=== PATIENT | female | born 1945 | race Caucasian/White ===

== ENCOUNTER → 2017-04-28 | Outpatient (CLI) | payer MEDICARE ==
[2017-04-28 11:54] LABS: Basophils % (A) 1 %; CH 28.1; CHCM 33.5; Eosinophils # (A) 0.3 k/uL (0-0.7); Eosinophils % (A) 4 %; HCT 37.7 % (34.0-46.0); HDW 3.57; HGB 12.7 gm/dL (11.4-16.0); Luc # (Auto) 0.14; Luc % (Auto) 2; Lymphocytes # (A) 2.3 k/uL (1.0-4.8); Lymphocytes % (A) 34 %; MCH 28.5 pg (25.0-35.0); MCHC 33.7 g/dL (31.0-37.0); MCV 84.5 fL (80.0-100.0); Mean Platelet Volume 7.5; Monocytes # (A) 0.4 k/uL (0-1.0); Monocytes % (A) 6 %; Neutrophils # (A) 3.6 k/uL (1.3-7.7); Neutrophils % (A) 54 %; Poikilocytosis Slight; RBC 4.46 m/uL (3.80-5.40); RDW 14.9 % (11.5-15.5); WBC 6.7 k/uL (3.8-10.6); WBC (Perox) 6.98
== END | disposition home or self-care (01) ==
LOC: LABPAT 11:21
PROVIDERS: ATTEND Obstetrics & Gynecology
DX: Z01.810 Encounter for preprocedural cardiovascular examination (principal); Z01.818 Encounter for other preprocedural examination; I10 Essential (primary) hypertension
CPT/HCPCS: 36415; 85025; 93005

== ENCOUNTER → 2017-05-05 | Day surgery (SDC) | payer MEDICARE ==
[2017-04-27 15:37] VITALS: BMI 44.2
[~2017-05-05] MED LIST: ACETAMINOPHEN IV (For NPO) 1,000 MG in EMPTY BAG 1 BAG IVPB ONE; ACETAMINOPHEN IV (For NPO) 1,000 MG/100 ML VIAL IVPB ONE; ALBUTEROL INHALER 60 PUFF/8 GM INHALER INHALATION ONE; HYDROmorphone 1 MG/ML 1 ML SYRINGE IVP PRN; LACTATED RINGERS 1,000 ML IV SCH; LIDOCAINE 1% 20 ML VIAL (10MG/ML) FOR IV START INTRADERMA ONE; METOCLOPRAMIDE 5 MG/ML 2 ML VIAL IVP PRN; MIDAZOLAM 2 MG/2 ML VIAL IV PRN; MIDAZOLAM 2 MG/2 ML VIAL ONE; ONDANSETRON 4 MG/2 ML VIAL IVP ONE; ONDANSETRON 4 MG/2 ML VIAL IVP PRN; PROPOFOL 10 MG/ML 20 ML VIAL IV ONE; Pre Op ABX Message 1 EACH MISC MISCELLANE ONE; ROCURONIUM BROMIDE 10 MG/ML 10 ML VIAL IV ONE; SIMETHICONE 80 MG CHEWABLE PO PRN; SUCCINYLCHOLINE CHLORIDE 100 MG/5 ML SYR IV ONE; diphenhydrAMINE 50 MG/ML 1 ML VIAL IVP PRN; fentaNYL (PF) 50 MCG/ML 2 ML AMP ONE
[2017-05-05 10:15] VITALS: RESP 16
[2017-05-05 10:38] LABS: Glucose,Whole Blood 128 mg/dL (75-99)
--- NOTE | 2017-05-05 11:23 | P.OP ---
Date of Procedure: 05/05/17 Preoperative Diagnosis: #1. Postmenopausal bleeding #2. Cervical stenosis Postoperative Diagnosis: Same plus #3. Probable endometrial polyp Procedure(s) Performed: #1. Diagnostic hysteroscopy #2. Dilation and curettage #3. Endometrial polypectomy Implants: Anesthesia: GETA Surgeon: Michael Calero Estimated Blood Loss (ml): 5 IV fluids (ml): 500 Urine output (ml): 30 Pathology: other (Endometrial contents/curettings) Condition: stable Disposition: PACU Indications for Procedure: Operative Findings: Preoperatively, the patient was noted on transvaginal pelvic ultrasound to have a significantly thickened endometrial stripe as well as what appeared to be an endometrial polyp present within the cavity. Under anesthesia, uterus was felt to be 4 weeks in size, midplane, mobile the, normal in shape. The adnexa were not appreciated bilaterally. The uterus sounded to 8 cm in size. Using the hysteroscope, the right tubal ostia was seen and the right portion of the endometrial cavity appeared to be atrophic in nature while the left portion of the endometrial cavity appeared to be occupied nearly entirely by what was thought to be a polypoid structure. The left tubal ostia was never seen. With curettage, there was a moderate amount of polypoid tissue removed from the left aspect of the uterus mostly along the anterior wall. Otherwise, the typical gritty uterine texture was encountered throughout. A polyp forceps delivered further polypoid appearing tissue. Overall, a moderate to significant amount of tissue was removed in the setting of a postmenopausal patient. Description of Procedure: The patient was prepped and draped in usual fashion after general endotracheal anesthesia was administered by the anesthesiologist. There was some difficulty in intubation as the patient has difficult anatomy. Once anesthesia was established, a weighted speculum was placed and the bladder drained of approximately 30 mL of clear nba urine. The anterior lip of the cervix was grasped with a single-tooth tenaculum and uterus sounded 8 cm as noted above. Serial dilation was carried out to admit the diagnostic hysteroscope. The uterus was distended using sorbitol with the findings as noted above. 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 Once hysteroscopy had been carried out and adequate, the scope was set aside and further dilation carried out to admit a medium sharp curette. Sharp curettage was carried out circumferentially and thoroughly from the fundus to the cervix onto a Telfa placed in the vagina. Once several passes of been made with the sharp curet, the curet was set aside and replaced with a polyp forceps. The polyp forceps continued to yield small to moderate amount of fluffy polypoid soft tissue which was placed with remainder of the specimen and sent for pathological diagnoses. Again, the typical gritty texture was felt throughout. There was minimal ongoing bleeding from the cervix. The tenaculum was released with no further ongoing bleeding. All instrumentation was then removed. Estimated blood loss for the case was 5 mL or less. There are no complications. All sponge, instrument, and needle counts were correct. The patient tolerated the procedure well and proceeded to the recovery room in stable condition.
[2017-05-05 11:38] VITALS: TEMP 97.4
[2017-05-05 13:00] VITALS: BP 134/62; PULSE 57
== END | disposition home or self-care (01) ==
LOC: OR 09:47
PROVIDERS: ATTEND Obstetrics & Gynecology
DX: C54.1 Malignant neoplasm of endometrium (principal); N85.01 Benign endometrial hyperplasia; N95.0 Postmenopausal bleeding; N88.2 Stricture and stenosis of cervix uteri; D64.9 Anemia, unspecified; J45.909 Unspecified asthma, uncomplicated; E11.9 Type 2 diabetes mellitus without complications; I10 Essential (primary) hypertension; E07.9 Disorder of thyroid, unspecified; I48.91 Unspecified atrial fibrillation; Z79.01 Long term (current) use of anticoagulants; Z79.1 Long term (current) use of non-steroidal anti-inflammatories (NSAID); Z79.82 Long term (current) use of aspirin; Z79.899 Other long term (current) drug therapy; Z88.6 Allergy status to analgesic agent; Z88.1 Allergy status to other antibiotic agents; Z88.0 Allergy status to penicillin; Z88.2 Allergy status to sulfonamides; Z88.8 Allergy status to other drugs, medicaments and biological substances; Z72.0 Tobacco use
CPT/HCPCS: 58558; 88305; 88342; 88341; J2250; J2405; J3010; J0131; J0330; J2704

== ENCOUNTER 2017-06-04 20:21 | Emergency (ER) | payer MEDICARE ==
[2017-06-04 20:54] LABS: Basophils % (A) 0 %; CH 28.4; CHCM 33.6; Eosinophils % (A) 0 %; HCT 22.1 % (34.0-46.0); Luc % (Auto) 1; Lymphocytes # (A) 1.3 k/uL (1.0-4.8); Lymphocytes % (A) 9 %; MCH 28.7 pg (25.0-35.0); MCHC 33.8 g/dL (31.0-37.0); MCV 85.1 fL (80.0-100.0); Mean Platelet Volume 7.5; Monocytes # (A) 0.8 k/uL (0-1.0); Monocytes % (A) 5 %; Neutrophils # (A) 13.3 k/uL (1.3-7.7); Neutrophils % (A) 86 %; Poikilocytosis Slight; RDW 15.8 % (11.5-15.5); WBC 15.6 k/uL (3.8-10.6); WBC (Perox) 15.92
[2017-06-04 20:59] LABS: HGB 7.5 gm/dL (11.4-16.0)
[2017-06-04 21:00] VITALS: RESP 18
[2017-06-04 21:05] LABS: ALT 38 U/L (9-52); AST 18 U/L (14-36); Alkaline Phosphatase 45 U/L (38-126); Amylase <30 U/L (30-110); Anion Gap 10 mmol/L; Blood Urea Nitrogen 16 mg/dL (7-17); Carbon Dioxide 20 mmol/L (22-30); Chloride 106 mmol/L (98-107); Glucose 237 mg/dL (74-99); Non-African American GFR(MDRD) 34 (>60 ml/min/1.73 sqM); Sodium 136 mmol/L (137-145); Total Bilirubin 0.2 mg/dL (0.2-1.3); Total Protein 4.7 g/dL (6.3-8.2)
[2017-06-04 21:19] LABS: INR 1.3 (<1.2); Prothrombin Time 13.1 sec (9.0-12.0)
--- NOTE | 2017-06-04 21:19 | XR ---
EXAMINATION TYPE: XR KUB DATE OF EXAM: 06/04/2017 COMPARISON: NONE HISTORY: Abdominal pain TECHNIQUE: 3 views FINDINGS: I see no sign of intestinal obstruction or pneumoperitoneum. Fecal pattern is normal. There are spondylotic changes in the lumbar spine. There are no pathologic calcifications over the kidneys . There is extensive abnormal mixed density in the subcutaneous region around the right and left abdome n extending to the pelvis consistent with extensive subcutaneous emphysema. IMPRESSION: Extensive subcutaneous emphysema that should be correlated with physical exam. No sign of pneumoperitoneum.
[2017-06-04] MEDS ORDERED: IOHEXOL 350 MG/ML 25 ML BOTTLE (ORAL USE) PO PRN (21:21)
[2017-06-04] MEDS ORDERED: RX INFO: IV CONTRAST WAS GIVEN 1 EACH MISC MISCELLANE PRN (21:21)
[2017-06-04] MEDS ORDERED: CEFEPIME 2 GM in SODIUM CHLORIDE 0.9% 50 ML IVPB STA (21:24)
[2017-06-04] MEDS ORDERED: SODIUM CHLORIDE 0.9% 1,000 ML IV ONE ×2 (21:25→21:57)
--- NOTE | 2017-06-04 21:33 | ED ---
Abdominal Pain HPI - General Chief Complaint: Abdominal Pain Stated Complaint: abd pain Time Seen by Provider: 06/04/17 20:40 Source: EMS Mode of arrival: EMS Limitations: no limitations - History of Present Illness Initial Comments: This patient is a 72-year-old woman who presents today because she is not feeling well. The patient relates that on Thursday she had a laparoscopic hysterectomy due to having uterine cancer. This was performed at [facility] and she was discharged yesterday. She states that since going home she has began developing abdominal pain. She states that initially it was across the lower abdomen mainly when she would get up to use the bathroom. She states that over the course of today she has been mainly having pain in the right upper quadrant area. She is not able to characterize it well stating that mainly is sharp. The pain is worse with movement slightly better lying still. She states that she did have a bowel movement earlier today but she has not had any urination today. She also is feeling extremely weak and she states was no longer able to get up to use the bathroom at home. Patient has also been feeling hot and cold though has not documented a fever. She did have an episode of vomiting. MD Complaint: abdominal pain Onset/Timin -: days(s) Location: RUQ Radiation: none Migration to: no migration Severity: moderate Quality: aching Consistency: constant Improves With: nothing Worsens With: nothing Associated Symptoms: nausea, vomiting - Related Data Home Medications Medication Instructions Recorded Confirmed ALPRAZolam [Xanax] 0.25 mg PO HS PRN 06/19/15 06/04/17 Loratadine [Claritin] 10 mg PO DAILY 06/19/15 06/04/17 Losartan [Cozaar] 50 mg PO DAILY 06/19/15 06/04/17 Montelukast [Singulair] 10 mg PO HS 06/19/15 06/04/17 Oxybutynin Chloride [Ditropan] 2.5 mg PO BID 06/19/15 06/04/17 Pravastatin Sodium [Pravachol] 40 mg PO PC-SUPPER 06/19/15 06/04/17 metroNIDAZOLE 1% GEL [Metrogel 1%] 1 applic TOPICAL QAM 06/19/15 06/04/17 Warfarin [Coumadin] 5 mg PO DAILY 04/29/16 06/04/17 Fluticasone Propionate [Flovent 1 puff INHALATION RT-BID PRN 04/27/17 06/04/17 Hfa 110mcg] Albuterol Inhaler [Ventolin Hfa 1 - 2 puff INHALATION RT-QID PRN 06/04/17 Inhaler] Atenolol [Tenormin] 25 mg PO HS 06/04/17 06/04/17 Enoxaparin [Lovenox] 100 mg SQ Q12H 06/04/17 06/04/17 Levothyroxine Sodium [Synthroid] 100 mcg PO DAILY 06/04/17 06/04/17 [place]-3 Fatty Acids/Fish Oil [Fish 1 cap PO DAILY 06/04/17 06/04/17 Oil 1,000 mg Softgel] Psyllium Husk 100% [Metamucil 6 gm PO DAILY 06/04/17 06/04/17 Packet] Previous Rx's Medication Instructions Recorded Aspirin 81 mg PO DAILY chew 06/20/15 Allergies Allergy/AdvReac Type Severity Reaction Status Date / Time adhesive Allergy Rash/Hives Verified 06/04/17 20:48 budesonide [From Symbicort] Allergy Rash/Hives Verified 06/04/17 20:48 formoterol fumarate Allergy Rash/Hives Verified 06/04/17 20:48 [From Symbicort] naproxen sodium [From Aleve] Allergy Rash/Hives Verified 06/04/17 20:48 niacin Allergy Rash/Hives Verified 06/04/17 20:48 Penicillins Allergy Rash/Hives Verified 06/04/17 20:48 prednisone Allergy Rash/Hives Verified 06/04/17 20:48 Sulfa (Sulfonamide Allergy Rash/Hives Verified 06/04/17 20:48 Antibiotics) codeine AdvReac Abdominal Verified 06/04/17 20:48 Pain levofloxacin [From Levaquin] AdvReac Chest Pain Verified 06/04/17 20:48 moxifloxacin HCl AdvReac Rapid Verified 06/04/17 20:48 [From Avelox] Heart Rate NEOCIN AdvReac Rapid Uncoded 06/04/17 20:48 Heart Rate Review of Systems ROS Statement: Those systems with pertinent positive or pertinent negative responses have been documented in the HPI. ROS Other: All systems not noted in ROS Statement are negative. Constitutional: Reports: chills Respiratory: Denies: cough, dyspnea Cardiovascular: Denies: chest pain, edema, syncope Gastrointestinal: Reports: abdominal pain, vomiting. Denies: diarrhea, constipation, melena, hematochezia Genitourinary: Reports: discharge (She did have some bloody vaginal discharge earlier), other (Decreased urination). Denies: dysuria, frequency Musculoskeletal: Denies: back pain Skin: Denies: rash Neurological: Reports: weakness (Generalized). Denies: headache, numbness, paresthesias Hematological/Lymphatic: Denies: easy bleeding Past Medical History Past Medical History: Asthma, Diabetes Mellitus, Hypertension Additional Past Medical History / Comment(s): diet controlled diabetic, hypothyroidism, arthiritis/bursitis L shoulder, arthititis in back, L knee torn meniscus, hx kidney stone, rosacea, vaginal spotting History of Any Multi-Drug Resistant Organisms: None Reported Past Surgical History: Cholecystectomy, Heart Catheterization, Hysterectomy, Tonsillectomy Additional Past Surgical History / Comment(s): R sided kidney stone surgery, cervical surgery-cone, back pain procedure Past Anesthesia/Blood Transfusion Reactions: No Reported Reaction Additional Past Anesthesia/Blood Transfusion Reaction / Comment(s): Pt has never recieved blood. Past Psychological History: Anxiety Smoking Status: Never smoker Past Alcohol Use History: None Reported Past Drug Use History: None Reported - Past Family History Father Family Medical History: Coronary Artery Disease (CAD), CVA/TIA, Hypertension Additional Family Medical History / Comment(s): Father had CABG. He at age 86yrs Mother Family Medical History: Coronary Artery Disease (CAD), Diabetes Mellitus, Hypertension Additional Family Medical History / Comment(s): Mother at age 69yrs. General Exam Limitations: no limitations General appearance: alert, in distress, obese Head exam: Present: atraumatic, normocephalic Eye exam: Present: normal appearance, other. Absent: scleral icterus, conjunctival injection ENT exam: Present: mucous membranes dry, other Neck exam: Present: normal inspection, full ROM (Pallor) Respiratory exam: Present: normal lung sounds bilaterally. Absent: respiratory distress, wheezes, rales, rhonchi, stridor Cardiovascular Exam: Present: regular rate, normal rhythm, normal heart sounds. Absent: systolic murmur, diastolic murmur, rubs, gallop GI/Abdominal exam: Present: soft, distended, tenderness (There is mild diffuse tenderness without rebound or guarding), other (Patient's laparoscopy incisions are all intact. They are closed with skin adhesive. There is no abnormal erythema or discharge.). Absent: guarding, rebound, rigid, mass, pulsatile mass , hernia Extremities exam: Present: normal inspection, normal capillary refill. Absent: pedal edema, calf tenderness Skin exam: Present: warm, dry, intact, pallor. Absent: rash, cyanosis, diaphoretic, erythema, petechiae Course Vital Signs 06/04/17 06/04/17 06/04/17 20:26 20:59 22:25 Temperature 97.8 F 98.5 F Pulse Rate 84 76 84 Respiratory 20 18 18 Rate Blood Pressure 109/67 104/53 99/41 O2 Sat by Pulse 98 97 97 Oximetry Medical Decision Making - Medical Decision Making Patient is a 72-year-old woman who is now secondary postoperative following laparoscopic hysterectomy for uterine cancer. The patient presents with abdominal pain and appears to be septic. Computed tomography scan shows small amount of fluid in the pelvis possibly hematoma versus seroma. There is also moderate amount of subcutaneous emphysema. Fluid resuscitation started and patient started on IV antibiotics. Discussed disposition with the patient and she agrees with having transfer back to [facility] where she had her surgical procedure, should any complication arise. Case discussed with Dr. Forbes at [facility] who will accept the patient for transfer. - Lab Data Result diagrams: 06/04/17 20:26 06/04/17 20:26 Lab Results 06/04/17 06/04/17 06/04/17 Range/Units 20:26 20:26 20:26 WBC 15.6 H (3.8-10.6) k/uL RBC 2.60 L (3.80-5.40) m/uL Hgb 7.5 L D (11.4-16.0) gm/dL Hct 22.1 L (34.0-46.0) % MCV 85.1 (80.0-100.0) fL MCH 28.7 (25.0-35.0) pg MCHC 33.8 (31.0-37.0) g/dL RDW 15.8 H (11.5-15.5) % Plt Count 287 (150-450) k/uL Neutrophils % 86 % Lymphocytes % 9 % Monocytes % 5 % Eosinophils % 0 % Basophils % 0 % Neutrophils # 13.3 H (1.3-7.7) k/uL Lymphocytes # 1.3 (1.0-4.8) k/uL Monocytes # 0.8 (0-1.0) k/uL Eosinophils # 0.0 (0-0.7) k/uL Basophils # 0.0 (0-0.2) k/uL Poikilocytosis Slight PT (9.0-12.0) sec INR (<1.2) APTT (22.0-30.0) sec Sodium 136 L (137-145) mmol/L Potassium 4.0 (3.5-5.1) mmol/L Chloride 106 (98-107) mmol/L Carbon Dioxide 20 L (22-30) mmol/L Anion Gap 10 mmol/L BUN 16 (7-17) mg/dL Creatinine 1.50 H (0.52-1.04) mg/dL Est GFR (MDRD) Af Amer 41 (>60 ml/min/1.73 sqM) Est GFR (MDRD) Non-Af 34 (>60 ml/min/1.73 sqM) Glucose 237 H (74-99) mg/dL Plasma Lactic Acid Breezy 4.4 H* (0.7-2.0) mmol/L Calcium 8.0 L (8.4-10.2) mg/dL Total Bilirubin 0.2 (0.2-1.3) mg/dL AST 18 (14-36) U/L ALT 38 (9-52) U/L Alkaline Phosphatase 45 (38-126) U/L Total Protein 4.7 L (6.3-8.2) g/dL Albumin 2.5 L (3.5-5.0) g/dL Amylase <30 L (30-110) U/L Lipase 15 L (23-300) U/L Urine Color Urine Appearance (Clear) Urine pH (5.0-8.0) Ur Specific Garvin (1.001-1.035) Urine Protein (Negative) Urine Glucose (UA) (Negative) Urine Ketones (Negative) Urine Blood (Negative) Urine Nitrite (Negative) Urine Bilirubin (Negative) Urine Urobilinogen (<2.0) mg/dL Ur Leukocyte Esterase (Negative) Urine RBC (0-5) /hpf Urine WBC (0-5) /hpf Ur Squamous Epith Cells (0-4) /hpf Hyaline Casts (0-2) /lpf Urine Mucus (None) /hpf Blood Type Blood Type Recheck Antibody Screen Spec Expiration Date 06/04/17 06/04/17 06/04/17 Range/Units 20:26 20:26 22:24 WBC (3.8-10.6) k/uL RBC (3.80-5.40) m/uL Hgb (11.4-16.0) gm/dL Hct (34.0-46.0) % MCV (80.0-100.0) fL MCH (25.0-35.0) pg MCHC (31.0-37.0) g/dL RDW (11.5-15.5) % Plt Count (150-450) k/uL Neutrophils % % Lymphocytes % % Monocytes % % Eosinophils % % Basophils % % Neutrophils # (1.3-7.7) k/uL Lymphocytes # (1.0-4.8) k/uL Monocytes # (0-1.0) k/uL Eosinophils # (0-0.7) k/uL Basophils # (0-0.2) k/uL Poikilocytosis PT 13.1 H (9.0-12.0) sec INR 1.3 H (<1.2) APTT 27.0 (22.0-30.0) sec Sodium (137-145) mmol/L Potassium (3.5-5.1) mmol/L Chloride (98-107) mmol/L Carbon Dioxide (22-30) mmol/L Anion Gap mmol/L BUN (7-17) mg/dL Creatinine (0.52-1.04) mg/dL Est GFR (MDRD) Af Amer (>60 ml/min/1.73 sqM) Est GFR (MDRD) Non-Af (>60 ml/min/1.73 sqM) Glucose (74-99) mg/dL Plasma Lactic Acid Breezy (0.7-2.0) mmol/L Calcium (8.4-10.2) mg/dL Total Bilirubin (0.2-1.3) mg/dL AST (14-36) U/L ALT (9-52) U/L Alkaline Phosphatase (38-126) U/L Total Protein (6.3-8.2) g/dL Albumin (3.5-5.0) g/dL Amylase (30-110) U/L Lipase (23-300) U/L Urine Color Dark Brown Urine Appearance Turbid H (Clear) Urine pH 5.0 (5.0-8.0) Ur Specific Garvin 1.019 (1.001-1.035) Urine Protein 1+ H (Negative) Urine Glucose (UA) Trace H (Negative) Urine Ketones Trace H (Negative) Urine Blood Large H (Negative) Urine Nitrite Negative (Negative) Urine Bilirubin Negative (Negative) Urine Urobilinogen <2.0 (<2.0) mg/dL Ur Leukocyte Esterase Small H (Negative) Urine RBC >182 H (0-5) /hpf Urine WBC 30 H (0-5) /hpf Ur Squamous Epith Cells 5 H (0-4) /hpf Hyaline Casts 64 H (0-2) /lpf Urine Mucus Few H (None) /hpf Blood Type A Positive Blood Type Recheck A Pos Antibody Screen NEGATIVE Spec Expiration Date 06/07/2017 - 3520 Critical Care Time Critical Care Time: Yes (35 minutes) Disposition Clinical Impression: Abdominal pain, Sepsis, Subcutaneous emphysema, Acute renal failure, Hypotension, Leukocytosis Disposition: OTHER INSTITUTION NOT DEFINED Condition: Critical Referrals: David Larios MD [Primary Care Provider] - 1-2 days - Out of Hospital Transfer - Req. Specs Out of Hospital Transfer - Requested Specifics: Other Emergency Center
--- NOTE | 2017-06-04 22:41 | CT ---
EXAM: CT Abdomen and Pelvis Without Intravenous Contrast CLINICAL HISTORY: Reason: Abdominal pain. Hx of hysterectomy x2 days ago. TECHNIQUE: Axial computed tomography images of the abdomen and pelvis without intravenous contrast. CTDI is 39.30 mGy and DLP is 2338.30 mGy-cm. This CT exam was performed using one or more of the following dose reduction techniques: automated exposure control, adjustment of the mA and/or kV according to patient size, and/or use of iterative reconstruction technique. COMPARISON: None FINDINGS: Evaluation of solid organs somewhat limited without IV contrast. Liver: Punctate calcification in the liver may represent old granulomatous disease. Spleen: Punctate calcifications in the spleen may represent old granulomatous disease. Gallbladder: No stones or biliary dilatation. Pancreas: Fatty atrophy of the pancreas. No inflammation. No mass. Adrenal glands: No mass. Kidneys: Mild atrophy of the kidneys. No hydronephrosis or stone. Nonspecific mild bilateral perinephric stranding. Bowel: Normal appendix. Mild diverticulosis without evidence of diverticulitis. No bowel obstruction or inflammation. Urinary bladder: Prominence of the bladder wall. Small amount of gas within the bladder. Reproductive organs: Please see below. Status post hysterectomy. Muscles: No mass. Subcutaneous tissues: Large amount of extensive subcutaneous emphysema throughout the anterior and lateral abdominal wall as well as in the anterior and medial proximal thighs bilaterally. Small nodular densities in the subcutaneous fat of the anterior upper abdominal wall are nonspecific but may represent lymph nodes versus related to injections. Peritoneal space: Small amount of perihepatic and clif-splenic free fluid. Fluid also noted along the left paracolic gutter and in the lower abdomen and pelvis. Some of the fluid in the lower abdomen is hyperdense, suggestive of blood products. No intraperitoneal free air. Heterogeneous structure containing soft tissue density and fluid density in the region of the left adnexa measuring approximately 7.1 x 7.8 x 5.4 cm appears to be contiguous with a heterogeneous soft tissue and fluid density just superior to the bladder in the midline/left para midline pelvis which measures approximately 6.2 x 5.0 x 5.4 cm. These structures are nonspecific. Differential diagnosis includes complex ovarian lesions versus structures related to recent surgery such as hematoma/seroma. Superimposed infection cannot be excluded. Lymph nodes: No lymphadenopathy. Vessels: Mild atherosclerotic changes. No aneurysm. Bones: Degenerative changes of the spine. Diffuse idiopathic skeletal hyperostosis. No acute fracture or bony lesion. Lung bases: Trace right pleural effusion. Dependent and bibasilar atelectasis. IMPRESSION: 1. Small amount of perihepatic and clif-splenic free fluid. Fluid also noted along the left paracolic gutter and in the lower abdomen and pelvis. Some of the fluid in the lower abdomen is hyperdense, suggestive of blood products which likely related to recent surgery. No intraperitoneal free air. 2. Heterogeneous structure containing soft tissue density and fluid density in the region of the left adnexa measuring approximately 7.1 x 7. 8 x 5.4 cm appears to be contiguous with a heterogeneous soft tissue and fluid density just superior to the bladder in the midline/left para midline pelvis which measures approximately 6.2 x 5.0 x 5.4 cm. These structures are nonspecific. Differential diagnosis includes complex ovarian lesions versus structures related to recent surgery such as hematoma/seroma. Superimposed infection cannot be excluded. Further evaluation could be performed ultrasound or MRI if clinically indicated. Please correlate with surgical findings. 3. Large amount of extensive subcutaneous emphysema throughout the anterior and lateral abdominal wall as well as in the anterior and medial proximal thighs bilaterally. Small nodular densities in the subcutaneous fat of the anterior upper abdominal wall are nonspecific but may represent lymph nodes versus related to injections.
[2017-06-04 22:45] LABS: Appearance,Urine Turbid (Clear); Bilirubin,Urine Negative (Negative); Glucose,Urine (UA) Trace (Negative); Ketones,Urine Trace (Negative); Leukocyte Esterase,Urine Small (Negative); Mucus,Urine Few /hpf; Nitrite,Urine Negative (Negative); Particle Count 35968; Protein,Urine 1+ (Negative); RBC,Urine >182 /hpf (0-5); Specific Gravity,Urine 1.019 (1.001-1.035); Squamous Epithelial Cell,Urine 5 /hpf (0-4); UA Billing (MACRO vs. MICRO) MICRO; Urobilinogen,Urine <2.0 mg/dL (<2.0); WBC,Urine 30 /hpf (0-5)
[2017-06-04] MEDS ORDERED: SODIUM CHLORIDE 0.9% 2,000 ML IV STA (22:48)
[2017-06-04] MEDS ORDERED: HYDROmorphone 1 MG/ML 1 ML SYRINGE IVP STA (23:15)
[2017-06-04 23:17] VITALS: BP 103/49; PULSE 100; TEMP 98.2
== END 2017-06-04 23:40 | disposition other institution (70) ==
LOC: EC 20:21
DX: A41.9 Sepsis, unspecified organism (principal); T81.82XA Emphysema (subcutaneous) resulting from a procedure, initial encounter; N17.9 Acute kidney failure, unspecified; I95.9 Hypotension, unspecified; D72.829 Elevated white blood cell count, unspecified; I10 Essential (primary) hypertension; E03.9 Hypothyroidism, unspecified; F41.9 Anxiety disorder, unspecified; Z90.710 Acquired absence of both cervix and uterus; Z79.01 Long term (current) use of anticoagulants; Z79.899 Other long term (current) drug therapy; Z88.0 Allergy status to penicillin; Z88.1 Allergy status to other antibiotic agents; Z88.2 Allergy status to sulfonamides; Z88.5 Allergy status to narcotic agent; Z88.6 Allergy status to analgesic agent; Z88.8 Allergy status to other drugs, medicaments and biological substances; Z91.048 Other nonmedicinal substance allergy status
CPT/HCPCS: 36415; 86900; 86901; 80053; 82150; 83605; 83690; 85025; 85610; 85730; 86850; 81001; 87040; 74000; 74176; 99291; 96365; 96375; J0692; J1170

== ENCOUNTER 2017-10-09 06:57 | Day surgery (SDC) | payer MEDICARE, OTHER ==
[2017-10-07 09:59] VITALS: BMI 44.6
[~2017-10-09 06:57] MED LIST changes: -ACETAMINOPHEN IV (For NPO) 1,000 MG in EMPTY BAG 1 BAG IVPB ONE; -ACETAMINOPHEN IV (For NPO) 1,000 MG/100 ML VIAL IVPB ONE; -ALBUTEROL INHALER 60 PUFF/8 GM INHALER INHALATION ONE; -HYDROmorphone 1 MG/ML 1 ML SYRINGE IVP PRN; -LIDOCAINE 1% 20 ML VIAL (10MG/ML) FOR IV START INTRADERMA ONE; -METOCLOPRAMIDE 5 MG/ML 2 ML VIAL IVP PRN; -MIDAZOLAM 2 MG/2 ML VIAL IV PRN; -MIDAZOLAM 2 MG/2 ML VIAL ONE; -ONDANSETRON 4 MG/2 ML VIAL IVP ONE; -ONDANSETRON 4 MG/2 ML VIAL IVP PRN; -PROPOFOL 10 MG/ML 20 ML VIAL IV ONE; -Pre Op ABX Message 1 EACH MISC MISCELLANE ONE; -ROCURONIUM BROMIDE 10 MG/ML 10 ML VIAL IV ONE; -SIMETHICONE 80 MG CHEWABLE PO PRN; -SUCCINYLCHOLINE CHLORIDE 100 MG/5 ML SYR IV ONE; -diphenhydrAMINE 50 MG/ML 1 ML VIAL IVP PRN; -fentaNYL (PF) 50 MCG/ML 2 ML AMP ONE
[2017-10-09 07:21] VITALS: RESP 18; TEMP 97.8
[2017-10-09 07:24] LABS: Glucose,Whole Blood 135 mg/dL (75-99)
[2017-10-09] MEDS ORDERED: PROPOFOL 10 MG/ML 20 ML VIAL IV ONE (07:32)
--- NOTE | 2017-10-09 08:15 | P.PCN ---
Date of Procedure: 10/09/17 Procedure(s) Performed: BRIEF HISTORY: Patient is a 72-year-old pleasant white female, scheduled for an elective colonoscopy as a part of evaluation of prior history of colon polyps. Her last colonoscopy was 7 years ago. PROCEDURE PERFORMED: Colonoscopy with snare polypectomy. PREOPERATIVE DIAGNOSIS: history of colon polyps. IV sedation per Anesthesia. PROCEDURE: After informed consent was obtained, the patient, was brought into the endoscopy unit. IV sedation was administered by Anesthesia under continuous monitoring. Digital rectal examination was normal. Initially the Olympus CF- 160 flexible video colonoscope was then inserted in the rectum, gradually advanced into the cecum without any difficulty. Careful examination was performed as the scope was gradually being withdrawn. Ileocecal valve and the appendiceal orifice were visualized and appeared normal. Prep was excellent.THERE WAS A 1.5 CM POLYP IN THE PROXIMAL CECUM THAT WAS REMOVED BY SNARE POLYPECTOMY. There was a 5 mm polyp in ascending colon that was also removed by snare polypectomy. The rest of the mucosa of the cecum, ascending colon, transverse colon, appeared normal. In the descending colon there was a 5 diminutive polyp removed by snare polypectomy. There are scattered sigmoidal diverticulosis seen. Rest of the descending colon, sigmoid colon, and rectum appeared normal. Retroflexion was performed in the rectum and no lesions were seen. The patient tolerated the procedure well. IMPRESSION: 1.5 cm broad-based cecal polyp status post polypectomy 5 mm ascending colon polyp status post polypectomy 5 mm descending colon polyp status post polypectomy Scattered sigmoid diverticulosis RECOMMENDATIONS: Findings of this examination were discussed with the patient as well as a family. She was advised to follow with the biopsy results. If the biopsy shows a tubular adenoma she can have a repeat colonoscopy in 3 years..
[2017-10-09 08:26] VITALS: BP 122/62; PULSE 53
== END 2017-10-09 09:04 | disposition home or self-care (01) ==
LOC: ORWHC2ENDO 06:57
PROVIDERS: ATTEND Internal Medicine Gastroenterology
DX: Z12.11 Encounter for screening for malignant neoplasm of colon (principal); D12.0 Benign neoplasm of cecum; D12.4 Benign neoplasm of descending colon; K63.5 Polyp of colon; K57.30 Diverticulosis of large intestine without perforation or abscess without bleeding; Z86.010 Personal history of colon polyps; I10 Essential (primary) hypertension; I48.91 Unspecified atrial fibrillation; Z79.01 Long term (current) use of anticoagulants; E11.9 Type 2 diabetes mellitus without complications; E07.9 Disorder of thyroid, unspecified; Z87.442 Personal history of urinary calculi; M19.90 Unspecified osteoarthritis, unspecified site; Z85.42 Personal history of malignant neoplasm of other parts of uterus; Z79.02 Long term (current) use of antithrombotics/antiplatelets; Z79.51 Long term (current) use of inhaled steroids; Z79.899 Other long term (current) drug therapy; Z88.6 Allergy status to analgesic agent; Z88.1 Allergy status to other antibiotic agents; Z88.5 Allergy status to narcotic agent; Z88.0 Allergy status to penicillin; Z88.2 Allergy status to sulfonamides; Z88.8 Allergy status to other drugs, medicaments and biological substances; Z91.09 Other allergy status, other than to drugs and biological substances
CPT/HCPCS: 88305; 45385; J2704

== ENCOUNTER 2017-12-14 23:23 | Emergency (ER) | payer MEDICARE ==
[2017-12-14 23:30] VITALS: RESP 16; TEMP 97.9
--- NOTE | 2017-12-15 00:10 | ED ---
Overdose HPI - General Chief Complaint: Overdose Stated Complaint: Accidental Overdose Time Seen by Provider: 12/14/17 23:37 Source: patient, EMS Mode of arrival: EMS Limitations: no limitations - History of Present Illness Initial Comments: This patient is 72-year-old woman who presents with concern that she took extra dose of sotalol. The patient states that she had taken her sotalol 80 mg at about 9 PM as she usually does. She states that she then took the dose that was for tomorrow and her pillbox out and accidentally had taken this with some of the other medicines she takes at night. She was concerned that this overdose might be dangerous and presents here to be evaluated. The patient is denying symptoms. She is not having palpitations, lightheadedness, chest pain, dyspnea, diaphoresis. MD Complaint: accidental overdose -: hour(s) - Related Data Home Medications Medication Instructions Recorded Confirmed ALPRAZolam [Xanax] 0.25 mg PO DAILY PRN 06/19/15 12/14/17 Loratadine [Claritin] 10 mg PO DAILY 06/19/15 12/14/17 Losartan [Cozaar] 50 mg PO DAILY 06/19/15 12/14/17 Montelukast [Singulair] 10 mg PO HS 06/19/15 12/14/17 Oxybutynin Chloride [Ditropan] 2.5 mg PO BID 06/19/15 12/14/17 Pravastatin Sodium [Pravachol] 40 mg PO PC-SUPPER 06/19/15 12/14/17 Warfarin [Coumadin] 5 mg PO MOWEFR 04/29/16 12/14/17 Levothyroxine Sodium [Synthroid] 100 mcg PO DAILY 06/04/17 12/14/17 Index-3 Fatty Acids/Fish Oil [Fish 2 cap PO DAILY 06/04/17 12/14/17 Oil 1,000 mg Softgel] Acetaminophen [Tylenol] 500 mg PO Q4-6H PRN 10/07/17 12/14/17 Fluticasone Nasal [place] [Flonase 2 spr EA NOSTRIL BID 10/07/17 12/14/17 Nasal [place]] Iron 45 Mg 1 tab PO DAILY 10/07/17 12/14/17 Sotalol [Betapace] 80 mg PO BID 10/07/17 12/14/17 Triamterene-Hctz 37.5-25Mg 1 cap PO DAILY 10/07/17 12/14/17 [Dyazide 37.5-25 Capsule] Albuterol Sulfate [Proventil Hfa] 2 puff INHALATION RT-BID PRN 12/14/17 12/14/17 Calcium Carb/Magnesium Hydrox 2 tab PO DAILY 12/14/17 12/14/17 [Rolaids Chewable Tablet] Fluticasone Nasal [place] [Flonase 2 spr EA NOSTRIL HS 12/14/17 12/14/17 Nasal [place]] Warfarin [Coumadin] 2.5 mg PO SUTUTHSA 12/14/17 12/14/17 Allergies Allergy/AdvReac Type Severity Reaction Status Date / Time adhesive Allergy Rash/Hives Verified 12/14/17 23:43 budesonide [From Symbicort] Allergy Rash/Hives Verified 12/14/17 23:43 formoterol fumarate Allergy Rash/Hives Verified 12/14/17 23:43 [From Symbicort] naproxen sodium [From Aleve] Allergy Rash/Hives Verified 12/14/17 23:43 niacin Allergy Rapid Verified 12/14/17 23:43 Heart Rate Penicillins Allergy Rash/Hives Verified 12/14/17 23:43 prednisone Allergy Rash/Hives Verified 12/14/17 23:43 Sulfa (Sulfonamide Allergy Rash/Hives Verified 12/14/17 23:43 Antibiotics) codeine AdvReac Abdominal Verified 12/14/17 23:43 Pain levofloxacin [From Levaquin] AdvReac Chest Pain Verified 12/14/17 23:43 moxifloxacin HCl AdvReac Rapid Verified 12/14/17 23:43 [From Avelox] Heart Rate Review of Systems ROS Statement: Those systems with pertinent positive or pertinent negative responses have been documented in the HPI. ROS Other: All systems not noted in ROS Statement are negative. Constitutional: Denies: fever, chills, weakness Eyes: Denies: vision change Respiratory: Denies: cough, dyspnea Cardiovascular: Denies: chest pain, palpitations Gastrointestinal: Denies: abdominal pain, vomiting, constipation Genitourinary: Denies: dysuria Skin: Denies: rash Neurological: Denies: headache, weakness, numbness Past Medical History Past Medical History: Atrial Fibrillation, Asthma, Cancer, Diabetes Mellitus, Hypertension, Osteoarthritis (OA), Thyroid Disorder Additional Past Medical History / Comment(s): states [id number] controlled, hypothyroidism, arthritis/bursitis L shoulder, arthititis in back & hips, L knee torn meniscus, hx kidney stone, rosacea., chronic sinusitis., uterine cancer with radiation tx (may 2017). History of Any Multi-Drug Resistant Organisms: None Reported Past Surgical History: Cholecystectomy, Heart Catheterization, Hysterectomy, Tonsillectomy Additional Past Surgical History / Comment(s): R sided kidney stone surgery, cervical surgery-cone, back pain procedure Past Anesthesia/Blood Transfusion Reactions: Previous Problems w/ Anesthesia Additional Past Anesthesia/Blood Transfusion Reaction / Comment(s): - DIFFICULT INTUBATION- STATES SHE WAS TOLD SHE NEEDS A GLIDESCOPE. RECEIVED 4 UNITS BLOOD AFTER HYSTERECTOMY . Past Psychological History: Anxiety Smoking Status: Never smoker Past Alcohol Use History: None Reported Past Drug Use History: None Reported - Past Family History Sister(s) Family Medical History: Cancer Additional Family Medical History / Comment(s): pancreatic cancer Brother(s) Family Medical History: Cancer Additional Family Medical History / Comment(s): brain cancer Father Family Medical History: Coronary Artery Disease (CAD), CVA/TIA, Hypertension Additional Family Medical History / Comment(s): Father had CABG. He at age 86yrs Mother Family Medical History: Coronary Artery Disease (CAD), Diabetes Mellitus, Hypertension Additional Family Medical History / Comment(s): Mother at age 69yrs. General Exam Limitations: no limitations General appearance: alert, in no apparent distress Head exam: Present: atraumatic, normocephalic Eye exam: Present: normal appearance. Absent: scleral icterus, conjunctival injection ENT exam: Present: mucous membranes dry Neck exam: Present: normal inspection Respiratory exam: Present: normal lung sounds bilaterally. Absent: respiratory distress, wheezes, rales, rhonchi, stridor, chest wall tenderness, accessory muscle use Cardiovascular Exam: Present: regular rate, normal rhythm, normal heart sounds. Absent: systolic murmur, diastolic murmur, rubs, gallop GI/Abdominal exam: Present: soft. Absent: distended, tenderness, guarding, rebound, mass Extremities exam: Present: normal inspection, normal capillary refill Back exam: Absent: CVA tenderness (R), CVA tenderness (L) Neurological exam: Present: alert Skin exam: Present: warm, dry, intact, normal color. Absent: rash Course Vital Signs 12/14/17 12/15/17 12/15/17 23:24 00:31 01:24 Temperature 97.9 F Pulse Rate 58 L 55 L Respiratory 16 16 Rate Blood Pressure 153/68 131/54 Blood Pressure 143/57 [Sitting] Blood Pressure 126/60 [Standing] Blood Pressure 169/63 [Supine] O2 Sat by Pulse 97 96 Oximetry Medical Decision Making - EKG Data -: EKG Interpreted by [facility] EKG shows normal: sinus rhythm, axis, intervals (NormalNormal), QRS complexes ( Normal), ST-T waves (Normal) Rate: bradycardia (Rate approximate 46 bpm) Disposition Clinical Impression: Accidental drug ingestion Disposition: HOME SELF-CARE Condition: Good Instructions: Adult Overdose (ED) Referrals: David Larios MD [Primary Care Provider] - 1-2 days
[2017-12-15 00:32] VITALS: PULSE 55
[2017-12-15 01:25] VITALS: BP 169/63
== END 2017-12-15 01:29 | disposition home or self-care (01) ==
LOC: EC 23:23
DX: T44.7X1A Poisoning by beta-adrenoreceptor antagonists, accidental (unintentional), initial encounter (principal); I48.91 Unspecified atrial fibrillation; J45.909 Unspecified asthma, uncomplicated; I10 Essential (primary) hypertension; E03.9 Hypothyroidism, unspecified; Z85.42 Personal history of malignant neoplasm of other parts of uterus; Z95.5 Presence of coronary angioplasty implant and graft; Z79.01 Long term (current) use of anticoagulants; Z79.51 Long term (current) use of inhaled steroids; Z79.899 Other long term (current) drug therapy; Z91.048 Other nonmedicinal substance allergy status; Z88.8 Allergy status to other drugs, medicaments and biological substances; Z88.6 Allergy status to analgesic agent; Z88.0 Allergy status to penicillin; Z88.2 Allergy status to sulfonamides; Z88.5 Allergy status to narcotic agent; Z88.1 Allergy status to other antibiotic agents
CPT/HCPCS: 93005; 99284

== ENCOUNTER 2021-04-19 06:09 | Day surgery (SDC) | payer MEDICARE ==
[2021-04-16 15:24] VITALS: BMI 42.7
[~2021-04-19 06:09] MED LIST changes: +LIDOCAINE 1% (10MG/ML) FOR IV START INTRADERMA PRN
[2021-04-19] MEDS ORDERED: LIDOCAINE 1% (10MG/ML) FOR IV START INTRADERMA ONE (07:00)
[2021-04-19 07:04] LABS: Glucose,Whole Blood 167 mg/dL (75-99)
[2021-04-19] MEDS ORDERED: LIDOCAINE 1% INJ 10MG/ML (20 ML MDV) ONE (07:05)
[2021-04-19] MEDS ORDERED: PROPOFOL 10 MG/ML 20 ML VIAL IV ONE (07:05)
[2021-04-19 07:06] VITALS: TEMP 97.3
--- NOTE | 2021-04-19 07:26 | P.PCN ---
Date of Procedure: 04/19/21 Procedure(s) Performed: Brief history: Patient is a pleasant 76-year-old white female scheduled for an elective upper endoscopy as well as colonoscopy as a part of evaluation of dysphagia and history of colon polyps Procedure performed: Esophagogastroduodenoscopy with biopsy Colonoscopy and biopsy Preoperative diagnosis: Anesthesia: MAC Procedure: After informed consent was obtained from the patient was brought into the endoscopy unit and IV sedation was administered by anesthesia under continuous monitoring. Initially upper endoscopy was done. The Olympus GF 160 video endoscope was inserted inserted into the mouth and esophagus intubated without any difficulty and was gradually advanced into the stomach and duodenum and carefully examined. The bulb and second part of the duodenum appeared normal. The scope was then withdrawn into the stomach adequately insufflated with air and upon careful examination the antrum had mild gastritis and biopsies were done from this area. Thed body, cardia and fundus appeared normal. The scope was then withdrawn into the esophagus. The GE junction was located at 40 cm to the incisors. It appeared regular with no erythema erosions or ulcerations. Rest of the esophagus appeared normal. Patient tolerated the procedure well. At this time the patient continued to remain sedation. Initial digital rectal examination was normal. Olympus CF 160 video colonoscope was then inserted into the rectum and gradually advanced to the cecum without any difficulty. Careful examination was performed as the scope was gradually being withdrawn. The prep was excellent. The cecum, appeared normal. In the ascending colon there was a 2 mm polyp that was removed by cold biopsy. Rest of the ascending colon, transverse colon, descending colon, sigmoid colon and rectum appeared normal. Retroflexion was performed in the rectum and no lesions were noted. Patient tolerated the procedure well. Impression: 1. Upper endoscopy revealed mild gastritis but no evidence of esophagitis or esophageal stricture 2. Cplnoscopy revealed 2 mm ascending colon polyp status post cold biopsy Recommendations: Findings of this examination were discussed with the patient as well as her family. She was advised to follow with the biopsy results. She will continue with her medications.
[2021-04-19 07:30] VITALS: RESP 16
[2021-04-19 07:45] VITALS: BP 113/72; PULSE 60
== END 2021-04-19 08:26 | disposition home or self-care (01) ==
LOC: ORWHC2ENDO 06:09
PROVIDERS: ATTEND Internal Medicine Gastroenterology
DX: Z12.11 Encounter for screening for malignant neoplasm of colon (principal); K63.5 Polyp of colon; K29.50 Unspecified chronic gastritis without bleeding; Z79.890 Hormone replacement therapy; Z79.899 Other long term (current) drug therapy; I48.91 Unspecified atrial fibrillation; I10 Essential (primary) hypertension; J45.909 Unspecified asthma, uncomplicated; E11.9 Type 2 diabetes mellitus without complications; E07.9 Disorder of thyroid, unspecified; Z87.442 Personal history of urinary calculi; F41.9 Anxiety disorder, unspecified; K21.9 Gastro-esophageal reflux disease without esophagitis; Z79.01 Long term (current) use of anticoagulants; Z79.1 Long term (current) use of non-steroidal anti-inflammatories (NSAID); Z88.5 Allergy status to narcotic agent; Z88.0 Allergy status to penicillin; Z88.2 Allergy status to sulfonamides; Z88.8 Allergy status to other drugs, medicaments and biological substances; Z91.09 Other allergy status, other than to drugs and biological substances
CPT/HCPCS: 88305; 88342; 45380; 43239; J2001; J2704

== ENCOUNTER 2021-04-19 10:30 | Inpatient (IN) | payer MEDICARE ==
--- NOTE | 2021-04-19 10:47 | ED ---
GI Bleed HPI - General Chief complaint: GI Bleed Stated complaint: GI bleed Source: EMS Mode of arrival: EMS Limitations: no limitations - History of Present Illness Initial comments: Patient is a 76-year-old female past medical history of A. fib, diabetes who presents emergency department for GI bleeding. Patient had an elective colonoscopy and EGD this morning with Dr. Campos at 7 AM. She was discharged home from the hospital and states that on the way home she began having a sensation that she was passing gas. She got home and when she went into the bathroom she had saturated the pad that she was wearing. There is a significant amount of clotted bright red blood. Patient did have a 2 mm polyp that was removed. She is normally on Coumadin for her A. fib. She was taken off of that one week ago and transitioned to Lovenox. States her last dose of Lovenox was Thursday at 7 PM. She denies any chest pain or shortness of breath. No abdominal pain. EMS was called to the scene with this, she had reported low blood pressure. She was given fluid with improvement in her pressures. Patient denies nausea, vomiting or hematemesis. No fevers or chills. No other alleviating, precipitating or modifying factors - Related Data Home Medications Medication Instructions Recorded Confirmed ALPRAZolam [Xanax] 0.25 mg PO BID PRN 06/19/15 04/19/21 Loratadine [Claritin] 10 mg PO DAILY 06/19/15 04/19/21 Losartan [Cozaar] 50 mg PO DAILY 06/19/15 04/19/21 Montelukast [Singulair] 10 mg PO HS 06/19/15 04/19/21 Oxybutynin Chloride [Ditropan] 2.5 mg PO HS 06/19/15 04/19/21 Pravastatin Sodium [Pravachol] 40 mg PO PC-SUPPER 06/19/15 04/19/21 Warfarin [Coumadin] 5 mg PO SUTUTHSA@1800 04/29/16 04/19/21 Levothyroxine Sodium [Synthroid] 100 mcg PO DAILY 06/04/17 04/19/21 [place]-3 Fatty Acids/Fish Oil [Fish 2 cap PO DAILY 06/04/17 04/19/21 Oil 1,000 mg Softgel] Acetaminophen [Tylenol] 1,000 mg PO Q6H PRN 10/07/17 04/19/21 Sotalol [Betapace] 80 mg PO BID 10/07/17 04/19/21 Triamterene-Hctz 37.5-25Mg 1 cap PO DAILY 10/07/17 04/19/21 [Dyazide 37.5-25 Capsule] Albuterol Sulfate [Proventil Hfa] 2 puff INHALATION RT-BID PRN 12/14/17 04/19/21 Fluticasone Nasal [place] [Flonase 1 - 2 spr EA NOSTRIL HS PRN 12/14/17 04/19/21 Nasal [place]] Warfarin [Coumadin] 2.5 mg PO MOWEFR@1800 12/14/17 04/19/21 Albuterol Nebulized [Ventolin 2.5 mg INHALATION RT-BID PRN 04/19/21 04/19/21 Nebulized] Calcium/Magnesium/Zinc 3 tab PO DAILY 04/19/21 04/19/21 [Puqpxns-Llamrdhim-Dibs Tablet] Fluticasone Propionate [Flovent 2 puff INHALATION RT-BID 04/19/21 04/19/21 Hfa 220 mcg] Oxybutynin Chloride [Ditropan] 5 mg PO DAILY 04/19/21 04/19/21 Slow Fe 45mg 1 tab PO DAILY 04/19/21 04/19/21 metroNIDAZOLE 1% GEL [Metrogel 1%] 1 applic TOPICAL DAILY 04/19/21 04/19/21 Allergies Allergy/AdvReac Type Severity Reaction Status Date / Time adhesive Allergy Rash/Hives Verified 04/19/21 12:17 budesonide [From Symbicort] Allergy Rash/Hives Verified 04/19/21 12:17 formoterol fumarate Allergy Rash/Hives Verified 04/19/21 12:17 [From Symbicort] naproxen sodium [From Aleve] Allergy Rash/Hives Verified 04/19/21 12:17 niacin Allergy Rapid Verified 04/19/21 12:17 Heart Rate Penicillins Allergy Rash/Hives Verified 04/19/21 12:17 prednisone Allergy Rash/Hives/Shortness Verified 04/19/21 12:17 of Breath Sulfa (Sulfonamide Allergy Rash/Hives Verified 04/19/21 12:17 Antibiotics) aspirin AdvReac Unknown Verified 04/19/21 12:17 codeine AdvReac Abdominal Verified 04/19/21 12:17 Pain levofloxacin [From Levaquin] AdvReac Chest Pain Verified 04/19/21 12:17 moxifloxacin HCl AdvReac Rapid Verified 04/19/21 12:17 [From Avelox] Heart Rate maxzide(takes Dyazide) AdvReac See Uncoded 04/19/21 12:17 Comments Review of Systems ROS Statement: Those systems with pertinent positive or pertinent negative responses have been documented in the HPI. ROS Other: All systems not noted in ROS Statement are negative. Past Medical History Past Medical History: Atrial Fibrillation, Asthma, Cancer, Diabetes Mellitus, Hypertension, Osteoarthritis (OA), Thyroid Disorder Additional Past Medical History / Comment(s): freq diarrhea,states [id number] controlled, hypothyroidism,rt knee pain, hx kidney stone, rosacea., chronic sinusitis., uterine cancer with radiation tx (may 2017). History of Any Multi-Drug Resistant Organisms: None Reported Past Surgical History: Cholecystectomy, Heart Catheterization, Hysterectomy, Tonsillectomy Additional Past Surgical History / Comment(s): R sided kidney stone surgery, cervical surgery-cone, back pain procedure Past Anesthesia/Blood Transfusion Reactions: Previous Problems w/ Anesthesia Additional Past Anesthesia/Blood Transfusion Reaction / Comment(s): - DIFFICULT INTUBATION- STATES SHE WAS TOLD SHE NEEDS A GLIDESCOPE.,no problems with prior blood transfusions in 2017 Past Psychological History: Anxiety Smoking Status: Never smoker Past Alcohol Use History: None Reported Past Drug Use History: None Reported - Past Family History Sister(s) Family Medical History: Cancer Additional Family Medical History / Comment(s): pancreatic cancer Brother(s) Family Medical History: Cancer Additional Family Medical History / Comment(s): brain cancer Father Family Medical History: Coronary Artery Disease (CAD), CVA/TIA, Hypertension Additional Family Medical History / Comment(s): Father had CABG. He at age 86yrs Mother Family Medical History: Coronary Artery Disease (CAD), Diabetes Mellitus, Hypertension Additional Family Medical History / Comment(s): Mother at age 69yrs. General Exam Limitations: no limitations General appearance: alert, in no apparent distress Head exam: Present: atraumatic, normocephalic, normal inspection Eye exam: Present: normal appearance, PERRL, EOMI. Absent: scleral icterus, conjunctival injection, periorbital swelling ENT exam: Present: normal exam, mucous membranes moist Neck exam: Present: normal inspection. Absent: tenderness, meningismus, lymphadenopathy Respiratory exam: Present: normal lung sounds bilaterally. Absent: respiratory distress, wheezes, rales, rhonchi, stridor Cardiovascular Exam: Present: regular rate, normal rhythm, normal heart sounds. Absent: systolic murmur, diastolic murmur, rubs, gallop, clicks GI/Abdominal exam: Present: soft, normal bowel sounds. Absent: distended, tenderness, guarding, rebound, rigid Rectal exam: Present: bloody stool (copious with significant clots) Extremities exam: Present: normal inspection, full ROM, normal capillary refill. Absent: tenderness, pedal edema, joint swelling, calf tenderness Back exam: Present: normal inspection Neurological exam: Present: alert, oriented X3, CN II-XII intact Psychiatric exam: Present: normal affect, normal mood Skin exam: Present: warm, dry, intact, normal color. Absent: rash Course Vital Signs 04/19/21 04/19/21 04/19/21 10:31 10:55 11:30 Temperature 97.4 F L Pulse Rate 52 L 51 L 54 L Pulse Rate [ Pulse Oximetery ] Respiratory 18 18 18 Rate Blood Pressure 141/70 118/65 79/51 Blood Pressure [Right Arm] O2 Sat by Pulse 98 98 100 Oximetry 04/19/21 04/19/21 04/19/21 11:48 11:51 11:59 Temperature 96.8 F L Pulse Rate 48 L 50 L 52 L Pulse Rate [ Pulse Oximetery ] Respiratory 18 18 18 Rate Blood Pressure 96/46 101/52 117/54 Blood Pressure [Right Arm] O2 Sat by Pulse 100 100 100 Oximetry 04/19/21 04/19/21 04/19/21 12:09 12:39 13:09 Temperature 97.6 F 97.6 F Pulse Rate 52 L 57 L 56 L Pulse Rate [ Pulse Oximetery ] Respiratory 18 18 18 Rate Blood Pressure 109/50 100/43 121/52 Blood Pressure [Right Arm] O2 Sat by Pulse 100 97 97 Oximetry 04/19/21 04/19/21 04/19/21 14:00 14:19 14:30 Temperature 98.4 F 98.2 F Pulse Rate 55 L 57 L 60 Pulse Rate [ Pulse Oximetery ] Respiratory 18 18 18 Rate Blood Pressure 126/52 118/52 118/52 Blood Pressure [Right Arm] O2 Sat by Pulse 97 96 Oximetry 04/19/21 04/19/21 04/19/21 14:40 15:00 15:06 Temperature 98.3 F 97.6 F Pulse Rate 60 60 60 Pulse Rate [ Pulse Oximetery ] Respiratory 18 18 18 Rate Blood Pressure 117/63 120/53 127/61 Blood Pressure [Right Arm] O2 Sat by Pulse 98 97 96 Oximetry 04/19/21 04/19/21 04/19/21 15:15 15:35 15:57 Temperature 97.8 F 98.0 F 97.8 F Pulse Rate 58 L 68 56 L Pulse Rate [ Pulse Oximetery ] Respiratory 18 18 18 Rate Blood Pressure 122/60 140/60 132/57 Blood Pressure [Right Arm] O2 Sat by Pulse 95 96 96 Oximetry 04/19/21 04/19/21 04/19/21 16:00 17:00 17:39 Temperature 98.1 F Pulse Rate 58 L 57 L 53 L Pulse Rate [ Pulse Oximetery ] Respiratory 18 18 18 Rate Blood Pressure 127/49 126/52 128/54 Blood Pressure [Right Arm] O2 Sat by Pulse 98 98 99 Oximetry 04/19/21 04/19/21 04/19/21 17:59 18:09 18:36 Temperature 98.0 F 97.8 F 98.0 F Pulse Rate 59 L 64 62 Pulse Rate [ Pulse Oximetery ] Respiratory 18 18 18 Rate Blood Pressure 131/57 131/57 130/58 Blood Pressure [Right Arm] O2 Sat by Pulse 99 96 Oximetry 04/19/21 04/19/21 04/19/21 19:48 21:05 22:26 Temperature Pulse Rate 85 66 67 Pulse Rate [ Pulse Oximetery ] Respiratory 18 18 18 Rate Blood Pressure 130/64 124/80 125/57 Blood Pressure [Right Arm] O2 Sat by Pulse 96 97 97 Oximetry 04/19/21 04/20/21 04/20/21 23:40 00:00 02:04 Temperature 97.6 F Pulse Rate 70 72 Pulse Rate [ 58 L Pulse Oximetery ] Respiratory 18 20 18 Rate Blood Pressure 125/57 130/62 Blood Pressure 124/70 [Right Arm] O2 Sat by Pulse 96 95 97 Oximetry 04/20/21 04/20/21 04/20/21 03:05 04:00 05:00 Temperature Pulse Rate 72 66 63 Pulse Rate [ Pulse Oximetery ] Respiratory 18 18 18 Rate Blood Pressure 132/58 121/59 120/56 Blood Pressure [Right Arm] O2 Sat by Pulse 96 97 96 Oximetry 04/20/21 04/20/21 04/20/21 06:00 06:45 08:00 Temperature 98 F Pulse Rate 64 65 66 Pulse Rate [ Pulse Oximetery ] Respiratory 18 18 18 Rate Blood Pressure 128/60 139/65 128/55 Blood Pressure [Right Arm] O2 Sat by Pulse 97 95 97 Oximetry 04/20/21 04/20/21 04/20/21 09:00 10:00 10:25 Temperature 98 F 98 F 98 F Pulse Rate 66 66 66 Pulse Rate [ Pulse Oximetery ] Respiratory 18 18 18 Rate Blood Pressure 130/61 130/61 Blood Pressure [Right Arm] O2 Sat by Pulse 96 96 96 Oximetry - Reevaluation(s) Reevaluation #1: Spoke with Dr. Campos - will come to see patient. Recommending IV fluids, PRBC, ICU admit 04/19/21 11:31 Reevaluation #2: 04/19/21 11:56 Dr. Campos in ED with patient Reevaluation #3: 04/19/21 12:[address] Reynaga who agreed to admit patient to ICU Medical Decision Making - Medical Decision Making Upon arrival patient is placed into room 4. A thorough history and physical exam was performed. Patient originally presents with a blood pressure of 141/70 . Heart rate is 52. Laboratory studies are conducted. Rectal exam is performed as patient does have copious amount of clotted blood as well as bright red blood per rectum. Estimation of approximately 500 mL. Repetitive blood pressures after one hour fall to a low of 79/51. Because this 2 units of packed red blood cells is ordered. Laboratory studies returned hemoglobin is 11.1. Nothing old to compare to. INR 1.2. PTT of 22. Dr. Simons was made aware of the patient's presence in the emergency department and does present to evaluate her. States that she would like her to have 2 units of FFP, 2 mg of IV vitamin K and the 2 units of blood previously ordered. She will watch the patient correctly 2 hours the patient has no improvement she will take her to endoscopy. I spoke with Dr. Aguayo who agreed to admission. I also spoke with Dr. Isbell who presents to the ED to evaluate the patient. Patient does have 2 peripheral 18- gauge IVs. Blood pressures do begin to trend up after 1 L of normal saline. Patient does start her infusion of packed red blood cells. She remains in [facility] at stable condition awaiting a bed in the ICU - Lab Data Result diagrams: 04/21/21 08:12 04/21/21 08:18 Lab Results 04/19/21 04/19/21 04/19/21 Range/Units 10:43 10:43 10:43 WBC (3.8-10.6) k/uL RBC (3.80-5.40) m/uL Hgb (11.4-16.0) gm/dL Hct (34.0-46.0) % MCV (80.0-100.0) fL MCH (25.0-35.0) pg MCHC (31.0-37.0) g/dL RDW (11.5-15.5) % Plt Count (150-450) k/uL MPV Neutrophils % % Lymphocytes % % Monocytes % % Eosinophils % % Basophils % % Neutrophils # (1.3-7.7) k/uL Lymphocytes # (1.0-4.8) k/uL Monocytes # (0-1.0) k/uL Eosinophils # (0-0.7) k/uL Basophils # (0-0.2) k/uL Poikilocytosis PT 12.2 H (9.0-12.0) sec INR 1.2 H (<1.2) APTT 22.0 (22.0-30.0) sec Sodium 136 L (137-145) mmol/L Potassium 3.4 L (3.5-5.1) mmol/L Chloride 102 (98-107) mmol/L Carbon Dioxide 25 (22-30) mmol/L Anion Gap 9 mmol/L BUN 10 (7-17) mg/dL Creatinine 0.62 (0.52-1.04) mg/dL Est GFR (CKD-EPI)AfAm >90 (>60 ml/min/1.73 sqM) Est GFR (CKD-EPI)NonAf 87 (>60 ml/min/1.73 sqM) Glucose 165 H (74-99) mg/dL Plasma Lactic Acid Breezy 1.6 (0.7-2.0) mmol/L Calcium 9.0 (8.4-10.2) mg/dL Total Bilirubin 0.6 (0.2-1.3) mg/dL AST 35 (14-36) U/L ALT 29 (4-34) U/L Alkaline Phosphatase 66 (38-126) U/L Total Protein 5.6 L (6.3-8.2) g/dL Albumin 3.3 L (3.5-5.0) g/dL Blood Type Blood Type Recheck Bld Type Recheck Status Antibody Screen Crossmatch Spec Expiration Date 04/19/21 04/19/21 Range/Units 10:43 10:46 WBC 7.7 (3.8-10.6) k/uL RBC 3.87 (3.80-5.40) m/uL Hgb 11.1 L (11.4-16.0) gm/dL Hct 32.1 L (34.0-46.0) % MCV 83.0 (80.0-100.0) fL MCH 28.7 (25.0-35.0) pg MCHC 34.6 (31.0-37.0) g/dL RDW 15.0 (11.5-15.5) % Plt Count 241 (150-450) k/uL MPV 8.2 Neutrophils % 59 % Lymphocytes % 30 % Monocytes % 5 % Eosinophils % 3 % Basophils % 0 % Neutrophils # 4.5 (1.3-7.7) k/uL Lymphocytes # 2.3 (1.0-4.8) k/uL Monocytes # 0.4 (0-1.0) k/uL Eosinophils # 0.3 (0-0.7) k/uL Basophils # 0.0 (0-0.2) k/uL Poikilocytosis Slight PT (9.0-12.0) sec INR (<1.2) APTT (22.0-30.0) sec Sodium (137-145) mmol/L Potassium (3.5-5.1) mmol/L Chloride (98-107) mmol/L Carbon Dioxide (22-30) mmol/L Anion Gap mmol/L BUN (7-17) mg/dL Creatinine (0.52-1.04) mg/dL Est GFR (CKD-EPI)AfAm (>60 ml/min/1.73 sqM) Est GFR (CKD-EPI)NonAf (>60 ml/min/1.73 sqM) Glucose (74-99) mg/dL Plasma Lactic Acid Breezy (0.7-2.0) mmol/L Calcium (8.4-10.2) mg/dL Total Bilirubin (0.2-1.3) mg/dL AST (14-36) U/L ALT (4-34) U/L Alkaline Phosphatase (38-126) U/L Total Protein (6.3-8.2) g/dL Albumin (3.5-5.0) g/dL Blood Type A Positive Blood Type Recheck A Pos Bld Type Recheck Status No Antibody Screen NEGATIVE Crossmatch See Detail Spec Expiration Date 04/22/2021 - 2342 - EKG Data EKG Comments: EKG demonstrates a sinus bradycardia with a rate of 53. FL interval 204. QRS 94. QTC of 474. There is some ST depression in V3 through V6 as well as 1 and aVL Repeat EKG at 1304 demonstrates sinus tachycardia with a first-degree block. Rate of 54. FL interval 212. QRS 92. QTC of 462. Continues to have some ST depression in 1, 2, aVL, V3 through V6 Critical Care Time Critical Care Time: Yes Critical Care Time: 35 minutes for transfusion of blood products, prompt consultation with GI, consultation for ICU admission Disposition Clinical Impression: Hematochezia, S/P colonoscopic polypectomy, Hypotension Disposition: ADMITTED IP TO THIS HOSP Condition: Serious Is patient prescribed a controlled substance at d/c from ED?: No Decision to Admit Reason: Admit from EC Decision Date: 04/19/21 Decision Time: 12:05
[2021-04-19 11:10] LABS: ALT 29 U/L (4-34); AST 35 U/L (14-36); African American GFR (CKD) >90 (>60 ml/min/1.73 sqM); Albumin 3.3 g/dL (3.5-5.0); Alkaline Phosphatase 66 U/L (38-126); Anion Gap 9 mmol/L; Blood Urea Nitrogen 10 mg/dL (7-17); Carbon Dioxide 25 mmol/L (22-30); Chloride 102 mmol/L (98-107); Glucose 165 mg/dL (74-99); Non-African American GFR(CKD) 87 (>60 ml/min/1.73 sqM); Potassium 3.4 mmol/L (3.5-5.1); Sodium 136 mmol/L (137-145); Total Bilirubin 0.6 mg/dL (0.2-1.3); Total Protein 5.6 g/dL (6.3-8.2)
[2021-04-19 11:20] LABS: Basophils % (A) 0 %; Eosinophils # (A) 0.3 k/uL (0-0.7); Eosinophils % (A) 3 %; HCT 32.1 % (34.0-46.0); HGB 11.1 gm/dL (11.4-16.0); Lymphocytes # (A) 2.3 k/uL (1.0-4.8); Lymphocytes % (A) 30 %; MCH 28.7 pg (25.0-35.0); MCHC 34.6 g/dL (31.0-37.0); Mean Platelet Volume 8.2; Monocytes # (A) 0.4 k/uL (0-1.0); Monocytes % (A) 5 %; Neutrophils # (A) 4.5 k/uL (1.3-7.7); Neutrophils % (A) 59 %; Platelet Count 241 k/uL (150-450); Poikilocytosis Slight; RBC 3.87 m/uL (3.80-5.40); WBC 7.7 k/uL (3.8-10.6)
[2021-04-19 11:31] LABS: INR 1.2 (<1.2); Prothrombin Time 12.2 sec (9.0-12.0)
[2021-04-19] MEDS ORDERED: SODIUM CHLORIDE 0.9% 1,000 ML IV ONE (11:31)
[2021-04-19] MEDS ORDERED: PHYTONADIONE 2 MG in SODIUM CHLORIDE 0.9% 50 ML IVPB STA (11:53)
[2021-04-19] MEDS ORDERED: NALOXONE 0.4 MG/ML 1 ML VIAL IV PRN (12:21)
--- NOTE | 2021-04-19 12:22 | P.CONS ---
History of Present Illness - Reason for Consult Consult date: 04/19/21 lower GI bleed - Chief Complaint rectal bleeding status post colonoscopy with polpectomy - History of Present Illness This a pleasant 76-year-old white female who presented to the emergency departm ent after calling EMS from her home. She underwent an elective EGD and colonoscopy early this morning. EGD showed mild gastritis but no evidence of esophagitis or esophageal stricture. Colonoscopy revealed a 2 mm ascending colon polyp status post cold biopsy. The patient states on her way home she felt like she was passing gas but when she got home noticed that she had bright red blood in her underwear. She continued to have bleeding and passing clots so she called EMS. She was hypotensive in route. She is getting hydrated with IV fluids. Admitting labs WBC 7, hemoglobin 11, hematocrit 32, platelet count 241, INR 1.2, total bilirubin 0.6, alkaline phosphatase 66, AST 35, ALT 29. Patient has a past medical history of atrial fibrillation who normally takes Coumadin, asthma, diabetes mellitus, hypertension, hypothyroidism, and uterine cancer status post radiation treatment. The patient had stopped her Coumadin approximately one week ago and was on Lovenox. She states her last dose of Lovenox was Thursday evening. Upon evaluation in the emergency department she had bright red blood on the bed with large clots, this is passing through her underwear and pad. She states she did have some abdominal cramping, denies any current abdominal cramping pain, nausea, or vomiting. Review of Systems REVIEW OF SYSTEMS: CARDIOPULMONARY: No chest pain or shortness of breath. Gastrointestinal: Mild abdominal cramping.. No nausea or vomiting. No hematemesis, coffee-ground emesis. Bright red blood per rectum and large clots. GENITOURINARY: No dysuria or hematuria. MUSCULOSKELETAL: Reports normal range of motion., Joint pain. SKIN: No rashes. No jaundice. ENDOCRINE: No chills, fevers. No excessive weight gain or loss. No polydipsia or polyuria. PSYCHIATRIC: Unremarkable. NEUROLOGY: No change in mental status. Denies dizziness, headache. ENT: Vision unremarkable. CONSTITUTIONAL: No recent weight loss. No fever, chills, night sweats. Past Medical History Past Medical History: Atrial Fibrillation, Asthma, Cancer, Diabetes Mellitus, Hypertension, Osteoarthritis (OA), Thyroid Disorder Additional Past Medical History / Comment(s): ese diarrhea,states [id number] controlled, hypothyroidism,rt knee pain, hx kidney stone, rosacea., chronic sinusitis., uterine cancer with radiation tx (may 2017). History of Any Multi-Drug Resistant Organisms: None Reported Past Surgical History: Cholecystectomy, Heart Catheterization, Hysterectomy, Tonsillectomy Additional Past Surgical History / Comment(s): R sided kidney stone surgery, cervical surgery-cone, back pain procedure Past Anesthesia/Blood Transfusion Reactions: Previous Problems w/ Anesthesia Additional Past Anesthesia/Blood Transfusion Reaction / Comm: - DIFFICULT INTUBATION- STATES SHE WAS TOLD SHE NEEDS A GLIDESCOPE.,no problems with prior blood transfusions in 2017 Past Psychological History: Anxiety Smoking Status: Never smoker Past Alcohol Use History: None Reported Past Drug Use History: None Reported - Past Family History Sister(s) Family Medical History: Cancer Additional Family Medical History / Comment(s): pancreatic cancer Brother(s) Family Medical History: Cancer Additional Family Medical History / Comment(s): brain cancer Father Family Medical History: Coronary Artery Disease (CAD), CVA/TIA, Hypertension Additional Family Medical History / Comment(s): Father had CABG. He at age 86yrs Mother Family Medical History: Coronary Artery Disease (CAD), Diabetes Mellitus, Hypertension Additional Family Medical History / Comment(s): Mother at age 69yrs. Medications and Allergies Home Medications Medication Instructions Recorded Confirmed Type ALPRAZolam [Xanax] 0.25 mg PO DAILY PRN 06/19/15 04/19/21 History Loratadine [Claritin] 10 mg PO DAILY 06/19/15 04/19/21 History Losartan [Cozaar] 50 mg PO QAM 06/19/15 04/19/21 History Montelukast [Singulair] 10 mg PO HS 06/19/15 04/19/21 History Oxybutynin Chloride [Ditropan] 2.5 mg PO BID 06/19/15 04/19/21 History Pravastatin Sodium [Pravachol] 40 mg PO PC-SUPPER 06/19/15 04/19/21 History Warfarin [Coumadin] 5 mg PO MOWEFR 04/29/16 04/19/21 History Levothyroxine Sodium [Synthroid] 100 mcg PO QAM 06/04/17 04/19/21 History [place]-3 Fatty Acids/Fish Oil [Fish 2 cap PO DAILY 06/04/17 04/19/21 History Oil 1,000 mg Softgel] Acetaminophen [Tylenol] 500 mg PO Q4-6H PRN 10/07/17 04/19/21 History Sotalol [Betapace] 80 mg PO BID 10/07/17 04/19/21 History Triamterene-Hctz 37.5-25Mg 1 cap PO DAILY 10/07/17 04/19/21 History [Dyazide 37.5-25 Capsule] Albuterol Sulfate [Proventil Hfa] 2 puff INHALATION RT-BID PRN 12/14/17 04/19/21 History Fluticasone Nasal [place] [Flonase 2 spr EA NOSTRIL HS PRN 12/14/17 04/19/21 History Nasal [place]] Warfarin [Coumadin] 2.5 mg PO SUTUTHSA 12/14/17 04/19/21 History Ibuprofen 800 mg PO Q8H PRN 04/16/21 04/19/21 History Albuterol Nebulized [Ventolin 2.5 mg INHALATION RT-BID PRN 04/19/21 04/19/21 History Nebulized] Calcium/Magnesium/Zinc 3 tab PO DAILY 04/19/21 04/19/21 History [Tvpubmf-Wyjblpnzg-Thxl Tablet] Fluticasone Propionate [Flovent 2 puff INHALATION RT-BID 04/19/21 04/19/21 History Hfa 220 mcg] Oxybutynin Chloride [Ditropan] 5 mg PO DAILY 04/19/21 04/19/21 History Slow Fe 45mg 1 tab PO DAILY 04/19/21 04/19/21 History metroNIDAZOLE 1% GEL [Metrogel 1%] 1 applic TOPICAL DAILY 04/19/21 04/19/21 History Allergies Allergy/AdvReac Type Severity Reaction Status Date / Time adhesive Allergy Rash/Hives Verified 04/19/21 10:38 budesonide [From Symbicort] Allergy Rash/Hives Verified 04/19/21 10:38 formoterol fumarate Allergy Rash/Hives Verified 04/19/21 10:38 [From Symbicort] naproxen sodium [From Aleve] Allergy Rash/Hives Verified 04/19/21 10:38 niacin Allergy Rapid Verified 04/19/21 10:38 Heart Rate Penicillins Allergy Rash/Hives Verified 04/19/21 10:38 prednisone Allergy Rash/Hives Verified 04/19/21 10:38 Sulfa (Sulfonamide Allergy Rash/Hives Verified 04/19/21 10:38 Antibiotics) codeine AdvReac Abdominal Verified 04/19/21 10:38 Pain levofloxacin [From Levaquin] AdvReac Chest Pain Verified 04/19/21 10:38 moxifloxacin HCl AdvReac Rapid Verified 04/19/21 10:38 [From Avelox] Heart Rate Physical Exam Vitals: Vital Signs Temp Pulse Resp BP Pulse Ox 04/19/21 11:51 50 L 18 101/52 100 04/19/21 11:48 48 L 18 96/46 100 04/19/21 11:30 54 L 18 79/51 100 04/19/21 10:55 51 L 18 118/65 98 04/19/21 10:31 97.4 F L 52 L 18 141/70 98 Intake and Output 04/18/21 04/19/21 04/19/21 22:59 06:59 14:59 Intake Total 0 Balance 0 Intake: Blood Product 0 Rc As-1 Unit 0 [id number] Other: Weight 110.223 kg General appearance: The patient is alert, oriented, appears in no acute di stress. HET: Head is normocephalic and atraumatic. Conjunctiva pink. Sclera anicteric. Neck: Supple without lymphadenopathy. Trachea midline. Heart: S1 S2. Regular rate and rhythm. Lungs: Clear to auscultation. Abdomen: Soft, mild lower abdominal tenderness, nondistended with bowel sounds. No guarding or rigidity. Sandeep red bleeding and a large dark clots noted on patient's bed and underwear. Skin: No rashes. No jaundice. Extremities: Normal skin color and turgor. No pedal edema. Neurological: No focal deficits. Alert and oriented 3.. Results CBC & Chem 7: 04/19/21 10:46 04/19/21 10:43 Labs: Abnormal Lab Results - Last 24 Hours (Table) 04/19/21 04/19/21 04/19/21 Range/Units 10:43 10:43 10:43 Hgb (11.4-16.0) gm/dL Hct (34.0-46.0) % PT 12.2 H (9.0-12.0) sec INR 1.2 H (<1.2) Sodium 136 L (137-145) mmol/L Potassium 3.4 L (3.5-5.1) mmol/L Glucose 165 H (74-99) mg/dL Total Protein 5.6 L (6.3-8.2) g/dL Albumin 3.3 L (3.5-5.0) g/dL Crossmatch See Detail 04/19/21 Range/Units 10:46 Hgb 11.1 L (11.4-16.0) gm/dL Hct 32.1 L (34.0-46.0) % PT (9.0-12.0) sec INR (<1.2) Sodium (137-145) mmol/L Potassium (3.5-5.1) mmol/L Glucose (74-99) mg/dL Total Protein (6.3-8.2) g/dL Albumin (3.5-5.0) g/dL Crossmatch Assessment and Plan (1) Lower GI bleed Narrative/Plan: 76-year-old female who presented to the emergency department with complaints of rectal bleeding and passing clots. She has a past medical history of atrial fibrillation on Coumadin, has not taken Coumadin in one week and was using Lovenox. Last dose of Lovenox was Thursday evening. The patient came in for an elective EGD and colonoscopy this morning. She was stable after procedure with no bleeding. Her EGD showed mild gastritis, and colonoscopy was significant for a 2 mm ascending colon polyp status post cold biopsy. The patient states when she was driving home she felt like she was passing gas one she got home she started passing bright red blood and large clots from her rectum. She called EMS, she was noted to be hypotensive in route. She is stating she had some mild cramping, no further abdominal pain now, no nausea, no vomiting. On admission she was noted to have a hemoglobin of 11, INR was 1.2. 2 units of PRBC have been ordered. She is getting IV hydration. Current Visit: Yes Status: Acute Code(s): K92.2 - GASTROINTESTINAL HEMORRHAGE, UNSPECIFIED SNOMED Code(s): 63339415 Plan: 1. Nothing by mouth 2. CBC every 6 hours 3 3. Agree with 2 units of PRBC transfusion 4. Will order 2 units of FFP 5. Vitamin K 2 mg IVPB 6. Agree with admission to ICU, will continue to monitor 7. If patient continues to bleed we will consider repeat colonoscopy. Thank you for this consultation, we will continue to follow Dr. Everett Campos I agree with the dictator's note, documented as a scribe by Julia Markham.
--- NOTE | 2021-04-19 13:00 | P.CNPUL ---
History of Present Illness Consult date: 04/19/21 Chief complaint: GIB History of present illness: 76-year-old female patient presented to the emergency department after having a colonoscopy with polypectomy today. This was an elective colonoscopy. The patient was taken long-term anticoagulation with warfarin was discontinued prior to the procedure the patient was bridged with Lovenox. Lovenox was discontinued on 04/17/2021. Post colonoscopy and polypectomy, the patient was discharged h ome. She started having GI bleed and she was passing gas and bright red blood in her underwear. She became hypotensive and she was found to be hypotensive by EMS. Her SBP was 70 She was given IV fluids. Blood pressure improved and she was brought into the emergency department. She did experience some abdominal cramping. No nausea. No vomiting. No emesis. She was found to have a 2 mm ascending colon polyp that was biopsied by the laborer pipeline. The patient also had a hemoglobin of 11 with a hematocrit of 32 and a platelet count of 241. Her INR was at 1.2 at time of admission. Bilirubin wasn't 0.6. LFTs were essentially within normal limits. She is known to have chronic atrial fibrillation for that reason she was on anticoagulants. Her now, she is non- tachycardic. She is afebrile. She was given vitamin K and fresh frozen plasma was also ordered by gastroenterology. She was also given packed RBC a total of 2 units. She had some further bleeding episodes. Emergency department. As such, she is getting packed RBC transfusion for now. The plan is to move this patient to the intensive care unit. She is awake and alert. She is quite comfortable. She has negative Review of Systems Constitutional: Reports as per HPI Eyes: denies as per HPI, denies blurred vision, denies bulging eye, denies decre ased vision, denies diplopia, denies discharge, denies dry eye, denies irritation, denies itching, denies pain, denies photophobia, denies loss of peripheral vision, denies loss of vision, denies tunnel vision/blind spots Ears, nose, mouth and throat: Reports as per HPI Breasts: absent: as per HPI, change in shape, gynecomastia, masses, nipple disc harge, pain, skin changes, swelling Cardiovascular: Reports as per HPI Respiratory: Reports as per HPI Gastrointestinal: Reports BRBPR Genitourinary: Reports as per HPI Menstruation: Reports as per HPI Musculoskeletal: Reports as per HPI Musculoskeletal: absent: ankle pain, ankle stiffness, ankle swelling, as per HPI, elbow pain, elbow stiffness, elbow swelling, foot pain, foot stiffness, foot swelling, hand pain, hand stiffness, hand swelling, hip pain, hip stiffness, hip swelling, knee pain, knee stiffness, knee swelling, shoulder pain, shoulder stiffness, shoulder swelling, wrist pain, wrist stiffness, wrist swelling Integumentary: Reports as per HPI Neurological: Reports as per HPI Psychiatric: Reports as per HPI Endocrine: Reports as per HPI Hematologic/Lymphatic: Reports as per HPI Allergic/Immunologic: Reports as per HPI Past Medical History Past Medical History: Atrial Fibrillation, Asthma, Cancer (uterine cancer ), Diabetes Mellitus, Hypertension, Osteoarthritis (OA), Thyroid Disorder Additional Past Medical History / Comment(s): freq diarrhea,states [id number] controlled, hypothyroidism,rt knee pain, hx kidney stone, rosacea., chronic sinusitis., uterine cancer with radiation tx (may 2017). History of Any Multi-Drug Resistant Organisms: None Reported Past Surgical History: Cholecystectomy, Heart Catheterization, Hysterectomy, Tonsillectomy Additional Past Surgical History / Comment(s): R sided kidney stone surgery, cervical surgery-cone, back pain procedure Past Anesthesia/Blood Transfusion Reactions: Previous Problems w/ Anesthesia Additional Past Anesthesia/Blood Transfusion Reaction / Comment(s): - DIFFICULT INTUBATION- STATES SHE WAS TOLD SHE NEEDS A GLIDESCOPE.,no problems with prior blood transfusions in 2017 Past Psychological History: Anxiety Smoking Status: Never smoker Past Alcohol Use History: None Reported Past Drug Use History: None Reported - Past Family History Sister(s) Family Medical History: Cancer Additional Family Medical History / Comment(s): pancreatic cancer Brother(s) Family Medical History: Cancer Additional Family Medical History / Comment(s): brain cancer Father Family Medical History: Coronary Artery Disease (CAD), CVA/TIA, Hypertension Additional Family Medical History / Comment(s): Father had CABG. He at age 86yrs Mother Family Medical History: Coronary Artery Disease (CAD), Diabetes Mellitus, Hypertension Additional Family Medical History / Comment(s): Mother at age 69yrs. Medications and Allergies Home Medications Medication Instructions Recorded Confirmed Type ALPRAZolam [Xanax] 0.25 mg PO BID PRN 06/19/15 04/19/21 History Loratadine [Claritin] 10 mg PO DAILY 06/19/15 04/19/21 History Losartan [Cozaar] 50 mg PO DAILY 06/19/15 04/19/21 History Montelukast [Singulair] 10 mg PO HS 06/19/15 04/19/21 History Oxybutynin Chloride [Ditropan] 2.5 mg PO HS 06/19/15 04/19/21 History Pravastatin Sodium [Pravachol] 40 mg PO PC-SUPPER 06/19/15 04/19/21 History Warfarin [Coumadin] 5 mg PO SUTUTHSA@1800 04/29/16 04/19/21 History Levothyroxine Sodium [Synthroid] 100 mcg PO DAILY 06/04/17 04/19/21 History [place]-3 Fatty Acids/Fish Oil [Fish 2 cap PO DAILY 06/04/17 04/19/21 History Oil 1,000 mg Softgel] Acetaminophen [Tylenol] 1,000 mg PO Q6H PRN 10/07/17 04/19/21 History Sotalol [Betapace] 80 mg PO BID 10/07/17 04/19/21 History Triamterene-Hctz 37.5-25Mg 1 cap PO DAILY 10/07/17 04/19/21 History [Dyazide 37.5-25 Capsule] Albuterol Sulfate [Proventil Hfa] 2 puff INHALATION RT-BID PRN 12/14/17 04/19/21 History Fluticasone Nasal [place] [Flonase 1 - 2 spr EA NOSTRIL HS PRN 12/14/17 04/19/21 History Nasal [place]] Warfarin [Coumadin] 2.5 mg PO MOWEFR@1800 12/14/17 04/19/21 History Ibuprofen 800 mg PO DAILY PRN 04/16/21 04/19/21 History Albuterol Nebulized [Ventolin 2.5 mg INHALATION RT-BID PRN 04/19/21 04/19/21 History Nebulized] Calcium/Magnesium/Zinc 3 tab PO DAILY 04/19/21 04/19/21 History [Bfokemt-[place]-Dtfd Tablet] Fluticasone Propionate [Flovent 2 puff INHALATION RT-BID 04/19/21 04/19/21 History Hfa 220 mcg] Oxybutynin Chloride [Ditropan] 5 mg PO DAILY 04/19/21 04/19/21 History Slow Fe 45mg 1 tab PO DAILY 04/19/21 04/19/21 History metroNIDAZOLE 1% GEL [Metrogel 1%] 1 applic TOPICAL DAILY 04/19/21 04/19/21 History Allergies Allergy/AdvReac Type Severity Reaction Status Date / Time adhesive Allergy Rash/Hives Verified 04/19/21 12:17 budesonide [From Symbicort] Allergy Rash/Hives Verified 04/19/21 12:17 formoterol fumarate Allergy Rash/Hives Verified 04/19/21 12:17 [From Symbicort] naproxen sodium [From Aleve] Allergy Rash/Hives Verified 04/19/21 12:17 niacin Allergy Rapid Verified 04/19/21 12:17 Heart Rate Penicillins Allergy Rash/Hives Verified 04/19/21 12:17 prednisone Allergy Rash/Hives/Shortness Verified 04/19/21 12:17 of Breath Sulfa (Sulfonamide Allergy Rash/Hives Verified 04/19/21 12:17 Antibiotics) aspirin AdvReac Unknown Verified 04/19/21 12:17 codeine AdvReac Abdominal Verified 04/19/21 12:17 Pain levofloxacin [From Levaquin] AdvReac Chest Pain Verified 04/19/21 12:17 moxifloxacin HCl AdvReac Rapid Verified 04/19/21 12:17 [From Avelox] Heart Rate maxzide(takes Dyazide) AdvReac See Uncoded 04/19/21 12:17 Comments Physical Exam Vitals: Vital Signs Temp Pulse Resp BP Pulse Ox 04/19/21 12:39 97.6 F 57 L 18 100/43 97 04/19/21 12:09 97.6 F 52 L 18 109/50 100 04/19/21 11:59 96.8 F L 52 L 18 117/54 100 04/19/21 11:51 50 L 18 101/52 100 04/19/21 11:48 48 L 18 96/46 100 04/19/21 11:30 54 L 18 79/51 100 04/19/21 10:55 51 L 18 118/65 98 04/19/21 10:31 97.4 F L 52 L 18 141/70 98 Intake and Output 04/18/21 04/19/21 04/19/21 22:59 06:59 14:59 Intake Total 0 Balance 0 Intake: Blood Product 0 Rc As-1 Unit 0 [id number] Other: Weight 110.223 kg The patient appeared well nourished and normally developed. Vital signs as documented. Head exam is unremarkable. No scleral icterus or corneal arcus noted. Neck is without jugular venous distension, thyromegaly, or carotid bruits. Carotid upstrokes are brisk bilaterally. Lungs are clear to auscultation and percussion. Cardiac exam reveals the PMI to be normally sized and situated. Rhythm is irregular. First and second heart sounds normal. No murmurs, rubs or gallops. Abdominal exam reveals normal bowel sounds, no masses, no organomegaly and no aortic enlargement. Patient is also noted to have a large scar in the anterior abdominal wall related to a previous cholecystectomy. Extremities are nonedematous and both femoral and pedal pulses are normal.Examination of the skin revealed no evidence of significant rashes, suspicious appearing nevi or other concerning lesions.Neurologically, the patient is awake and alert and the patient does not have any focal neurological deficit. Cranial nerves are ess entially intact. Results - Laboratory Findings CBC and BMP: 04/19/21 10:46 04/19/21 10:43 PT/INR, D-dimer PT 12.2 sec (9.0-12.0) H 04/19/21 10:43 INR 1.2 (<1.2) H 04/19/21 10:43 Abnormal lab findings: Abnormal Labs 04/19/21 04/19/21 04/19/21 10:43 10:43 10:43 Hgb Hct PT 12.2 H INR 1.2 H Sodium 136 L Potassium 3.4 L Glucose 165 H Total Protein 5.6 L Albumin 3.3 L Crossmatch See Detail 04/19/21 10:46 Hgb 11.1 L Hct 32.1 L PT INR Sodium Potassium Glucose Total Protein Albumin Crossmatch
[2021-04-19 17:39] LABS: HCT 31.4 % (34.0-46.0); HGB 11.2 gm/dL (11.4-16.0); MCH 29.7 pg (25.0-35.0); MCHC 35.6 g/dL (31.0-37.0); MCV 83.5 fL (80.0-100.0); Mean Platelet Volume 7.9; Platelet Count 189 k/uL (150-450); Poikilocytosis Slight; RBC 3.76 m/uL (3.80-5.40); RDW 15.2 % (11.5-15.5); WBC 7.4 k/uL (3.8-10.6)
[2021-04-19] MEDS ORDERED: diphenhydrAMINE 50 MG/ML 1 ML VIAL IVP STA (19:12)
[2021-04-19] MEDS ORDERED: diphenhydrAMINE 50 MG/ML 1 ML VIAL IVP PRN (19:16)
[2021-04-19] MEDS ORDERED: FUROSEMIDE 10 MG/ML 2 ML VIAL IV ONE (19:17)
[2021-04-19] MEDS ORDERED: ACETAMINOPHEN TAB 325 MG TAB PO PRN (19:17)
[2021-04-19] MEDS: SODIUM CHLORIDE 0.9% 1,000 ML IV SCH (19:36)
[2021-04-20] MEDS ORDERED: ALBUTEROL NEBULIZED 2.5 MG/3 ML INHALATION PRN (00:06)
[2021-04-20] MEDS ORDERED: ALPRAZolam 0.25 MG TAB PO PRN (00:06)
[2021-04-20] MEDS ORDERED: FLUTICASONE 50MCG/SPRAY NASAL 16GM EA NOSTRIL PRN (00:06)
--- NOTE | 2021-04-20 00:15 | P.HPIM ---
History of Present Illness H&P Date: 04/19/21 Chief Complaint: GI bleed Patient is a 76-year-old female with a known history of atrial fibrillation on anticoagulation with Coumadin, hypertension, diabetes type 2 non-insulin- dependent, hypothyroidism and uterine cancer with radiation treatment in 2017, anxiety and prior history of cardiac catheterization and renal stones presents to ER due to complaints of GI bleeding. Patient had elective colonoscopy and EGD this morning around 7 AM. Patient had 2 mm polyp removed and cauterized. She was discharged from the hospital and on the way home she began started having sensation of passing gas. When she went to the bathroom and checked that she saturated the pad she was wearing. There was significant amount of blood bright red and clots. Patient came to ER for evaluation. Patient is Coumadin due to atrial fibrillation. Coumadin was stopped 1 week ago and was started on Lovenox due to elective procedure. Patient did take her last Lovenox dose day before yesterday at 7 PM., That was about 36 hours ago. Patient otherwise denied any complaints of abdominal pain. Patient felt dizzy and lightheaded. Blood pressure was low as per EMS. Patient was started on IV hydration and was brought to the hospital. Denied any complaints of fever or chills. No chest pain. EKG showed sinus bradycardia Laboratory data showed WBC 7.7 hemoglobin 11.1 and platelets 241 INR 1.2 Sodium 136 potassium 3.4 chloride 102 BUN 10 and creatinine 0.62 Patient was given 1 unit of fresh frozen plasma, PRBC and 2 mg vitamin K IV x1. Review of Systems Constitutional: Patient denies any fever or chills . No generalized weakness or weight loss. Abdomen: Patient denied nausea vomiting and diarrhea and abdominal pain. blood per rectum Cardiovascular: Patient denies any chest pain or short of breath no palpitations. Respiratory: patient denied any cough or sputum production. No shortness of breath Neurologic: Patient denied any numbness or tingling headache. Musculoskeletal: Patient denies any complaints of joint swelling or deformity. Skin: Negative Psychiatric: Negative Endocrine: No heat or cold intolerance. No recent weight gain. Genitourinary: No dysuria or hematuria. All other 14 point ROS negative except the above Past Medical History Past Medical History: Atrial Fibrillation, Asthma, Cancer, Diabetes Mellitus, Hypertension, Osteoarthritis (OA), Thyroid Disorder Additional Past Medical History / Comment(s): freq diarrhea,states pul-lrkytura-elcp controlled, hypothyroidism,rt knee pain, hx kidney stone, rosacea., chronic sinusitis., uterine cancer with radiation tx (may 2017). History of Any Multi-Drug Resistant Organisms: None Reported Past Surgical History: Cholecystectomy, Heart Catheterization, Hysterectomy, Tonsillectomy Additional Past Surgical History / Comment(s): R sided kidney stone surgery, cervical surgery-cone, back pain procedure Past Anesthesia/Blood Transfusion Reactions: Previous Problems w/ Anesthesia Additional Past Anesthesia/Blood Transfusion Reaction / Comment(s): - DIFFICULT INTUBATION- STATES SHE WAS TOLD SHE NEEDS A GLIDESCOPE.,no problems with prior blood transfusions in 2017 Past Psychological History: Anxiety Smoking Status: Never smoker Past Alcohol Use History: None Reported Past Drug Use History: None Reported - Past Family History Sister(s) Family Medical History: Cancer Additional Family Medical History / Comment(s): pancreatic cancer Brother(s) Family Medical History: Cancer Additional Family Medical History / Comment(s): brain cancer Father Family Medical History: Coronary Artery Disease (CAD), CVA/TIA, Hypertension Additional Family Medical History / Comment(s): Father had CABG. He at age 86yrs Mother Family Medical History: Coronary Artery Disease (CAD), Diabetes Mellitus, Hypertension Additional Family Medical History / Comment(s): Mother at age 69yrs. Medications and Allergies Home Medications Medication Instructions Recorded Confirmed Type ALPRAZolam [Xanax] 0.25 mg PO BID PRN 06/19/15 04/19/21 History Loratadine [Claritin] 10 mg PO DAILY 06/19/15 04/19/21 History Losartan [Cozaar] 50 mg PO DAILY 06/19/15 04/19/21 History Montelukast [Singulair] 10 mg PO HS 06/19/15 04/19/21 History Oxybutynin Chloride [Ditropan] 2.5 mg PO HS 06/19/15 04/19/21 History Pravastatin Sodium [Pravachol] 40 mg PO PC-SUPPER 06/19/15 04/19/21 History Warfarin [Coumadin] 5 mg PO SUTUTHSA@1800 04/29/16 04/19/21 History Levothyroxine Sodium [Synthroid] 100 mcg PO DAILY 06/04/17 04/19/21 History [place]-3 Fatty Acids/Fish Oil [Fish 2 cap PO DAILY 06/04/17 04/19/21 History Oil 1,000 mg Softgel] Acetaminophen [Tylenol] 1,000 mg PO Q6H PRN 10/07/17 04/19/21 History Sotalol [Betapace] 80 mg PO BID 10/07/17 04/19/21 History Triamterene-Hctz 37.5-25Mg 1 cap PO DAILY 10/07/17 04/19/21 History [Dyazide 37.5-25 Capsule] Albuterol Sulfate [Proventil Hfa] 2 puff INHALATION RT-BID PRN 12/14/17 04/19/21 History Fluticasone Nasal [place] [Flonase 1 - 2 spr EA NOSTRIL HS PRN 12/14/17 04/19/21 History Nasal [place]] Warfarin [Coumadin] 2.5 mg PO MOWEFR@1800 12/14/17 04/19/21 History Ibuprofen 800 mg PO DAILY PRN 04/16/21 04/19/21 History Albuterol Nebulized [Ventolin 2.5 mg INHALATION RT-BID PRN 04/19/21 04/19/21 History Nebulized] Calcium/Magnesium/Zinc 3 tab PO DAILY 04/19/21 04/19/21 History [Zfxbaor-Hcfmehzyk-Zbwh Tablet] Fluticasone Propionate [Flovent 2 puff INHALATION RT-BID 04/19/21 04/19/21 History Hfa 220 mcg] Oxybutynin Chloride [Ditropan] 5 mg PO DAILY 04/19/21 04/19/21 History Slow Fe 45mg 1 tab PO DAILY 04/19/21 04/19/21 History metroNIDAZOLE 1% GEL [Metrogel 1%] 1 applic TOPICAL DAILY 04/19/21 04/19/21 History Allergies Allergy/AdvReac Type Severity Reaction Status Date / Time adhesive Allergy Rash/Hives Verified 04/19/21 12:17 budesonide [From Symbicort] Allergy Rash/Hives Verified 04/19/21 12:17 formoterol fumarate Allergy Rash/Hives Verified 04/19/21 12:17 [From Symbicort] naproxen sodium [From Aleve] Allergy Rash/Hives Verified 04/19/21 12:17 niacin Allergy Rapid Verified 04/19/21 12:17 Heart Rate Penicillins Allergy Rash/Hives Verified 04/19/21 12:17 prednisone Allergy Rash/Hives/Shortness Verified 04/19/21 12:17 of Breath Sulfa (Sulfonamide Allergy Rash/Hives Verified 04/19/21 12:17 Antibiotics) aspirin AdvReac Unknown Verified 04/19/21 12:17 codeine AdvReac Abdominal Verified 04/19/21 12:17 Pain levofloxacin [From Levaquin] AdvReac Chest Pain Verified 04/19/21 12:17 moxifloxacin HCl AdvReac Rapid Verified 04/19/21 12:17 [From Avelox] Heart Rate maxzide(takes Dyazide) AdvReac See Uncoded 04/19/21 12:17 Comments Physical Exam Vitals: Vital Signs Temp Pulse Resp BP Pulse Ox 04/19/21 22:26 67 18 125/57 97 04/19/21 21:05 66 18 124/80 97 04/19/21 19:48 85 18 130/64 96 04/19/21 18:36 98.0 F 62 18 130/58 04/19/21 18:09 97.8 F 64 18 131/57 96 04/19/21 17:59 98.0 F 59 L 18 131/57 99 04/19/21 17:39 98.1 F 53 L 18 128/54 99 04/19/21 17:00 57 L 18 126/52 98 04/19/21 16:00 58 L 18 127/49 98 04/19/21 15:57 97.8 F 56 L 18 132/57 96 04/19/21 15:35 98.0 F 68 18 140/60 96 04/19/21 15:15 97.8 F 58 L 18 122/60 95 04/19/21 15:06 97.6 F 60 18 127/61 96 04/19/21 15:00 60 18 120/53 97 04/19/21 14:40 98.3 F 60 18 117/63 98 04/19/21 14:30 98.2 F 60 18 118/52 96 04/19/21 14:19 98.4 F 57 L 18 118/52 04/19/21 14:00 55 L 18 126/52 97 04/19/21 13:09 56 L 18 121/52 97 04/19/21 12:39 97.6 F 57 L 18 100/43 97 04/19/21 12:09 97.6 F 52 L 18 109/50 100 04/19/21 11:59 96.8 F L 52 L 18 117/54 100 04/19/21 11:51 50 L 18 101/52 100 04/19/21 11:48 48 L 18 96/46 100 04/19/21 11:30 54 L 18 79/51 100 04/19/21 10:55 51 L 18 118/65 98 04/19/21 10:31 97.4 F L 52 L 18 141/70 98 Intake and Output 04/19/21 04/19/21 04/20/21 14:59 22:59 06:59 Intake Total 310 947 Balance 310 947 Intake: Blood Product 310 947 Ffp 24 Cpd Unit 321 [id number] Ffp 24 Cpd Unit 0 316 [id number] Rc As-1 Unit 310 [id number] Rc As-1 Unit 310 [id number] Other: Weight 110.223 kg PHYSICAL EXAMINATION: Patient is lying in the bed comfortably, no acute distress, awake alert and oriented.. HEENT: Normocephalic. Neck is supple. Pupils reactive. Nostrils clear. Oral cavity is moist. Neck reveals no JVD, carotid bruits, or thyromegaly. CHEST EXAMINATION: Trachea is central. Symmetrical expansion. Lung sherwood clear to auscultation and percussion. CARDIAC: Normal S1, S2 with no gallops. No murmurs ABDOMEN: Soft. Bowel sounds normal. No organomegaly. No abdominal bruits. Extremities: reveal no edema. No clubbing or cyanosis Neurologically awake, alert, oriented x3 with well-coordinated movements. No focal deficits noted Skin: No rash or skin lesions. Psychiatric: Coperative. Nonsuicidal Musculoskeletal: No joint swelling or deformity. Normal range of motion. Results CBC & Chem 7: 04/19/21 17:08 04/19/21 10:43 Labs: Abnormal Lab Results - Last 24 Hours (Table) 04/19/21 04/19/21 04/19/21 Range/Units 10:43 10:43 10:43 RBC (3.80-5.40) m/uL Hgb (11.4-16.0) gm/dL Hct (34.0-46.0) % PT 12.2 H (9.0-12.0) sec INR 1.2 H (<1.2) Sodium 136 L (137-145) mmol/L Potassium 3.4 L (3.5-5.1) mmol/L Glucose 165 H (74-99) mg/dL Total Protein 5.6 L (6.3-8.2) g/dL Albumin 3.3 L (3.5-5.0) g/dL Crossmatch See Detail 04/19/21 04/19/21 Range/Units 10:46 17:08 RBC 3.76 L (3.80-5.40) m/uL Hgb 11.1 L 11.2 L (11.4-16.0) gm/dL Hct 32.1 L 31.4 L (34.0-46.0) % PT (9.0-12.0) sec INR (<1.2) Sodium (137-145) mmol/L Potassium (3.5-5.1) mmol/L Glucose (74-99) mg/dL Total Protein (6.3-8.2) g/dL Albumin (3.5-5.0) g/dL Crossmatch Thrombosis Risk Factor Assmnt - DVT/VTE Prophylaxis DVT/VTE Prophylaxis: Mechanical Prophylaxis ordered Assessment and Plan Assessment: Acute lower GI bleed status post colonoscopy today. Mild acute blood loss anemia Paroxysmal atrial fibrillation on anticoagulation with Coumadin. Hypertension Diabetes type 2 Hypothyroidism History of renal stones Anxiety DVT prophylaxis SCDs. Coumadin is on hold. Plan: Patient will be continued on gentle IV hydration and monitor H&H closely. Patient was given fresh frozen plasma and vitamin K. Continue to follow closely. Blood pressure medications on hold. Patient is being transferred to MICU for close monitoring. GI is on board. Time with Patient: Greater than 30
[2021-04-20 01:10] LABS: HCT 29.4 % (34.0-46.0); HGB 10.7 gm/dL (11.4-16.0); MCH 30.6 pg (25.0-35.0); MCHC 36.4 g/dL (31.0-37.0); MCV 84.1 fL (80.0-100.0); Mean Platelet Volume 8.4; Platelet Count 180 k/uL (150-450); Poikilocytosis Slight; RDW 15.5 % (11.5-15.5); WBC 5.6 k/uL (3.8-10.6)
[2021-04-20] MEDS: LEVOTHYROXINE 100 MCG TAB PO SCH (06:17)
[2021-04-20 06:36] LABS: African American GFR (CKD) >90 (>60 ml/min/1.73 sqM); Anion Gap 9 mmol/L; Blood Urea Nitrogen 10 mg/dL (7-17); Calcium 8.5 mg/dL (8.4-10.2); Carbon Dioxide 24 mmol/L (22-30); Chloride 106 mmol/L (98-107); Glucose 131 mg/dL (74-99); Non-African American GFR(CKD) 88 (>60 ml/min/1.73 sqM); Potassium 2.9 mmol/L (3.5-5.1); Sodium 139 mmol/L (137-145)
--- NOTE | 2021-04-20 07:17 | XR ---
EXAMINATION TYPE: XR chest 1V DATE OF EXAM: 04/20/2021 COMPARISON: 04/29/2016 HISTORY: Shortness of breath TECHNIQUE: Single frontal view of the chest is obtained. FINDINGS: There is no focal air space opacity, pleural effusion, or pneumothorax seen. The cardiac silhouette size is within normal limits. The osseous structures are intact. IMPRESSION: No acute process. No interval change.
--- NOTE | 2021-04-20 09:21 | PN ---
PROGRESS NOTE DATE OF DICTATION: April 20, 2021 Patient is a 76-year-old pleasant white female admitted to the hospital yesterday following a significant lower GI bleed after a colonoscopy that was done yesterday morning. She was noted to have a 2 mm polyp in the ascending colon that was removed by cold biopsy. Following the procedure, she went home and she started having multiple episodes of bright red blood per rectum. She came to the emergency room in a couple of hours following discharge from the hospital and was noted to be hypertensive, requiring 2 units of PRBC transfusion. She was given 2 units of FFP and some vitamin K for which she had a reaction and hence was stopped. Since yesterday afternoon, she had no further episodes of bleeding. She remains hemodynamically stable. Her last hemoglobin was 10.7 g/dL. She reports no abdominal pain. No nausea, no vomiting. She remains n.p.o. PHYSICAL EXAMINATION: She appears comfortable. No apparent distress. VITAL SIGNS: Stable. Blood pressure is 139/65, pulse is 65, temperature 98. HEENT examination unremarkable. Conjunctivae pink. Sclerae anicteric. Oral cavity no lesions. Neck no JVD or lymph node enlargement. Chest was clear to auscultation. Heart: Regular rate and rhythm. Abdomen: Soft. Bowel sounds are positive. There was very minimal tenderness in the right lower quadrant area. Rest of the abdomen was benign. Extremities: No pedal edema. Skin: No rashes. Neurologic: Alert and oriented x3. No focal deficits. LABS: From today WBC is 5.6, hemoglobin is 10.7, and platelets are 180,000. Potassium is 2.9. Rest of the labs are within normal limits. IMPRESSION: 1. Acute lower gastrointestinal bleed following a colonoscopy done yesterday morning which revealed a 2 mm ascending colon polyp that was removed by cold biopsies. Most likely dealing with post polypectomy lower gastrointestinal bleed. The patient received 2 units of PRBC transfusion, 2 units of FFP and vitamin and clinically she is doing better. She had no further bleeding in the last 16 hours. Hemodynamically stable. Last hemoglobin 10.7 g/dL. 2. History of atrial fibrillation on Coumadin currently on hold. 3. Mild hypokalemia. RECOMMENDATIONS: 1. We will start her on a clear liquid diet. 2. Monitor CBC every 6 hours and transfuse as needed. 3. No plans on any endoscopy intervention at the present time since it appears the bleeding has subsided. 4. We will follow with you closely. Thank you for this consultation. MMODL / IJN: [id number] /
[2021-04-20] MEDS: SOTALOL 80 MG TAB PO SCH (09:29)
[2021-04-20] MEDS: OXYBUTYNIN CHLORIDE 5 MG TAB PO SCH ×2 (09:29→20:14)
[2021-04-20] MEDS ORDERED: Magnesium Replacement Protocol 1 EACH MISC MISCELLANE PRN (09:48)
[2021-04-20] MEDS ORDERED: Potassium Replacement Protocol 1 EACH MISC MISCELLANE PRN ×2 (09:48→09:52)
[2021-04-20] MEDS: POTASSIUM CHLORIDE ER 20 MEQ TAB.ER PO SCH ×3 (10:18→13:37)
--- NOTE | 2021-04-20 11:57 | P.PN ---
Subjective Progress Note Date: 04/20/21 04/20/2021, the patient is doing well. She is on clear liquid diet. She had a bowel movement that was brownish and somewhat dietary. Otherwise, no other complaints. Hemoglobin stable at 10.7. Note that the patient received a total of 2 units of packed RBC and 2 units of fresh frozen plasma. Hemodynamically stable for now. No other complaints. Cardiac rhythm remains atrial fibrillation. No chest pain. No syncope. No dizziness. Objective - Vital Signs Vital signs: Vital Signs Temp 98 F 04/20/21 10:25 Pulse 66 04/20/21 10:25 Resp 18 04/20/21 10:25 BP 130/61 04/20/21 10:25 Pulse Ox 96 04/20/21 10:25 Intake & Output 04/19/21 04/20/21 04/20/21 18:59 06:59 18:59 Intake Total 1257 Balance 1257 Weight 110.223 kg Intake: Blood Product 1257 Ffp 24 Cpd Unit 321 [id number] Ffp 24 Cpd Unit 316 [id number] As-1 Unit 310 [id number] As-1 Unit 310 [id number] - Exam The patient appeared well nourished and normally developed. Vital signs as documented. Head exam is unremarkable. No scleral icterus or corneal arcus noted. Neck is without jugular venous distension, thyromegaly, or carotid bruits. Carotid upstrokes are brisk bilaterally. Lungs are clear to auscultation and percussion. Cardiac exam reveals the PMI to be normally sized and situated. Rhythm is irregular. First and second heart sounds normal. No murmurs, rubs or gallops. Abdominal exam reveals normal bowel sounds, no masses, no organomegaly and no aortic enlargement. Patient is also noted to have a large scar in the anterior abdominal wall related to a previous cholecystectomy. Extremities are nonedematous and both femoral and pedal pulses are normal.Examination of the skin revealed no evidence of significant rashes, suspicious appearing nevi or other concerning lesions.Neurologically, the patient is awake and alert and the patient does not have any focal neurological deficit. Cranial nerves are essentially intact. - Labs CBC & Chem 7: 04/20/21 01:01 04/20/21 05:19 Labs: Abnormal Lab Results - Last 24 Hours (Table) 04/19/21 04/19/21 04/20/21 Range/Units 10:43 17:08 01:01 RBC 3.76 L 3.50 L (3.80-5.40) m/uL Hgb 11.2 L 10.7 L (11.4-16.0) gm/dL Hct 31.4 L 29.4 L (34.0-46.0) % Potassium (3.5-5.1) mmol/L Glucose (74-99) mg/dL Magnesium (1.6-2.3) mg/dL Crossmatch See Detail 04/20/21 04/20/21 Range/Units 05:19 05:19 RBC (3.80-5.40) m/uL Hgb (11.4-16.0) gm/dL Hct (34.0-46.0) % Potassium 2.9 L (3.5-5.1) mmol/L Glucose 131 H (74-99) mg/dL Magnesium 1.4 L (1.6-2.3) mg/dL Crossmatch Assessment and Plan Plan: 1 acute massive lower GI bleed, post colonoscopy and polypectomy. Has stopped. The patient received a total of 2 units of packed RBC and 2 units of fresh frozen plasma. Hemoglobin stable at 10.7. Currently on no anticoagulants. 2 chronic atrial fibrillation 3 history of long-term anticoagulant use with warfarin. 4 history of uterine cancer 5 history of bronchial asthma 6 diabetes mellitus 7 hypertension 8 hypothyroidism 9 degenerative arthritis 10 history of kidney stones Plan Continue clear liquid diet and advanced gradually from gastroenterology No anticoagulation Monitor hemoglobin was 40 further signs of GI bleed No need for any ICU transfers at this point in time the patient can be managed to the medical floor. Pulmonary critical care services we'll sign off.
[2021-04-20] MEDS: MAGNESIUM SULFATE-D5W PMX 1 GM in DEXTROSE/WATER 1 100ML.BAG IVPB SCH ×3 (11:59→16:11)
[2021-04-20] MEDS ORDERED: POTASSIUM CHLORIDE 20 MEQ in WATER FOR INJECTION 1 100ML.BAG IVPB ONE (12:00)
[2021-04-20] MEDS: SODIUM CHLORIDE 0.9% 1,000 ML IV SCH (17:49)
[2021-04-20] MEDS: PRAVASTATIN SODIUM 40 MG TAB PO SCH (17:51)
[2021-04-20] MEDS: MONTELUKAST 10 MG TAB PO SCH (20:14)
[2021-04-21] MEDS: SOTALOL 80 MG TAB PO SCH ×3 (00:40→21:01)
[2021-04-21] MEDS: LEVOTHYROXINE 100 MCG TAB PO SCH (06:50)
[2021-04-21 08:41] LABS: Basophils % (A) 1 %; Eosinophils # (A) 0.3 k/uL (0-0.7); Eosinophils % (A) 5 %; HCT 33.2 % (34.0-46.0); HGB 11.5 gm/dL (11.4-16.0); Lymphocytes # (A) 1.5 k/uL (1.0-4.8); Lymphocytes % (A) 27 %; MCHC 34.6 g/dL (31.0-37.0); MCV 86.6 fL (80.0-100.0); Mean Platelet Volume 8.8; Monocytes # (A) 0.3 k/uL (0-1.0); Monocytes % (A) 5 %; Neutrophils # (A) 3.5 k/uL (1.3-7.7); Neutrophils % (A) 62 %; Platelet Count 193 k/uL (150-450); Poikilocytosis Slight; RBC 3.84 m/uL (3.80-5.40); RDW 15.3 % (11.5-15.5); WBC 5.7 k/uL (3.8-10.6)
[2021-04-21 08:55] LABS: African American GFR (CKD) >90 (>60 ml/min/1.73 sqM); Anion Gap 8 mmol/L; Blood Urea Nitrogen 5 mg/dL (7-17); Carbon Dioxide 25 mmol/L (22-30); Chloride 106 mmol/L (98-107); Glucose 218 mg/dL (74-99); Magnesium 1.9 mg/dL (1.6-2.3); Non-African American GFR(CKD) 89 (>60 ml/min/1.73 sqM); Potassium 3.8 mmol/L (3.5-5.1); Sodium 139 mmol/L (137-145)
[2021-04-21] MEDS: OXYBUTYNIN CHLORIDE 5 MG TAB PO SCH ×2 (09:49→21:01)
[2021-04-21] MEDS: SODIUM CHLORIDE 0.9% 1,000 ML IV SCH (12:39)
--- NOTE | 2021-04-21 12:48 | PN ---
PROGRESS NOTE DATE OF SERVICE: 04/21/2021. HISTORY: The patient is a 76-year-old pleasant white female admitted to hospital post polypectomy lower GI bleed. She underwent an EGD colonoscopy on Thursday and a 2 mm ascending colon polyp was removed following which she had significant bleeding and came back to the emergency room and admitted to the hospital. She dropped hemoglobin to 11.1, needing 2 units of PRBC transfusion. Currently, she is stable at 11.5 g/dL. She denies any further bleeding. She had a bowel movement last night, which was brown in color. No abdominal pain. No nausea or vomiting. PHYSICAL EXAMINATION: GENERAL: Appears comfortable. VITAL SIGNS: Stable. Blood pressure 120/70, pulse rate 54, temperature 97.8. HEENT: Examination unremarkable. Conjunctivae pink. Sclerae anicteric. Oral cavity no lesions. NECK: No JVD or lymph node enlargement. CHEST: Clear to auscultation. HEART: Regular rate and rhythm. ABDOMEN: Soft. Bowel sounds are positive. No organomegaly. EXTREMITIES: No pedal edema. NEURO: She is alert and oriented x3. No focal deficits. LABS: WBC 5.7, hemoglobin 11.5, platelets normal. IMPRESSION: 1. Acute post polypectomy lower GI bleed. The patient is clinically stable. No further bleeding. Hemoglobin stable at 11.5 g/dL. 2. History of atrial fibrillation on Coumadin currently on hold. 3. History of hypertension and hyperlipidemia. RECOMMENDATIONS: 1. Advance to regular diet. 2. Since she is stable, she can be discharged home today. 3. Advised to hold Coumadin for one week. Thank you for this consultation. MMODL / IJN: [id number] /
[2021-04-21] MEDS: PRAVASTATIN SODIUM 40 MG TAB PO SCH (17:48)
[2021-04-21] MEDS: MONTELUKAST 10 MG TAB PO SCH (21:01)
--- NOTE | 2021-04-21 23:22 | P.PN ---
Subjective Progress Note Date: 04/20/21 Principal diagnosis: Acute lower GI bleed status post colonoscopy and polypectomy. Patient is a 76-year-old female with a known history of atrial fibrillation on anticoagulation with Coumadin, hypertension, diabetes type 2 gau-lxmyjvd-sdsiworqk, hypothyroidism and uterine cancer with radiation treatment in 2017, anxiety and prior history of cardiac catheterization and renal stones presents to ER due to complaints of GI bleeding. Patient had elective colonoscopy and EGD this morning around 7 AM. Patient had 2 mm polyp removed and cauterized. She was discharged from the hospital and on the way home she began started having sensation of passing gas. When she went to the bathroom and checked that she saturated the pad she was wearing. There was significant amount of blood bright red and clots. Patient came to ER for evaluation. Patient is Coumadin due to atrial fibrillation. Coumadin was stopped 1 week ago and was started on Lovenox due to elective procedure. Patient did take her last Lovenox dose day before yesterday at 7 PM., That was about 36 hours ago. Patient otherwise denied any complaints of abdominal pain. Patient felt dizzy and lightheaded. Blood pressure was low as per EMS. Patient was started on IV hydration and was brought to the hospital. Denied any complaints of fever or chills. No chest pain. EKG showed sinus bradycardia Laboratory data showed WBC 7.7 hemoglobin 11.1 and platelets 241 INR 1.2 Sodium 136 potassium 3.4 chloride 102 BUN 10 and creatinine 0.62 Patient was given 1 unit of fresh frozen plasma, PRBC and 2 mg vitamin K IV x1. 04/20/2021 Patient is currently awake alert 1x3. Tolerating clear liquid diet. Denied any bright red blood per rectum. Still having brownish stool. Patient received total of 2 units of PRBC and 2 units of fresh frozen plasma. No complaints of abdominal pain. No nausea or vomiting. Anticoagulation is on hold due to GI bleed. Patient remains on atrial fibrillation. Pulmonary and GI is following. Hemoglobin 10.7 today. Current medications reviewed Objective - Vital Signs Vital signs: Vital Signs Temp 98 F 04/20/21 10:25 Pulse 66 04/20/21 10:25 Resp 18 04/20/21 10:25 BP 130/61 04/20/21 10:25 Pulse Ox 96 04/20/21 10:25 Intake & Output 04/19/21 04/20/21 04/20/21 18:59 06:59 18:59 Intake Total 1257 Balance 1257 Weight 110.223 kg Intake: Blood Product 1257 Ffp 24 Cpd Unit 321 [id number] Ffp 24 Cpd Unit 316 [id number] As-1 Unit 310 [id number] As-1 Unit 310 [id number] - Exam PHYSICAL EXAMINATION: Patient is lying in the bed comfortably, no acute distress, awake alert and oriented.. HEENT: Normocephalic. Neck is supple. Pupils reactive. Nostrils clear. Oral cavity is moist. Neck reveals no JVD, carotid bruits, or thyromegaly. CHEST EXAMINATION: Trachea is central. Symmetrical expansion. Lung [place] clear to auscultation and percussion. CARDIAC: Normal S1, S2 with no gallops. No murmurs ABDOMEN: Soft. Bowel sounds normal. No organomegaly. No abdominal bruits. Extremities: reveal no edema. No clubbing or cyanosis Neurologically awake, alert, oriented x3 with well-coordinated movements. No focal deficits noted Skin: No rash or skin lesions. Psychiatric: Coperative. Nonsuicidal Musculoskeletal: No joint swelling or deformity. Normal range of motion. - Labs CBC & Chem 7: 04/21/21 08:12 04/21/21 08:18 Labs: Abnormal Lab Results - Last 24 Hours (Table) 04/19/21 04/19/21 04/19/21 Range/Units 10:43 10:43 10:43 RBC (3.80-5.40) m/uL Hgb (11.4-16.0) gm/dL Hct (34.0-46.0) % PT 12.2 H (9.0-12.0) sec INR 1.2 H (<1.2) Sodium 136 L (137-145) mmol/L Potassium 3.4 L (3.5-5.1) mmol/L Glucose 165 H (74-99) mg/dL Magnesium (1.6-2.3) mg/dL Total Protein 5.6 L (6.3-8.2) g/dL Albumin 3.3 L (3.5-5.0) g/dL Crossmatch See Detail 04/19/21 04/19/21 04/20/21 Range/Units 10:46 17:08 01:01 RBC 3.76 L 3.50 L (3.80-5.40) m/uL Hgb 11.1 L 11.2 L 10.7 L (11.4-16.0) gm/dL Hct 32.1 L 31.4 L 29.4 L (34.0-46.0) % PT (9.0-12.0) sec INR (<1.2) Sodium (137-145) mmol/L Potassium (3.5-5.1) mmol/L Glucose (74-99) mg/dL Magnesium (1.6-2.3) mg/dL Total Protein (6.3-8.2) g/dL Albumin (3.5-5.0) g/dL Crossmatch 04/20/21 04/20/21 Range/Units 05:19 05:19 RBC (3.80-5.40) m/uL Hgb (11.4-16.0) gm/dL Hct (34.0-46.0) % PT (9.0-12.0) sec INR (<1.2) Sodium (137-145) mmol/L Potassium 2.9 L (3.5-5.1) mmol/L Glucose 131 H (74-99) mg/dL Magnesium 1.4 L (1.6-2.3) mg/dL Total Protein (6.3-8.2) g/dL Albumin (3.5-5.0) g/dL Crossmatch Assessment and Plan Assessment: Acute lower GI bleed status post colonoscopy and polypectomy. Mild acute blood loss anemia Paroxysmal atrial fibrillation on anticoagulation with Coumadin. Hypertension Diabetes type 2 Hypothyroidism History of renal stones Anxiety DVT prophylaxis SCDs. Coumadin is on hold. Plan: Patient will be continued on gentle IV hydration and monitor H&H closely. Patient was given , pRBC. fresh frozen plasma and vitamin K. Continue to follow closely. Blood pressure medications on hold. Patient was started on clear liquid diet. Anticoagulation is on hold. .
--- NOTE | 2021-04-21 23:30 | P.PN ---
Subjective Progress Note Date: 04/21/21 Principal diagnosis: Acute lower GI bleed status post colonoscopy and polypectomy. Patient is a 76-year-old female with a known history of atrial fibrillation on anticoagulation with Coumadin, hypertension, diabetes type 2 [id number]-mkwgvdxdv, hypothyroidism and uterine cancer with radiation treatment in 2017, anxiety and prior history of cardiac catheterization and renal stones presents to ER due to complaints of GI bleeding. Patient had elective colonoscopy and EGD this morning around 7 AM. Patient had 2 mm polyp removed and cauterized. She was discharged from the hospital and on the way home she began started having sensation of passing gas. When she went to the bathroom and checked that she saturated the pad she was wearing. There was significant amount of blood bright red and clots. Patient came to ER for evaluation. Patient is Coumadin due to atrial fibrillation. Coumadin was stopped 1 week ago and was started on Lovenox due to elective procedure. Patient did take her last Lovenox dose day before yesterday at 7 PM., That was about 36 hours ago. Patient otherwise denied any complaints of abdominal pain. Patient felt dizzy and lightheaded. Blood pressure was low as per EMS. Patient was started on IV hydration and was brought to the hospital. Denied any complaints of fever or chills. No chest pain. EKG showed sinus bradycardia Laboratory data showed WBC 7.7 hemoglobin 11.1 and platelets 241 INR 1.2 Sodium 136 potassium 3.4 chloride 102 BUN 10 and creatinine 0.62 Patient was given 1 unit of fresh frozen plasma, PRBC and 2 mg vitamin K IV x1. 04/20/2021 Patient is currently awake alert 1x3. Tolerating clear liquid diet. Denied any bright red blood per rectum. Still having brownish stool. Patient received total of 2 units of PRBC and 2 units of fresh frozen plasma. No complaints of abdominal pain. No nausea or vomiting. Anticoagulation is on hold due to GI bleed. Patient remains on atrial fibrillation. Pulmonary and GI is following. Hemoglobin 10.7 today. On 04/21/2021 Patient is sitting on the side of the bed. No complaints of abdominal pain. No further episodes of dark stools. Hemoglobin level improved to 11.5 today. No complaints of chest pain or shortness of breath. No headache or dizziness or lightheadedness. We will start back on her blood pressure medication. Anticoagulation is on hold currently. GI is on board. Current medications reviewed Objective - Vital Signs Vital signs: Vital Signs Temp 97.8 F 04/20/21 20:00 Pulse 63 04/21/21 16:00 Resp 16 04/21/21 16:00 BP 135/68 04/21/21 16:00 Pulse Ox 96 04/21/21 16:00 Intake & Output 04/21/21 04/21/21 04/22/21 06:59 18:59 06:59 Intake Total 1050 Balance 1050 Weight 110.1 kg Intake: Oral 1050 Other: # Voids 2 1 - Exam PHYSICAL EXAMINATION: Patient is lying in the bed comfortably, no acute distress, awake alert and oriented.. HEENT: Normocephalic. Neck is supple. Pupils reactive. Nostrils clear. Oral cavity is moist. Neck reveals no JVD, carotid bruits, or thyromegaly. CHEST EXAMINATION: Trachea is central. Symmetrical expansion. Lung sherwood clear to auscultation and percussion. CARDIAC: Normal S1, S2 with no gallops. No murmurs ABDOMEN: Soft. Bowel sounds normal. No organomegaly. No abdominal bruits. Extremities: reveal no edema. No clubbing or cyanosis Neurologically awake, alert, oriented x3 with well-coordinated movements. No focal deficits noted Skin: No rash or skin lesions. Psychiatric: Coperative. Nonsuicidal Musculoskeletal: No joint swelling or deformity. Normal range of motion. - Labs CBC & Chem 7: 04/21/21 08:12 04/21/21 08:18 Labs: Abnormal Lab Results - Last 24 Hours (Table) 04/21/21 04/21/21 Range/Units 08:12 08:18 Hct 33.2 L (34.0-46.0) % BUN 5 L (7-17) mg/dL Glucose 218 H (74-99) mg/dL Assessment and Plan Assessment: Acute lower GI bleed status post colonoscopy and polypectomy. Mild acute blood loss anemia Paroxysmal atrial fibrillation on anticoagulation with Coumadin. Hypertension Diabetes type 2 Hypothyroidism History of renal stones Anxiety DVT prophylaxis SCDs. Coumadin is on hold. Plan: Patient will be continued on gentle IV hydration and monitor H&H closely. Patient was given , 2 u pRBC. fresh frozen plasma and vitamin K. Continue to follow closely. Blood pressure medications staretd back. Patient was started on clear liquid diet. advance as tolaerated. Anticoagulati on is on hold. .
[2021-04-22] MEDS: LEVOTHYROXINE 100 MCG TAB PO SCH (06:34)
[2021-04-22] MEDS: OXYBUTYNIN CHLORIDE 5 MG TAB PO SCH (08:04)
[2021-04-22] MEDS: SOTALOL 80 MG TAB PO SCH (08:04)
[2021-04-22 08:52] VITALS: BP 153/52; PULSE 60; RESP 16; TEMP 97.7
[2021-04-22] MEDS ORDERED: LOSARTAN 50 MG TAB PO SCH (09:00)
[2021-04-22] MEDS ORDERED: TRIAMTERENE-HCTZ 37.5-25MG 1 EACH CAP PO SCH (09:00)
--- NOTE | 2021-04-22 20:09 | P.PN ---
Subjective Progress Note Date: 04/22/21 Principal diagnosis: Acute post-polypectomy bleed, anemia of acute blood loss, hematochezia Patient is seen sitting bedside. No acute complaints. Tolerating diet. No further GI bleeding. Objective - Vital Signs Vital signs: Vital Signs Temp 97.7 F 04/22/21 08:00 Pulse 60 04/22/21 08:00 Resp 16 04/22/21 08:00 BP 153/52 04/22/21 08:00 Pulse Ox 97 04/22/21 08:47 Intake & Output 04/21/21 04/22/21 04/22/21 18:59 06:59 18:59 Intake Total 1050 Balance 1050 Weight 111 kg Intake: Oral 1050 Other: # Voids 1 2 - Exam On physical examination, patient appears comfortable in no apparent distress. HEAD: Normocephalic, atraumatic. EYES: No scleral icterus. No conjunctival injection. MOUTH: No lesions, tongue midline. NECK: Trachea midline, no gross abnormalities. ABDOMEN: Soft, nontender to palpation. Bowel sounds are positive. No organomegaly. No guarding or rigidity. EXTREMITIES: No pedal edema. SKIN: No rashes, no jaundice. NEUROLOGIC: Alert and oriented x3. No focal deficits. - Labs CBC & Chem 7: 04/21/21 08:12 04/21/21 08:18 Assessment and Plan (1) Anemia associated with acute blood loss Narrative/Plan: 76-year-old female who presented to the hospital with multiple episodes of blood per rectum after recent polypectomy on colonoscopy. No further bleeding. Hemoglobin has remained stable after an initial fall. Status: Acute Code(s): D62 - ACUTE POSTHEMORRHAGIC ANEMIA SNOMED Code(s): 668736365 (2) Hematochezia Status: Acute Code(s): K92.1 - MELENA SNOMED Code(s): 506664711 (3) S/P colonoscopic polypectomy Status: Acute Code(s): Z98.890 - OTHER SPECIFIED POSTPROCEDURAL STATES SNOMED Code(s): 529594997474 Plan: Supportive care Okay for diet as tolerated Continue to hold Coumadin therapy for one week Await pathology from polypectomy Okay for discharge when otherwise medically stable
--- NOTE | 2021-04-22 20:25 | P.DS ---
Providers Date of admission: 04/19/21 12:21 Expected date of discharge: 04/22/21 Attending physician: Jamison Moon Consults: 04/19/21 12:21 Consult Physician Stat Consulting Provider: Lyla Olvera Consult Reason/Comments: gi bleed Do you want consulting provider notified?: Already Contacted Consult Physician Urgent Consulting Provider: Nisa Campos Consult Reason/Comments: gi bleed Do you want consulting provider notified?: Already Contacted Primary care physician: David Larios Hospital Course: Hospital course: Patient is a 76-year-old female, follows with Dr. Larios with a known history of atrial fibrillation on anticoagulation with Coumadin, hypertension, diabetes type 2 icm-vdptnfo-peuifwrsp, hypothyroidism and uterine cancer with radiation treatment in 2017, anxiety and prior history of cardiac catheterization and renal stones presents to ER due to complaints of GI bleeding. Patient had elective colonoscopy and EGD this morning, by Dr. Everett Campos around 7 AM. Patient had 2 mm polyp removed and cauterized. She was discharged from the hospital and on the way home she began started having sensation of passing gas. When she went to the bathroom and checked that she saturated the pad she was wearing. There was significant amount of blood bright red and clots. Patient came to ER for evaluation. Patient is Coumadin due to atrial fibrillation. Coumadin was stopped 1 week ago and was started on Lovenox due to elective procedure. Patient did take her last Lovenox dose day before yesterday at 7 PM., That was about 36 hours ago. Patient otherwise denied any complaints of abdominal pain. Patient felt dizzy and lightheaded. Blood pressure was low as per EMS. Patient was started on IV hydration and was brought to the hospital. Denied any complaints of fever or chills. No chest pain. EKG showed sinus bradycardia Laboratory data showed WBC 7.7 hemoglobin 11.1 and platelets 241 INR 1.2 Sodium 136 potassium 3.4 chloride 102 BUN 10 and creatinine 0.62 Patient was given 1 unit of fresh frozen plasma, PRBC and 2 mg vitamin K IV x1. 04/20/2021 Patient is currently awake alert 1x3. Tolerating clear liquid diet. Denied any bright red blood per rectum. Still having brownish stool. Patient received total of 2 units of PRBC and 2 units of fresh frozen plasma. No complaints of abdominal pain. No nausea or vomiting. Anticoagulation is on hold due to GI bleed. Patient remains on atrial fibrillation. Pulmonary and GI is following. Hemoglobin 10.7 today. On 04/21/2021 Patient is sitting on the side of the bed. No complaints of abdominal pain. No further episodes of dark stools. Hemoglobin level improved to 11.5 today. No complaints of chest pain or shortness of breath. No headache or dizziness or lightheadedness. We will start back on her blood pressure medication. Anticoagulation is on hold currently. GI is on board. April 22: Today feeling well. Up to the bathroom. No dizziness or lightheadedness. Care was discussed with the patient. As per GI patient to resume Coumadin in 1 week. No Lovenox. Questions were answered. Patient told to keep an eye on her stool. Repeat CBC in 5-7 days. is present Discussion and discharge planning more than 35 minutes On examination: VITAL SIGNS: [97.7, 60, 16, 153/52, 95% room air] GENERAL APPEARANCE: BMI 43.3, sitting in chair edge of the bed, was comfortable HEENT: Normal external appearance of nose and ear. Oral cavity normal EYES: Pupils equal. Conjunctiva pale. NECK: JVD not raised. Mass not palpable. RESPIRATORY: Respiratory effort normal. Lungs clear to auscultation. CARDIOVASCULAR: First and second sounds normal. No edema. ABDOMEN: Soft. Liver and spleen not palpable. No tenderness. No mass palpable. PSYCHIATRY: Alert and oriented x3. Mood and affect normal. INVESTIGATIONS, reviewed in the clinical context: White count 5.7 hemoglobin 11.5 platelets 193 potassium 3.8 creatinine 0.58 Admission hemoglobin: 11.2 Assessment and plan: -Acute lower GI bleed secondary to colonic polypectomy. -Mild acute blood loss anemia Follow H&H. Coumadin held -Paroxysmal atrial fibrillation on anticoagulation with Coumadin. Resume Coumadin in 7 days -Essential Hypertension Cozaar, sotalol, Dyazide Hypothyroidism Synthroid 100 g -Anxiety, disorder Xanax when necessary -Morbid obesity BMI 43.3 Weight loss measures and follow with PCP -Chronic urinary stress incontinence Ditropan -Hyperlipidemia On Pravachol Disposition: Home Plan - Discharge Summary Discharge Rx Participant: Yes New Discharge Prescriptions: Continue Pravastatin Sodium [Pravachol] 40 mg PO PC-SUPPER Oxybutynin Chloride [Ditropan] 2.5 mg PO HS Montelukast [Singulair] 10 mg PO HS Loratadine [Claritin] 10 mg PO DAILY ALPRAZolam [Xanax] 0.25 mg PO BID PRN PRN Reason: Anxiety Losartan [Cozaar] 50 mg PO DAILY Warfarin [Coumadin] 5 mg PO SUTUTHSA@1800 [place]-3 Fatty Acids/Fish Oil [Fish Oil 1,000 mg Softgel] 2 cap PO DAILY Levothyroxine Sodium [Synthroid] 100 mcg PO DAILY Acetaminophen [Tylenol] 1,000 mg PO Q6H PRN PRN Reason: Pain Sotalol [Betapace] 80 mg PO BID Triamterene-Hctz 37.5-25Mg [Dyazide 37.5-25 Capsule] 1 cap PO DAILY Fluticasone Nasal [place] [Flonase Nasal [place]] 1 - 2 spr EA NOSTRIL HS PRN PRN Reason: Allergy Symptoms Warfarin [Coumadin] 2.5 mg PO MOWEFR@1800 Albuterol Sulfate [Proventil Hfa] 2 puff INHALATION RT-BID PRN PRN Reason: Shortness Of Breath Slow Fe 45mg 1 tab PO DAILY Calcium/Magnesium/Zinc [Xosssnz-Uhgssudio-Gpwh Tablet] 3 tab PO DAILY Fluticasone Propionate [Flovent Hfa 220 mcg] 2 puff INHALATION RT-BID metroNIDAZOLE 1% GEL [Metrogel 1%] 1 applic TOPICAL DAILY Oxybutynin Chloride [Ditropan] 5 mg PO DAILY Albuterol Nebulized [Ventolin Nebulized] 2.5 mg INHALATION RT-BID PRN PRN Reason: Shortness Of Breath Discontinued Ibuprofen 800 mg PO DAILY PRN PRN Reason: Pain Discharge Medication List ALPRAZolam [Xanax] 0.25 mg PO BID PRN 06/19/15 [History] Loratadine [Claritin] 10 mg PO DAILY 06/19/15 [History] Losartan [Cozaar] 50 mg PO DAILY 06/19/15 [History] Montelukast [Singulair] 10 mg PO HS 06/19/15 [History] Oxybutynin Chloride [Ditropan] 2.5 mg PO HS 06/19/15 [History] Pravastatin Sodium [Pravachol] 40 mg PO PC-SUPPER 06/19/15 [History] Warfarin [Coumadin] 5 mg PO SUTUTHSA@1800 08/09/16 [History] Levothyroxine Sodium [Synthroid] 100 mcg PO DAILY 06/04/17 [History] [place]-3 Fatty Acids/Fish Oil [Fish Oil 1,000 mg Softgel] 2 cap PO DAILY 06/04/17 [History] Acetaminophen [Tylenol] 1,000 mg PO Q6H PRN 10/07/17 [History] Sotalol [Betapace] 80 mg PO BID 10/07/17 [History] Triamterene-Hctz 37.5-25Mg [Dyazide 37.5-25 Capsule] 1 cap PO DAILY 10/07/17 [History] Albuterol Sulfate [Proventil Hfa] 2 puff INHALATION RT-BID PRN 12/14/17 [History] Fluticasone Nasal [place] [Flonase Nasal [place]] 1 - 2 spr EA NOSTRIL HS PRN 12/14/17 [History] Warfarin [Coumadin] 2.5 mg PO MOWEFR@1800 12/14/17 [History] Albuterol Nebulized [Ventolin Nebulized] 2.5 mg INHALATION RT-BID PRN 04/19/21 [History] Calcium/Magnesium/Zinc [Ezremxc-Kkpiwggan-Vomc Tablet] 3 tab PO DAILY 04/19/21 [History] Fluticasone Propionate [Flovent Hfa 220 mcg] 2 puff INHALATION RT-BID 04/19/21 [History] Oxybutynin Chloride [Ditropan] 5 mg PO DAILY 04/19/21 [History] Slow Fe 45mg 1 tab PO DAILY 04/19/21 [History] metroNIDAZOLE 1% GEL [Metrogel 1%] 1 applic TOPICAL DAILY 04/19/21 [History] Follow up Appointment(s)/Referral(s): Nisa Campos MD [STAFF PHYSICIAN] - 05/21/21 4:45 pm David Larios MD [Primary Care Provider] - 04/25/21 10:00 am Patient Instructions/Handouts: Gastrointestinal Bleeding (DC), Rectal Bleeding (DC), Type 2 Diabetes in the Older Adult (DC) Activity/Diet/Wound Care/Special Instructions: cbc/inr - 10 days start coumadin on 04/27/21 Discharge Disposition: HOME SELF-CARE
== END 2021-04-22 13:09 | disposition home or self-care (01) | DRG 920 ==
LOC: EC 10:30 → 2SICU 12:21 → 3SCARD 04-20 10:17
PROVIDERS: ADMIT Hospitalist; ATTEND Hospitalist
PROC: 30233N1 Transfusion of Nonautologous Red Blood Cells into Peripheral Vein, Percutaneous Approach (ICD-10-PCS; principal; 2021-04-19)
PROC: 30233K1 Transfusion of Nonautologous Frozen Plasma into Peripheral Vein, Percutaneous Approach (ICD-10-PCS; principal; 2021-04-19)
DX: K91.840 Postprocedural hemorrhage of a digestive system organ or structure following a digestive system procedure (principal); Z68.41 Body mass index [BMI] 40.0-44.9, adult; D62 Acute posthemorrhagic anemia; I48.20 Chronic atrial fibrillation, unspecified; M19.90 Unspecified osteoarthritis, unspecified site; N39.3 Stress incontinence (female) (male); Y83.8 Other surgical procedures as the cause of abnormal reaction of the patient, or of later complication, without mention of misadventure at the time of the procedure; E03.9 Hypothyroidism, unspecified; E11.9 Type 2 diabetes mellitus without complications; E66.01 Morbid (severe) obesity due to excess calories; J45.909 Unspecified asthma, uncomplicated; K29.70 Gastritis, unspecified, without bleeding; I95.9 Hypotension, unspecified; Z85.42 Personal history of malignant neoplasm of other parts of uterus; I48.0 Paroxysmal atrial fibrillation; I10 Essential (primary) hypertension; E78.5 Hyperlipidemia, unspecified; L71.9 Rosacea, unspecified; J32.9 Chronic sinusitis, unspecified; E87.6 Hypokalemia; F41.9 Anxiety disorder, unspecified; Z79.01 Long term (current) use of anticoagulants; Z79.51 Long term (current) use of inhaled steroids; Z79.890 Hormone replacement therapy; Z79.899 Other long term (current) drug therapy; Z80.0 Family history of malignant neoplasm of digestive organs; Z80.8 Family history of malignant neoplasm of other organs or systems; Z82.49 Family history of ischemic heart disease and other diseases of the circulatory system; Z83.3 Family history of diabetes mellitus; Z86.010 Personal history of colon polyps; Z87.442 Personal history of urinary calculi; Z90.710 Acquired absence of both cervix and uterus; Z92.3 Personal history of irradiation; Z90.89 Acquired absence of other organs; Z98.890 Other specified postprocedural states; Z90.49 Acquired absence of other specified parts of digestive tract
CPT/HCPCS: 36415; 71045; 80048; 80053; 83605; 83735; 85025; 85027; 85610; 85730; 86850; 86900; 86901; 86920; 93005; 94760; 96365; 96375; 99285

== ENCOUNTER 2021-08-25 04:14 | Emergency (ER) | payer MEDICARE ==
--- NOTE | 2021-08-25 04:18 | ED ---
Fall HPI - General Stated Complaint: Fall Time Seen by Provider: 08/25/21 04:17 Source: RN notes reviewed, old records reviewed Mode of arrival: EMS Limitations: no limitations - History of Present Illness Initial Comments: This is a 76-year-old female DF status post fall significant left knee pain. Patient mainly complaining of left knee pain but also had chest and hands. Demario mir has no other complaints, follows mechanical in nature. No recent travel history or sick contacts. No fever cough or congestion. MD Complaint: fall -: hour(s) Fall From: standing When Fall Occurred: 1 hour [employer] Fall Witnessed: no Place Fall Occurred: home Loss of Consciousness: none Prolonged Down Time?: no Symptoms Prior to Fall: none Location: chest, back Location - Extremities: Left: Knee Severity: moderate Severity scale (1-10): 5 Context: tripped/slipped Associated Symptoms: denies - Related Data Home Medications Medication Instructions Recorded Confirmed ALPRAZolam [Xanax] 0.25 mg PO BID PRN 06/19/15 04/19/21 Loratadine [Claritin] 10 mg PO DAILY 06/19/15 04/19/21 Losartan [Cozaar] 50 mg PO DAILY 06/19/15 04/19/21 Montelukast [Singulair] 10 mg PO HS 06/19/15 04/19/21 Oxybutynin Chloride [Ditropan] 2.5 mg PO HS 06/19/15 04/19/21 Pravastatin Sodium [Pravachol] 40 mg PO PC-SUPPER 06/19/15 04/19/21 Warfarin [Coumadin] 5 mg PO SUTUTHSA@1800 04/29/16 04/19/21 Levothyroxine Sodium [Synthroid] 100 mcg PO DAILY 06/04/17 04/19/21 [place]-3 Fatty Acids/Fish Oil [Fish 2 cap PO DAILY 06/04/17 04/19/21 Oil 1,000 mg Softgel] Acetaminophen [Tylenol] 1,000 mg PO Q6H PRN 10/07/17 04/19/21 Sotalol [Betapace] 80 mg PO BID 10/07/17 04/19/21 Triamterene-Hctz 37.5-25Mg 1 cap PO DAILY 10/07/17 04/19/21 [Dyazide 37.5-25 Capsule] Albuterol Sulfate [Proventil Hfa] 2 puff INHALATION RT-BID PRN 12/14/17 04/19/21 Fluticasone Nasal [place] [Flonase 1 - 2 spr EA NOSTRIL HS PRN 12/14/17 04/19/21 Nasal [place]] Warfarin [Coumadin] 2.5 mg PO MOWEFR@1800 12/14/17 04/19/21 Albuterol Nebulized [Ventolin 2.5 mg INHALATION RT-BID PRN 04/19/21 04/19/21 Nebulized] Calcium/Magnesium/Zinc 3 tab PO DAILY 04/19/21 04/19/21 [Jkwcjqm-Qiyklwvqe-Fzid Tablet] Fluticasone Propionate [Flovent 2 puff INHALATION RT-BID 04/19/21 04/19/21 Hfa 220 mcg] Oxybutynin Chloride [Ditropan] 5 mg PO DAILY 04/19/21 04/19/21 Slow Fe 45mg 1 tab PO DAILY 04/19/21 04/19/21 metroNIDAZOLE 1% GEL [Metrogel 1%] 1 applic TOPICAL DAILY 04/19/21 04/19/21 Allergies Allergy/AdvReac Type Severity Reaction Status Date / Time adhesive Allergy Rash/Hives Verified 08/25/21 04:26 budesonide [From Symbicort] Allergy Rash/Hives Verified 08/25/21 04:26 formoterol fumarate Allergy Rash/Hives Verified 08/25/21 04:26 [From Symbicort] naproxen sodium [From Aleve] Allergy Rash/Hives Verified 08/25/21 04:26 niacin Allergy Rapid Verified 08/25/21 04:26 Heart Rate Penicillins Allergy Rash/Hives Verified 08/25/21 04:26 prednisone Allergy Rash/Hives/Shortness Verified 08/25/21 04:26 of Breath Sulfa (Sulfonamide Allergy Rash/Hives Verified 08/25/21 04:26 Antibiotics) aspirin AdvReac Unknown Verified 08/25/21 04:26 codeine AdvReac Abdominal Verified 08/25/21 04:26 Pain levofloxacin [From Levaquin] AdvReac Chest Pain Verified 08/25/21 04:26 moxifloxacin HCl AdvReac Rapid Verified 08/25/21 04:26 [From Avelox] Heart Rate maxzide(takes Dyazide) AdvReac See Uncoded 08/25/21 04:26 Comments Review of Systems ROS Statement: Those systems with pertinent positive or pertinent negative responses have been documented in the HPI. ROS Other: All systems not noted in ROS Statement are negative. Past Medical History Past Medical History: Atrial Fibrillation, Asthma, Cancer, Diabetes Mellitus, Hypertension, Osteoarthritis (OA), Thyroid Disorder Additional Past Medical History / Comment(s): freq diarrhea,states rgv-eutfzccq-hcxv controlled, hypothyroidism,rt knee pain, hx kidney stone, rosacea., chronic sinusitis., uterine cancer with radiation tx (may 2017). History of Any Multi-Drug Resistant Organisms: None Reported Past Surgical History: Cholecystectomy, Heart Catheterization, Hysterectomy, Tonsillectomy Additional Past Surgical History / Comment(s): R sided kidney stone surgery, cervical surgery-cone, back pain procedure Past Anesthesia/Blood Transfusion Reactions: Previous Problems w/ Anesthesia Additional Past Anesthesia/Blood Transfusion Reaction / Comment(s): - DIFFICULT INTUBATION- STATES SHE WAS TOLD SHE NEEDS A GLIDESCOPE.,no problems with prior blood transfusions in 2017 Past Psychological History: Anxiety Smoking Status: Never smoker Past Alcohol Use History: None Reported Past Drug Use History: None Reported - Past Family History Sister(s) Family Medical History: Cancer Additional Family Medical History / Comment(s): pancreatic cancer Brother(s) Family Medical History: Cancer Additional Family Medical History / Comment(s): brain cancer Father Family Medical History: Coronary Artery Disease (CAD), CVA/TIA, Hypertension Additional Family Medical History / Comment(s): Father had CABG. He at age 86yrs Mother Family Medical History: Coronary Artery Disease (CAD), Diabetes Mellitus, Hypertension Additional Family Medical History / Comment(s): Mother at age 69yrs. General Exam General appearance: alert, in no apparent distress Head exam: Present: atraumatic, normocephalic, normal inspection Eye exam: Present: normal appearance, PERRL, EOMI. Absent: scleral icterus, conjunctival injection, periorbital swelling ENT exam: Present: normal exam, mucous membranes moist Neck exam: Present: normal inspection. Absent: tenderness, meningismus, lymphadenopathy Respiratory exam: Present: normal lung sounds bilaterally. Absent: respiratory distress, wheezes, rales, rhonchi, stridor Cardiovascular Exam: Present: regular rate, normal rhythm, normal heart sounds. Absent: systolic murmur, diastolic murmur, rubs, gallop, clicks GI/Abdominal exam: Present: soft, normal bowel sounds. Absent: distended, tenderness, guarding, rebound, rigid Extremities exam: Present: normal inspection, full ROM, normal capillary refill, other (Significant left knee swelling). Absent: tenderness, pedal edema, joint swelling, calf tenderness Back exam: Present: normal inspection Neurological exam: Present: alert, oriented X3, CN II-XII intact Psychiatric exam: Present: normal affect, normal mood Skin exam: Present: warm, dry, intact, normal color. Absent: rash Course Vital Signs 08/25/21 08/25/21 04:22 07:00 Temperature 98.8 F Pulse Rate 56 L 87 Respiratory 22 18 Rate Blood Pressure 156/55 143/67 O2 Sat by Pulse 94 L 98 Oximetry - Reevaluation(s) Reevaluation #1: Medical record is reviewed Patient symptoms are improved here in the emergency department Patient informed results and questions are answered Medical Decision Making - Medical Decision Making 76 female DF for evaluation. Patient has fall with significant left knee pain and hematoma. Patient's pain is well-controlled and patient can be discharged home Disposition Clinical Impression: Fall, Contusion of right knee, Hematoma of right knee region Disposition: HOME SELF-CARE Condition: Good Instructions (If sedation given, give patient instructions): Fall Prevention for Older Adults (ED), Contusion in Adults (ED), Hematoma (ED) Is patient prescribed a controlled substance at d/c from ED?: No Referrals: David Larios MD [Primary Care Provider] - 1-2 days
[2021-08-25 04:25] VITALS: TEMP 98.8
--- NOTE | 2021-08-25 05:25 | XR ---
EXAMINATION TYPE: XR pelvis AP view DATE OF EXAM: 08/25/2021 COMPARISON: NONE HISTORY: Pain TECHNIQUE: Single view FINDINGS: Pelvic ring is intact. Proximal femurs are intact. There is mild acetabular spurring. Sacro iliac joints are intact. IMPRESSION: No acute abnormality of the pelvis. No fracture.
--- NOTE | 2021-08-25 05:27 | XR ---
EXAMINATION TYPE: XR wrist complete BILATERAL DATE OF EXAM: 08/25/2021 COMPARISON: NONE HISTORY: Pain. Fall. TECHNIQUE: 4 views each wrist FINDINGS: There is some narrowing and spurring at the first carpometacarpal joints bilaterally. Radio carpal joints are intact. Carpal bones show no displaced fracture. There is some calcification at the medial aspect of the right scaphoid bone consistent with degenerative phenomenon. The metacarpals ar e intact. IMPRESSION: There is some osteoarthritis at the base of the thumb bilaterally. Soft tissue calcificat ion near the right scaphoid bone. No fracture seen.
--- NOTE | 2021-08-25 05:29 | XR ---
EXAMINATION TYPE: XR chest 1V DATE OF EXAM: 08/25/2021 COMPARISON: 04/20/2021 HISTORY: Fall. TECHNIQUE: Single view FINDINGS: There is no heart failure nor confluent pneumonic infiltrate. Costophrenic angles are clear . There are no hilar masses. There is no pneumothorax. Bony thorax appears intact. IMPRESSION: No active cardiopulmonary disease. No change.
--- NOTE | 2021-08-25 05:37 | CT ---
EXAMINATION TYPE: CT brain kaiine wo con DATE OF EXAM: 08/25/2021 COMPARISON: None HISTORY: fall CT DLP: 1642.9 mGycm Automated exposure control for dose reduction was used. Ventricles have normal size. There is no mass effect nor midline shift. There is no sign of intracran ial hemorrhage. There is extensive hyperostosis frontalis. Skull base is intact. There is normal aera tion of the mastoid sinuses. The cervical vertebra have fairly normal alignment. There is large anterior hypertrophic bridging ost eophytes from C4 to T3 level. There is no compression fracture. Facet joints are intact. There is a s mall posterior disc herniation at C4-5 and mild narrowing of the spinal canal. IMPRESSION: Negative CT scan of the brain. 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 No fracture.
--- NOTE | 2021-08-25 05:39 | XR ---
EXAMINATION TYPE: XR knee complete bilateral DATE OF EXAM: 08/25/2021 COMPARISON: NONE HISTORY: Bilateral knee pain TECHNIQUE: 3 views each knee FINDINGS: There is moderate narrowing of the medial joint space of the right knee. There is spurring of the femoral and tibial condyles bilaterally. There is no significant narrowing of the left knee jagdeep int spaces. There is bilateral spurring on the patella. There is soft tissue swelling anterior to the right patella. 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 Mild osteoarthr itis in the left knee. Right side soft tissue swelling. No fracture.
[2021-08-25] MEDS ORDERED: IBUPROFEN 600 MG TAB PO STA (05:51)
[2021-08-25] MEDS ORDERED: MORPHINE SULFATE 4 MG/ML SYRINGE IVP STA (05:51)
[2021-08-25] MEDS ORDERED: traMADol 50 MG STARTER PACK 3 TAB BTL PO STA (05:52)
[2021-08-25 07:02] VITALS: BP 143/67; PULSE 87; RESP 18
== END 2021-08-25 07:02 | disposition home or self-care (01) ==
LOC: EC 04:14
DX: S80.01XA Contusion of right knee, initial encounter (principal); I10 Essential (primary) hypertension; E11.9 Type 2 diabetes mellitus without complications; E03.9 Hypothyroidism, unspecified; J45.909 Unspecified asthma, uncomplicated; I48.91 Unspecified atrial fibrillation; M19.90 Unspecified osteoarthritis, unspecified site; Z91.09 Other allergy status, other than to drugs and biological substances; Z88.8 Allergy status to other drugs, medicaments and biological substances; Z88.0 Allergy status to penicillin; Z88.2 Allergy status to sulfonamides; Z88.6 Allergy status to analgesic agent; Z79.899 Other long term (current) drug therapy; Z79.890 Hormone replacement therapy; Z79.01 Long term (current) use of anticoagulants; Z79.51 Long term (current) use of inhaled steroids; W01.0XXA Fall on same level from slipping, tripping and stumbling without subsequent striking against object, initial encounter; Y92.009 Unspecified place in unspecified non-institutional (private) residence as the place of occurrence of the external cause
CPT/HCPCS: 73562; 73110; 72170; 71045; 72125; 70450; 99284; 96374; J2270

== ENCOUNTER → 2022-08-06 | Outpatient (CLI) | payer MEDICARE ==
--- NOTE | 2022-08-07 09:21 | MM ---
Reason for Exam: Screening (asymptomatic). Last mammogram was performed 1 year(s) and 10 month(s) ago. Risk Values: Alecia 5 year model risk: 1.1%. NCI Lifetime model risk: 1.9%. Prior Study Comparison: 04/27/2012 Bilateral MG 3D screening mammo w/cad, Unknown. 09/24/2020 Bilateral MG 3D screening mammo w/cad, [facility]. Tissue Density: There are scattered fibroglandular densities. Findings: Analyzed By CAD. There is no suspicious group of microcalcifications. Benign-appearing calcifications within both breasts. Stable chronic appearing nodularity within the right breast. Stable chronic appearing nodularity within the left breast with 2 new masses within the upper outer left breast posterior depth adjacent to each other measuring up to 4 mm. Overall Assessment: Incomplete: need additional imaging evaluation, BI-RAD 0 Management: Diagnostic Breast Ultrasound of the left breast. A clinical breast exam by your physician is recommended on an annual basis and results should be correlated with mammographic findings. [facility] will attempt to contact patient to return for supplemental views and ultrasound if indicated. Electronically signed and approved by: Ramon Levi D.O.
== END | disposition home or self-care (01) ==
LOC: RADMAMWWP 16:26
PROVIDERS: ATTEND Pediatrics
DX: Z12.31 Encounter for screening mammogram for malignant neoplasm of breast (principal)
CPT/HCPCS: 77063; 77067

== ENCOUNTER → 2022-08-08 | Outpatient (CLI) | payer MEDICARE ==
--- NOTE | 2022-08-08 09:26 | USB ---
Risk Values: Alecia 5 year model risk: 1.1%. NCI Lifetime model risk: 1.9%. Technique: Method: Targeted. Prior Study Comparison: 04/27/2012 Bilateral MG 3D screening mammo w/cad, Unknown. 09/24/2020 Bilateral MG 3D screening mammo w/cad, [facility]. 08/06/2022 Bilateral MG 3D screening mammo w/cad, [facility]. Findings: The upper outer quadrant of the left breast, the axilla of the left breast and the retroareolar of the left breast were scanned. Focal imaging of the left upper outer quadrant demonstrated 2 areas that are located at 3:00 10 cm from the nipple. These appear to correlate both in size and location of the findings on screening mammography. The first measuring up to 5 mm and the second up to 3 mm. The larger of which has a somewhat fatty hilum and may represent a lymph node. Smaller which may represent a cyst given somewhat posterior acoustic enhancement on the deep edge. Overall Assessment: Probably benign, BI-RAD 3 Management: Diagnostic Breast Ultrasound of the left breast. Short-term follow-up in 6 months with ultrasound of the left breast. A clinical breast exam by your physician is recommended on an annual basis and results should be correlated with mammographic findings. This exam should not preclude additional follow-up of suspicious palpable abnormalities. Results were given to the patient verbally at the time of exam. Electronically signed and approved by: Ramin Beckman DO
== END | disposition home or self-care (01) ==
LOC: RADUSWWP 08:24
PROVIDERS: ATTEND Pediatrics
DX: R92.8 Other abnormal and inconclusive findings on diagnostic imaging of breast (principal)

== ENCOUNTER → 2022-09-26 | Outpatient (CLI) | payer MEDICARE ==
--- NOTE | 2022-09-26 14:20 | XR ---
EXAMINATION TYPE: XR Hip Complete LT DATE OF EXAM: 09/26/2022 COMPARISON: 08/25/2021 HISTORY: Pain TECHNIQUE: 2 views submitted FINDINGS: There is no evidence of erosive change or acute fracture. Hypertrophic changes in the acetabulum with moderate concentric narrowing of the hip joint. I see pubis then advanced. IMPRESSION: 1. Uropathy correlate for femoral acetabular impingement.
== END | disposition home or self-care (01) ==
LOC: RADXRMAIN 13:50
PROVIDERS: ATTEND Pediatrics
DX: M25.552 Pain in left hip (principal)
CPT/HCPCS: 73502

== ENCOUNTER → 2022-10-21 | Outpatient (CLI) | payer MEDICARE ==
--- NOTE | 2022-10-21 15:45 | BD ---
EXAMINATION TYPE: Axial Bone Density DATE OF EXAM: 10/21/2022 COMPARISON: NONE CLINICAL HISTORY: 77 years old Female. 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 Height: 61.5 Weight: FRAX RISK QUESTIONS: Family History (Parent hip fracture): NO History of Fracture in Adulthood: YES RT FOOT 1993 Secondary Osteoporosis: NO Rheumatoid Arthritis: NO RISK FACTORS HISTORY OF: Family History of Osteoporosis: NO Active: YES Diet low in dairy products/other sources of calcium: YES Postmenopausal woman: YES Lost more than 2 inches in height since high school: NO Frequent falls: NO Poor Health: NO MEDICATIONS: Thyroid Medications: YES Which medication: Synthroid How Lon+ YEARS Additional Medications: YES XANAX , SINGULAIR , Additional History: YES UTERINE CA 2017 WITH RADIATION EXAM MEASUREMENTS: Bone mineral densitometry was performed using the [employer] System. Bone mineral density as measured about the Lumbar spine is: ----- L1-L4(G/cm2): 1.988 T Score Values are as follows: ----- L1: 5.6 ----- L2: 5.6 ----- L3: 7.7 ----- L4: 7.6 ----- L1-L4: 6.7 Bone mineral density BASELINE Bone mineral density about the R hip (g/cm2): 1.150 Bone mineral density about the L hip (g/cm2): 1.089 T Score values are as follows: -----R Neck: 1.7 -----L Neck: 0.3 -----R Total: 1.1 -----L Total: 0.6 Bone mineral density BASELINE FRAX%s: The graph provided illustrates a 10.4% chance for a major osteoporotic fx and a 0.9% chance f or the hips probability for fx in 10 years time. IMPRESSION: Normal (Values between +1 and -1 indicate normal bone mass). Consider repeating this study in 5 year s or sooner if there is some new clinical indication. NOTE: T-SCORE=SD OF THE YOUNG ADULT MEAN.
== END | disposition home or self-care (01) ==
LOC: RADBDWWP 14:52
PROVIDERS: ATTEND Pediatrics
DX: M81.0 Age-related osteoporosis without current pathological fracture (principal)
CPT/HCPCS: 77080

== ENCOUNTER → 2023-02-06 | Outpatient (CLI) | payer MEDICARE ==
--- NOTE | 2023-02-06 12:42 | USB ---
Reason for Exam: Follow-up at short interval from prior study. Risk Values: Alecia 5 year model risk: 1.1%. NCI Lifetime model risk: 1.9%. Technique: Method: Targeted. Prior Study Comparison: 04/27/2012 Bilateral MG 3D screening mammo w/cad, Unknown. 09/24/2020 Bilateral MG 3D screening mammo w/cad, [facility]. 08/06/2022 Bilateral MG 3D screening mammo w/cad, [facility]. Findings: The lateral section of the breast of the left breast, the axilla of the left breast and the retroareolar of the left breast were scanned. Targeted ultrasound shows tiny oval near 3 mm lesions at 3:00 position 10 cm distance from nipple which are grossly stable in appearance from prior study. They are too small to definitively characterize for presumed benign. At 2:00 position 10 cm from the nipple there is a subcentimeter benign-appearing lymph node seen on current study. No additional concerning mass or fluid collection is seen. Overall Assessment: Benign, BI-RAD 2 Management: Screening Mammogram of both breasts in 6 months. Return to routine follow-up. Results were given to the patient verbally at the time of exam. Electronically signed and approved by: Cristian Forbes M.D.
== END | disposition home or self-care (01) ==
LOC: RADUSWWP 12:05
PROVIDERS: ATTEND Pediatrics
DX: R92.8 Other abnormal and inconclusive findings on diagnostic imaging of breast (principal)

== ENCOUNTER 2023-04-26 05:06 | Observation (INO) | payer MEDICARE ==
[2023-04-26 05:55] LABS: Basophils % (A) 0 %; Eosinophils # (A) 0.2 k/uL (0-0.7); Eosinophils % (A) 3 %; HCT 34.6 % (34.0-46.0); HGB 12.3 gm/dL (11.4-16.0); Lymphocytes # (A) 2.2 k/uL (1.0-4.8); Lymphocytes % (A) 30 %; MCH 29.4 pg (25.0-35.0); MCHC 35.5 g/dL (31.0-37.0); MCV 82.7 fL (80.0-100.0); Monocytes # (A) 0.5 k/uL (0-1.0); Monocytes % (A) 6 %; Neutrophils # (A) 4.2 k/uL (1.3-7.7); Neutrophils % (A) 58 %; Platelet Count 216 k/uL (150-450); Poikilocytosis Slight; RBC 4.18 m/uL (3.80-5.40); RDW 14.6 % (11.5-15.5); WBC 7.3 k/uL (3.8-10.6)
[2023-04-26 06:04] LABS: INR 2.4 (<1.2); Partial Thromboplastin Time 28.2 sec (22.0-30.0); Prothrombin Time 23.2 sec (9.0-12.0)
[2023-04-26 06:06] LABS: ALT 23 U/L (4-34); AST 26 U/L (14-36); African American GFR (CKD) >90 (>60 ml/min/1.73 sqM); Albumin 3.4 g/dL (3.5-5.0); Alkaline Phosphatase 75 U/L (38-126); Anion Gap 8 mmol/L; Blood Urea Nitrogen 15 mg/dL (7-17); Calcium 8.8 mg/dL (8.4-10.2); Carbon Dioxide 25 mmol/L (22-30); Chloride 107 mmol/L (98-107); Glucose 174 mg/dL (74-99); Magnesium 1.7 mg/dL (1.6-2.3); Non-African American GFR(CKD) 82 (>60 ml/min/1.73 sqM); Potassium 3.7 mmol/L (3.5-5.1); Sodium 140 mmol/L (137-145); Total Bilirubin 0.5 mg/dL (0.2-1.3)
[2023-04-26] MEDS ORDERED: ONDANSETRON 4 MG/2 ML VIAL IVP PRN (06:36)
[2023-04-26] MEDS ORDERED: NALOXONE 0.4 MG/ML 1 ML VIAL IV PRN (06:36)
[2023-04-26] MEDS ORDERED: HYDROcodone/APAP 5-325MG 1 EACH TAB PO PRN (06:36)
--- NOTE | 2023-04-26 06:36 | ED ---
Chest Pain HPI - General Chief Complaint: Chest Pain Stated Complaint: Chest Pain Time Seen by Provider: 04/26/23 05:57 Source: patient, RN notes reviewed Mode of arrival: EMS Limitations: no limitations - History of Present Illness Initial Comments: This is an 78-year-old female who presents to the emergency department for chest pain. States that this is a centralized pressure-like sensation that started last night around 11 PM. States that the pain radiated into the left shoulder and back. She does not have any history of heart attacks, however she does have atrial fibrillation, diabetes, hypertension, and hyperlipidemia. She does currently follow with Dr. Campos, cardiology, and last saw him around 6 months ago. Denies any shortness of breath associated with the chest pain. Denies any fevers, chills, sore throat, cough, dyspnea, palpitations, abdominal pain, nausea, vomiting, diarrhea, back pain, or headaches. MD Complaint: chest pain - Related Data Home Medications Medication Instructions Recorded Confirmed ALPRAZolam [Xanax] 0.25 mg PO BID PRN 06/19/15 04/19/21 Loratadine [Claritin] 10 mg PO DAILY 06/19/15 04/19/21 Losartan [Cozaar] 50 mg PO DAILY 06/19/15 04/19/21 Montelukast [Singulair] 10 mg PO HS 06/19/15 04/19/21 Pravastatin Sodium [Pravachol] 40 mg PO PC-SUPPER 06/19/15 04/19/21 oxyBUTYnin chloride [Ditropan] 2.5 mg PO HS 06/19/15 04/19/21 Warfarin [Coumadin] 5 mg PO SUTUTHSA@1800 04/29/16 04/19/21 Levothyroxine Sodium [Synthroid] 100 mcg PO DAILY 06/04/17 04/19/21 [place]-3 Fatty Acids/Fish Oil [Fish 2 cap PO DAILY 06/04/17 04/19/21 Oil 1,000 mg Softgel] Acetaminophen [Tylenol] 1,000 mg PO Q6H PRN 10/07/17 04/19/21 Sotalol [Betapace] 80 mg PO BID 10/07/17 04/19/21 Triamterene-Hctz 37.5-25Mg 1 cap PO DAILY 10/07/17 04/19/21 [Dyazide 37.5-25 Capsule] Albuterol Sulfate [Proventil Hfa] 2 puff INHALATION RT-BID PRN 12/14/17 04/19/21 Fluticasone Nasal Rowe [Flonase 1 - 2 spr EA NOSTRIL HS PRN 12/14/17 04/19/21 Nasal Rowe] Warfarin [Coumadin] 2.5 mg PO MOWEFR@1800 12/14/17 04/19/21 Albuterol Nebulized [Ventolin 2.5 mg INHALATION RT-BID PRN 04/19/21 04/19/21 Nebulized] Calcium/Magnesium/Zinc 3 tab PO DAILY 04/19/21 04/19/21 [Hvgiknp-Wsqnozxrs-Vqpd Tablet] Fluticasone Propionate [Flovent 2 puff INHALATION RT-BID 04/19/21 04/19/21 Hfa 220 mcg] Slow Fe 45mg 1 tab PO DAILY 04/19/21 04/19/21 metroNIDAZOLE 1% GEL [Metrogel 1%] 1 applic TOPICAL DAILY 04/19/21 04/19/21 oxyBUTYnin chloride [Ditropan] 5 mg PO DAILY 04/19/21 04/19/21 Allergies Allergy/AdvReac Type Severity Reaction Status Date / Time adhesive Allergy Rash/Hives Verified 08/25/21 04:26 budesonide [From Symbicort] Allergy Rash/Hives Verified 08/25/21 04:26 formoterol fumarate Allergy Rash/Hives Verified 08/25/21 04:26 [From Symbicort] naproxen sodium [From Aleve] Allergy Rash/Hives Verified 08/25/21 04:26 niacin Allergy Rapid Verified 08/25/21 04:26 Heart Rate Penicillins Allergy Rash/Hives Verified 08/25/21 04:26 prednisone Allergy Rash/Hives/Shortness Verified 08/25/21 04:26 of Breath Sulfa (Sulfonamide Allergy Rash/Hives Verified 08/25/21 04:26 Antibiotics) aspirin AdvReac Unknown Verified 08/25/21 04:26 codeine AdvReac Abdominal Verified 08/25/21 04:26 Pain levofloxacin [From Levaquin] AdvReac Chest Pain Verified 08/25/21 04:26 moxifloxacin HCl AdvReac Rapid Verified 08/25/21 04:26 [From Avelox] Heart Rate maxzide(takes Dyazide) AdvReac See Uncoded 08/25/21 04:26 Comments Review of Systems ROS Statement: Those systems with pertinent positive or pertinent negative responses have been documented in the HPI. ROS Other: All systems not noted in ROS Statement are negative. Past Medical History Past Medical History: Atrial Fibrillation, Asthma, Cancer, Diabetes Mellitus, Hypertension, Osteoarthritis (OA), Thyroid Disorder Additional Past Medical History / Comment(s): freq diarrhea,states irm-fizldhvq-ixky controlled, hypothyroidism,rt knee pain, hx kidney stone, rosacea., chronic sinusitis., uterine cancer with radiation tx (may 2017). History of Any Multi-Drug Resistant Organisms: None Reported Past Surgical History: Cholecystectomy, Heart Catheterization, Hysterectomy, To nsillectomy Additional Past Surgical History / Comment(s): R sided kidney stone surgery, cervical surgery-cone, back pain procedure Past Anesthesia/Blood Transfusion Reactions: Previous Problems w/ Anesthesia Additional Past Anesthesia/Blood Transfusion Reaction / Comment(s): - DIFFICULT INTUBATION- STATES SHE WAS TOLD SHE NEEDS A GLIDESCOPE.,no problems with prior blood transfusions in 2017 Past Psychological History: Anxiety Smoking Status: Never smoker Past Alcohol Use History: None Reported Past Drug Use History: None Reported - Past Family History Sister(s) Family Medical History: Cancer Additional Family Medical History / Comment(s): pancreatic cancer Brother(s) Family Medical History: Cancer Additional Family Medical History / Comment(s): brain cancer Father Family Medical History: Coronary Artery Disease (CAD), CVA/TIA, Hypertension Additional Family Medical History / Comment(s): Father had CABG. He at age 86yrs Mother Family Medical History: Coronary Artery Disease (CAD), Diabetes Mellitus, Hypertension Additional Family Medical History / Comment(s): Mother at age 69yrs. General Exam Limitations: no limitations General appearance: alert, in no apparent distress Head exam: Present: atraumatic, normocephalic, normal inspection Respiratory exam: Present: normal lung sounds bilaterally. Absent: respiratory distress, wheezes, rales, rhonchi, stridor, chest wall tenderness Cardiovascular Exam: Present: normal rhythm, bradycardia, normal heart sounds. Absent: systolic murmur, diastolic murmur, rubs, gallop, clicks Neurological exam: Present: alert, oriented X3, CN II-XII intact Psychiatric exam: Present: normal affect, normal mood Skin exam: Present: warm, dry, intact, normal color. Absent: rash Course Vital Signs 04/26/23 04/26/23 04/26/23 05:08 06:52 07:31 Temperature 97.9 F 97.2 F L Pulse Rate 58 L 52 L 56 L Respiratory 18 18 18 Rate Blood Pressure 120/52 132/62 118/77 O2 Sat by Pulse 94 L 97 95 Oximetry Chest Pain MDM - MDM This is an 78-year-old female who presents to the emergency department for chest pain. Was pt. sent in by a medical professional or institution? @ -No Did you speak to anyone other than the patient for history? @ -No Did you review nursing and triage notes? @ -Yes, and I agree, it is accurate with regards to the patient's symptoms. Were old charts reviewed? @ -No Differential Diagnosis? @ -Differential Chest Pain: Stable Angina, Unstable Angina, STEMI, NSTEMI Aortic Dissection, Pneumothorax, Musculoskeletal, Esophageal Spasm GERD, Cholecystitis, Pancreatitis, Zoster, this is not meant to be an all-inclusive list. EKG interpreted by me (3pts min.)? @ -EKG interpreted by me demonstrating the following: Sinus bradycardia. Ventricular rate 56 beats per minute, NV interval 221 ms, QRS duration 97 ms, QTC 449 ms. X-rays interpreted by me (1pt min.)? @ -Chest x-ray obtained, my interpretation identifies no localized consolidations or infiltrates. CT interpreted by me (1pt min.)? @ -Not obtained U/S interpreted by me (1pt. min.)? @ -Not obtained What testing was considered but not performed? (CT, X-rays, U/S, labs)? Why? @ -None What meds were considered but not given? Why? @ -None Did you discuss the management of the patient with other professionals? @ -No Did you reconcile home meds? @ -No Was smoking cessation discussed for >3mins.? @ -No Was critical care preformed (if so, how long)? @ -No Were there social determinants of health that impacted care today? How? (Homelessness, low income, unemployed, alcoholism, drug addiction, transportation, low edu. Level, literacy, decrease access to med. care, detention, rehab)? @ -No Was there de-escalation of care discussed even if they declined? (Discuss DNR or withdrawal of care, Hospice)? @ -No What co-morbidities impacted this encounter? (DM, HTN, Smoking, COPD, CAD, Cancer, CVA, Hep., AIDS, mental health diagnosis, sleep apnea, morbid obesity)? @ -A-fib, DM, HTN, HLD, morbid obesity Was patient admitted / discharged? @ -Admitted. Lab work obtained and found to be nonactionable. Chest x-ray reveals no acute process. Patient was given nitroglycerin and aspirin on arrival, with resolution of symptoms. Patient does have a cardiac score of 5. In light of her age, multiple comorbidities, and because symptoms resolved with nitroglycerin, I did recommend observation overnight for serial troponins and cardiac evaluation. Patient is in agreement with this. Patient admitted to medicine. Cardiology consult placed. Serial troponins ordered. Undiagnosed new problem with uncertain prognosis? @ -None Drug Therapy requiring intensive monitoring for toxicity (Heparin, Nitro, Insu dawood, Cardizem)? @ -None Were any procedures done? @ -None Diagnosis/symptom? @ -Chest pain Acute, or Chronic, or Acute on Chronic? @ -Acute Uncomplicated (without systemic symptoms) or Complicated (systemic symptoms)? @ -Uncomplicated Side effects of treatment? @ -None Exacerbation, Progression, or Severe Exacerbation] @ -Not applicable Poses a threat to life or bodily function? @ -No This case was discussed in detail with the attending ED physician, Dr. Astudillo. Presentation, findings, and treatment plan discussed in detail as well. Disposition Clinical Impression: Chest pain Disposition: ADMITTED IP TO THIS HOSP
--- NOTE | 2023-04-26 08:00 | XR ---
EXAMINATION TYPE: XR chest 2V DATE OF EXAM: 04/26/2023 COMPARISON: 08/25/2021 INDICATION: Chest pain TECHNIQUE: Frontal and lateral views of the chest are obtained. FINDINGS: The heart size is normal. The pulmonary vasculature is normal. The lungs are clear. IMPRESSION: 1. No acute pulmonary process.
--- NOTE | 2023-04-26 11:47 | CONS ---
CONSULTATION CHIEF COMPLAINT: Chest pain and shortness of breath. HISTORY OF PRESENT ILLNESS: This is an 78-year-old lady with history of paroxysmal atrial fibrillation, on long- term anticoagulation; hypertension; dyslipidemia, who presents to hospital complaining of chest pain. The patient had her 78th birthday and had quite a few events yesterday and was stressed out as a result, and [place] and she became little short of breath with inhaling the marijuana- affected air. She initially felt little short of breath, took her breathing treatments, and when she felt chest tightness, came to hospital, where she has been admitted. EKG shows sinus rhythm with nonspecific ST-T wave changes. She has had 1 set of troponin that is negative. INR is therapeutic at 2.4, hemoglobin is 12.3. At the time of my evaluation, she appears comfortable at rest and is free of symptoms. At the time of my evaluation, she is actually doing so well that she wishes to go home. The patient had a Lexiscan in March of 2022 that revealed normal myocardial perfusion function. Her last echocardiogram was in December of 2020 that revealed normal LV systolic function with mild mitral regurgitation. PAST MEDICAL HISTORY: Significant for paroxysmal atrial fibrillation, hypertension, dyslipidemia along with COPD. MEDICATIONS: Include: 1. Pravachol. 2. Cozaar. 3. Claritin. 4. Synthroid. 5. Flonase. 6. Ventolin. 7. Ditropan. 8. Coumadin. 9. Dyazide. 10.Betapace. ALLERGIES: Multiple drug allergies, they are charted, and I reviewed them. FAMILY HISTORY: Negative for premature coronary artery disease. SOCIAL HISTORY: Negative for smoking, EtOH abuse, or drug abuse. REVIEW OF SYSTEMS: 14 out of 14 review of systems has been performed. Pertinents are as documented. PHYSICAL EXAMINATION: GENERAL: Comfortable at rest. VITAL SIGNS: Stable. NECK: There is no jugular venous distention. Carotid upstroke is normal. There is no bruit. CHEST: Reveals good air entry bilaterally. HEART: Reveals first and second heart sounds. No gallop. No murmur. No rub. ABDOMEN: Soft, nontender. EXTREMITIES: Do not reveal any edema. Peripheral pulses are palpable. LABORATORY DATA: Labs show a hemoglobin of 12.3, platelet count is 216. INR is 2.4. Potassium is 3.7, creatinine is 0.7. ASSESSMENT: 1. Paroxysmal atrial fibrillation. 2. Atypical chest pain. PLAN: If the second set of troponin is normal, we should be able to discharge her home and let her keep her outpatient followup in my office. The patient had a stress test last year that did not reveal any ischemia. Given the atypical nature of her symptoms, I do not see the need to repeat it at this time. She has an appointment on Thursday, but will schedule an appointment with me over the next several weeks. MMODL / IJN: [id number] /
--- NOTE | 2023-04-26 11:55 | P.DS ---
Providers Date of admission: 04/26/23 06:45 Attending physician: Pieter Hernandez MD Consults: 04/26/23 06:36 Consult Physician Urgent Consulting Provider: Shahram Campos Consult Reason/Comments: Chest pain Do you want consulting provider notified?: Yes Primary care physician: [facility] Course: Patient came in with complaints of chest pain pressure-like sensation around 11 PM radiating to the left shoulder and back. Patient's troponins are negative EKG showed a sinus rhythm with mild sinus bradycardia with with nonspecific ST-T wave changes. Patient follows with cardiology as an outpatient at a valid the patient recommended doing 2 more sets of troponins if they are negative patient can be discharged with outpatient follow-up. Patient's chest pain is nonpleuritic not associated with food patient is on Coumadin for atrial fibrillation and INR is around 2.4 which is therapeutic REVIEW OF SYSTEMS: CONSTITUTIONAL: No fever, no malaise, no fatigue. HEENT: No recent visual problems or hearing problems. Denied any sore throat. CARDIOVASCULAR: No orthopnea, PND, no palpitations, no syncope. PULMONARY: No shortness of breath, no cough, no hemoptysis. GASTROINTESTINAL: No diarrhea, no nausea, no vomiting, no abdominal pain. NEUROLOGICAL: No headaches, no weakness, no numbness. HEMATOLOGICAL: Denies any bleeding or petechiae. GENITOURINARY: Denies any burning micturition, frequency, or urgency. MUSCULOSKELETAL/RHEUMATOLOGICAL: Denies any joint pain, swelling, or any muscle pain. ENDOCRINE: Denies any polyuria or polydipsia. The rest of the 14-point review of systems is negative. PHYSICAL EXAMINATION: GENERAL: The patient is alert and oriented x3, not in any acute distress. Well developed, well nourished. HEENT: Pupils are round and equally reacting to light. EOMI. No scleral icterus. No conjunctival pallor. Normocephalic, atraumatic. No pharyngeal erythema. No thyromegaly. CARDIOVASCULAR: S1 and S2 present. No murmurs, rubs, or gallops. PULMONARY: Chest is clear to auscultation, no wheezing or crackles. ABDOMEN: Soft, nontender, nondistended, normoactive bowel sounds. No palpable organomegaly. MUSCULOSKELETAL: No joint swelling or deformity. EXTREMITIES: No cyanosis, clubbing, or pedal edema. NEUROLOGICAL: Gross neurological examination did not reveal any focal deficits. SKIN: No rashes. Assessment and plan -Chest pain rule out a concurrent syndromes in troponins are negative patient will be discharged today to follow with cardiology as an outpatient, cardiology evaluated the patient here. -Proximal atrial fibrillation patient is presently sinus rhythm rate controlled patient will continue her Coumadin -Type 2 diabetes mellitus -Hypertension -Hypothyroidism -Hypomagnesemia magnesium will be replaced For above-mentioned chronic medical problems patient will be resumed on her appropriate home medications once verified Patient probably can be discharged if the troponins are negative today Plan - Discharge Summary New Discharge Prescriptions: Discontinued Triamterene-Hctz 37.5-25Mg [Dyazide 37.5-25 Capsule] 1 cap PO DAILY No Action Pravastatin Sodium [Pravachol] 40 mg PO PC-SUPPER oxyBUTYnin chloride [Ditropan] 2.5 mg PO HS Montelukast [Singulair] 10 mg PO HS Loratadine [Claritin] 10 mg PO DAILY ALPRAZolam [Xanax] 0.25 mg PO BID PRN PRN Reason: Anxiety Losartan [Cozaar] 50 mg PO DAILY Warfarin [Coumadin] 5 mg PO SUTUTHSA@1800 [place]-3 Fatty Acids/Fish Oil [Fish Oil 1,000 mg Softgel] 2 cap PO DAILY Levothyroxine Sodium [Synthroid] 100 mcg PO DAILY Acetaminophen [Tylenol] 1,000 mg PO Q6H PRN PRN Reason: Pain Sotalol [Betapace] 80 mg PO BID Fluticasone Nasal [place] [Flonase Nasal [place]] 1 - 2 spr EA NOSTRIL HS PRN PRN Reason: Allergy Symptoms Warfarin [Coumadin] 2.5 mg PO MOWEFR@1800 Albuterol Sulfate [Proventil Hfa] 2 puff INHALATION RT-BID PRN PRN Reason: Shortness Of Breath Slow Fe 45mg 1 tab PO DAILY Calcium/Magnesium/Zinc [Quexnyv-Bscbbdmlh-Gfsr Tablet] 3 tab PO DAILY Fluticasone Propionate [Flovent Hfa 220 mcg] 2 puff INHALATION RT-BID metroNIDAZOLE 1% GEL [Metrogel 1%] 1 applic TOPICAL DAILY oxyBUTYnin chloride [Ditropan] 5 mg PO DAILY Albuterol Nebulized [Ventolin Nebulized] 2.5 mg INHALATION RT-BID PRN PRN Reason: Shortness Of Breath Discharge Medication List ALPRAZolam [Xanax] 0.25 mg PO BID PRN 06/19/15 [History] Loratadine [Claritin] 10 mg PO DAILY 06/19/15 [History] Losartan [Cozaar] 50 mg PO DAILY 06/19/15 [History] Montelukast [Singulair] 10 mg PO HS 06/19/15 [History] Pravastatin Sodium [Pravachol] 40 mg PO PC-SUPPER 06/19/15 [History] oxyBUTYnin chloride [Ditropan] 2.5 mg PO HS 06/19/15 [History] Warfarin [Coumadin] 5 mg PO SUTUTHSA@1800 04/29/16 [History] Levothyroxine Sodium [Synthroid] 100 mcg PO DAILY 06/04/17 [History] [place]-3 Fatty Acids/Fish Oil [Fish Oil 1,000 mg Softgel] 2 cap PO DAILY 06/04/17 [History] Acetaminophen [Tylenol] 1,000 mg PO Q6H PRN 10/07/17 [History] Sotalol [Betapace] 80 mg PO BID 10/07/17 [History] Albuterol Sulfate [Proventil Hfa] 2 puff INHALATION RT-BID PRN 12/14/17 [History] Fluticasone Nasal [place] [Flonase Nasal [place]] 1 - 2 spr EA NOSTRIL HS PRN 12/14/17 [History] Warfarin [Coumadin] 2.5 mg PO MOWEFR@1800 12/14/17 [History] Albuterol Nebulized [Ventolin Nebulized] 2.5 mg INHALATION RT-BID PRN 04/19/21 [History] Calcium/Magnesium/Zinc [Xvhjxkf-Rtrdkfjks-Zqgr Tablet] 3 tab PO DAILY 04/19/21 [History] Fluticasone Propionate [Flovent Hfa 220 mcg] 2 puff INHALATION RT-BID 04/19/21 [History] Slow Fe 45mg 1 tab PO DAILY 04/19/21 [History] metroNIDAZOLE 1% GEL [Metrogel 1%] 1 applic TOPICAL DAILY 04/19/21 [History] oxyBUTYnin chloride [Ditropan] 5 mg PO DAILY 04/19/21 [History] Follow up Appointment(s)/Referral(s): David Larios MD [Primary Care Provider] - 1-2 days
--- NOTE | 2023-04-26 11:55 | P.HPIM ---
History of Present Illness Patient came in with complaints of chest pain pressure-like sensation around 11 PM radiating to the left shoulder and back. Patient's troponins are negative EKG showed a sinus rhythm with mild sinus bradycardia with with nonspecific ST-T wave changes. Patient follows with cardiology as an outpatient at a valid the patient recommended doing 2 more sets of troponins if they are negative patient can be discharged with outpatient follow-up. Patient's chest pain is nonpleuritic not associated with food patient is on Coumadin for atrial fibrillation and INR is around 2.4 which is therapeutic REVIEW OF SYSTEMS: CONSTITUTIONAL: No fever, no malaise, no fatigue. HEENT: No recent visual problems or hearing problems. Denied any sore throat. CARDIOVASCULAR: No orthopnea, PND, no palpitations, no syncope. PULMONARY: No shortness of breath, no cough, no hemoptysis. GASTROINTESTINAL: No diarrhea, no nausea, no vomiting, no abdominal pain. NEUROLOGICAL: No headaches, no weakness, no numbness. HEMATOLOGICAL: Denies any bleeding or petechiae. GENITOURINARY: Denies any burning micturition, frequency, or urgency. MUSCULOSKELETAL/RHEUMATOLOGICAL: Denies any joint pain, swelling, or any muscle pain. ENDOCRINE: Denies any polyuria or polydipsia. The rest of the 14-point review of systems is negative. PHYSICAL EXAMINATION: GENERAL: The patient is alert and oriented x3, not in any acute distress. Well developed, well nourished. HEENT: Pupils are round and equally reacting to light. EOMI. No scleral icterus. No conjunctival pallor. Normocephalic, atraumatic. No pharyngeal erythema. No thyromegaly. CARDIOVASCULAR: S1 and S2 present. No murmurs, rubs, or gallops. PULMONARY: Chest is clear to auscultation, no wheezing or crackles. ABDOMEN: Soft, nontender, nondistended, normoactive bowel sounds. No palpable organomegaly. MUSCULOSKELETAL: No joint swelling or deformity. EXTREMITIES: No cyanosis, clubbing, or pedal edema. NEUROLOGICAL: Gross neurological examination did not reveal any focal deficits. SKIN: No rashes. Assessment and plan -Chest pain rule out a concurrent syndromes in troponins are negative patient will be discharged today to follow with cardiology as an outpatient, cardiology evaluated the patient here. -Proximal atrial fibrillation patient is presently sinus rhythm rate controlled patient will continue her Coumadin -Type 2 diabetes mellitus -Hypertension -Hypothyroidism -Hypomagnesemia magnesium will be replaced For above-mentioned chronic medical problems patient will be resumed on her appropriate home medications once verified Patient probably can be discharged if the troponins are negative today Past Medical History Past Medical History: Atrial Fibrillation, Asthma, Cancer, Diabetes Mellitus, Hypertension, Osteoarthritis (OA), Thyroid Disorder Additional Past Medical History / Comment(s): freq diarrhea,states [id number]-[id number]-hsim controlled, hypothyroidism,rt knee pain, hx kidney stone, rosacea., chronic sinusitis., uterine cancer with radiation tx (may 2017). History of Any Multi-Drug Resistant Organisms: None Reported Past Surgical History: Cholecystectomy, Heart Catheterization, Hysterectomy, Tonsillectomy Additional Past Surgical History / Comment(s): R sided kidney stone surgery, cervical surgery-cone, back pain procedure Past Anesthesia/Blood Transfusion Reactions: Previous Problems w/ Anesthesia Additional Past Anesthesia/Blood Transfusion Reaction / Comment(s): - DIFFICULT INTUBATION- STATES SHE WAS TOLD SHE NEEDS A GLIDESCOPE.,no problems with prior blood transfusions in 2017 Past Psychological History: Anxiety Smoking Status: Never smoker Past Alcohol Use History: None Reported Past Drug Use History: None Reported - Past Family History Sister(s) Family Medical History: Cancer Additional Family Medical History / Comment(s): pancreatic cancer Brother(s) Family Medical History: Cancer Additional Family Medical History / Comment(s): brain cancer Father Family Medical History: Coronary Artery Disease (CAD), CVA/TIA, Hypertension Additional Family Medical History / Comment(s): Father had CABG. He at age 86yrs Mother Family Medical History: Coronary Artery Disease (CAD), Diabetes Mellitus, Hypertension Additional Family Medical History / Comment(s): Mother at age 69yrs. Medications and Allergies Home Medications Medication Instructions Recorded Confirmed Type ALPRAZolam [Xanax] 0.25 mg PO BID PRN 06/19/15 04/19/21 History Loratadine [Claritin] 10 mg PO DAILY 06/19/15 04/19/21 History Losartan [Cozaar] 50 mg PO DAILY 06/19/15 04/19/21 History Montelukast [Singulair] 10 mg PO HS 06/19/15 04/19/21 History Pravastatin Sodium [Pravachol] 40 mg PO PC-SUPPER 06/19/15 04/19/21 History oxyBUTYnin chloride [Ditropan] 2.5 mg PO HS 06/19/15 04/19/21 History Warfarin [Coumadin] 5 mg PO SUTUTHSA@1800 04/29/16 04/19/21 History Levothyroxine Sodium [Synthroid] 100 mcg PO DAILY 06/04/17 04/19/21 History [place]-3 Fatty Acids/Fish Oil [Fish 2 cap PO DAILY 06/04/17 04/19/21 History Oil 1,000 mg Softgel] Acetaminophen [Tylenol] 1,000 mg PO Q6H PRN 10/07/17 04/19/21 History Sotalol [Betapace] 80 mg PO BID 10/07/17 04/19/21 History Albuterol Sulfate [Proventil Hfa] 2 puff INHALATION RT-BID PRN 12/14/17 04/19/21 History Fluticasone Nasal [place] [Flonase 1 - 2 spr EA NOSTRIL HS PRN 12/14/17 04/19/21 History Nasal [place]] Warfarin [Coumadin] 2.5 mg PO MOWEFR@1800 12/14/17 04/19/21 History Albuterol Nebulized [Ventolin 2.5 mg INHALATION RT-BID PRN 04/19/21 04/19/21 History Nebulized] Calcium/Magnesium/Zinc 3 tab PO DAILY 04/19/21 04/19/21 History [Xvauapf-Wjmxcxkih-Ogzl Tablet] Fluticasone Propionate [Flovent 2 puff INHALATION RT-BID 04/19/21 04/19/21 History Hfa 220 mcg] Slow Fe 45mg 1 tab PO DAILY 04/19/21 04/19/21 History metroNIDAZOLE 1% GEL [Metrogel 1%] 1 applic TOPICAL DAILY 04/19/21 04/19/21 History oxyBUTYnin chloride [Ditropan] 5 mg PO DAILY 04/19/21 04/19/21 History Allergies Allergy/AdvReac Type Severity Reaction Status Date / Time adhesive Allergy Rash/Hives Verified 08/25/21 04:26 budesonide [From Symbicort] Allergy Rash/Hives Verified 08/25/21 04:26 formoterol fumarate Allergy Rash/Hives Verified 08/25/21 04:26 [From Symbicort] naproxen sodium [From Aleve] Allergy Rash/Hives Verified 08/25/21 04:26 niacin Allergy Rapid Verified 08/25/21 04:26 Heart Rate Penicillins Allergy Rash/Hives Verified 08/25/21 04:26 prednisone Allergy Rash/Hives/Shortness Verified 08/25/21 04:26 of Breath Sulfa (Sulfonamide Allergy Rash/Hives Verified 08/25/21 04:26 Antibiotics) aspirin AdvReac Unknown Verified 08/25/21 04:26 codeine AdvReac Abdominal Verified 08/25/21 04:26 Pain levofloxacin [From Levaquin] AdvReac Chest Pain Verified 08/25/21 04:26 moxifloxacin HCl AdvReac Rapid Verified 08/25/21 04:26 [From Avelox] Heart Rate maxzide(takes Dyazide) AdvReac See Uncoded 08/25/21 04:26 Comments Physical Exam Vitals: Vital Signs Temp Pulse Resp BP Pulse Ox 04/26/23 07:31 97.2 F L 56 L 18 118/77 95 04/26/23 06:52 52 L 18 132/62 97 04/26/23 05:08 97.9 F 58 L 18 120/52 94 L Intake and Output 04/25/23 04/26/23 04/26/23 22:59 06:59 14:59 Other: Weight 111.584 kg Results CBC & Chem 7: 04/26/23 05:25 04/26/23 05:25 Labs: Abnormal Lab Results - Last 24 Hours (Table) 04/26/23 04/26/23 Range/Units 05:25 05:25 PT 23.2 H (9.0-12.0) sec INR 2.4 H (<1.2) Glucose 174 H (74-99) mg/dL Total Protein 6.0 L (6.3-8.2) g/dL Albumin 3.4 L (3.5-5.0) g/dL
[2023-04-26 16:13] VITALS: BP 110/62; PULSE 59; RESP 20; TEMP 97.9
== END 2023-04-26 15:15 | disposition home or self-care (01) ==
LOC: EC 05:06 → 6NMEDSUR 06:45
PROVIDERS: ADMIT Internal Medicine; ATTEND Internal Medicine
DX: R07.89 Other chest pain (principal); I48.0 Paroxysmal atrial fibrillation; E83.42 Hypomagnesemia; E11.9 Type 2 diabetes mellitus without complications; R00.1 Bradycardia, unspecified; E78.5 Hyperlipidemia, unspecified; I10 Essential (primary) hypertension; J44.9 Chronic obstructive pulmonary disease, unspecified; M19.90 Unspecified osteoarthritis, unspecified site; E03.9 Hypothyroidism, unspecified; L71.9 Rosacea, unspecified; J32.9 Chronic sinusitis, unspecified; F41.9 Anxiety disorder, unspecified; Z79.890 Hormone replacement therapy; Z79.01 Long term (current) use of anticoagulants; Z79.51 Long term (current) use of inhaled steroids; Z79.899 Other long term (current) drug therapy; Z88.6 Allergy status to analgesic agent; Z88.1 Allergy status to other antibiotic agents; Z88.5 Allergy status to narcotic agent; Z88.0 Allergy status to penicillin; Z88.2 Allergy status to sulfonamides; Z88.8 Allergy status to other drugs, medicaments and biological substances; Z91.048 Other nonmedicinal substance allergy status; Z87.442 Personal history of urinary calculi; Z92.3 Personal history of irradiation; Z90.710 Acquired absence of both cervix and uterus; Z90.49 Acquired absence of other specified parts of digestive tract; Z98.890 Other specified postprocedural states; Z80.0 Family history of malignant neoplasm of digestive organs; Z82.49 Family history of ischemic heart disease and other diseases of the circulatory system; Z80.8 Family history of malignant neoplasm of other organs or systems; Z82.3 Family history of stroke; Z83.3 Family history of diabetes mellitus
CPT/HCPCS: 99285; 36415; 93005; 80053; 83735; 84484; 85025; 85610; 85730; 71046; G0378

== ENCOUNTER 2023-07-07 05:21 | Observation (INO) | payer MEDICARE ==
--- NOTE | 2023-07-07 05:25 | ED ---
Arrhythmia/Palpitations HPI - General Stated Complaint: Afib Time Seen by Provider: 07/07/23 05:25 - History of Present Illness Initial Comments: Adelaida is a pleasant 78-year-old female with a history of paroxysmal atrial fibrillation for which she takes sotalol and Coumadin. Patient reports she woke around 2 AM with palpitations noted her heart was racing she was hoping it would go with Timentin and so she decided from the ER for evaluation. Patient reports she has some pressure in her chest that she would describe as feeling like she can't catch her breath because her heart is racing. He is on Synthroid states that she had her thyroid levels checked last month they were stable she has not had any dose adjustments in her medication. - Related Data Home Medications Medication Instructions Recorded Confirmed ALPRAZolam [Xanax] 0.25 mg PO BID PRN 06/19/15 04/26/23 Loratadine [Claritin] 10 mg PO DAILY 06/19/15 04/26/23 Losartan [Cozaar] 50 mg PO DAILY 06/19/15 04/26/23 Montelukast [Singulair] 10 mg PO HS 06/19/15 04/26/23 Pravastatin Sodium [Pravachol] 40 mg PO W/SUPPER 06/19/15 04/26/23 Warfarin [Coumadin] 5 mg PO SUTUTHSA@1800 04/29/16 04/26/23 Levothyroxine Sodium [Synthroid] 100 mcg PO DAILY 06/04/17 04/26/23 [place]-3 Fatty Acids/Fish Oil [Fish 2 cap PO DAILY 06/04/17 04/26/23 Oil 1,000 mg Softgel] Acetaminophen [Tylenol] 1,000 mg PO Q6H PRN 10/07/17 04/26/23 Sotalol [Betapace] 80 mg PO BID 10/07/17 04/26/23 Albuterol Sulfate [Proventil Hfa] 2 puff INHALATION RT-Q6H PRN 12/14/17 04/26/23 Warfarin [Coumadin] 2.5 mg PO MOWEFR@1800 12/14/17 04/26/23 Albuterol Nebulized [Ventolin 2.5 mg INHALATION RT-QID PRN 04/19/21 04/26/23 Nebulized] Slow Fe 45mg 1 tab PO DAILY 04/19/21 04/26/23 oxyBUTYnin chloride [Ditropan] 5 mg PO BID 04/19/21 04/26/23 Ibuprofen [Motrin] 800 mg PO Q8H PRN 04/26/23 04/26/23 Triamterene/Hydrochlorothiazid 1 cap PO DAILY 04/26/23 04/26/23 [Triamterene-Hctz 37.5-25 mg Cp] Allergies Allergy/AdvReac Type Severity Reaction Status Date / Time adhesive Allergy Rash/Hives Verified 04/26/23 12:30 budesonide [From Symbicort] Allergy Rash/Hives Verified 04/26/23 12:30 formoterol fumarate Allergy Rash/Hives Verified 04/26/23 12:30 [From Symbicort] naproxen sodium [From Aleve] Allergy Rash/Hives Verified 04/26/23 12:30 niacin Allergy Rapid Verified 04/26/23 12:30 Heart Rate Penicillins Allergy Rash/Hives Verified 04/26/23 12:30 prednisone Allergy Rash/Hives/Shortness Verified 04/26/23 12:30 of Breath Sulfa (Sulfonamide Allergy Rash/Hives Verified 04/26/23 12:30 Antibiotics) aspirin AdvReac Unknown Verified 04/26/23 12:30 codeine AdvReac Abdominal Verified 04/26/23 12:30 Pain levofloxacin [From Levaquin] AdvReac Chest Pain Verified 04/26/23 12:30 moxifloxacin HCl AdvReac Rapid Verified 04/26/23 12:30 [From Avelox] Heart Rate maxzide(takes Dyazide) AdvReac See Uncoded 08/25/21 04:26 Comments Review of Systems ROS Statement: Those systems with pertinent positive or pertinent negative responses have been documented in the HPI. ROS Other: All systems not noted in ROS Statement are negative. Past Medical History Past Medical History: Atrial Fibrillation, Asthma, Cancer, Diabetes Mellitus, Hypertension, Osteoarthritis (OA), Thyroid Disorder Additional Past Medical History / Comment(s): freq diarrhea,states [id number] controlled, hypothyroidism,rt knee pain, hx kidney stone, rosacea., chronic sinusitis., uterine cancer with radiation tx (may 2017). History of Any Multi-Drug Resistant Organisms: None Reported Past Surgical History: Cholecystectomy, Heart Catheterization, Hysterectomy, Tonsillectomy Additional Past Surgical History / Comment(s): R sided kidney stone surgery, cervical surgery-cone, back pain procedure Past Anesthesia/Blood Transfusion Reactions: Previous Problems w/ Anesthesia Additional Past Anesthesia/Blood Transfusion Reaction / Comment(s): - DIFFICULT INTUBATION- STATES SHE WAS TOLD SHE NEEDS A GLIDESCOPE.,no problems with prior blood transfusions in 2017 Past Psychological History: Anxiety Smoking Status: Never smoker Past Alcohol Use History: None Reported Past Drug Use History: None Reported - Past Family History Sister(s) Family Medical History: Cancer Additional Family Medical History / Comment(s): pancreatic cancer Brother(s) Family Medical History: Cancer Additional Family Medical History / Comment(s): brain cancer Father Family Medical History: Coronary Artery Disease (CAD), CVA/TIA, Hypertension Additional Family Medical History / Comment(s): Father had CABG. He at age 86yrs Mother Family Medical History: Coronary Artery Disease (CAD), Diabetes Mellitus, Hypertension Additional Family Medical History / Comment(s): Mother at age 69yrs. General Exam - General Exam Comments Initial Comments: Physical Exam GENERAL: Patient is well-developed and well-nourished. Patient is nontoxic and well-hydrated and is in no distress. HENT: Normocephalic, Atraumatic. EYES: PERRL, EOMI PULMONARY: Unlabored respirations. No audible rales rhonchi or wheezing was noted. CARDIOVASCULAR: Irregularly irregular tachycardia ABDOMEN: Soft and nontender with normal bowel sounds. SKIN: Skin is clear with no lesions or rashes and otherwise unremarkable. : Deferred NEUROLOGIC: Patient is alert and oriented x3. Moving all extremities spontaneously MUSCULOSKELETAL: Normal extremities with adequate strength and full range of motion. No lower extremity swelling or edema. No calf tenderness. PSYCHIATRIC: Normal psychiatric evaluation. Course Vital Signs 07/07/23 07/07/23 05:23 06:20 Temperature 98.2 F Pulse Rate 142 H 126 H Respiratory 18 18 Rate Blood Pressure 136/92 115/94 O2 Sat by Pulse 97 97 Oximetry EKG Findings - EKG Comments: EKG Findings:: EKG interpreted by me, EKG obtained and tachycardia EKG and it 5:28 AM, rate is 136 rhythm is narrow complex irregular tachycardia consistent with atrial fibrillation with RVR. No acute ST elevations or depressions no evidence of ischemia or infarction. When compared to previous patient has history of A. fib. Medical Decision Making - Medical Decision Making Was pt. sent in by a medical professional or institution ([facility], [employer], urgent care, hospital, or residential...) When possible be specific @ -No Did you speak to anyone other than the patient for history (EMS, parent, family, police, friend...)? What history was obtained from this source @ -No Did you review nursing and triage notes (agree or disagree)? Why? @ -I reviewed and agree with nursing and triage notes Were old charts reviewed (outside hosp., previous admission, EMS record, old EKG, old radiological studies, urgent care reports/EKG's, residential records)? Report findings @ -Previous visits were reviewed Differential Diagnosis (chest pain, altered mental status, abdominal pain women, abdominal pain men, vaginal bleeding, weakness, fever, dyspnea, syncope, headache, dizziness, GI bleed, back pain, seizure, CVA, palpatations, mental health, musculoskeletal)? @ Differential Palpitations Ventricular arrhythmias, atrial arrhythmias, myocardial infarction, anemia, thyrotoxicosis, electrolyte imbalance, hypokalemia, pulmonary embolism, pulmonary disease, drugs, alcohol, anxiety, stress.... This is not meant to be an all-inclusive list. EKG interpreted by me (3pts min.). @ -As above X-rays interpreted by me (1pt min.). @ -Xray interpreted by me there is no pneumothorax no pleural effusions mild cardiomegaly CT interpreted by me (1pt min.). @ -None done U/S interpreted by me (1pt. min.). @ -None done What testing was considered but not performed or refused? (CT, X-rays, U/S, labs)? Why? @ -None What meds were considered but not given or refused? Why? @ -Heparin was considered however patient is appropriately anticoagulated Did you discuss the management of the patient with other professionals (professionals i.e. DANIEL Caro, [employer]CIAL MARK[employer] DEALER, lab, RT, psych nurse, high school social studies tutor, executive relations specialist, teacher, chief accounting officer, family preservation caseworker)? Give summary @ -No Was smoking cessation discussed for >3mins.? @ -No Was critical care preformed (if so, how long)? @ -Yes, 30 minutes Were there social determinants of health that impacted care today? How? ( Homelessness, low income, unemployed, alcoholism, drug addiction, transportation, low edu. Level, literacy, decrease access to med. care, prison, rehab)? @ -No Was there de-escalation of care discussed even if they declined (Discuss DNR or withdrawal of care, Hospice)? DNR status @ -No What co-morbidities impacted this encounter? (DM, HTN, Smoking, COPD, CAD, Cancer, CVA, ARF, Chemo, Hep., AIDS, mental health diagnosis, sleep apnea, morbid obesity)? @ -CAD, morbid obesity Was patient admitted / discharged? Hospital course, mention meds given and route, prescriptions, significant lab abnormalities, going to OR and other pertinent info. @ -Admit Patient was seen and admitted upon arrival the emergency department. Patient was noted to be in atrial fibrillation with RVR. Patient is appropriately anticoagulated on Coumadin. Cardizem was ordered. Dr. castanon excepts admission for A. fib with RVR with consult to cardiology. Undiagnosed new problem with uncertain prognosis? @ -No Drug Therapy requiring intensive monitoring for toxicity (Heparin, Nitro, Insulin, Cardizem)? @ -No Were any procedures done? @ -No Diagnosis/symptom? @ -A. fib with RVR Acute, or Chronic, or Acute on Chronic? @ -default Uncomplicated (without systemic symptoms) or Complicated (systemic symptoms)? @ -default Side effects of treatment? @ -No Exacerbation, Progression, or Severe Exacerbation? @ -No Poses a threat to life or bodily function? How? (Chest pain, [place], [place], pneumonia, PE, COPD, DKA, ARF, appy, cholecystitis, CVA, Diverticulitis, Homicidal, Suicidal, threat to staff... and all critical care pts) @ -No - Lab Data Result diagrams: 07/07/23 05:28 07/07/23 05:28 Lab Results 07/07/23 07/07/23 07/07/23 Range/Units 05:28 05:28 05:28 WBC 8.8 (3.8-10.6) k/uL RBC 4.66 (3.80-5.40) m/uL Hgb 13.1 (11.4-16.0) gm/dL Hct 38.5 (34.0-46.0) % MCV 82.8 (80.0-100.0) fL MCH 28.1 (25.0-35.0) pg MCHC 33.9 (31.0-37.0) g/dL RDW 15.1 (11.5-15.5) % Plt Count 217 (150-450) k/uL MPV 8.7 Neutrophils % 63 % Lymphocytes % 27 % Monocytes % 6 % Eosinophils % 3 % Basophils % 0 % Neutrophils # 5.5 (1.3-7.7) k/uL Lymphocytes # 2.3 (1.0-4.8) k/uL Monocytes # 0.6 (0-1.0) k/uL Eosinophils # 0.2 (0-0.7) k/uL Basophils # 0.0 (0-0.2) k/uL Poikilocytosis Slight PT 33.7 H (10.0-12.5) sec INR 3.4 H (<1.2) APTT 35.0 H (22.0-30.0) sec Sodium 138 (137-145) mmol/L Potassium 3.8 (3.5-5.1) mmol/L Chloride 104 (98-107) mmol/L Carbon Dioxide 25 (22-30) mmol/L Anion Gap 9 mmol/L BUN 17 (7-17) mg/dL Creatinine 0.67 (0.52-1.04) mg/dL Est GFR (CKD-EPI)AfAm >90 (>60 ml/min/1.73 sqM) Est GFR (CKD-EPI)NonAf 83 (>60 ml/min/1.73 sqM) Glucose 195 H (74-99) mg/dL Calcium 9.9 (8.4-10.2) mg/dL Magnesium 1.6 (1.6-2.3) mg/dL Total Bilirubin 0.7 (0.2-1.3) mg/dL AST 29 (14-36) U/L ALT 27 (4-34) U/L Alkaline Phosphatase 85 (38-126) U/L Troponin I (0.000-0.034) ng/mL NT-Pro-B Natriuret Pep 220 pg/mL Total Protein 6.5 (6.3-8.2) g/dL Albumin 3.8 (3.5-5.0) g/dL TSH 1.460 (0.465-4.680) mIU/L 07/07/23 Range/Units 05:28 WBC (3.8-10.6) k/uL RBC (3.80-5.40) m/uL Hgb (11.4-16.0) gm/dL Hct (34.0-46.0) % MCV (80.0-100.0) fL MCH (25.0-35.0) pg MCHC (31.0-37.0) g/dL RDW (11.5-15.5) % Plt Count (150-450) k/uL MPV Neutrophils % % Lymphocytes % % Monocytes % % Eosinophils % % Basophils % % Neutrophils # (1.3-7.7) k/uL Lymphocytes # (1.0-4.8) k/uL Monocytes # (0-1.0) k/uL Eosinophils # (0-0.7) k/uL Basophils # (0-0.2) k/uL Poikilocytosis PT (10.0-12.5) sec INR (<1.2) APTT (22.0-30.0) sec Sodium (137-145) mmol/L Potassium (3.5-5.1) mmol/L Chloride (98-107) mmol/L Carbon Dioxide (22-30) mmol/L Anion Gap mmol/L BUN (7-17) mg/dL Creatinine (0.52-1.04) mg/dL Est GFR (CKD-EPI)AfAm (>60 ml/min/1.73 sqM) Est GFR (CKD-EPI)NonAf (>60 ml/min/1.73 sqM) Glucose (74-99) mg/dL Calcium (8.4-10.2) mg/dL Magnesium (1.6-2.3) mg/dL Total Bilirubin (0.2-1.3) mg/dL AST (14-36) U/L ALT (4-34) U/L Alkaline Phosphatase (38-126) U/L Troponin I <0.012 (0.000-0.034) ng/mL NT-Pro-B Natriuret Pep pg/mL Total Protein (6.3-8.2) g/dL Albumin (3.5-5.0) g/dL TSH (0.465-4.680) mIU/L Critical Care Time Critical Care Time: Yes Total Critical Care Time: 30 Disposition Clinical Impression: Atrial fibrillation with RVR Disposition: ADMITTED IP TO THIS [facility] Condition: Serious Referrals: David Larios MD [Primary Care Provider] - 1-2 days
[2023-07-07 05:52] LABS: Basophils % (A) 0 %; Eosinophils # (A) 0.2 k/uL (0-0.7); Eosinophils % (A) 3 %; HCT 38.5 % (34.0-46.0); HGB 13.1 gm/dL (11.4-16.0); Lymphocytes # (A) 2.3 k/uL (1.0-4.8); Lymphocytes % (A) 27 %; MCH 28.1 pg (25.0-35.0); MCHC 33.9 g/dL (31.0-37.0); MCV 82.8 fL (80.0-100.0); Mean Platelet Volume 8.7; Monocytes # (A) 0.6 k/uL (0-1.0); Monocytes % (A) 6 %; Neutrophils # (A) 5.5 k/uL (1.3-7.7); Neutrophils % (A) 63 %; Platelet Count 217 k/uL (150-450); Poikilocytosis Slight; RBC 4.66 m/uL (3.80-5.40); RDW 15.1 % (11.5-15.5); WBC 8.8 k/uL (3.8-10.6)
[2023-07-07 05:54] LABS: INR 3.4 (<1.2); Prothrombin Time 33.7 sec (10.0-12.5)
[2023-07-07 05:56] LABS: ALT 27 U/L (4-34); AST 29 U/L (14-36); African American GFR (CKD) >90 (>60 ml/min/1.73 sqM); Albumin 3.8 g/dL (3.5-5.0); Alkaline Phosphatase 85 U/L (38-126); Anion Gap 9 mmol/L; Blood Urea Nitrogen 17 mg/dL (7-17); Calcium 9.9 mg/dL (8.4-10.2); Carbon Dioxide 25 mmol/L (22-30); Chloride 104 mmol/L (98-107); Glucose 195 mg/dL (74-99); Magnesium 1.6 mg/dL (1.6-2.3); Non-African American GFR(CKD) 83 (>60 ml/min/1.73 sqM); Potassium 3.8 mmol/L (3.5-5.1); Sodium 138 mmol/L (137-145); Total Bilirubin 0.7 mg/dL (0.2-1.3); Total Protein 6.5 g/dL (6.3-8.2)
[2023-07-07 06:04] LABS: NT-Pro-B-Type Natriuretic Pept 220 pg/mL
[2023-07-07] MEDS ORDERED: DILTIAZEM DRIP BOLUS FROM BAG 1 MG SOLN IV ONE (06:13)
[2023-07-07] MEDS ORDERED: DILTIAZEM 125 MG in SODIUM CHLORIDE 0.9% 100 ML IV SCH (06:15)
[2023-07-07] MEDS ORDERED: NALOXONE 0.4 MG/ML 1 ML VIAL IVP PRN (06:38)
--- NOTE | 2023-07-07 08:48 | XR ---
EXAMINATION TYPE: XR chest 1V portable DATE OF EXAM: 07/07/2023 5:53 AM COMPARISON: Chest radiographs from 04/26/2023 TECHNIQUE: XR chest 1V portable Portable AP radiograph of the chest. CLINICAL INDICATION:Female, 78 years old with history of chest pain; FINDINGS: Patient is rotated which limits evaluation. Lungs/Pleura: There is no evidence of pleural effusion, focal consolidation, or pneumothorax. Chroni c senescent parenchymal change. Pulmonary vascularity: Unremarkable. Heart/mediastinum: Cardiomediastinal silhouette is unremarkable. Musculoskeletal: No acute osseous pathology. IMPRESSION: No acute cardiopulmonary disease/process. No significant change from prior examination.
[2023-07-07] MEDS: SOTALOL 80 MG TAB PO SCH ×2 (09:33→21:19)
[2023-07-07] MEDS ORDERED: ACETAMINOPHEN TAB 500 MG TAB PO PRN (10:52)
[2023-07-07] MEDS ORDERED: ALBUTEROL NEBULIZED 2.5 MG/3 ML INHALATION PRN ×2 (10:52)
[2023-07-07] MEDS ORDERED: ALPRAZolam 0.25 MG TAB PO PRN (10:52)
[2023-07-07] MEDS: LEVOTHYROXINE 100 MCG TAB PO SCH (11:15)
[2023-07-07] MEDS: oxyBUTYnin chloride 5 MG TAB PO SCH ×2 (11:15→21:19)
--- NOTE | 2023-07-07 13:15 | P.CRDCN ---
History of Present Illness History of present illness: HISTORY OF PRESENT ILLNESS: This is a 78-year-old female with a past medical history significant for paroxysmal atrial fibrillation, hypertension, hyperlipidemia, and hypothyroidism. Patient follows in the office with Dr. Campos. We have been asked to see the patient in consultation for A. fib with RVR. Patient examined at the bedside in the emergency room. Patient presented to the hospital with a chief complaint of palpitations. The patient was found to be in A. fib with RVR. She was started on IV Cardizem. She does report that she missed some of her medic ations earlier in the week. She also reports that she was feeling short of breath yesterday and did a breathing treatment at home. She states that she had some mild dizziness and lightheadedness as well which has since improved. After examination this morning, the patient converted to sinus mechanism with a heart rate in the 50s. * EKG reveals A. fib with RVR * Chest xray negative for acute process. * Laboratory data: WBC 8.8. Hemoglobin 13.1. Platelet count 217. INR 3.4. Sodium 138. Potassium 3.8. BUN 17. Creatinine 0.67. Troponin negative 1. ProBNP 222. TSH 1.460. * Current home cardiac medications include losartan 50 mg daily, pravastatin 40 mg at night, sotalol 80 mg twice a day, Coumadin 5 mg on Thursday and 2.5 mg on Thursday and Thursday, and triamterene/hydrochlorothiazide 37.5mg daily * Most recent echocardiogram obtained in May 2015 revealing ejection fraction 60-65% * Patient underwent stress testing in March 2022 which was negative for ischemia REVIEW OF SYSTEMS: At the time of my exam: CONSTITUTIONAL: Denies fever or chills. HEENT: Denies blurred vision, vision changes, or eye pain. Denies hemoptysis CARDIOVASCULAR: Denies chest pain. Denies orthopnea. Denies PND. Denies palpitations RESPIRATORY: Denies shortness of breath. GASTROINTESTINAL: Denies abdominal pain. Denies nausea or vomiting. HEMATOLOGIC: Denies bleeding disorders. GENITOURINARY: Denies any blood in urine. SKIN: Denies pruitis. Denies rash. PHYSICAL EXAM: VITAL SIGNS: Reviewed. GENERAL: Well-developed in no acute distress. HEENT: Head is normocephalic. Pupils are equal, round. Sclerae anicteric. Mucous membranes of the mouth are moist. Neck supple. No JVD or thyromegaly LUNGS: Respirations even and unlabored. Lungs essentially clear to auscultation bilaterally. HEART: Regular rate and rhythm. S1 and S2 heard. ABDOMEN: Soft. Nondistended. Nontender. EXTREMITIES: Normal range of motion. No clubbing or cyanosis. Peripheral pulses intact. No lower extremity edema NEUROLOGIC: Awake and alert. Oriented x 3. ASSESSMENT: Palpitations Paroxysmal atrial fibrillation with RVR, currently maintaining sinus mechanism Supratherapeutic INR, INR 3.4 admission Hypertension Hyperlipidemia Hypothyroidism PLAN: Obtain 2-D echo to assess cardiac structure and function Discontinue IV Cardizem Continue current dose of sotalol 80 mg twice a day Continue Coumadin. Hold dose for tonight secondary to INR 3.4. Repeat INR in a.m. Hold antihypertensive medications as patient's blood pressure is in the low 100s at the time of examination. Will resume tomorrow if patient's blood pressure improves Further recommendations pending patient's course Nurse practitioner note has been reviewed by physician. Signing provider agrees with the documented findings, assessment, and plan of care. Past Medical History Past Medical History: Atrial Fibrillation, Asthma, Cancer, Diabetes Mellitus, Hypertension, Osteoarthritis (OA), Thyroid Disorder Additional Past Medical History / Comment(s): freq diarrhea,states [id number] controlled, hypothyroidism,rt knee pain, hx kidney stone, rosacea., chronic sinusitis., uterine cancer with radiation tx (may 2017). History of Any Multi-Drug Resistant Organisms: None Reported Past Surgical History: Cholecystectomy, Heart Catheterization, Hysterectomy, Tonsillectomy Additional Past Surgical History / Comment(s): R sided kidney stone surgery, cervical surgery-cone, back pain procedure Past Anesthesia/Blood Transfusion Reactions: Previous Problems w/ Anesthesia Additional Past Anesthesia/Blood Transfusion Reaction / Comment(s): - DIFFICULT INTUBATION- STATES SHE WAS TOLD SHE NEEDS A GLIDESCOPE.,no problems with prior blood transfusions in 2017 Past Psychological History: Anxiety Smoking Status: Never smoker Past Alcohol Use History: None Reported Past Drug Use History: None Reported - Past Family History Sister(s) Family Medical History: Cancer Additional Family Medical History / Comment(s): pancreatic cancer Brother(s) Family Medical History: Cancer Additional Family Medical History / Comment(s): brain cancer Father Family Medical History: Coronary Artery Disease (CAD), CVA/TIA, Hypertension Additional Family Medical History / Comment(s): Father had CABG. He at age 86yrs Mother Family Medical History: Coronary Artery Disease (CAD), Diabetes Mellitus, Hypertension Additional Family Medical History / Comment(s): Mother at age 69yrs. Medications and Allergies Home Medications Medication Instructions Recorded Confirmed Type ALPRAZolam [Xanax] 0.25 mg PO BID PRN 06/19/15 07/07/23 History Loratadine [Claritin] 10 mg PO DAILY 06/19/15 07/07/23 History Losartan [Cozaar] 50 mg PO DAILY 06/19/15 07/07/23 History Montelukast [Singulair] 10 mg PO HS 06/19/15 07/07/23 History Pravastatin Sodium [Pravachol] 40 mg PO W/SUPPER 06/19/15 07/07/23 History Warfarin [Coumadin] 5 mg PO SUTUTHSA@1800 04/29/16 07/07/23 History Levothyroxine Sodium [Synthroid] 100 mcg PO DAILY 06/04/17 07/07/23 History [place]-3 Fatty Acids/Fish Oil [Fish 2 cap PO DAILY 06/04/17 07/07/23 History Oil 1,000 mg Softgel] Acetaminophen [Tylenol] 1,000 mg PO Q6H PRN 10/07/17 07/07/23 History Sotalol [Betapace] 80 mg PO BID 10/07/17 07/07/23 History Albuterol Sulfate [Proventil Hfa] 2 puff INHALATION RT-Q6H PRN 12/14/17 07/07/23 History Albuterol Nebulized [Ventolin 2.5 mg INHALATION RT-QID PRN 04/19/21 07/07/23 History Nebulized] Slow Fe 45mg 1 tab PO DAILY 04/19/21 07/07/23 History oxyBUTYnin chloride [Ditropan] 5 mg PO BID 04/19/21 07/07/23 History Ibuprofen [Motrin] 800 mg PO Q8H PRN 04/26/23 07/07/23 History Triamterene/Hydrochlorothiazid 1 cap PO DAILY 04/26/23 07/07/23 History [Triamterene-Hctz 37.5-25 mg Cp] Warfarin [Coumadin] 2.5 mg PO MOWEFR@1800 07/07/23 07/07/23 History Allergies Allergy/AdvReac Type Severity Reaction Status Date / Time adhesive Allergy Rash/Hives Verified 07/07/23 07:29 budesonide [From Symbicort] Allergy Rash/Hives Verified 07/07/23 07:29 formoterol fumarate Allergy Rash/Hives Verified 07/07/23 07:29 [From Symbicort] naproxen sodium [From Aleve] Allergy Rash/Hives Verified 07/07/23 07:29 niacin Allergy Rapid Verified 07/07/23 07:29 Heart Rate Penicillins Allergy Rash/Hives Verified 07/07/23 07:29 prednisone Allergy Rash/Hives/Shortness Verified 07/07/23 07:29 of Breath Sulfa (Sulfonamide Allergy Rash/Hives Verified 07/07/23 07:29 Antibiotics) aspirin AdvReac Unknown Verified 07/07/23 07:29 codeine AdvReac Abdominal Verified 07/07/23 07:29 Pain levofloxacin [From Levaquin] AdvReac Chest Pain Verified 07/07/23 07:29 moxifloxacin HCl AdvReac Rapid Verified 07/07/23 07:29 [From Avelox] Heart Rate ondansetron [From Zofran] AdvReac Constipatio Verified 07/07/23 07:32 n maxzide(takes Dyazide) AdvReac See Uncoded 07/07/23 07:29 Comments Physical Exam Vitals: Vital Signs Temp Pulse Pulse Resp BP Pulse Ox 07/07/23 12:46 56 L 07/07/23 12:16 94 L 07/07/23 10:00 98.1 F 56 L 7 L 108/59 95 07/07/23 09:03 56 L 07/07/23 09:00 57 L 18 92/57 97 07/07/23 08:00 130 H 19 102/83 96 07/07/23 07:00 98.2 F 135 H 11 L 115/94 95 07/07/23 06:20 126 H 18 115/94 97 07/07/23 05:30 120 H 9 L 136/92 95 07/07/23 05:23 98.2 F 142 H 18 136/92 97 Intake and Output 07/06/23 07/07/23 07/07/23 22:59 06:59 14:59 Intake Total 12.75 Balance 12.75 Intake: Intake, IV Titration 12.75 Amount Diltiazem 125 mg In 12.75 Sodium Chloride 0.9% 100 ml @ 5 MG/HR 5 mls/hr IV .Q24H [facility] Rx#:[id number] Other: Weight 111.13 kg Results 07/07/23 05:28 07/07/23 05:28 Cardiac Enzymes 07/07/23 07/07/23 Range/Units 05:28 05:28 AST 29 (14-36) U/L Troponin I <0.012 (0.000-0.034) ng/mL Coagulation 07/07/23 Range/Units 05:28 PT 33.7 H (10.0-12.5) sec APTT 35.0 H (22.0-30.0) sec CBC 07/07/23 Range/Units 05:28 WBC 8.8 (3.8-10.6) k/uL RBC 4.66 (3.80-5.40) m/uL Hgb 13.1 (11.4-16.0) gm/dL Hct 38.5 (34.0-46.0) % Plt Count 217 (150-450) k/uL Comprehensive Metabolic Panel 07/07/23 Range/Units 05:28 Sodium 138 (137-145) mmol/L Potassium 3.8 (3.5-5.1) mmol/L Chloride 104 (98-107) mmol/L Carbon Dioxide 25 (22-30) mmol/L BUN 17 (7-17) mg/dL Creatinine 0.67 (0.52-1.04) mg/dL Glucose 195 H (74-99) mg/dL Calcium 9.9 (8.4-10.2) mg/dL AST 29 (14-36) U/L ALT 27 (4-34) U/L Alkaline Phosphatase 85 (38-126) U/L Total Protein 6.5 (6.3-8.2) g/dL Albumin 3.8 (3.5-5.0) g/dL Current Medications Generic Name Dose Route Start Last Admin Trade Name Freq PRN Reason Stop Dose Admin Acetaminophen 1,000 mg 07/07/23 10:52 Acetaminophen Tab 500 Mg Tab PO Q6H PRN Pain Albuterol Sulfate 2.5 mg 07/07/23 10:52 Albuterol Nebulized 2.5 Mg/3 Ml INHALATION RT-QID PRN Shortness Of Breath Alprazolam 0.25 mg 07/07/23 10:52 Alprazolam 0.25 Mg Tab PO BID PRN Anxiety Diltiazem HCl 125 mg/ Sodium 125 mls @ 5 mls/hr 07/07/23 06:15 07/07/23 08:58 Chloride IV 2.5 mg/hr .Q24H [facility] 2.5 mls/hr Infusion 5 MG/HR Levothyroxine Sodium 100 mcg 07/07/23 11:00 07/07/23 11:15 Levothyroxine 100 Mcg Tab PO 100 mcg DAILY@0630 [facility] Administration Miscellaneous Information 1 each 07/07/23 08:17 Warfarin Per Pharmacy MISCELLANE DIRECTED PRN Per Protocol Protocol Montelukast Sodium 10 mg 07/07/23 21:00 Montelukast 10 Mg Tab PO HS [facility] Naloxone HCl 0.2 mg 07/07/23 06:38 Naloxone 0.4 Mg/Ml 1 Ml Vial IVP Q2M PRN Opioid Reversal Oxybutynin Chloride 5 mg 07/07/23 11:00 07/07/23 11:15 Oxybutynin Chloride 5 Mg Tab PO 5 mg BID [facility] Administration Pravastatin Sodium 40 mg 07/07/23 17:30 Pravastatin Sodium 40 Mg Tab PO W/SUPPER [facility] Sotalol HCl 80 mg 07/07/23 09:00 07/07/23 09:33 Sotalol 80 Mg Tab PO Not Given BID [facility] Warfarin Sodium 0 mg 07/07/23 18:00 Warfarin 0.5 Mg Tab PO 07/07/23 18:01 ONCE@1800 ONE Intake and Output 07/06/23 07/07/23 07/07/23 22:59 06:59 14:59 Intake Total 12.75 Balance 12.75 Intake: Intake, IV Titration 12.75 Amount Diltiazem 125 mg In 12.75 Sodium Chloride 0.9% 100 ml @ 5 MG/HR 5 mls/hr IV .Q24H [facility] Rx#:[id number] Other: Weight 111.13 kg 07/07/23 05:28 07/07/23 05:28
[2023-07-07] MEDS ORDERED: bisacodyL 5 MG TABLET.DR PO STA (13:46)
--- NOTE | 2023-07-07 14:59 | P.HPIM ---
History of Present Illness H&P Date: 07/07/23 Chief Complaint: Palpitation Patient is a 78-year-old female, follows with Dr. Larios with a known history of atrial fibrillation on anticoagulation with Coumadin, hypertension, diabetes type 2 [id number]-[id number], hypothyroidism and uterine cancer with radiation treatment in 2017, anxiety and prior history of cardiac catheterization and renal stones. Patient woke up up around 2 AM this morning with palpitations. Some dizziness pressure in the chest. Not feeling right. No nausea vomiting. No fever no chills. Came into the ER. Heart rate was in the 140s. Started on IV Cardizem drip. Early afternoon patient went back into sinus rhythm. Seen by cardiology earlier IV Cardizem drip was discontinued. Continue sotalol. at the bedside. Review of systems: GEN.: Tired EYES: None HEENT: None NECK: None RESPIRATORY: None CARDIOVASCULAR: As above GASTROINTESTINAL: Heartburn GENITOURINARY: Urine incontinence MUSCULOSKELETAL: Joint pains LYMPHATICS: None HEMATOLOGICAL: None PSYCHIATRY: None NEUROLOGICAL: None Past medical history to include: Paroxysmal atrial fibrillation, hypertension, diabetes, hypothyroid, uterine cancer with radiation treatment, anxiety, renal stones, urinary incontinence Social history: . No smoking or alcohol. Physical examination: VITAL SIGNS: 98.2, 142, 18, 136/92, 97% room air-upon presentation GENERAL: BMI 43.4, sitting at the edge of the bed,. EYES: Pupils equal. Conjunctiva normal. HEENT: External appearance of nose and ears normal, oral cavity grossly normal. NECK: JVD unable to assess; masses not palpable. HEART: First and second heart sounds are normal; no edema. LUNGS: Respiratory rate normal; clear to auscultation. ABDOMEN: Soft, nontender, liver spleen not palpable, no masses palpable. PSYCH: Alert and oriented x3; mood and affect normal. MUSCULOSKELETAL:No Clubbing/cyanosis;muscles-grossly intact. OA NEUROLOGICAL: Cranial nerves grossly intact; no facial asymmetry, power and sensation grossly intact. LYMPHATICS: No lymph nodes palpable in the axilla and neck INVESTIGATIONS, reviewed in the clinical context: July 07: White count 8.8 hemoglobin 13.1 platelets 217 INR 3.4 sodium 138 potassium 3.8 creatinine 0.67 Troponin I is less than 0.012 TSH 1.4 EKG tracing personally reviewed by me-atrial fibrillation with a rate of 136 Chest x-ray film personally reviewed by me-slight unfolding of the aorta Assessment and plan: -Paroxysmal atrial fibrillation , presenting with rapid ventricular rate.: Normal back in sinus rhythm. Started on IV Cardizem drip in the ER. This afternoon went back into sinus rhythm. IV Cardizem drip discontinued. Sotalol. Cardiology following. Coumadin -Essential Hypertension Cozaar-held, sotalol, Dyazide-held Hypothyroidism Synthroid 100 g -Anxiety, disorder Xanax when necessary -Morbid obesity BMI 43.4 Weight loss measures and follow with PCP -Chronic urinary stress incontinence Ditropan -Hyperlipidemia On Pravachol Care was discussed with the patient. Questions answered. Follow with cardiology. Past Medical History Past Medical History: Atrial Fibrillation, Asthma, Cancer, Diabetes Mellitus, Hypertension, Osteoarthritis (OA), Thyroid Disorder Additional Past Medical History / Comment(s): freq diarrhea,states qvw-dcsskexz-hqaz controlled, hypothyroidism,rt knee pain, hx kidney stone, rosacea., chronic sinusitis., uterine cancer with radiation tx (may 2017). History of Any Multi-Drug Resistant Organisms: None Reported Past Surgical History: Cholecystectomy, Heart Catheterization, Hysterectomy, Tonsillectomy Additional Past Surgical History / Comment(s): R sided kidney stone surgery, cervical surgery-cone, back pain procedure Past Anesthesia/Blood Transfusion Reactions: Previous Problems w/ Anesthesia Additional Past Anesthesia/Blood Transfusion Reaction / Comment(s): - DIFFICULT INTUBATION- STATES SHE WAS TOLD SHE NEEDS A GLIDESCOPE.,no problems with prior blood transfusions in 2017 Past Psychological History: Anxiety Smoking Status: Never smoker Past Alcohol Use History: None Reported Past Drug Use History: None Reported - Past Family History Sister(s) Family Medical History: Cancer Additional Family Medical History / Comment(s): pancreatic cancer Brother(s) Family Medical History: Cancer Additional Family Medical History / Comment(s): brain cancer Father Family Medical History: Coronary Artery Disease (CAD), CVA/TIA, Hypertension Additional Family Medical History / Comment(s): Father had CABG. He at age 86yrs Mother Family Medical History: Coronary Artery Disease (CAD), Diabetes Mellitus, Hypertension Additional Family Medical History / Comment(s): Mother at age 69yrs. Medications and Allergies Home Medications Medication Instructions Recorded Confirmed Type ALPRAZolam [Xanax] 0.25 mg PO BID PRN 06/19/15 07/07/23 History Loratadine [Claritin] 10 mg PO DAILY 06/19/15 07/07/23 History Losartan [Cozaar] 50 mg PO DAILY 06/19/15 07/07/23 History Montelukast [Singulair] 10 mg PO HS 06/19/15 07/07/23 History Pravastatin Sodium [Pravachol] 40 mg PO W/SUPPER 06/19/15 07/07/23 History Warfarin [Coumadin] 5 mg PO SUTUTHSA@1800 04/29/16 07/07/23 History Levothyroxine Sodium [Synthroid] 100 mcg PO DAILY 06/04/17 07/07/23 History [place]-3 Fatty Acids/Fish Oil [Fish 2 cap PO DAILY 06/04/17 07/07/23 History Oil 1,000 mg Softgel] Acetaminophen [Tylenol] 1,000 mg PO Q6H PRN 10/07/17 07/07/23 History Sotalol [Betapace] 80 mg PO BID 10/07/17 07/07/23 History Albuterol Sulfate [Proventil Hfa] 2 puff INHALATION RT-Q6H PRN 12/14/17 07/07/23 History Albuterol Nebulized [Ventolin 2.5 mg INHALATION RT-QID PRN 04/19/21 07/07/23 History Nebulized] Slow Fe 45mg 1 tab PO DAILY 04/19/21 07/07/23 History oxyBUTYnin chloride [Ditropan] 5 mg PO BID 04/19/21 07/07/23 History Ibuprofen [Motrin] 800 mg PO Q8H PRN 04/26/23 07/07/23 History Triamterene/Hydrochlorothiazid 1 cap PO DAILY 04/26/23 07/07/23 History [Triamterene-Hctz 37.5-25 mg Cp] Warfarin [Coumadin] 2.5 mg PO MOWEFR@1800 07/07/23 07/07/23 History Allergies Allergy/AdvReac Type Severity Reaction Status Date / Time adhesive Allergy Rash/Hives Verified 07/07/23 07:29 budesonide [From Symbicort] Allergy Rash/Hives Verified 07/07/23 07:29 formoterol fumarate Allergy Rash/Hives Verified 07/07/23 07:29 [From Symbicort] naproxen sodium [From Aleve] Allergy Rash/Hives Verified 07/07/23 07:29 niacin Allergy Rapid Verified 07/07/23 07:29 Heart Rate Penicillins Allergy Rash/Hives Verified 07/07/23 07:29 prednisone Allergy Rash/Hives/Shortness Verified 07/07/23 07:29 of Breath Sulfa (Sulfonamide Allergy Rash/Hives Verified 07/07/23 07:29 Antibiotics) aspirin AdvReac Unknown Verified 07/07/23 07:29 codeine AdvReac Abdominal Verified 07/07/23 07:29 Pain levofloxacin [From Levaquin] AdvReac Chest Pain Verified 07/07/23 07:29 moxifloxacin HCl AdvReac Rapid Verified 07/07/23 07:29 [From Avelox] Heart Rate ondansetron [From Zofran] AdvReac Constipatio Verified 07/07/23 07:32 n maxzide(takes Dyazide) AdvReac See Uncoded 07/07/23 07:29 Comments Physical Exam Vitals: Vital Signs Temp Pulse Pulse Resp BP Pulse Ox 07/07/23 10:00 98.1 F 56 L 7 L 108/59 95 07/07/23 09:03 56 L 07/07/23 09:00 57 L 18 92/57 97 07/07/23 08:00 130 H 19 102/83 96 07/07/23 07:00 98.2 F 135 H 11 L 115/94 95 07/07/23 06:20 126 H 18 115/94 97 07/07/23 05:30 120 H 9 L 136/92 95 07/07/23 05:23 98.2 F 142 H 18 136/92 97 Intake and Output 07/06/23 07/07/23 07/07/23 22:59 06:59 14:59 Intake Total 12.75 Balance 12.75 Intake: Intake, IV Titration 12.75 Amount Diltiazem 125 mg In 12.75 Sodium Chloride 0.9% 100 ml @ 5 MG/HR 5 mls/hr IV .Q24H [facility] Rx#:[id number] Other: Weight 111.13 kg Results CBC & Chem 7: 07/07/23 05:28 10/17/23 05:28 Labs: Abnormal Lab Results - Last 24 Hours (Table) 07/07/23 07/07/23 Range/Units 05:28 05:28 PT 33.7 H (10.0-12.5) sec INR 3.4 H (<1.2) APTT 35.0 H (22.0-30.0) sec Glucose 195 H (74-99) mg/dL
[2023-07-07] MEDS ORDERED: PRAVASTATIN SODIUM 40 MG TAB PO SCH (17:30)
[2023-07-07] MEDS ORDERED: WARFARIN 0.5 MG TAB PO ONE (18:00)
[2023-07-07] MEDS ORDERED: WARFARIN 5 MG TAB PO SCH (18:00)
[2023-07-07 18:57] VITALS: RESP 16
[2023-07-07] MEDS ORDERED: MONTELUKAST 10 MG TAB PO SCH (21:00)
[2023-07-08] MEDS: LEVOTHYROXINE 100 MCG TAB PO SCH (06:06)
[2023-07-08 06:48] LABS: INR 3.3 (<1.2)
[2023-07-08] MEDS: SOTALOL 80 MG TAB PO SCH (08:20)
[2023-07-08] MEDS: oxyBUTYnin chloride 5 MG TAB PO SCH (08:21)
--- NOTE | 2023-07-08 10:13 | CA ---
Transthoracic Echo Report Name: Adelaida Resendiz Age: 78 Gender: F : 1945 Exam Date: 07/07/2023 11:13 Exam Location: [facility] Ht (in): 63 Wt (lb): 245 Ordering Physician: Elsy Jama Attending/Referring Phys: [id number], Evita Heel Sander Daija Meyer RDCS Procedure CPT: Indications: LV function, AF RVR Cardiac Hx: Technical Quality: Fair Contrast 1: Total Dose (mL): Contrast 2: Total Dose (mL): MEASUREMENTS (Male / Female) Normal Values 2D ECHO LV Diastolic Diameter PLAX 4.2 cm 4.2 - 5.9 / 3.9 - 5.3 cm LV Systolic Diameter PLAX 2.8 cm IVS Diastolic Thickness 1.1 cm 0.6 - 1.0 / 0.6 - 0.9 cm LVPW Diastolic Thickness 1.2 cm 0.6 - 1.0 / 0.6 - 0.9 cm LV Relative Wall Thickness 0.5 RV Internal Dim ED PLAX 2.9 cm LA Systolic Diameter LX 3.7 cm 3.0 - 4.0 / 2.7 - 3.8 cm LV Diastolic Volume MOD 4C 54.7 cm??? LV Systolic Volume MOD 4C 16.0 cm??? LV Ejection Fraction MOD 4C 70.8 % LV Cardiac Index MOD 4C 881.1 cm???/min???m??? LV Diastolic Length 4C 8.0 cm LV Systolic Length 4C 6.7 cm LV Diastolic Volume MOD 2C 70.4 cm??? LV Systolic Volume MOD 2C 31.5 cm??? LV Ejection Fraction MOD 2C 55.3 % LV Cardiac Index MOD 2C 885.0 cm???/min???m??? LV Diastolic Length 2C 8.0 cm LV Systolic Length 2C 6.6 cm LA Volume 58.2 cm??? 18 - 58 / 22 - 52 cm??? LA Volume Index 25.5 cm???/m??? 16 - 28 cm???/m??? M-MODE Aortic Root Diameter MM 3.2 cm MV E Point Septal Separation 0.3 cm AV Cusp Separation MM 2.0 cm DOPPLER AV Peak Velocity 121.5 cm/s AV Peak Gradient 5.9 mmHg MV Area PHT 2.8 cm??? Mitral E Point Velocity 90.7 cm/s Mitral A Point Velocity 84.8 cm/s Mitral E to A Ratio 1.1 MV Deceleration Time 269.3 ms MV E' Velocity 6.6 cm/s Mitral E to MV E' Ratio 13.7 FINDINGS Left Ventricle Left ventricular ejection fraction is estimated at 55-60 %. Left ventricular cavity size normal. Mildly increased septal wall thickness. Mildly increased posterior wall thickness. Right Ventricle Normal right ventricular size. Unable to estimate the right ventricular systolic pressure. Right Atrium Normal right atrial size. Left Atrium Mildly increased left atrial volume. Mitral Valve Structurally normal mitral valve. No mitral stenosis, regurgitation or prolapse. Aortic Valve Trileaflet aortic valve. No aortic valve stenosis or regurgitation. Tricuspid Valve Structurally normal tricuspid valve. No tricuspid stenosis, regurgitation or prolapse. Pulmonic Valve Structurally normal pulmonic valve. No pulmonic regurgitation. Pericardium No pericardial effusion. Aorta Normal size aortic root and proximal ascending aorta. CONCLUSIONS LVH with preserved systolic function Previewed by: Dr. Tan Clayton MD (Electronically Signed) Final Date: 08 July 2023 10:12
--- NOTE | 2023-07-08 11:16 | P.PN ---
Subjective Progress Note Date: 07/08/23 HISTORY OF PRESENT ILLNESS: This is a 78-year-old female with a past medical history significant for paroxysmal atrial fibrillation, hypertension, hyperlipidemia, and hypothyroidism. Patient follows in the office with Dr. Campos. We have been asked to see the patient in consultation for A. fib with RVR. Patient examined at the bedside in the emergency room. Patient presented to the hospital with a chief complaint of palpitations. The patient was found to be in A. fib with RVR. She was started on IV Cardizem. She does report that she missed some of her medications earlier in the week. She also reports that she was feeling short of breath yesterday and did a breathing treatment at home. She states that she had some mild dizziness and lightheadedness as well which has since improved. After examination this morning, the patient converted to sinus mechanism with a heart rate in the 50s. * EKG reveals A. fib with RVR * Chest xray negative for acute process. * Laboratory data: WBC 8.8. Hemoglobin 13.1. Platelet count 217. INR 3.4. Sodium 138. Potassium 3.8. BUN 17. Creatinine 0.67. Troponin negative 1. ProBNP 222. TSH 1.460. * Current home cardiac medications include losartan 50 mg daily, pravastatin 40 mg at night, sotalol 80 mg twice a day, Coumadin 5 mg on Thursday and 2.5 mg on Thursday and Thursday, and triamterene/hydrochlorothiazide 37.5mg daily * Most recent echocardiogram obtained in May 2015 revealing ejection fraction 60-65% * Patient underwent stress testing in March 2022 which was negative for ischemia 07/08 Patient is seen today in follow-up on the observation unit. Echocardiogram reveals LVH with preserved systolic function. Blood pressure 111/65, heart rate in the 50s and 60s. PHYSICAL EXAM: VITAL SIGNS: Reviewed. GENERAL: Well-developed in no acute distress. HEENT: Head is normocephalic. Pupils are equal, round. Sclerae anicteric. Mucous membranes of the mouth are moist. Neck supple. No JVD or thyromegaly LUNGS: Respirations even and unlabored. Lungs essentially clear to auscultation bilaterally. HEART: Regular rate and rhythm. S1 and S2 heard. ABDOMEN: Soft. Nondistended. Nontender. EXTREMITIES: Normal range of motion. No clubbing or cyanosis. Peripheral pulses intact. No lower extremity edema NEUROLOGIC: Awake and alert. Oriented x 3. ASSESSMENT: Palpitations Paroxysmal atrial fibrillation with RVR, currently maintaining sinus mechanism Supratherapeutic INR, INR 3.4 admission Hypertension Hyperlipidemia Hypothyroidism PLAN: Continue current dose of sotalol 80 mg twice a day Continue Coumadin. Hold triamterene/hydrochlorothiazide at the time of discharge and patient may be continued on losartan at current dose Patient is cleared for discharge from cardiology may follow up in the office with Dr. Ozzie Campos in 1-2 weeks. Nurse practitioner note has been reviewed by physician. Signing provider agrees with the documented findings, assessment, and plan of care. Objective - Vital Signs Vital signs: Vital Signs Temp 98.6 F 07/08/23 07:22 Pulse 56 L 07/08/23 07:22 Resp 16 07/08/23 07:22 BP 111/65 07/08/23 07:22 Pulse Ox 94 L 07/08/23 07:22 FiO2 Intake & Output 07/07/23 07/08/23 07/08/23 18:59 06:59 18:59 Intake Total 12.75 Balance 12.75 Weight 111.13 kg Intake: Intake, IV Titration 12.75 Amount Diltiazem 125 mg In 12.75 Sodium Chloride 0.9% 100 ml @ 5 MG/HR 5 mls/hr IV .Q24H [facility] Rx#:[id number] Other: Voiding Method Toilet # Voids 1 - Labs CBC & Chem 7: 07/07/23 05:28 07/07/23 05:28 Labs: Abnormal Lab Results - Last 24 Hours (Table) 07/08/23 Range/Units 06:02 PT 32.0 H (10.0-12.5) sec INR 3.3 H (<1.2)
[2023-07-08 15:24] VITALS: BP 127/80; PULSE 55; TEMP 97.7
[2023-07-08] MEDS ORDERED: WARFARIN 0.5 MG TAB PO ONE (18:00)
[2023-07-08] MEDS ORDERED: WARFARIN 5 MG TAB PO SCH (18:00)
--- NOTE | 2023-07-08 23:00 | P.DS ---
Providers Date of admission: 07/07/23 06:38 Expected date of discharge: 07/08/23 Attending physician: Jamison Moon Consults: 07/07/23 06:38 Consult Physician Routine Consulting Provider: [facility] Consult Reason/Comments: Afib with RVR Do you want consulting provider notified?: Yes Primary care physician: David Larios [facility] Course: Chief Complaint: Palpitation Patient is a 78-year-old female, follows with Dr. Larios with a known history of atrial fibrillation on anticoagulation with Coumadin, hypertension, diabetes type 2 [id number]-[id number]-pzruriuye, hypothyroidism and uterine cancer with radiation treatment in 2016, anxiety and prior history of cardiac catheterization and renal stones. Patient woke up up around 2 AM this morning with palpitations. Some dizziness pressure in the chest. Not feeling right. No nausea vomiting. No fever no chills. Came into the ER. Heart rate was in the 140s. Started on IV Cardizem drip. Early afternoon patient went back into sinus rhythm. Seen by cardiology earlier IV Cardizem drip was discontinued. Continue sotalol. at the bedside. July 08: Doing well. She raises sinus rhythm. No change in medications. Follow-up with cardiology. Dose of Coumadin adjusted and discussed with patient. Given also on piece of paper. R Past medical history to include: Paroxysmal atrial fibrillation, hypertension, diabetes, hypothyroid, uterine cancer with radiation treatment, anxiety, renal stones, urinary incontinence Social history: . No smoking or alcohol. Physical examination: VITAL SIGNS: 97.7, 55, 16, 10/17/1979, 96% room air GENERAL: Comfortable EYES: Pupils equal. Conjunctiva normal. HEENT: External appearance of nose and ears normal, oral cavity grossly normal. NECK: JVD unable to assess; masses not palpable. HEART: First and second heart sounds are normal; no edema. LUNGS: Respiratory rate normal; clear to auscultation. ABDOMEN: Soft, nontender, liver spleen not palpable, no masses palpable. PSYCH: Alert and oriented x3; mood and affect normal. MUSCULOSKELETAL:No Clubbing/cyanosis;muscles-grossly intact. OA NEUROLOGICAL: Cranial nerves grossly intact; no facial asymmetry, power and sensation grossly intact. LYMPHATICS: No lymph nodes palpable in the axilla and neck INVESTIGATIONS, reviewed in the clinical context: July 08: INR 3.3 October 17: White count 8.8 hemoglobin 13.1 platelets 217 INR 3.4 sodium 138 potassium 3.8 creatinine 0.67 Troponin I is less than 0.012 TSH 1.4 EKG tracing personally reviewed by me-atrial fibrillation with a rate of 136 Chest x-ray film personally reviewed by me-slight unfolding of the aorta Assessment and plan: -Paroxysmal atrial fibrillation , presenting with rapid ventricular rate.: Normal back in sinus rhythm. Started on IV Cardizem drip in the ER. This afternoon went back into sinus rhythm. IV Cardizem drip discontinued. Sotalol. Cardiology following. Coumadin -Essential Hypertension Cozaar diuretics stopped Sotalol Hypothyroidism Synthroid 100 g -Anxiety, disorder Xanax when necessary -Morbid obesity BMI 43.4 Weight loss measures and follow with PCP -Chronic urinary stress incontinence Ditropan -Hyperlipidemia On Pravachol Disposition: Home Plan - Discharge Summary Discharge Rx Participant: No New Discharge Prescriptions: New Warfarin [Coumadin] 2.5 mg PO DAILY@1800 #1 tab Continue Pravastatin Sodium [Pravachol] 40 mg PO W/SUPPER Montelukast [Singulair] 10 mg PO HS ALPRAZolam [Xanax] 0.25 mg PO BID PRN PRN Reason: Anxiety [place]-3 Fatty Acids/Fish Oil [Fish Oil 1,000 mg Softgel] 2 cap PO DAILY Levothyroxine Sodium [Synthroid] 100 mcg PO DAILY Acetaminophen [Tylenol] 1,000 mg PO Q6H PRN PRN Reason: Pain Sotalol [Betapace] 80 mg PO BID Albuterol Sulfate [Proventil Hfa] 2 puff INHALATION RT-Q6H PRN PRN Reason: Shortness Of Breath Slow Fe 45mg 1 tab PO DAILY oxyBUTYnin chloride [Ditropan] 5 mg PO BID Ibuprofen [Motrin] 800 mg PO Q8H PRN PRN Reason: Pain Or Fever > 100.5 Albuterol Nebulized [Ventolin Nebulized] 2.5 mg INHALATION RT-QID PRN PRN Reason: Shortness Of Breath Changed Warfarin [Coumadin] 5 mg PO TUSA@1800 #0 Discontinued Loratadine [Claritin] 10 mg PO DAILY Losartan [Cozaar] 50 mg PO DAILY Triamterene/Hydrochlorothiazid [Triamterene-Hctz 37.5-25 mg Cp] 1 cap PO DAILY Warfarin [Coumadin] 2.5 mg PO MOWEFR@1800 Discharge Medication List ALPRAZolam [Xanax] 0.25 mg PO BID PRN 06/19/15 [History] Montelukast [Singulair] 10 mg PO HS 06/19/15 [History] Pravastatin Sodium [Pravachol] 40 mg PO W/SUPPER 06/19/15 [History] Levothyroxine Sodium [Synthroid] 100 mcg PO DAILY 06/04/17 [History] [place]-3 Fatty Acids/Fish Oil [Fish Oil 1,000 mg Softgel] 2 cap PO DAILY 06/04/17 [History] Acetaminophen [Tylenol] 1,000 mg PO Q6H PRN 10/07/17 [History] Sotalol [Betapace] 80 mg PO BID 10/07/17 [History] Albuterol Sulfate [Proventil Hfa] 2 puff INHALATION RT-Q6H PRN 12/14/17 [Histor y] Albuterol Nebulized [Ventolin Nebulized] 2.5 mg INHALATION RT-QID PRN 04/19/21 [History] Slow Fe 45mg 1 tab PO DAILY 04/19/21 [History] oxyBUTYnin chloride [Ditropan] 5 mg PO BID 04/19/21 [History] Ibuprofen [Motrin] 800 mg PO Q8H PRN 04/26/23 [History] Warfarin [Coumadin] 2.5 mg PO DAILY@1800 #1 tab 07/08/23 [Rx] Warfarin [Coumadin] 5 mg PO TUSA@1800 #0 07/08/23 [Rx] Follow up Appointment(s)/Referral(s): David Larios MD [Primary Care Provider] - 1-2 days Shahram Campos MD [STAFF PHYSICIAN] - 07/20/23 1:15 pm Patient Instructions/Handouts: A-fib (Atrial Fibrillation) (DC) Activity/Diet/Wound Care/Special Instructions: FOLLOW UP DIRECTED, SOONER FOR WORSENING SYMPTOMS, PROBLEMS OR CONCERNS. Discharge Disposition: HOME SELF-CARE
== END 2023-07-08 16:00 | disposition home or self-care (01) ==
LOC: EC 05:21 → 3SCARD 06:38 → 6NMEDSUR 13:56
PROVIDERS: ADMIT Hospitalist; ATTEND Hospitalist
DX: R00.2 Palpitations (principal); I48.0 Paroxysmal atrial fibrillation; J45.909 Unspecified asthma, uncomplicated; E11.9 Type 2 diabetes mellitus without complications; I10 Essential (primary) hypertension; E03.9 Hypothyroidism, unspecified; F41.9 Anxiety disorder, unspecified; E78.5 Hyperlipidemia, unspecified; R79.1 Abnormal coagulation profile; N39.3 Stress incontinence (female) (male); E66.01 Morbid (severe) obesity due to excess calories; Z68.41 Body mass index [BMI] 40.0-44.9, adult; Z85.42 Personal history of malignant neoplasm of other parts of uterus; Z92.3 Personal history of irradiation; Z79.01 Long term (current) use of anticoagulants; Z79.899 Other long term (current) drug therapy; Z79.890 Hormone replacement therapy; Z88.0 Allergy status to penicillin; Z88.5 Allergy status to narcotic agent; Z88.2 Allergy status to sulfonamides; Z88.6 Allergy status to analgesic agent; Z88.1 Allergy status to other antibiotic agents
CPT/HCPCS: 96376; 96365; 96366; 99291; 36415; 94760 ×2; 93005; 93306; 83880; 80053; 84443; 83735; 84484; 85025; 85610 ×2; 85730; 71045; G0378 ×3

== ENCOUNTER 2023-07-16 02:21 | Observation (INO) | payer MEDICARE ==
[2023-07-16 02:45] LABS: Basophils % (A) 0 %; Eosinophils # (A) 0.4 k/uL (0-0.7); Eosinophils % (A) 4 %; HCT 37.8 % (34.0-46.0); HGB 12.9 gm/dL (11.4-16.0); Lymphocytes # (A) 2.7 k/uL (1.0-4.8); Lymphocytes % (A) 28 %; MCH 28.6 pg (25.0-35.0); MCHC 34.2 g/dL (31.0-37.0); MCV 83.5 fL (80.0-100.0); Mean Platelet Volume 8.4; Monocytes # (A) 0.5 k/uL (0-1.0); Monocytes % (A) 5 %; Neutrophils % (A) 62 %; Platelet Count 264 k/uL (150-450); Poikilocytosis Slight; RBC 4.52 m/uL (3.80-5.40); RDW 15.2 % (11.5-15.5); WBC 9.7 k/uL (3.8-10.6)
[2023-07-16] MEDS ORDERED: DILTIAZEM DRIP BOLUS FROM BAG 1 MG SOLN IV ONE (02:52)
--- NOTE | 2023-07-16 02:55 | ED ---
General Adult HPI - General Chief complaint: Arrhythmia/Palpitations Stated complaint: Chest Pain Time Seen by Provider: 07/16/23 02:24 Source: patient, EMS, RN notes reviewed, old records reviewed Mode of arrival: EMS Limitations: no limitations - History of Present Illness Initial comments: 78-year-old female history of atrial fibrillation presents for evaluation of palpitations and chest tightness. Symptoms began 2 hours prior to arrival. She has noted an elevated heart rate. She did call paramedics transported the patient with telemetry reading atrial fibrillation with RVR. Patient has a associated vague chest discomfort. No fever. No vomiting. No diaphoresis. - Related Data Home Medications Medication Instructions Recorded Confirmed ALPRAZolam [Xanax] 0.25 mg PO BID PRN 06/19/15 07/07/23 Montelukast [Singulair] 10 mg PO HS 06/19/15 07/07/23 Pravastatin Sodium [Pravachol] 40 mg PO W/SUPPER 06/19/15 07/07/23 Levothyroxine Sodium [Synthroid] 100 mcg PO DAILY 06/04/17 07/07/23 [place]-3 Fatty Acids/Fish Oil [Fish 2 cap PO DAILY 06/04/17 07/07/23 Oil 1,000 mg Softgel] Acetaminophen [Tylenol] 1,000 mg PO Q6H PRN 10/07/17 07/07/23 Sotalol [Betapace] 80 mg PO BID 10/07/17 07/07/23 Albuterol Sulfate [Proventil Hfa] 2 puff INHALATION RT-Q6H PRN 12/14/17 07/07/23 Albuterol Nebulized [Ventolin 2.5 mg INHALATION RT-QID PRN 04/19/21 07/07/23 Nebulized] Slow Fe 45mg 1 tab PO DAILY 04/19/21 07/07/23 oxyBUTYnin chloride [Ditropan] 5 mg PO BID 04/19/21 07/07/23 Ibuprofen [Motrin] 800 mg PO Q8H PRN 04/26/23 07/07/23 Previous Rx's Medication Instructions Recorded Warfarin [Coumadin] 2.5 mg PO DAILY@1800 #1 tab 07/08/23 Warfarin [Coumadin] 5 mg PO TUSA@1800 #0 07/08/23 Allergies Allergy/AdvReac Type Severity Reaction Status Date / Time adhesive Allergy Rash/Hives Verified 07/07/23 07:29 budesonide [From Symbicort] Allergy Rash/Hives Verified 07/07/23 07:29 formoterol fumarate Allergy Rash/Hives Verified 07/07/23 07:29 [From Symbicort] naproxen sodium [From Aleve] Allergy Rash/Hives Verified 07/07/23 07:29 niacin Allergy Rapid Verified 07/07/23 07:29 Heart Rate Penicillins Allergy Rash/Hives Verified 07/07/23 07:29 prednisone Allergy Rash/Hives/Shortness Verified 07/07/23 07:29 of Breath Sulfa (Sulfonamide Allergy Rash/Hives Verified 07/07/23 07:29 Antibiotics) aspirin AdvReac Unknown Verified 07/07/23 07:29 codeine AdvReac Abdominal Verified 07/07/23 07:29 Pain levofloxacin [From Levaquin] AdvReac Chest Pain Verified 07/07/23 07:29 moxifloxacin HCl AdvReac Rapid Verified 07/07/23 07:29 [From Avelox] Heart Rate ondansetron [From Zofran] AdvReac Constipatio Verified 07/07/23 07:32 n maxzide(takes Dyazide) AdvReac See Uncoded 07/07/23 07:29 Comments Review of Systems ROS Statement: Those systems with pertinent positive or pertinent negative responses have been documented in the HPI. ROS Other: All systems not noted in ROS Statement are negative. Past Medical History Past Medical History: Atrial Fibrillation, Asthma, Cancer, Diabetes Mellitus, Hypertension, Osteoarthritis (OA), Thyroid Disorder Additional Past Medical History / Comment(s): freq diarrhea,states [id number] controlled, hypothyroidism,rt knee pain, hx kidney stone, rosacea., chronic sinusitis., uterine cancer with radiation tx (may 2017). History of Any Multi-Drug Resistant Organisms: None Reported Past Surgical History: Cholecystectomy, Heart Catheterization, Hysterectomy, Tonsillectomy Additional Past Surgical History / Comment(s): R sided kidney stone surgery, cervical surgery-cone, back pain procedure, colonoscopy Past Anesthesia/Blood Transfusion Reactions: Previous Problems w/ Anesthesia Additional Past Anesthesia/Blood Transfusion Reaction / Comment(s): - DIFFICULT INTUBATION- STATES SHE WAS TOLD SHE NEEDS A GLIDESCOPE.,no problems with prior blood transfusions in 2017 Past Psychological History: Anxiety Smoking Status: Never smoker Past Alcohol Use History: None Reported Past Drug Use History: None Reported - Past Family History Sister(s) Family Medical History: Cancer Additional Family Medical History / Comment(s): pancreatic cancer Brother(s) Family Medical History: Cancer Additional Family Medical History / Comment(s): brain cancer Father Family Medical History: Coronary Artery Disease (CAD), CVA/TIA, Hypertension Additional Family Medical History / Comment(s): Father had CABG. He at age 86yrs Mother Family Medical History: Coronary Artery Disease (CAD), Diabetes Mellitus, Hypertension Additional Family Medical History / Comment(s): Mother at age 69yrs. General Exam Limitations: no limitations General appearance: alert, in no apparent distress Head exam: Present: atraumatic, normocephalic Eye exam: Present: normal appearance, PERRL ENT exam: Present: normal exam Neck exam: Present: normal inspection. Absent: tenderness, meningismus Respiratory exam: Present: normal lung sounds bilaterally. Absent: respiratory distress, wheezes Cardiovascular Exam: Present: tachycardia, irregular rhythm GI/Abdominal exam: Present: soft. Absent: distended, tenderness Extremities exam: Present: normal inspection, normal capillary refill Neurological exam: Present: alert, oriented X3, CN II-XII intact. Absent: motor sensory deficit Psychiatric exam: Present: normal affect, normal mood Skin exam: Present: warm, dry, intact Course Vital Signs 07/16/23 07/16/23 07/16/23 02:32 03:48 04:00 Temperature 98.0 F Pulse Rate 120 H 120 H 52 L Respiratory 16 18 20 Rate Blood Pressure 142/95 114/56 125/60 O2 Sat by Pulse 96 95 95 Oximetry - Reevaluation(s) Reevaluation #1: 07/16/23 04:26 Repeat EKG showing sinus bradycardia with first-degree AV block rate of 54, SC interval 238, QRS duration 104, QTC [address] segment elevation. Medical Decision Making - Medical Decision Making Was pt. sent in by a medical professional or institution (, PA, ACCOUNTS PAYABLE TECHNICIAN, urgent care, hospital, or half-way...) When possible be specific @ -No Did you speak to anyone other than the patient for history (EMS, parent, family, police, friend...)? What history was obtained from this source @ -No Did you review nursing and triage notes (agree or disagree)? Why? @ -I reviewed and agree with nursing and triage notes Were old charts reviewed (outside hosp., previous admission, EMS record, old EKG, old radiological studies, urgent care reports/EKG's, half-way records)? Report findings @ -No old charts were reviewed Differential Diagnosis (chest pain, altered mental status, abdominal pain women, abdominal pain men, vaginal bleeding, weakness, fever, dyspnea, syncope, headache, dizziness, GI bleed, back pain, seizure, CVA, palpatations, mental health, musculoskeletal)? @ -[Differential Palpitations Ventricular arrhythmias, atrial arrhythmias, myocardial infarction, anemia, thyrotoxicosis, electrolyte imbalance, hypokalemia, pulmonary embolism, pulmonary disease, drugs, alcohol, anxiety, stress.... This is not meant to be an all-inclusive list. EKG interpreted by me (3pts min.). @EKG: Atrial fibrillation with RVR, rate of 124 QRS duration 110, QTC 340, no ST segment elevation ST segment depression in the precordial leads. X-rays interpreted by me (1pt min.). @Chest x-ray negative for acute cardiopulmonary findings CT interpreted by me (1pt min.). @ -None done U/S interpreted by me (1pt. min.). @ -None done What testing was considered but not performed or refused? (CT, X-rays, U/S, labs)? Why? @ -None What meds were considered but not given or refused? Why? @ -None Did you discuss the management of the patient with other professionals (professionals i.e. , PA, ACCOUNTS PAYABLE TECHNICIAN, lab, RT, psych nurse, social service director, site identification specialist, teacher, corporate responsibility officer, behavioral health case manager)? Give summary @ -No Was smoking cessation discussed for >3mins.? @ -No Was critical care preformed (if so, how long)? @ -No Were there social determinants of health that impacted care today? How? (Homelessness, low income, unemployed, alcoholism, drug addiction, transportation, low edu. Level, literacy, decrease access to med. care, [facility], rehab)? @ -No Was there de-escalation of care discussed even if they declined (Discuss DNR or withdrawal of care, Hospice)? DNR status @ -No What co-morbidities impacted this encounter? (DM, HTN, Smoking, COPD, CAD, Cancer, CVA, ARF, Chemo, Hep., AIDS, mental health diagnosis, sleep apnea, morbid obesity)? @ -Atrial fibrillation Was patient admitted / discharged? Hospital course, mention meds given and route, prescriptions, significant lab abnormalities, going to OR and other pertinent info. @ -78-year-old female presenting with chest pain and palpitations. Patient is in a rapid A. fib. This is treated with Cardizem. She has a normal CBC, normal CMP, negative troponin. She will be kept in observation for rate control, telemetry, cardiology consultation. Undiagnosed new problem with uncertain prognosis? @ -No Drug Therapy requiring intensive monitoring for toxicity (Heparin, Nitro, Insulin, Cardizem)? @ -No Were any procedures done? @ -No Diagnosis/symptom? @Atrial fibrillation with RVR, chest pain Acute, or Chronic, or Acute on Chronic? @ -Acute on chronic Uncomplicated (without systemic symptoms) or Complicated (systemic symptoms)? @ -default Side effects of treatment? @ -No Exacerbation, Progression, or Severe Exacerbation? @ -No Poses a threat to life or bodily function? How? (Chest pain, [place], [place], pneumonia, PE, COPD, DKA, ARF, appy, cholecystitis, CVA, Diverticulitis, Homicidal, Suicidal, threat to staff... and all critical care pts) @ -[Yes, arrhythmia - Lab Data Result diagrams: 07/16/23 02:38 07/16/23 02:38 Lab Results 07/16/23 07/16/23 07/16/23 Range/Units 02:38 02:38 02:38 WBC 9.7 (3.8-10.6) k/uL RBC 4.52 (3.80-5.40) m/uL Hgb 12.9 (11.4-16.0) gm/dL Hct 37.8 (34.0-46.0) % MCV 83.5 (80.0-100.0) fL MCH 28.6 (25.0-35.0) pg MCHC 34.2 (31.0-37.0) g/dL RDW 15.2 (11.5-15.5) % Plt Count 264 (150-450) k/uL MPV 8.4 Neutrophils % 62 % Lymphocytes % 28 % Monocytes % 5 % Eosinophils % 4 % Basophils % 0 % Neutrophils # 6.0 (1.3-7.7) k/uL Lymphocytes # 2.7 (1.0-4.8) k/uL Monocytes # 0.5 (0-1.0) k/uL Eosinophils # 0.4 (0-0.7) k/uL Basophils # 0.0 (0-0.2) k/uL Poikilocytosis Slight PT 26.7 H (10.0-12.5) sec INR 2.7 H (<1.2) APTT 29.9 (22.0-30.0) sec Sodium 141 (137-145) mmol/L Potassium 3.7 (3.5-5.1) mmol/L Chloride 109 H (98-107) mmol/L Carbon Dioxide 21 L (22-30) mmol/L Anion Gap 11 mmol/L BUN 13 (7-17) mg/dL Creatinine 0.63 (0.52-1.04) mg/dL Est GFR (CKD-EPI)AfAm >90 (>60 ml/min/1.73 sqM) Est GFR (CKD-EPI)NonAf 85 (>60 ml/min/1.73 sqM) Glucose 153 H (74-99) mg/dL Calcium 9.5 (8.4-10.2) mg/dL Magnesium 1.8 (1.6-2.3) mg/dL Total Bilirubin 0.6 (0.2-1.3) mg/dL AST 32 (14-36) U/L ALT 29 (4-34) U/L Alkaline Phosphatase 77 (38-126) U/L Troponin I (0.000-0.034) ng/mL Total Protein 6.3 (6.3-8.2) g/dL Albumin 3.8 (3.5-5.0) g/dL TSH 1.410 (0.465-4.680) mIU/L 07/16/23 Range/Units 02:38 WBC (3.8-10.6) k/uL RBC (3.80-5.40) m/uL Hgb (11.4-16.0) gm/dL Hct (34.0-46.0) % MCV (80.0-100.0) fL MCH (25.0-35.0) pg MCHC (31.0-37.0) g/dL RDW (11.5-15.5) % Plt Count (150-450) k/uL MPV Neutrophils % % Lymphocytes % % Monocytes % % Eosinophils % % Basophils % % Neutrophils # (1.3-7.7) k/uL Lymphocytes # (1.0-4.8) k/uL Monocytes # (0-1.0) k/uL Eosinophils # (0-0.7) k/uL Basophils # (0-0.2) k/uL Poikilocytosis PT (10.0-12.5) sec INR (<1.2) APTT (22.0-30.0) sec Sodium (137-145) mmol/L Potassium (3.5-5.1) mmol/L Chloride (98-107) mmol/L Carbon Dioxide (22-30) mmol/L Anion Gap mmol/L BUN (7-17) mg/dL Creatinine (0.52-1.04) mg/dL Est GFR (CKD-EPI)AfAm (>60 ml/min/1.73 sqM) Est GFR (CKD-EPI)NonAf (>60 ml/min/1.73 sqM) Glucose (74-99) mg/dL Calcium (8.4-10.2) mg/dL Magnesium (1.6-2.3) mg/dL Total Bilirubin (0.2-1.3) mg/dL AST (14-36) U/L ALT (4-34) U/L Alkaline Phosphatase (38-126) U/L Troponin I <0.012 (0.000-0.034) ng/mL Total Protein (6.3-8.2) g/dL Albumin (3.5-5.0) g/dL TSH (0.465-4.680) mIU/L Disposition Clinical Impression: Atrial fibrillation with RVR Disposition: ADMITTED IP TO THIS HOSP Condition: Stable Is patient prescribed a controlled substance at d/c from ED?: No Referrals: David Larios MD [Primary Care Provider] - 1-2 days Time of Disposition: 04:27
[2023-07-16 02:56] LABS: INR 2.7 (<1.2); Partial Thromboplastin Time 29.9 sec (22.0-30.0); Prothrombin Time 26.7 sec (10.0-12.5)
[2023-07-16 03:10] LABS: AST 32 U/L (14-36); African American GFR (CKD) >90 (>60 ml/min/1.73 sqM); Albumin 3.8 g/dL (3.5-5.0); Alkaline Phosphatase 77 U/L (38-126); Blood Urea Nitrogen 13 mg/dL (7-17); Calcium 9.5 mg/dL (8.4-10.2); Carbon Dioxide 21 mmol/L (22-30); Chloride 109 mmol/L (98-107); Glucose 153 mg/dL (74-99); Magnesium 1.8 mg/dL (1.6-2.3); Non-African American GFR(CKD) 85 (>60 ml/min/1.73 sqM); Total Bilirubin 0.6 mg/dL (0.2-1.3); Total Protein 6.3 g/dL (6.3-8.2)
[2023-07-16 03:25] LABS: Anion Gap 11 mmol/L; Potassium 3.7 mmol/L (3.5-5.1); Sodium 141 mmol/L (137-145)
[2023-07-16] MEDS: DILTIAZEM 125 MG in SODIUM CHLORIDE 0.9% 100 ML IV SCH (03:42)
[2023-07-16 04:01] LABS: ALT 29 U/L (4-34)
--- NOTE | 2023-07-16 04:06 | XR ---
EXAM: XR Chest, 2 Views CLINICAL HISTORY: Dysrhythmia TECHNIQUE: Frontal and lateral views of the chest. COMPARISON: 07/07/2023. FINDINGS: Lungs: No consolidation. No atelectasis. Pulmonary vessels minimally prominent without definite CHF. Pleural space: No pleural effusion. No pneumothorax. Heart: No cardiomegaly. Mediastinum: Unremarkable. Bones/joints: Degenerative changes of the spine. IMPRESSION: Pulmonary vessels minimally prominent without definite CHF.
[2023-07-16] MEDS ORDERED: ACETAMINOPHEN TAB 325 MG TAB PO PRN (04:21)
[2023-07-16] MEDS ORDERED: NALOXONE 0.4 MG/ML 1 ML VIAL IV PRN (04:21)
[2023-07-16] MEDS: LEVOTHYROXINE 100 MCG TAB PO SCH (06:34)
[2023-07-16] MEDS ORDERED: ALBUTEROL HFA INHALER INHALATION PRN (06:59)
[2023-07-16] MEDS ORDERED: IBUPROFEN 800 MG TAB PO PRN (06:59)
[2023-07-16] MEDS ORDERED: ALBUTEROL NEBULIZED 2.5 MG/3 ML INHALATION PRN (06:59)
[2023-07-16] MEDS: FERROUS SULFATE 325 MG TAB PO SCH (08:08)
[2023-07-16] MEDS: oxyBUTYnin chloride 5 MG TAB PO SCH ×2 (08:09→21:20)
[2023-07-16] MEDS: SOTALOL 80 MG TAB PO SCH ×2 (08:20→21:21)
[2023-07-16] MEDS ORDERED: NON FORMULARY DRUG (Omega-3 Fatty Acids/Fish Oil [Fish Oil 1,000 Mg Softgel] 1 EACH Capsul PO SCH (09:00)
[2023-07-16] MEDS ORDERED: ALPRAZolam 0.25 MG TAB PO PRN (09:14)
[2023-07-16] MEDS: MAGNESIUM SULFATE-D5W PMX 1 GM in DEXTROSE/WATER 1 100ML.BAG IVPB SCH ×2 (11:41→12:55)
--- NOTE | 2023-07-16 12:05 | P.HPIM ---
History of Present Illness H&P Date: 07/16/23 Chief Complaint: Palpitations * 78-year-old patient with past medical history significant for paroxysmal atrial fibrillation, hypertension, hyperlipidemia, hypothyroid presents to the emergency department with complains of palpitation. Patient was recently admitted on 07/07/23 seen by cardiology for A. fib rapid ventricular response. Patient has been on Coumadin, sotalol at home. While in ER basic metabolic panel was obtained which showed normal potassium and magnesium levels. Patient was noted to have tachycardia with heart rate in 120s. She was initiated on Cardizem drip and admitted on medical floor with consultations from cardiology * Patient did complain of intermittent chest discomfort, serial troponins were obtained, EKG obtained showed atrial fibrillation rapid ventricular response and ST segment depression in lead 2 and V2 was noted along with V6 * Chest x-ray obtained showed pulmonary vascular prominence without definitive evidence of CHF * In admitted to medical for with consultations from cardiology * While in ER patient was already on Cardizem drip however she continued to have palpitations although heart rate was in 50s REVIEW OF SYSTEMS: Chest pain, palpitations CONSTITUTIONAL: No fever, no malaise, no fatigue. HEENT: No recent visual problems or hearing problems. Denied any sore throat. CARDIOVASCULAR: Chest pain, palpitations PULMONARY: No shortness of breath, no cough, no hemoptysis. GASTROINTESTINAL: No diarrhea, no nausea, no vomiting, no abdominal pain. NEUROLOGICAL: No headaches, no weakness, no numbness. HEMATOLOGICAL: Denies any bleeding or petechiae. GENITOURINARY: Denies any burning micturition, frequency, or urgency. MUSCULOSKELETAL/RHEUMATOLOGICAL: Denies any joint pain, swelling, or any muscle pain. ENDOCRINE: Denies any polyuria or polydipsia. The rest of the 14-point review of systems is negative. PHYSICAL EXAMINATION: GENERAL: The patient is alert and oriented x3, not in any acute distress. Well developed, well nourished. HEENT: Pupils are round and equally reacting to light. EOMI. CARDIOVASCULAR: S1 and S2 present. Irregular, tachycardia, leg edema PULMONARY: Chest is clear to auscultation, no wheezing or crackles. ABDOMEN: Soft, nontender, nondistended, normoactive bowel sounds. No palpable organomegaly. MUSCULOSKELETAL: No joint swelling or deformity. EXTREMITIES: No cyanosis, clubbing, or pedal edema. NEUROLOGICAL: Gross neurological examination did not reveal any focal deficits. SKIN: No rashes. Past Medical History Past Medical History: Atrial Fibrillation, Asthma, Cancer, Diabetes Mellitus, Hypertension, Osteoarthritis (OA), Thyroid Disorder Additional Past Medical History / Comment(s): freq diarrhea,states [id number] controlled, hypothyroidism,rt knee pain, hx kidney stone, rosacea., chronic sinusitis., uterine cancer with radiation tx (may 2017). History of Any Multi-Drug Resistant Organisms: None Reported Past Surgical History: Cholecystectomy, Heart Catheterization, Hysterectomy, Tonsillectomy Additional Past Surgical History / Comment(s): R sided kidney stone surgery, cervical surgery-cone, back pain procedure, colonoscopy Past Anesthesia/Blood Transfusion Reactions: Previous Problems w/ Anesthesia Additional Past Anesthesia/Blood Transfusion Reaction / Comment(s): - DIFFICULT INTUBATION- STATES SHE WAS TOLD SHE NEEDS A GLIDESCOPE.,no problems with prior blood transfusions in 2017 Past Psychological History: Anxiety Smoking Status: Never smoker Past Alcohol Use History: None Reported Past Drug Use History: None Reported - Past Family History Sister(s) Family Medical History: Cancer Additional Family Medical History / Comment(s): pancreatic cancer Brother(s) Family Medical History: Cancer Additional Family Medical History / Comment(s): brain cancer Father Family Medical History: Coronary Artery Disease (CAD), CVA/TIA, Hypertension Additional Family Medical History / Comment(s): Father had CABG. He at age 86yrs Mother Family Medical History: Coronary Artery Disease (CAD), Diabetes Mellitus, Hypertension Additional Family Medical History / Comment(s): Mother at age 69yrs. Medications and Allergies Home Medications Medication Instructions Recorded Confirmed Type ALPRAZolam [Xanax] 0.25 mg PO BID PRN 06/19/15 07/16/23 History Montelukast [Singulair] 10 mg PO HS 06/19/15 07/16/23 History Pravastatin Sodium [Pravachol] 40 mg PO W/SUPPER 06/19/15 07/16/23 History Levothyroxine Sodium [Synthroid] 100 mcg PO DAILY 06/04/17 07/16/23 History [place]-3 Fatty Acids/Fish Oil [Fish 2 cap PO DAILY 06/04/17 07/16/23 History Oil 1,000 mg Softgel] Acetaminophen [Tylenol] 1,000 mg PO Q6H PRN 10/07/17 07/16/23 History Sotalol [Betapace] 80 mg PO BID 10/07/17 07/16/23 History Albuterol Sulfate [Proventil Hfa] 2 puff INHALATION RT-Q6H PRN 12/14/17 07/16/23 History Albuterol Nebulized [Ventolin 2.5 mg INHALATION RT-QID PRN 04/19/21 07/16/23 History Nebulized] Slow Fe 45mg 1 tab PO DAILY 04/19/21 07/16/23 History oxyBUTYnin chloride [Ditropan] 5 mg PO BID 04/19/21 07/16/23 History Ibuprofen [Motrin] 800 mg PO Q8H PRN 04/26/23 07/16/23 History Warfarin [Coumadin] 5 mg PO TUSA@1800 #0 07/08/23 07/16/23 Rx Warfarin [Coumadin] 2.5 mg PO SUMOWETHFR@1800 07/16/23 07/16/23 History Allergies Allergy/AdvReac Type Severity Reaction Status Date / Time adhesive Allergy Rash/Hives Verified 07/16/23 06:48 budesonide [From Symbicort] Allergy Rash/Hives Verified 07/16/23 06:48 formoterol fumarate Allergy Rash/Hives Verified 07/16/23 06:48 [From Symbicort] naproxen sodium [From Aleve] Allergy Rash/Hives Verified 07/16/23 06:48 niacin Allergy Rapid Verified 07/16/23 06:48 Heart Rate Penicillins Allergy Rash/Hives Verified 07/16/23 06:48 prednisone Allergy Rash/Hives/Shortness Verified 07/16/23 06:48 of Breath Sulfa (Sulfonamide Allergy Rash/Hives Verified 07/16/23 06:48 Antibiotics) aspirin AdvReac Unknown Verified 07/16/23 06:48 codeine AdvReac Abdominal Verified 07/16/23 06:48 Pain levofloxacin [From Levaquin] AdvReac Chest Pain Verified 07/16/23 06:48 moxifloxacin HCl AdvReac Rapid Verified 07/16/23 06:48 [From Avelox] Heart Rate ondansetron [From Zofran] AdvReac Constipatio Verified 07/16/23 06:48 n maxzide(takes Dyazide) AdvReac See Uncoded 07/07/23 07:29 Comments Physical Exam Vitals: Vital Signs Temp Pulse Resp BP Pulse Ox 07/16/23 09:00 86 16 130/86 98 07/16/23 08:00 60 16 136/77 97 07/16/23 04:00 52 L 20 125/60 95 07/16/23 03:48 120 H 18 114/56 95 07/16/23 02:32 98.0 F 120 H 16 142/95 96 Intake and Output 07/15/23 07/16/23 07/16/23 22:59 06:59 14:59 Intake Total 1.5 Balance 1.5 Intake: Intake, IV Titration 1.5 Amount Diltiazem 125 mg In 1.5 Sodium Chloride 0.9% 100 ml @ 5 MG/HR 5 mls/hr IV .Q24H [facility] Rx#:[id number] Other: Weight 111.13 kg Results CBC & Chem 7: 07/16/23 02:38 07/16/23 02:38 Labs: Abnormal Lab Results - Last 24 Hours (Table) 07/16/23 07/16/23 Range/Units 02:38 02:38 PT 26.7 H (10.0-12.5) sec INR 2.7 H (<1.2) Chloride 109 H (98-107) mmol/L Carbon Dioxide 21 L (22-30) mmol/L Glucose 153 H (74-99) mg/dL Assessment and Plan Assessment: Assessment and plan Paroxysmal Atrial fibrillation with rapid ventricular response Hypertension Hyperlipidemia Hypothyroid On chronic anticoagulation * In regards to atrial fibrillation continue patient on Cardizem drip, cardiology consulted, continue sotalol and Coumadin pharmacy to dose and continue telemetry monitoring optimize electrolytes potassium and magnesium * In regards to hypertension continue on Cardizem drip while on Cardizem monitor for hypotension, sepsis she was on hydrochlorothiazide which was discontinued recently ever since then she has noted to have increased swelling and lower extremity. We'll continue to monitor blood pressure while inpatient * In regards to hypothyroid continue Synthyroid * In regards to chronic anticoagulation continue patient on Coumadin pharmacy to dose. * CODE STATUS is full code
--- NOTE | 2023-07-16 17:19 | P.CRDCN ---
History of Present Illness History of present illness: HISTORY OF PRESENT ILLNESS: This is a 78-year-old female with a past medical history significant for paroxysmal atrial fibrillation, hypertension, hyperlipidemia, and hypothyroidism. Patient follows in the office with Dr. Campos. We have been asked to see the patient in consultation for A. fib with RVR. Patient examined at the bedside in the emergency room. Patient presented to the hospital with a chief complaint of palpitations and chest pain. The patient was found to be in A. fib with RVR. She was started on IV Cardizem and converted with total episode lasted approximately 2 and half hours. She converted to sinus bradycardia with heart rates in the 50s. She had very similar episode approximately 2 weeks ago. She was placed on her home sotalol and discharged home. * EKG reveals A. fib with RVR * Most recent echocardiogram obtained in May 2015 revealing ejection fr action 60-65% * Patient underwent stress testing in March 2022 which was negative for ischemia REVIEW OF SYSTEMS: At the time of my exam: CONSTITUTIONAL: Denies fever or chills. HEENT: Denies blurred vision, vision changes, or eye pain. Denies hemoptysis CARDIOVASCULAR: Denies chest pain. Denies orthopnea. Denies PND. +palpitations RESPIRATORY: Denies shortness of breath. GASTROINTESTINAL: Denies abdominal pain. Denies nausea or vomiting. HEMATOLOGIC: Denies bleeding disorders. GENITOURINARY: Denies any blood in urine. SKIN: Denies pruitis. Denies rash. PHYSICAL EXAM: VITAL SIGNS: Reviewed. GENERAL: Well-developed in no acute distress. HEENT: Head is normocephalic. Pupils are equal, round. Sclerae anicteric. Mucous membranes of the mouth are moist. Neck supple. No JVD or thyromegaly LUNGS: Respirations even and unlabored. Lungs essentially clear to auscultation bilaterally. HEART: Regular rate and rhythm. S1 and S2 heard. ABDOMEN: Soft. Nondistended. Nontender. EXTREMITIES: Normal range of motion. No clubbing or cyanosis. Peripheral pulses intact. No lower extremity edema NEUROLOGIC: Awake and alert. Oriented x 3. ASSESSMENT: Palpitations Paroxysmal atrial fibrillation with RVR, currently maintaining sinus mechanism Supratherapeutic INR, INR 3.4 admission Hypertension Hyperlipidemia Hypothyroidism Sinus bradycardia PLAN: Previous workup with echo 1-1/2 weeks ago showed preserved EF 55%. Continue with current sotalol. We discussed possibly on the pocket approach with additional Cardizem oral 30 mg if has recurrent A. fib episode however likely benefit from more rhythm approach with possible ablation. Patient may also have component of sick sinus syndrome with tachycardia and some bradycardia and unable to increase rate controlling medications. Monitor for 24 hours and if remains stable likely discharge home tomorrow. Past Medical History Past Medical History: Atrial Fibrillation, Asthma, Cancer, Diabetes Mellitus, Hypertension, Osteoarthritis (OA), Thyroid Disorder Additional Past Medical History / Comment(s): freq diarrhea,states [id number] controlled, hypothyroidism,rt knee pain, hx kidney stone, rosacea., chronic sinusitis., uterine cancer with radiation tx (may 2017). History of Any Multi-Drug Resistant Organisms: None Reported Past Surgical History: Cholecystectomy, Heart Catheterization, Hysterectomy, Tonsillectomy Additional Past Surgical History / Comment(s): R sided kidney stone surgery, cervical surgery-cone, back pain procedure, colonoscopy Past Anesthesia/Blood Transfusion Reactions: Previous Problems w/ Anesthesia Additional Past Anesthesia/Blood Transfusion Reaction / Comment(s): - DIFFICULT INTUBATION- STATES SHE WAS TOLD SHE NEEDS A GLIDESCOPE.,no problems with prior blood transfusions in 2017 Past Psychological History: Anxiety Smoking Status: Never smoker Past Alcohol Use History: None Reported Past Drug Use History: None Reported - Past Family History Sister(s) Family Medical History: Cancer Additional Family Medical History / Comment(s): pancreatic cancer Brother(s) Family Medical History: Cancer Additional Family Medical History / Comment(s): brain cancer Father Family Medical History: Coronary Artery Disease (CAD), CVA/TIA, Hypertension Additional Family Medical History / Comment(s): Father had CABG. He at age 86yrs Mother Family Medical History: Coronary Artery Disease (CAD), Diabetes Mellitus, Hypertension Additional Family Medical History / Comment(s): Mother at age 69yrs. Medications and Allergies Home Medications Medication Instructions Recorded Confirmed Type ALPRAZolam [Xanax] 0.25 mg PO BID PRN 06/19/15 07/16/23 History Montelukast [Singulair] 10 mg PO HS 06/19/15 07/16/23 History Pravastatin Sodium [Pravachol] 40 mg PO W/SUPPER 06/19/15 07/16/23 History Levothyroxine Sodium [Synthroid] 100 mcg PO DAILY 06/04/17 07/16/23 History [place]-3 Fatty Acids/Fish Oil [Fish 2 cap PO DAILY 06/04/17 07/16/23 History Oil 1,000 mg Softgel] Acetaminophen [Tylenol] 1,000 mg PO Q6H PRN 10/07/17 07/16/23 History Sotalol [Betapace] 80 mg PO BID 10/07/17 07/16/23 History Albuterol Sulfate [Proventil Hfa] 2 puff INHALATION RT-Q6H PRN 12/14/17 07/16/23 History Albuterol Nebulized [Ventolin 2.5 mg INHALATION RT-QID PRN 04/19/21 07/16/23 History Nebulized] Slow Fe 45mg 1 tab PO DAILY 04/19/21 07/16/23 History oxyBUTYnin chloride [Ditropan] 5 mg PO BID 04/19/21 07/16/23 History Ibuprofen [Motrin] 800 mg PO Q8H PRN 04/26/23 07/16/23 History Warfarin [Coumadin] 5 mg PO TUSA@1800 #0 07/08/23 07/16/23 Rx Warfarin [Coumadin] 2.5 mg PO SUMOWETHFR@1800 07/16/23 07/16/23 History Allergies Allergy/AdvReac Type Severity Reaction Status Date / Time adhesive Allergy Rash/Hives Verified 07/16/23 06:48 budesonide [From Symbicort] Allergy Rash/Hives Verified 07/16/23 06:48 formoterol fumarate Allergy Rash/Hives Verified 07/16/23 06:48 [From Symbicort] naproxen sodium [From Aleve] Allergy Rash/Hives Verified 07/16/23 06:48 niacin Allergy Rapid Verified 07/16/23 06:48 Heart Rate Penicillins Allergy Rash/Hives Verified 07/16/23 06:48 prednisone Allergy Rash/Hives/Shortness Verified 07/16/23 06:48 of Breath Sulfa (Sulfonamide Allergy Rash/Hives Verified 07/16/23 06:48 Antibiotics) aspirin AdvReac Unknown Verified 07/16/23 06:48 codeine AdvReac Abdominal Verified 07/16/23 06:48 Pain levofloxacin [From Levaquin] AdvReac Chest Pain Verified 07/16/23 06:48 moxifloxacin HCl AdvReac Rapid Verified 07/16/23 06:48 [From Avelox] Heart Rate ondansetron [From Zofran] AdvReac Constipatio Verified 07/16/23 06:48 n maxzide(takes Dyazide) AdvReac See Uncoded 07/07/23 07:29 Comments Physical Exam Vitals: Vital Signs Temp Pulse Resp BP Pulse Ox 07/16/23 16:44 53 L 16 131/52 07/16/23 14:00 54 L 18 128/78 96 07/16/23 12:00 52 L 18 130/66 96 07/16/23 11:00 65 20 120/60 98 07/16/23 09:00 86 16 130/86 98 07/16/23 08:00 60 16 136/77 97 07/16/23 04:00 52 L 20 125/60 95 07/16/23 03:48 120 H 18 114/56 95 07/16/23 02:32 98.0 F 120 H 16 142/95 96 Intake and Output 07/16/23 07/16/23 07/16/23 06:59 14:59 22:59 Intake Total 1.5 Balance 1.5 Intake: Intake, IV Titration 1.5 Amount Diltiazem 125 mg In 1.5 Sodium Chloride 0.9% 100 ml @ 5 MG/HR 5 mls/hr IV .Q24H [facility] Rx#:[id number] Other: Weight 111.13 kg Results 07/16/23 02:38 07/16/23 02:38 Cardiac Enzymes 07/16/23 07/16/23 07/16/23 Range/Units 02:38 02:38 02:38 WBC 9.7 (3.8-10.6) k/uL RBC 4.52 (3.80-5.40) m/uL Hgb 12.9 (11.4-16.0) gm/dL Hct 37.8 (34.0-46.0) % MCV 83.5 (80.0-100.0) fL MCH 28.6 (25.0-35.0) pg MCHC 34.2 (31.0-37.0) g/dL RDW 15.2 (11.5-15.5) % Plt Count 264 (150-450) k/uL MPV 8.4 Neutrophils % 62 % Lymphocytes % 28 % Monocytes % 5 % Eosinophils % 4 % Basophils % 0 % Neutrophils # 6.0 (1.3-7.7) k/uL Lymphocytes # 2.7 (1.0-4.8) k/uL Monocytes # 0.5 (0-1.0) k/uL Eosinophils # 0.4 (0-0.7) k/uL Basophils # 0.0 (0-0.2) k/uL Poikilocytosis Slight PT 26.7 H (10.0-12.5) sec INR 2.7 H (<1.2) APTT 29.9 (22.0-30.0) sec Sodium 141 (137-145) mmol/L Potassium 3.7 (3.5-5.1) mmol/L Chloride 109 H (98-107) mmol/L Carbon Dioxide 21 L (22-30) mmol/L Anion Gap 11 mmol/L BUN 13 (7-17) mg/dL Creatinine 0.63 (0.52-1.04) mg/dL Est GFR (CKD-EPI)AfAm >90 (>60 ml/min/1.73 sqM) Est GFR (CKD-EPI)NonAf 85 (>60 ml/min/1.73 sqM) Glucose 153 H (74-99) mg/dL Calcium 9.5 (8.4-10.2) mg/dL Magnesium 1.8 (1.6-2.3) mg/dL Total Bilirubin 0.6 (0.2-1.3) mg/dL AST 32 (14-36) U/L ALT 29 (4-34) U/L Alkaline Phosphatase 77 (38-126) U/L Troponin I (0.000-0.034) ng/mL Total Protein 6.3 (6.3-8.2) g/dL Albumin 3.8 (3.5-5.0) g/dL TSH 1.410 (0.465-4.680) mIU/L 07/16/23 07/16/23 07/16/23 Range/Units 02:38 05:25 07:22 WBC (3.8-10.6) k/uL RBC (3.80-5.40) m/uL Hgb (11.4-16.0) gm/dL Hct (34.0-46.0) % MCV (80.0-100.0) fL MCH (25.0-35.0) pg MCHC (31.0-37.0) g/dL RDW (11.5-15.5) % Plt Count (150-450) k/uL MPV Neutrophils % % Lymphocytes % % Monocytes % % Eosinophils % % Basophils % % Neutrophils # (1.3-7.7) k/uL Lymphocytes # (1.0-4.8) k/uL Monocytes # (0-1.0) k/uL Eosinophils # (0-0.7) k/uL Basophils # (0-0.2) k/uL Poikilocytosis PT (10.0-12.5) sec INR (<1.2) APTT (22.0-30.0) sec Sodium (137-145) mmol/L Potassium (3.5-5.1) mmol/L Chloride (98-107) mmol/L Carbon Dioxide (22-30) mmol/L Anion Gap mmol/L BUN (7-17) mg/dL Creatinine (0.52-1.04) mg/dL Est GFR (CKD-EPI)AfAm (>60 ml/min/1.73 sqM) Est GFR (CKD-EPI)NonAf (>60 ml/min/1.73 sqM) Glucose (74-99) mg/dL Calcium (8.4-10.2) mg/dL Magnesium (1.6-2.3) mg/dL Total Bilirubin (0.2-1.3) mg/dL AST (14-36) U/L ALT (4-34) U/L Alkaline Phosphatase (38-126) U/L Troponin I <0.012 0.012 <0.012 (0.000-0.034) ng/mL Total Protein (6.3-8.2) g/dL Albumin (3.5-5.0) g/dL TSH (0.465-4.680) mIU/L Coagulation 07/16/23 Range/Units 02:38 PT 26.7 H (10.0-12.5) sec APTT 29.9 (22.0-30.0) sec CBC 07/16/23 Range/Units 02:38 WBC 9.7 (3.8-10.6) k/uL RBC 4.52 (3.80-5.40) m/uL Hgb 12.9 (11.4-16.0) gm/dL Hct 37.8 (34.0-46.0) % Plt Count 264 (150-450) k/uL Comprehensive Metabolic Panel 07/16/23 Range/Units 02:38 Sodium 141 (137-145) mmol/L Potassium 3.7 (3.5-5.1) mmol/L Chloride 109 H (98-107) mmol/L Carbon Dioxide 21 L (22-30) mmol/L BUN 13 (7-17) mg/dL Creatinine 0.63 (0.52-1.04) mg/dL Glucose 153 H (74-99) mg/dL Calcium 9.5 (8.4-10.2) mg/dL AST 32 (14-36) U/L ALT 29 (4-34) U/L Alkaline Phosphatase 77 (38-126) U/L Total Protein 6.3 (6.3-8.2) g/dL Albumin 3.8 (3.5-5.0) g/dL Current Medications Generic Name Dose Route Start Last Admin Trade Name Freq PRN Reason Stop Dose Admin Acetaminophen 650 mg 07/16/23 04:21 Acetaminophen Tab 325 Mg Tab PO Q6HR PRN Mild Pain or Fever > 100.5 Albuterol Sulfate 2.5 mg 07/16/23 06:59 Albuterol Nebulized 2.5 Mg/3 Ml INHALATION RT-QID PRN Shortness Of Breath Albuterol Sulfate 2 puff 07/16/23 06:59 Albuterol Hfa Inhaler INHALATION RT-Q6H PRN Shortness Of Breath Alprazolam 0.25 mg 07/16/23 09:14 Alprazolam 0.25 Mg Tab PO BID PRN Anxiety Ferrous Sulfate 325 mg 07/16/23 09:00 07/16/23 08:08 Ferrous Sulfate 325 Mg Tab PO 325 mg DAILY ELVIRA Administration Diltiazem HCl 125 mg/ Sodium 125 mls @ 5 mls/hr 07/16/23 03:00 07/16/23 04:00 Chloride IV 0 mg/hr .Q24H ELVIRA 0 mls/hr Infusion 5 MG/HR Ibuprofen 800 mg 07/16/23 06:59 Ibuprofen 800 Mg Tab PO Q8H PRN Pain or Fever > 100.5 Levothyroxine Sodium 100 mcg 07/16/23 06:30 07/16/23 06:34 Levothyroxine 100 Mcg Tab PO 100 mcg DAILY@0630 [facility] Administration Miscellaneous Information 0 each 07/16/23 04:29 Warfarin Per Pharmacy MISCELLANE DIRECTED PRN PHARMACY DOSING WARFARIN Montelukast Sodium 10 mg 07/16/23 21:00 Montelukast 10 Mg Tab PO HS [facility] Naloxone HCl 0.2 mg 07/16/23 04:21 Naloxone 0.4 Mg/Ml 1 Ml Vial IV Q2M PRN Opioid Reversal Oxybutynin Chloride 5 mg 07/16/23 09:00 07/16/23 08:09 Oxybutynin Chloride 5 Mg Tab PO 5 mg BID ELVIRA Administration Pravastatin Sodium 40 mg 07/16/23 17:30 Pravastatin Sodium 40 Mg Tab PO W/SUPPER [facility] Sotalol HCl 80 mg 07/16/23 09:00 07/16/23 08:20 Sotalol 80 Mg Tab PO 80 mg BID ELVIRA Administration Warfarin Sodium 2.5 mg 07/16/23 18:00 Warfarin 2.5 Mg Tab PO SuMoWeThFr@1800 [facility] Protocol Warfarin Sodium 5 mg 07/18/23 18:00 Warfarin 5 Mg Tab PO TUSA@1800 [facility] Protocol Intake and Output 07/16/23 07/16/23 07/16/23 06:59 14:59 22:59 Intake Total 1.5 Balance 1.5 Intake: Intake, IV Titration 1.5 Amount Diltiazem 125 mg In 1.5 Sodium Chloride 0.9% 100 ml @ 5 MG/HR 5 mls/hr IV .Q24H [facility] Rx#:[id number] Other: Weight 111.13 kg 07/16/23 02:38 07/16/23 02:38
[2023-07-16] MEDS: WARFARIN 2.5 MG TAB PO SCH (18:44)
[2023-07-16] MEDS: PRAVASTATIN SODIUM 40 MG TAB PO SCH (18:50)
[2023-07-16] MEDS: MONTELUKAST 10 MG TAB PO SCH (21:20)
[2023-07-17] MEDS: DILTIAZEM 125 MG in SODIUM CHLORIDE 0.9% 100 ML IV SCH (04:35)
[2023-07-17] MEDS: LEVOTHYROXINE 100 MCG TAB PO SCH (05:59)
[2023-07-17 07:29] LABS: HCT 31.9 % (34.0-46.0); HGB 11.1 gm/dL (11.4-16.0); MCH 29.6 pg (25.0-35.0); MCHC 34.9 g/dL (31.0-37.0); Mean Platelet Volume 8.1; Platelet Count 196 k/uL (150-450); Poikilocytosis Slight; RBC 3.76 m/uL (3.80-5.40); WBC 6.7 k/uL (3.8-10.6)
[2023-07-17 07:50] LABS: African American GFR (CKD) >90 (>60 ml/min/1.73 sqM); Anion Gap 9 mmol/L; Blood Urea Nitrogen 14 mg/dL (7-17); Calcium 8.8 mg/dL (8.4-10.2); Carbon Dioxide 22 mmol/L (22-30); Chloride 108 mmol/L (98-107); Glucose 118 mg/dL (74-99); Non-African American GFR(CKD) 82 (>60 ml/min/1.73 sqM); Potassium 3.7 mmol/L (3.5-5.1); Sodium 139 mmol/L (137-145)
[2023-07-17] MEDS: FERROUS SULFATE 325 MG TAB PO SCH (08:51)
[2023-07-17] MEDS: oxyBUTYnin chloride 5 MG TAB PO SCH ×2 (08:51→21:53)
[2023-07-17 12:24] LABS: INR 2.6 (<1.2); Prothrombin Time 25.7 sec (10.0-12.5)
--- NOTE | 2023-07-17 15:06 | P.PN ---
Subjective Progress Note Date: 07/17/23 HISTORY OF PRESENT ILLNESS: This is a 78-year-old female with a past medical history significant for pa roxysmal atrial fibrillation, hypertension, hyperlipidemia, and hypothyroidism. Patient follows in the office with Dr. Campos. We have been asked to see the patient in consultation for A. fib with RVR. Patient examined at the bedside in the emergency room. Patient presented to the hospital with a chief complaint of palpitations and chest pain. The patient was found to be in A. fib with RVR. She was started on IV Cardizem and converted with total episode lasted approximately 2 and half hours. She converted to sinus bradycardia with heart rates in the 50s. She had very similar episode approximately 2 weeks ago. She was placed on her home sotalol and discharged home. * EKG reveals A. fib with RVR * Most recent echocardiogram obtained in May 2015 revealing ejection fraction 60-65% * Patient underwent stress testing in March 2022 which was negative for ischemia 07/17 Patient is seen today in follow-up. Heart rate is down to 46 and sotalol was held this morning. She is not on Cardizem drip. Patient is complaining of feeling tired. INR is 2.6, pharmacy dosing warfarin. PHYSICAL EXAM: VITAL SIGNS: Reviewed. GENERAL: Well-developed in no acute distress. HEENT: Head is normocephalic. Pupils are equal, round. Sclerae anicteric. Mucous membranes of the mouth are moist. Neck supple. No JVD or thyromegaly LUNGS: Respirations even and unlabored. Lungs essentially clear to auscultation bilaterally. HEART: Regular rate and rhythm. S1 and S2 heard. ABDOMEN: Soft. Nondistended. Nontender. EXTREMITIES: Normal range of motion. No clubbing or cyanosis. Peripheral pulses intact. No lower extremity edema NEUROLOGIC: Awake and alert. Oriented x 3. ASSESSMENT: Palpitations Paroxysmal atrial fibrillation with RVR, currently maintaining sinus mechanism Supratherapeutic INR, INR 3.4 admission Hypertension Hyperlipidemia Hypothyroidism Sinus bradycardia PLAN: Previous workup with echo 1-1/2 weeks ago showed preserved EF 55%. Continue with current sotalol-on hold this morning for bradycardia. Recommend the pocket approach with additional Cardizem oral 30 mg if patient has recurrent A. fib episodes Discussed follow up with Dr. Clayton for possible ablation. Patient is cleared for discharge home from Cardiology and may follow up in the office in a-2 weeks. Nurse practitioner note has been reviewed, I agree with the documented findings and plan of care. Patient was seen and examined. Objective - Vital Signs Vital signs: Vital Signs Temp 97.8 F 07/17/23 08:00 Pulse 49 L 07/17/23 08:16 Resp 20 07/17/23 08:45 BP 147/77 07/17/23 08:00 Pulse Ox 95 07/17/23 08:00 FiO2 Intake & Output 07/16/23 07/17/23 07/17/23 18:59 06:59 18:59 Intake Total 200 Balance 200 Weight 111.13 kg Intake: Oral 200 Other: # Voids 1 - Labs CBC & Chem 7: 07/17/23 06:29 07/17/23 06:29 Labs: Abnormal Lab Results - Last 24 Hours (Table) 07/17/23 07/17/23 07/17/23 Range/Units 06:29 06:29 11:40 RBC 3.76 L (3.80-5.40) m/uL Hgb 11.1 L (11.4-16.0) gm/dL Hct 31.9 L (34.0-46.0) % PT 25.7 H (10.0-12.5) sec INR 2.6 H (<1.2) Chloride 108 H (98-107) mmol/L Glucose 118 H (74-99) mg/dL
--- NOTE | 2023-07-17 15:21 | P.PN ---
Subjective Progress Note Date: 07/17/23 78-year-old patient with past medical history significant for paroxysmal atrial fibrillation, hypertension, hyperlipidemia, hypothyroid presents to the emergency department with complains of palpitation. Patient was recently admitted on 07/07/23 seen by cardiology for A. fib rapid ventricular response. Patient has been on Coumadin, sotalol at home. While in ER basic metabolic panel was obtained which showed normal potassium and magnesium levels. Patient was noted to have tachycardia with heart rate in 120s. She was initiated on Cardizem drip and admitted on medical floor with consultations from cardiology * Patient did complain of intermittent chest discomfort, serial troponins were obtained, EKG obtained showed atrial fibrillation rapid ventricular response and ST segment depression in lead 2 and V2 was noted along with V6 * Chest x-ray obtained showed pulmonary vascular prominence without definitive evidence of CHF * In admitted to medical for with consultations from cardiology * While in ER patient was already on Cardizem drip however she continued to have palpitations although heart rate was in 50s 07/17. Patient seen and examined. Heart rate continues to be in 50s, currently on sotalol, unable to receive sotalol this morning because of heart rate less than 60 REVIEW OF SYSTEMS: CONSTITUTIONAL: No fever, no malaise,. CARDIOVASCULAR: No chest pain, no palpitations, no syncope. PULMONARY: No shortness of breath, no cough, GASTROINTESTINAL: No diarrhea, no nausea, no vomiting, no abdominal pain. NEUROLOGICAL: No headaches, no weakness, PHYSICAL EXAMINATION: GENERAL: The patient is alert and oriented x3, not in any acute distress. Well developed, well nourished. HEENT: Pupils are round and equally reacting to light. EOMI. No scleral icterus. No conjunctival pallor. Normocephalic, atraumatic. No pharyngeal erythema. No thyromegaly. CARDIOVASCULAR: S1 and S2 present. No murmurs, rubs, or gallops. Bradycardia PULMONARY: Chest is clear to auscultation, no wheezing or crackles. ABDOMEN: Soft, nontender, nondistended, normoactive bowel sounds. No palpable organomegaly. MUSCULOSKELETAL: No joint swelling or deformity. EXTREMITIES: No cyanosis, clubbing, or pedal edema. NEUROLOGICAL: Gross neurological examination did not reveal any focal deficits. SKIN: No rashes. Assessment and plan Palpitations Paroxysmal atrial fibrillation with RVR Supratherapeutic INR, Hypertension Hyperlipidemia Hypothyroidism Sinus bradycardia Monitor vital signs Monitor CBC Monitor CMP Continue telemetry monitoring For atrial fibrillation, continue sotalol and Coumadin Regards to hyperlipidemia , continue pravastatin In regards to hypothyroid continue Synthyroid In regards to diabetes mellitus Labs and medication were reviewed.. Continue same treatment. Continue with symptomatic treatment. Resume home medication. Monitor labs and vitals. DVT and GI prophylaxis. Further recommendations as per clinical course of the patient Dictation was produced using [employer] dictation software. please excuse any gram matical, word or spelling errors. Objective - Vital Signs Vital signs: Vital Signs Temp 98.1 F 07/17/23 12:58 Pulse 53 L 07/17/23 12:58 Resp 19 07/17/23 12:58 BP 151/63 07/17/23 12:58 Pulse Ox 97 07/17/23 12:58 FiO2 Intake & Output 07/16/23 07/17/23 07/17/23 18:59 06:59 18:59 Intake Total 200 Balance 200 Weight 111.13 kg Intake: Oral 200 Other: # Voids 1 - Labs CBC & Chem 7: 07/17/23 06:29 07/17/23 06:29 Labs: Abnormal Lab Results - Last 24 Hours (Table) 07/17/23 07/17/23 07/17/23 Range/Units 06:29 06:29 11:40 RBC 3.76 L (3.80-5.40) m/uL Hgb 11.1 L (11.4-16.0) gm/dL Hct 31.9 L (34.0-46.0) % PT 25.7 H (10.0-12.5) sec INR 2.6 H (<1.2) Chloride 108 H (98-107) mmol/L Glucose 118 H (74-99) mg/dL
[2023-07-17] MEDS: WARFARIN 2.5 MG TAB PO SCH (18:00)
[2023-07-17] MEDS: PRAVASTATIN SODIUM 40 MG TAB PO SCH (18:00)
[2023-07-17] MEDS: SOTALOL 80 MG TAB PO SCH ×2 (20:05→22:43)
[2023-07-17] MEDS: MONTELUKAST 10 MG TAB PO SCH (21:53)
[2023-07-18 04:54] VITALS: TEMP 97.8
[2023-07-18] MEDS: LEVOTHYROXINE 100 MCG TAB PO SCH (06:17)
[2023-07-18 07:33] LABS: INR 2.4 (<1.2); Prothrombin Time 23.8 sec (10.0-12.5)
[2023-07-18] MEDS: oxyBUTYnin chloride 5 MG TAB PO SCH (10:17)
[2023-07-18] MEDS: FERROUS SULFATE 325 MG TAB PO SCH (10:17)
[2023-07-18] MEDS: SOTALOL 80 MG TAB PO SCH (10:17)
--- NOTE | 2023-07-18 10:49 | P.PN ---
Subjective Progress Note Date: 07/18/23 HISTORY OF PRESENT ILLNESS: This is a 78-year-old female with a past medical history significant for pa roxysmal atrial fibrillation, hypertension, hyperlipidemia, and hypothyroidism. Patient follows in the office with Dr. Campos. We have been asked to see the patient in consultation for A. fib with RVR. Patient examined at the bedside in the emergency room. Patient presented to the hospital with a chief complaint of palpitations and chest pain. The patient was found to be in A. fib with RVR. She was started on IV Cardizem and converted with total episode lasted approximately 2 and half hours. She converted to sinus bradycardia with heart rates in the 50s. She had very similar episode approximately 2 weeks ago. She was placed on her home sotalol and discharged home. * EKG reveals A. fib with RVR * Most recent echocardiogram obtained in May 2015 revealing ejection fraction 60-65% * Patient underwent stress testing in March 2022 which was negative for ischemia 07/17 Patient is seen today in follow-up. Heart rate is down to 46 and sotalol was held this morning. She is not on Cardizem drip. Patient is complaining of feeling tired. INR is 2.6, pharmacy dosing warfarin. 07/18 Patient's heart rate is running between 49 and 57. Blood pressure 109/63, INR 2.4. PHYSICAL EXAM: VITAL SIGNS: Reviewed. GENERAL: Well-developed in no acute distress. HEENT: Head is normocephalic. Pupils are equal, round. Sclerae anicteric. Mucous membranes of the mouth are moist. Neck supple. No JVD or thyromegaly LUNGS: Respirations even and unlabored. Lungs essentially clear to auscultation bilaterally. HEART: Regular rate and rhythm. S1 and S2 heard. ABDOMEN: Soft. Nondistended. Nontender. EXTREMITIES: Normal range of motion. No clubbing or cyanosis. Peripheral pulses intact. No lower extremity edema NEUROLOGIC: Awake and alert. Oriented x 3. ASSESSMENT: Palpitations Paroxysmal atrial fibrillation with RVR, currently maintaining sinus mechanism Supratherapeutic INR, INR 3.4 admission Hypertension Hyperlipidemia Hypothyroidism Sinus bradycardia PLAN: Previous workup with echo 1-1/2 weeks ago showed preserved EF 55%. Continue with current sotalol-on hold this morning for bradycardia. Recommend the pocket approach with additional Cardizem oral 30 mg if patient has recurrent A. fib episodes Discussed follow up with Dr. Clayton for possible ablation. Patient is cleared for discharge home from Cardiology and may follow up in the office in a-2 weeks. Nurse practitioner note has been reviewed, I agree with the documented findings and plan of care. Patient was seen and examined. Objective - Vital Signs Vital signs: Vital Signs Temp 97.8 F 07/18/23 04:00 Pulse 53 L 07/18/23 04:00 Resp 16 07/18/23 04:00 BP 109/53 07/18/23 04:00 Pulse Ox 98 07/18/23 04:00 FiO2 Intake & Output 07/17/23 07/18/23 07/18/23 18:59 06:59 18:59 Intake Total 236 50 240 Balance 236 50 240 Intake: Oral 236 50 240 Other: # Voids 1 - Labs CBC & Chem 7: 07/17/23 06:29 07/17/23 06:29 Labs: Abnormal Lab Results - Last 24 Hours (Table) 07/17/23 07/18/23 Range/Units 11:40 06:48 PT 25.7 H 23.8 H (10.0-12.5) sec INR 2.6 H 2.4 H (<1.2)
[2023-07-18] MEDS ORDERED: polyethylene glycoL 3350 17 GM POWD.PACK PO STA (12:01)
[2023-07-18 12:15] VITALS: BP 154/67; PULSE 61; RESP 18
--- NOTE | 2023-07-18 12:48 | P.DS ---
Providers Date of admission: 07/16/23 04:21 Expected date of discharge: 07/18/23 Attending physician: Devika Hillman Consults: 07/16/23 04:21 Consult Physician Routine Consulting Provider: Tan Clayton Consult Reason/Comments: A-fib RVR Do you want consulting provider notified?: Yes Primary care physician: David Larios [place] [facility] Course: Discharge diagnoses; Palpitations Paroxysmal atrial fibrillation with RVR Supratherapeutic INR, Hypertension Hyperlipidemia Hypothyroidism Sinus bradycardia Hospital course; 78-year-old patient with past medical history significant for paroxysmal atrial fibrillation, hypertension, hyperlipidemia, hypothyroid presents to the emergency department with complains of palpitation. Patient was recently admitted on 07/07/23 seen by cardiology for A. fib rapid ventricular response. Patient has been on Coumadin, sotalol at home. While in ER basic metabolic panel was obtained which showed normal potassium and magnesium levels. Patient was noted to have tachycardia with heart rate in 120s. She was initiated on Cardizem drip and admitted on medical floor with consultations from cardiology * Patient did complain of intermittent chest discomfort, serial troponins were obtained, EKG obtained showed atrial fibrillation rapid ventricular response and ST segment depression in lead 2 and V2 was noted along with V6 * Chest x-ray obtained showed pulmonary vascular prominence without definitive evidence of CHF * In admitted to medical for with consultations from cardiology * While in ER patient was already on Cardizem drip however she continued to have palpitations although heart rate was in 50s 07/17. Patient seen and examined. Heart rate continues to be in 50s, currently on sotalol, unable to receive sotalol this morning because of heart rate less than 60 07/18. Patient seen and examined. Cardiology cleared the patient for discharge, being discharged in stable condition PHYSICAL EXAMINATION: GENERAL: The patient is alert and oriented x3, not in any acute distress. Well developed, well nourished. HEENT: Pupils are round and equally reacting to light. EOMI. No scleral icterus. No conjunctival pallor. Normocephalic, atraumatic. No pharyngeal erythema. No thyromegaly. CARDIOVASCULAR: S1 and S2 present. No murmurs, rubs, or gallops. PULMONARY: Chest is clear to auscultation, no wheezing or crackles. ABDOMEN: Soft, nontender, nondistended, normoactive bowel sounds. No palpable organomegaly. MUSCULOSKELETAL: No joint swelling or deformity. EXTREMITIES: No cyanosis, clubbing, or pedal edema. NEUROLOGICAL: Gross neurological examination did not reveal any focal deficits. SKIN: No rashes. Dictation was produced using [employer] dictation software. please excuse any grammatical, word or spelling errors. Patient Condition at Discharge: Stable Plan - Discharge Summary New Discharge Prescriptions: Continue Pravastatin Sodium [Pravachol] 40 mg PO W/SUPPER Montelukast [Singulair] 10 mg PO HS ALPRAZolam [Xanax] 0.25 mg PO BID PRN PRN Reason: Anxiety [place]-3 Fatty Acids/Fish Oil [Fish Oil 1,000 mg Softgel] 2 cap PO DAILY Levothyroxine Sodium [Synthroid] 100 mcg PO DAILY Acetaminophen [Tylenol] 1,000 mg PO Q6H PRN PRN Reason: Pain Sotalol [Betapace] 80 mg PO BID Albuterol Sulfate [Proventil Hfa] 2 puff INHALATION RT-Q6H PRN PRN Reason: Shortness Of Breath oxyBUTYnin chloride [Ditropan] 5 mg PO BID Ibuprofen [Motrin] 800 mg PO Q8H PRN PRN Reason: Pain Or Fever > 100.5 Warfarin [Coumadin] 5 mg PO TUSA@1800 #0 Warfarin [Coumadin] 2.5 mg PO SUMOWETHFR@1800 Albuterol Nebulized [Ventolin Nebulized] 2.5 mg INHALATION RT-QID PRN PRN Reason: Shortness Of Breath Discharge Medication List ALPRAZolam [Xanax] 0.25 mg PO BID PRN 06/19/15 [History] Montelukast [Singulair] 10 mg PO HS 06/19/15 [History] Pravastatin Sodium [Pravachol] 40 mg PO W/SUPPER 06/19/15 [History] Levothyroxine Sodium [Synthroid] 100 mcg PO DAILY 06/04/17 [History] [place]-3 Fatty Acids/Fish Oil [Fish Oil 1,000 mg Softgel] 2 cap PO DAILY 06/04/17 [History] Acetaminophen [Tylenol] 1,000 mg PO Q6H PRN 10/07/17 [History] Sotalol [Betapace] 80 mg PO BID 10/07/17 [History] Albuterol Sulfate [Proventil Hfa] 2 puff INHALATION RT-Q6H PRN 12/14/17 [History] Albuterol Nebulized [Ventolin Nebulized] 2.5 mg INHALATION RT-QID PRN 04/19/21 [History] oxyBUTYnin chloride [Ditropan] 5 mg PO BID 04/19/21 [History] Ibuprofen [Motrin] 800 mg PO Q8H PRN 04/26/23 [History] Warfarin [Coumadin] 5 mg PO TUSA@1800 #0 07/08/23 [Rx] Warfarin [Coumadin] 2.5 mg PO SUMOWETHFR@1800 07/16/23 [History] Follow up Appointment(s)/Referral(s): David Larios MD [Primary Care Provider] - 1-2 days (Office closed, please call to schedule follow up. ) Shahram Campos MD [STAFF PHYSICIAN] - 1 Week (Office closed, please call to schedule follow up. ) Patient Instructions/Handouts: A-fib (Atrial Fibrillation) (DC)
[2023-07-18] MEDS ORDERED: WARFARIN 5 MG TAB PO SCH (18:00)
== END 2023-07-18 14:53 | disposition home or self-care (01) ==
LOC: EC 02:21 → 3SCARD 04:21
PROVIDERS: ADMIT Hospitalist; ATTEND Hospitalist
DX: R00.2 Palpitations (principal); I48.0 Paroxysmal atrial fibrillation; R79.1 Abnormal coagulation profile; R00.1 Bradycardia, unspecified; E11.9 Type 2 diabetes mellitus without complications; I10 Essential (primary) hypertension; E03.9 Hypothyroidism, unspecified; J45.909 Unspecified asthma, uncomplicated; F41.9 Anxiety disorder, unspecified; E78.5 Hyperlipidemia, unspecified; Z85.42 Personal history of malignant neoplasm of other parts of uterus; Z92.3 Personal history of irradiation; Z79.899 Other long term (current) drug therapy; Z79.890 Hormone replacement therapy; Z79.01 Long term (current) use of anticoagulants; Z88.0 Allergy status to penicillin; Z88.2 Allergy status to sulfonamides; Z88.6 Allergy status to analgesic agent; Z88.5 Allergy status to narcotic agent; Z88.1 Allergy status to other antibiotic agents
CPT/HCPCS: 96376; 96365; 96375; 99285; 36415; 93005; 80053; 80048; 83735; 84443; 84484; 85025; 85027; 85610 ×3; 85730; 71046; G0378 ×3; J3475

== ENCOUNTER → 2023-09-23 | Outpatient (CLI) | payer MEDICARE ==
--- NOTE | 2023-09-25 14:25 | MM ---
Reason for Exam: Screening (asymptomatic). Last mammogram was performed 1 year(s) and 2 month(s) ago. Patient History: Menarche at age 8. First Full-Term at age 22. Hysterectomy at age 71. Postmenopausal. Endometrial cancer, age 71. Prior Study Comparison: 04/27/2012 Bilateral MG 3D screening mammo w/cad, Unknown. 09/24/2020 Bilateral MG 3D screening mammo w/cad, [facility]. 08/06/2022 Bilateral MG 3D screening mammo w/cad, [facility]. Tissue Density: There are scattered fibroglandular densities. Analyzed By CAD. Overall Assessment: Benign, BI-RAD 2 Management: Screening Mammogram of both breasts in 1 year. Electronically signed and approved by: Nicolas Alas D.O. Radiologis
== END | disposition home or self-care (01) ==
LOC: RADMAMWWP 11:34
PROVIDERS: ATTEND Pediatrics
DX: Z12.31 Encounter for screening mammogram for malignant neoplasm of breast (principal); Z78.0 Asymptomatic menopausal state
CPT/HCPCS: 77063; 77067

== ENCOUNTER → 2023-10-08 | Outpatient (CLI) | payer MEDICARE ==
--- NOTE | 2023-10-08 19:04 | XR ---
EXAMINATION TYPE: XR Hip Complete LT DATE OF EXAM: 10/08/2023 5:14 PM CLINICAL INDICATION:Female, 78 years old with history of pain after fall. COMPARISON: Hip radiograph 09/26/2022. TECHNIQUE: The left hip was examined in the frontal and lateral projections and a AP pelvis. FINDINGS: No evidence for acute fracture. Small osseous fragment adjacent to the ischial tuberosity i s again identified and likely relates to prominent osteophyte. Moderate osteophytic changes of the le ft hip joint are identified with osteophyte formation. IMPRESSION: 1. No acute fracture. 2. Moderate degenerative changes of the left hip joint.
--- NOTE | 2023-10-08 19:07 | XR ---
EXAMINATION TYPE: XR knee complete bilateral DATE OF EXAM: 10/08/2023 5:14 PM CLINICAL INDICATION:Female, 78 years old with history of pain after fall. COMPARISON: Knee radiographs 08/25/2021 TECHNIQUE: The Bilateral knee(s) were examined in Frontal, lateral and oblique projections. FINDINGS: No evidence of any acute osseous pathology, soft tissue swelling, or joint effusion is no sonia. Left knee: Mild interval progression of osteoarthritic changes of the knee joints with osteophyte fo rmation and joint space narrowing, most rales along the medial compartment. Right knee: Moderate global progression of osteoarthritic changes of the knee, with subchondral scler osis and joint narrowing, most round on the medial aspect of the knee. IMPRESSION: 1. No acute osseous pathology. 2. Interval progression of moderate bilateral tricompartmental osteoarthritic changes of the knees.
--- NOTE | 2023-10-08 19:14 | XR ---
EXAMINATION TYPE: XR foot complete RT DATE OF EXAM: 10/08/2023 5:14 PM CLINICAL INDICATION:Female, 78 years old with history of pain after fall. COMPARISON: None. TECHNIQUE: The right foot was examined in the AP, oblique, and lateral projections. FINDINGS: No evidence of any acute osseous pathology. No evidence of soft tissue swelling. Osteoarthritic laws ges of the tarsal joints and tarsometatarsal joints are identified. Enthesophyte is noted along the l ateral aspect of the fifth metatarsal head. Mild hallux valgus is appreciated. IMPRESSION: 1. No evidence of acute fracture. 2. Osteoarthritic changes
== END | disposition home or self-care (01) ==
LOC: RADXRMAIN 16:37
PROVIDERS: ATTEND Pediatrics
DX: M16.12 Unilateral primary osteoarthritis, left hip (principal); M17.0 Bilateral primary osteoarthritis of knee; M19.071 Primary osteoarthritis, right ankle and foot
CPT/HCPCS: 73502

== ENCOUNTER 2023-11-24 21:12 | Observation (INO) | payer MEDICARE ==
[2023-11-24] MEDS: ASPIRIN 81 MG PO STA (21:29)
[2023-11-24] MEDS: SODIUM CHLORIDE 0.9% 500 ML 500 ML IV STA (21:29)
[2023-11-24 21:47] LABS: Basophils % (A) 0 %; Eosinophils # (A) 0.1 k/uL (0-0.7); Eosinophils % (A) 2 %; HCT 34.1 % (34.0-46.0); HGB 11.6 gm/dL (11.4-16.0); Lymphocytes # (A) 1.8 k/uL (1.0-4.8); Lymphocytes % (A) 23 %; MCH 28.6 pg (25.0-35.0); MCHC 33.9 g/dL (31.0-37.0); MCV 84.3 fL (80.0-100.0); Mean Platelet Volume 8.1; Monocytes # (A) 0.4 k/uL (0-1.0); Monocytes % (A) 5 %; Neutrophils # (A) 5.3 k/uL (1.3-7.7); Neutrophils % (A) 69 %; Platelet Count 227 k/uL (150-450); Poikilocytosis Slight; RBC 4.05 m/uL (3.80-5.40); RDW 14.7 % (11.5-15.5); WBC 7.7 k/uL (3.8-10.6)
--- NOTE | 2023-11-24 21:53 | XR ---
EXAMINATION TYPE: XR chest 2V DATE OF EXAM: 11/24/2023 9:50 PM CLINICAL INDICATION:Female, 78 years old with history of Chest Pain; [facility] COMPARISON: None TECHNIQUE: XR chest 2V Frontal and lateral views of the chest. FINDINGS: Lungs/Pleura: There is no evidence of pleural effusion, focal consolidation, or pneumothorax. Pulmonary vascularity: Unremarkable. Heart/mediastinum: Cardiomediastinal silhouette is unremarkable. Musculoskeletal: No acute osseous pathology. IMPRESSION: No acute cardiopulmonary disease/process.
[2023-11-24] MEDS: hydrALAZINE HCL 20 MG/ML 1 ML VIAL IVP STA (21:54)
--- NOTE | 2023-11-24 21:58 | ED ---
General Adult HPI - General Chief complaint: Chest Pain Stated complaint: Chest Pain Time Seen by Provider: 11/24/23 21:20 Source: patient, RN notes reviewed, old records reviewed Mode of arrival: EMS Limitations: no limitations - History of Present Illness Initial comments: Patient is an 78-year-old female who presents emergency department complaining of chest pain. Has a history of chest pain, A-fib, no history of cardiac stents. Has a history of asthma, diabetes, hypertension. Had medication changes back in September. Has noticed that her blood pressure has been elevated. Has been compliant with all medications. Currently denies any chest pain but does endorse some left shoulder pain that is worse with movements and is somewhat chronic. She thinks she may have pulled a muscle. Denies any shortness of breath, fevers, chills, cough. Denies any nausea or vomiting. Denies any diaphoresis. Presents for further evaluation at this time. Last time she experienced chest pain was just prior to arrival before EMS arrived at her house. - Related Data Home Medications Medication Instructions Recorded Confirmed ALPRAZolam [Xanax] 0.25 mg PO BID PRN 06/19/15 11/24/23 Montelukast [Singulair] 10 mg PO HS 06/19/15 11/24/23 Pravastatin Sodium [Pravachol] 40 mg PO W/SUPPER 06/19/15 11/24/23 Levothyroxine Sodium [Synthroid] 100 mcg PO DAILY 06/04/17 11/24/23 Acetaminophen [Tylenol] 1,000 mg PO Q6H PRN 10/07/17 11/24/23 Albuterol Sulfate [Proventil Hfa] 2 puff INHALATION RT-Q6H PRN 12/14/17 11/24/23 Albuterol Nebulized [Ventolin 2.5 mg INHALATION RT-QID PRN 04/19/21 11/24/23 Nebulized] oxyBUTYnin chloride [Ditropan] 5 mg PO BID 04/19/21 11/24/23 Ibuprofen [Motrin] 800 mg PO Q8H PRN 04/26/23 11/24/23 Diltiazem Oral [Cardizem Oral] 30 mg PO QID PRN 11/24/23 11/24/23 Flecainide [Tambocor] 50 mg PO Q12HR 11/24/23 11/24/23 Fluticasone Nasal [place] [Flonase 1 spray EA NOSTRIL DAILY PRN 11/24/23 11/24/23 Nasal [place]] L.acidoph,Paracasei, B.lactis 1 cap PO DAILY 11/24/23 11/24/23 [Probiotic] Loratadine 10 mg PO DAILY PRN 11/24/23 11/24/23 Triamterene/Hydrochlorothiazid 1 cap PO DAILY 11/24/23 11/24/23 [Triamterene-Hctz 37.5-25 mg Cp] Warfarin [Coumadin] 2.5 mg PO DAILY 11/24/23 11/24/23 metroNIDAZOLE 1% GEL [Metrogel 1%] 1 applic TOPICAL DAILY PRN 11/24/23 11/24/23 Allergies Allergy/AdvReac Type Severity Reaction Status Date / Time adhesive Allergy Rash/Hives Verified 11/24/23 23:23 budesonide [From Symbicort] Allergy Rash/Hives Verified 11/24/23 23:23 formoterol fumarate Allergy Rash/Hives Verified 11/24/23 23:23 [From Symbicort] naproxen sodium [From Aleve] Allergy Rash/Hives Verified 11/24/23 23:23 niacin Allergy Rapid Verified 11/24/23 23:23 Heart Rate Penicillins Allergy Rash/Hives Verified 11/24/23 23:23 prednisone Allergy Rash/Hives/Shortness Verified 11/24/23 23:23 of Breath Sulfa (Sulfonamide Allergy Rash/Hives Verified 11/24/23 23:23 Antibiotics) aspirin AdvReac Unknown Verified 11/24/23 23:23 codeine AdvReac Abdominal Verified 11/24/23 23:23 Pain levofloxacin [From Levaquin] AdvReac Chest Pain Verified 11/24/23 23:23 moxifloxacin HCl AdvReac Rapid Verified 11/24/23 23:23 [From Avelox] Heart Rate ondansetron [From Zofran] AdvReac Constipatio Verified 11/24/23 23:23 n maxzide(takes Dyazide) AdvReac See Uncoded 11/24/23 21:18 Comments Review of Systems ROS Statement: Those systems with pertinent positive or pertinent negative responses have been documented in the HPI. Review of Systems: CONST: Denies fever EYES: Denies blurry vision ENT: Denies nasal congestion C/V: Denies Chest pain RESP: Denies shortness of breath GI: Denies abdominal pain : Denies dysuria SKIN: Denies rash. MSK: Endorses left shoulder pain NEURO: Denies headache ROS Other: All systems not noted in ROS Statement are negative. Past Medical History Past Medical History: Atrial Fibrillation, Asthma, Cancer, Diabetes Mellitus, Hypertension, Osteoarthritis (OA), Thyroid Disorder Additional Past Medical History / Comment(s): freq diarrhea,states [id number] controlled, hypothyroidism,rt knee pain, hx kidney stone, rosacea., chronic sinusitis., uterine cancer with radiation tx (may 2017). History of Any Multi-Drug Resistant Organisms: None Reported Past Surgical History: Cholecystectomy, Heart Catheterization, Hysterectomy, Tonsillectomy Additional Past Surgical History / Comment(s): R sided kidney stone surgery, cervical surgery-cone, back pain procedure, colonoscopy Past Anesthesia/Blood Transfusion Reactions: Previous Problems w/ Anesthesia Additional Past Anesthesia/Blood Transfusion Reaction / Comment(s): - DIFFICULT INTUBATION- STATES SHE WAS TOLD SHE NEEDS A GLIDESCOPE.,no problems with prior blood transfusions in 2017 Past Psychological History: Anxiety Smoking Status: Never smoker Past Alcohol Use History: None Reported Past Drug Use History: None Reported - Past Family History Sister(s) Family Medical History: Cancer Additional Family Medical History / Comment(s): pancreatic cancer Brother(s) Family Medical History: Cancer Additional Family Medical History / Comment(s): brain cancer Father Family Medical History: Coronary Artery Disease (CAD), CVA/TIA, Hypertension Additional Family Medical History / Comment(s): Father had CABG. He at age 86yrs Mother Family Medical History: Coronary Artery Disease (CAD), Diabetes Mellitus, Hypertension Additional Family Medical History / Comment(s): Mother at age 69yrs. General Exam - General Exam Comments Initial Comments: General: Appears in no acute distress. HEAD: Normal with no signs of head trauma. EYES: PERRLA, EOMI, conjunctiva normal, no discharge. ENT: Hearing grossly intact, normal oropharynx. RESPIRATORY: Clear breath sounds bilaterally. No wheezes, rales, or rhonchi. C/V: Regular rate and rhythm. S1 and S2 auscultated, no edema, peripheral pulses 2+ and intact throughout ABD: Abd is soft, nontender, nondistended EXT: Normal range of motion, no obvious deformity. Posterior left shoulder pain, and the rotator cuff girdle there is worse with movement of the left shoulder and on palpation of the posterior left shoulder. SKIN: No rashes or lesions observed on exposed skin. NEURO: Alert and oriented x 4. No focal deficits. Limitations: no limitations Course Vital Signs 11/24/23 11/24/23 11/24/23 21:15 21:20 21:53 Temperature 98.1 F Pulse Rate 66 69 71 Pulse Rate [ 70 Astronomy Professor ] Respiratory 18 18 18 Rate Blood Pressure 200/83 193/81 191/77 O2 Sat by Pulse 96 96 96 Oximetry 11/24/23 11/24/23 11/25/23 22:12 22:39 00:13 Temperature Pulse Rate 73 73 79 Pulse Rate [ Astronomy Professor ] Respiratory 18 18 Rate Blood Pressure 162/75 147/70 O2 Sat by Pulse 97 96 Oximetry 11/25/23 00:17 Temperature Pulse Rate 84 Pulse Rate [ Astronomy Professor ] Respiratory Rate Blood Pressure O2 Sat by Pulse Oximetry Medical Decision Making - Medical Decision Making Was pt. sent in by a medical professional or institution (, PA, PEDIATRIC RADIOLOGIST, urgent care, hospital, or jail...) When possible be specific @ -No Did you speak to anyone other than the patient for history (EMS, parent, family, police, friend...)? What history was obtained from this source @ -No Did you review nursing and triage notes (agree or disagree)? Why? @ -I reviewed and agree with nursing and triage notes Were old charts reviewed (outside hosp., previous admission, EMS record, old EKG, old radiological studies, urgent care reports/EKG's, jail records)? Report findings @ -Old charts reviewed Differential Diagnosis (chest pain, altered mental status, abdominal pain women, abdominal pain men, vaginal bleeding, weakness, fever, dyspnea, syncope, headache, dizziness, GI bleed, back pain, seizure, CVA, palpatations, mental health, musculoskeletal)? @ -Differential Chest Pain: Stable Angina, Unstable Angina, STEMI, NSTEMI Aortic Dissection, Pneumothorax, Musculoskeletal, Esophageal Spasm GERD, Cholecystitis, Pancreatitis, Zoster, this is not meant to be an all-inclusive list. EKG interpreted by me (3pts min.). @ -As above X-rays interpreted by me (1pt min.). @ -Chest x-ray reveals no obvious acute cardiopulmonary process. CT interpreted by me (1pt min.). @ -None done U/S interpreted by me (1pt. min.). @ -None done What testing was considered but not performed or refused? (CT, X-rays, U/S, labs)? Why? @ -None What meds were considered but not given or refused? Why? @ -Consider nitroglycerin for chest pain however patient has no current chest pain. Did you discuss the management of the patient with other professionals (professionals i.e. DrDavid, PA, PEDIATRIC RADIOLOGIST, lab, RT, psych nurse, social psychologist, fulfillment associate, teacher, contract officer, case finisher)? Give summary @ -I spoke with the admitting physician, Dr. Moon who accepted the admission. Was smoking cessation discussed for >3mins.? @ -No Was critical care preformed (if so, how long)? @ -No Were there social determinants of health that impacted care today? How? (Homelessness, low income, unemployed, alcoholism, drug addiction, tra nsportation, low edu. Level, literacy, decrease access to med. care, alf, rehab)? @ -No Was there de-escalation of care discussed even if they declined (Discuss DNR or withdrawal of care, Hospice)? DNR status @ -No What co-morbidities impacted this encounter? (DM, HTN, Smoking, COPD, CAD, Cancer, CVA, ARF, Chemo, Hep., AIDS, mental health diagnosis, sleep apnea, morbid obesity)? @ -Atrial fibrillation on Coumadin Was patient admitted / discharged? Hospital course, mention meds given and rout e, prescriptions, significant lab abnormalities, going to OR and other pertinent info. @ -Based on the patient's presentation and physical exam, presents for intermittent chest pain throughout the day today. Currently does not have any. When it is present it seems to be mostly substernal and a discomfort. Patient is mildly hypertensive here in the department. Presents for further evaluation at this time. Vital signs otherwise within acceptable limits. Currently has no chest pain. Patient received 324 mg of aspirin. We will obtain cardiopulmonary workup. Patient in agreement this plan. EKG shows no signs of acute ischemia.Chest x-ray shows no obvious acute cardiopulmonary process. Patient's laboratory studies remarkable for undetectable troponin, slight subtherapeutic INR of 1.9. Patient is also hypokalemic at 3.4. On reevaluation, patient remains unchanged. Due to her having chest pain, as well as her heart score being moderate I did recommend obtaining serial troponins and admission observation. She was in agreement this plan. Cardiology consulted. I spoke with the admitting physician, Dr. Moon who accepted the admission. Undiagnosed new problem with uncertain prognosis? @ -No Drug Therapy requiring intensive monitoring for toxicity (Heparin, Nitro, Insulin, Cardizem)? @ -No Were any procedures done? @ -No Diagnosis/symptom? @ -Chest pain, hypokalemia Acute, or Chronic, or Acute on Chronic? @ -Acute Uncomplicated (without systemic symptoms) or Complicated (systemic symptoms)? @ -Complicated Side effects of treatment? @ -None Exacerbation, Progression, or Severe Exacerbation] @ -No Poses a threat to life or bodily function? @ -Yes - Lab Data Result diagrams: 11/24/23 21:27 11/24/23 21:27 Lab Results 11/24/23 11/24/23 11/24/23 Range/Units 21:27 21:27 21:27 WBC 7.7 (3.8-10.6) k/uL RBC 4.05 (3.80-5.40) m/uL Hgb 11.6 (11.4-16.0) gm/dL Hct 34.1 (34.0-46.0) % MCV 84.3 (80.0-100.0) fL MCH 28.6 (25.0-35.0) pg MCHC 33.9 (31.0-37.0) g/dL RDW 14.7 (11.5-15.5) % Plt Count 227 (150-450) k/uL MPV 8.1 Neutrophils % 69 % Lymphocytes % 23 % Monocytes % 5 % Eosinophils % 2 % Basophils % 0 % Neutrophils # 5.3 (1.3-7.7) k/uL Lymphocytes # 1.8 (1.0-4.8) k/uL Monocytes # 0.4 (0-1.0) k/uL Eosinophils # 0.1 (0-0.7) k/uL Basophils # 0.0 (0-0.2) k/uL Poikilocytosis Slight PT 18.9 H (10.0-12.5) sec INR 1.9 H (<1.2) APTT 27.3 (22.0-30.0) sec Sodium 138 (137-145) mmol/L Potassium 3.4 L (3.5-5.1) mmol/L Chloride 104 (98-107) mmol/L Carbon Dioxide 25 (22-30) mmol/L Anion Gap 9 mmol/L BUN 20 H (7-17) mg/dL Creatinine 0.79 (0.52-1.04) mg/dL Est GFR (CKD-EPI)AfAm 83 (>60 ml/min/1.73 sqM) Est GFR (CKD-EPI)NonAf 72 (>60 ml/min/1.73 sqM) Glucose 156 H (74-99) mg/dL Calcium 9.1 (8.4-10.2) mg/dL Magnesium 1.6 (1.6-2.3) mg/dL Total Bilirubin 0.4 (0.2-1.3) mg/dL AST 30 (14-36) U/L ALT 25 (4-34) U/L Alkaline Phosphatase 80 (38-126) U/L Troponin I (0.000-0.034) ng/mL Total Protein 6.0 L (6.3-8.2) g/dL Albumin 3.6 (3.5-5.0) g/dL 11/24/23 Range/Units 21:27 WBC (3.8-10.6) k/uL RBC (3.80-5.40) m/uL Hgb (11.4-16.0) gm/dL Hct (34.0-46.0) % MCV (80.0-100.0) fL MCH (25.0-35.0) pg MCHC (31.0-37.0) g/dL RDW (11.5-15.5) % Plt Count (150-450) k/uL MPV Neutrophils % % Lymphocytes % % Monocytes % % Eosinophils % % Basophils % % Neutrophils # (1.3-7.7) k/uL Lymphocytes # (1.0-4.8) k/uL Monocytes # (0-1.0) k/uL Eosinophils # (0-0.7) k/uL Basophils # (0-0.2) k/uL Poikilocytosis PT (10.0-12.5) sec INR (<1.2) APTT (22.0-30.0) sec Sodium (137-145) mmol/L Potassium (3.5-5.1) mmol/L Chloride (98-107) mmol/L Carbon Dioxide (22-30) mmol/L Anion Gap mmol/L BUN (7-17) mg/dL Creatinine (0.52-1.04) mg/dL Est GFR (CKD-EPI)AfAm (>60 ml/min/1.73 sqM) Est GFR (CKD-EPI)NonAf (>60 ml/min/1.73 sqM) Glucose (74-99) mg/dL Calcium (8.4-10.2) mg/dL Magnesium (1.6-2.3) mg/dL Total Bilirubin (0.2-1.3) mg/dL AST (14-36) U/L ALT (4-34) U/L Alkaline Phosphatase (38-126) U/L Troponin I <0.012 (0.000-0.034) ng/mL Total Protein (6.3-8.2) g/dL Albumin (3.5-5.0) g/dL - EKG Data -: EKG Interpreted by Me EKG Comments: 12-lead Electrocardiogram Interpretation Note EKG was reviewed and interpreted by myself. 12-lead ECG performed at 2116 is interpreted by me as revealing normal sinus rhythm with first-degree AV block at a rate of 64 beats per minute. [place] is normal. [place] interval is 259 ms, QRS duration is 119 ms, QTc is 370 ms.. There were no ST or T wave abnormalities to suggest myocardial ischemia or injury. R wave progression across the precordium was satisfactory. By my interpretation this EKG is non-diagnostic for acute ischemia. Disposition Clinical Impression: Chest pain, Hyperkalemia Disposition: ADMITTED IP TO THIS HOSP Condition: Stable Time of Disposition: 22:31
[2023-11-24 22:02] LABS: ALT 25 U/L (4-34); AST 30 U/L (14-36); African American GFR (CKD) 83 (>60 ml/min/1.73 sqM); Albumin 3.6 g/dL (3.5-5.0); Alkaline Phosphatase 80 U/L (38-126); Anion Gap 9 mmol/L; Blood Urea Nitrogen 20 mg/dL (7-17); Calcium 9.1 mg/dL (8.4-10.2); Carbon Dioxide 25 mmol/L (22-30); Chloride 104 mmol/L (98-107); Glucose 156 mg/dL (74-99); Magnesium 1.6 mg/dL (1.6-2.3); Non-African American GFR(CKD) 72 (>60 ml/min/1.73 sqM); Potassium 3.4 mmol/L (3.5-5.1); Sodium 138 mmol/L (137-145); Total Bilirubin 0.4 mg/dL (0.2-1.3)
[2023-11-24 22:30] LABS: INR 1.9 (<1.2); Partial Thromboplastin Time 27.3 sec (22.0-30.0); Prothrombin Time 18.9 sec (10.0-12.5)
[2023-11-24] MEDS ORDERED: NALOXONE 0.4 MG/ML 1 ML VIAL IV PRN (22:32)
[2023-11-24] MEDS ORDERED: ONDANSETRON 4 MG/2 ML VIAL IVP PRN (22:32)
[2023-11-24] MEDS: POTASSIUM CHLORIDE ER 20 MEQ TAB.ER PO STA (22:45)
[2023-11-24] MEDS: LIDOCAINE 4% PATCH TOPICAL STA (22:45)
[2023-11-24] MEDS: ACETAMINOPHEN TAB 500 MG TAB PO STA (22:45)
[2023-11-24] MEDS ORDERED: ALBUTEROL HFA INHALER INHALATION PRN (22:50)
[2023-11-24] MEDS: WARFARIN 2.5 MG TAB PO ONE (23:34)
[2023-11-25] MEDS ORDERED: DILTIAZEM ORAL 30 MG TAB PO PRN (00:01)
[2023-11-25] MEDS ORDERED: ALPRAZolam 0.25 MG TAB PO PRN (00:01)
[2023-11-25] MEDS: ALBUTEROL NEBULIZED 2.5 MG/3 ML INHALATION PRN (00:11)
[2023-11-25 03:32] LABS: ALT 21 U/L (4-34); AST 28 U/L (14-36); African American GFR (CKD) >90 (>60 ml/min/1.73 sqM); Albumin 3.3 g/dL (3.5-5.0); Alkaline Phosphatase 68 U/L (38-126); Anion Gap 4 mmol/L; Blood Urea Nitrogen 16 mg/dL (7-17); Calcium 8.9 mg/dL (8.4-10.2); Carbon Dioxide 26 mmol/L (22-30); Chloride 109 mmol/L (98-107); Glucose 152 mg/dL (74-99); Non-African American GFR(CKD) 84 (>60 ml/min/1.73 sqM); Potassium 3.5 mmol/L (3.5-5.1); Sodium 139 mmol/L (137-145); Total Bilirubin 0.5 mg/dL (0.2-1.3); Total Protein 5.7 g/dL (6.3-8.2)
[2023-11-25 03:35] LABS: Basophils % (A) 1 %; Eosinophils # (A) 0.2 k/uL (0-0.7); Eosinophils % (A) 2 %; HCT 33.6 % (34.0-46.0); HGB 11.5 gm/dL (11.4-16.0); Lymphocytes # (A) 2.4 k/uL (1.0-4.8); Lymphocytes % (A) 30 %; MCH 28.9 pg (25.0-35.0); MCHC 34.3 g/dL (31.0-37.0); MCV 84.4 fL (80.0-100.0); Mean Platelet Volume 8.3; Monocytes # (A) 0.4 k/uL (0-1.0); Monocytes % (A) 5 %; Neutrophils # (A) 4.8 k/uL (1.3-7.7); Neutrophils % (A) 61 %; Platelet Count 226 k/uL (150-450); Poikilocytosis Slight; RBC 3.98 m/uL (3.80-5.40); RDW 14.8 % (11.5-15.5); WBC 7.9 k/uL (3.8-10.6)
[2023-11-25] MEDS: LEVOTHYROXINE 100 MCG TAB PO SCH (06:19)
[2023-11-25] MEDS ORDERED: WARFARIN 5 MG TAB PO SCH (09:00)
[2023-11-25] MEDS: FLECAINIDE 50 MG TAB PO SCH (09:53)
[2023-11-25] MEDS: oxyBUTYnin chloride 5 MG TAB PO SCH (10:19)
[2023-11-25] MEDS: TRIAMTERENE-HCTZ 37.5-25MG 1 EACH CAP PO SCH (10:20)
[2023-11-25] MEDS: SOTALOL 80 MG TAB PO SCH (10:21)
[2023-11-25 10:28] VITALS: RESP 18; TEMP 97.9
[2023-11-25] MEDS: LOSARTAN 25 MG TAB PO SCH (10:34)
--- NOTE | 2023-11-25 11:05 | CONS ---
CONSULTATION CHIEF COMPLAINT: Chest pain. HISTORY OF PRESENT ILLNESS: Adelaida is an 78-year-old lady with history of paroxysmal atrial fibrillation, hypertension, who presented to the hospital with progressively worsening anxiety at home, associated with elevated blood pressures, shortness of breath, and some chest tightness. Her predominant symptom is the anxiety that she has been through as she just started driving after her knee injury and surgery. She was already scheduled to undergo an outpatient stress test in my office tomorrow. At the time of my evaluation, she appears comfortable at rest, unfortunately, had already been fed breakfast. Three sets of troponins are negative. INR is 1.9. EKG did not reveal ischemic changes. The chest discomfort is atypical, probably noncardiac, and from my standpoint, she is stable for discharge. I will add losartan 25 mg daily for better blood pressure control. PAST MEDICAL HISTORY: Significant for paroxysmal atrial fibrillation, hypertension, dyslipidemia. ALLERGIES: She has multiple drug allergies. MEDICATIONS: At home include; 1. Dyazide. 2. Coumadin. 3. Flecainide. 4. Cardizem. 5. Synthroid. 6. Proventil. 7. Ventolin. PHYSICAL EXAMINATION: NECK: There is no jugular venous distention. Carotid upstroke is normal. There is no bruit. CHEST: Reveals good air entry bilaterally. HEART: Reveals first and second heart sounds. No gallop. No murmur. No rub. ABDOMEN: Soft, nontender. EXTREMITIES: Did not reveal any edema. Peripheral pulses are felt. LABORATORY DATA: Three sets of cardiac enzymes are negative. Labs are unremarkable. ASSESSMENT AND PLAN: 1. Atypical chest pain. 2. Paroxysmal atrial fibrillation. The patient received Betapace this morning, but not sure why this was started. The patient was on flecainide at home, which I am going to resume upon discharge and she does not require any further sotalol. MMODL / IJN: [id number] /
[2023-11-25 13:22] VITALS: BP 135/63; PULSE 57
--- NOTE | 2023-11-25 17:03 | P.HPIM ---
History of Present Illness H&P Date: 11/25/23 Chief Complaint: High blood pressure This is a pleasant 78-year-old patient who follows with Dr. Larios. 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 Chronic stable medical conditions include atrial fibrillation, asthma, diabetes, hypertension, osteoarthritis, hypothyroid, kidney stones, rosacea,. Patient presents with elevated blood pressure. Patient also had pain in the left shoulder from recent accident. Had minimal chest discomfort. No dizziness no lightheadedness. No cough no fever no chills. Review of systems: GEN.: Tired EYES: None HEENT: None NECK: None RESPIRATORY: None CARDIOVASCULAR: None GASTROINTESTINAL: None GENITOURINARY: None MUSCULOSKELETAL: Some joint pains including left shoulder LYMPHATICS: None HEMATOLOGICAL: None PSYCHIATRY: None NEUROLOGICAL: None Social history: . No smoking no alcohol. Physical examination: VITAL SIGNS: 98.1, 66, 18, 200/83, 96% room air-upon presentation GENERAL: BMI 41.3, sitting at the edge of the bed awake not in distress. EYES: Pupils equal. Conjunctiva prakash l. HEENT: External appearance of nose and ears normal, oral cavity grossly normal. NECK: JVD not raised; masses not palpable. HEART: First and second heart sounds are normal; no edema. LUNGS: Respiratory rate normal; clear to auscultation. ABDOMEN: Soft, nontender, liver spleen not palpable, no masses palpable. PSYCH: Alert and oriented x3; mood and affect prakash l. MUSCULOSKELETAL:No Clubbing/cyanosis;muscles-grossly intact. OA NEUROLOGICAL: Cranial nerves grossly intact; no facial asymmetry, power and sensation grossly intact. LYMPHATICS: No lymph nodes palpable in the axilla and neck INVESTIGATIONS, reviewed in the clinical context: November 24: White count 7.9 hemoglobin 11.5 sodium 139 potassium 3.5 creatinine 0.66 INR 1.9 EKG tracing personally reviewed by me-normal sinus rhythm's. Some nonspecific ST-T wave changes in inferior leads. Chest x-ray film personally reviewed by me-nonspecific Assessment and plan: -Essential hypertension uncontrolled To home medication losartan has been added. Diuretics. Blood pressure better this morning -Anterior chest wall pain. Rule out cardiac ischemia Cardiology is consulted. Patient is due to see Dr. Ozzie Campos in the office tomorrow. -Intermittent asthma Albuterol as needed -Hypothyroid Synthroid 100 mcg a day -Hyperlipidemia Pravachol 40 mg nightly -Chronic urinary incontinence Ditropan 5 mg twice daily -Paroxysmal atrial fibrillation Coumadin. Cardizem as needed. -Morbid obesity BMI 41.3 Weight loss measures -Primary osteoarthritis Pain medications as needed Home medications resumed. Cardiology consulted. Care was discussed with the patient and family at the bedside. Patient's blood pressure is better this morning. Past Medical History Past Medical History: Atrial Fibrillation, Asthma, Cancer, Diabetes Mellitus, Hypertension, Osteoarthritis (OA), Thyroid Disorder Additional Past Medical History / Comment(s): freq diarrhea,states [id number]-ihrm controlled, hypothyroidism,rt knee pain, hx kidney stone, rosacea., chronic sinusitis., uterine cancer with radiation tx (may 2017). History of Any Multi-Drug Resistant Organisms: None Reported Past Surgical History: Cholecystectomy, Heart Catheterization, Hysterectomy, Tonsillectomy Additional Past Surgical History / Comment(s): R sided kidney stone surgery, cervical surgery-cone, back pain procedure, colonoscopy Past Anesthesia/Blood Transfusion Reactions: Previous Problems w/ Anesthesia Additional Past Anesthesia/Blood Transfusion Reaction / Comment(s): - DIFFICULT INTUBATION- STATES SHE WAS TOLD SHE NEEDS A GLIDESCOPE.,no problems with prior blood transfusions in 2017 Past Psychological History: Anxiety Smoking Status: Never smoker Past Alcohol Use History: None Reported Past Drug Use History: None Reported - Past Family History Sister(s) Family Medical History: Cancer Additional Family Medical History / Comment(s): pancreatic cancer Brother(s) Family Medical History: Cancer Additional Family Medical History / Comment(s): brain cancer Father Family Medical History: Coronary Artery Disease (CAD), CVA/TIA, Hypertension Additional Family Medical History / Comment(s): Father had CABG. He at age 86yrs Mother Family Medical History: Coronary Artery Disease (CAD), Diabetes Mellitus, Hypertension Additional Family Medical History / Comment(s): Mother at age 69yrs. Medications and Allergies Home Medications Medication Instructions Recorded Confirmed Type ALPRAZolam [Xanax] 0.25 mg PO BID PRN 06/19/15 11/24/23 History Montelukast [Singulair] 10 mg PO HS 06/19/15 11/24/23 History Pravastatin Sodium [Pravachol] 40 mg PO W/SUPPER 06/19/15 11/24/23 History Levothyroxine Sodium [Synthroid] 100 mcg PO DAILY 06/04/17 11/24/23 History Acetaminophen [Tylenol] 1,000 mg PO Q6H PRN 10/07/17 11/24/23 History Albuterol Sulfate [Proventil Hfa] 2 puff INHALATION RT-Q6H PRN 12/14/17 11/24/23 History Albuterol Nebulized [Ventolin 2.5 mg INHALATION RT-QID PRN 04/19/21 11/24/23 History Nebulized] oxyBUTYnin chloride [Ditropan] 5 mg PO BID 04/19/21 11/24/23 History Diltiazem Oral [Cardizem*] 30 mg PO QID PRN 11/24/23 11/24/23 History Flecainide [Tambocor] 50 mg PO Q12HR 11/24/23 11/24/23 History Fluticasone Nasal [place] [Flonase 1 spray EA NOSTRIL DAILY PRN 11/24/23 11/24/23 History Nasal [place]] L.acidoph,Paracasei, B.lactis 1 cap PO DAILY 11/24/23 11/24/23 History [Probiotic] Loratadine 10 mg PO DAILY PRN 11/24/23 11/24/23 History Triamterene/Hydrochlorothiazid 1 cap PO DAILY 11/24/23 11/24/23 History [Triamterene-Hctz 37.5-25 mg Cp] Warfarin [Coumadin] 2.5 mg PO DAILY 11/24/23 11/24/23 History metroNIDAZOLE 1% GEL [Metrogel 1%] 1 applic TOPICAL DAILY PRN 11/24/23 11/24/23 History Losartan [Cozaar] 25 mg PO DAILY #30 tab 11/25/23 Rx Allergies Allergy/AdvReac Type Severity Reaction Status Date / Time adhesive Allergy Rash/Hives Verified 11/24/23 23:23 budesonide [From Symbicort] Allergy Rash/Hives Verified 11/24/23 23:23 formoterol fumarate Allergy Rash/Hives Verified 11/24/23 23:23 [From Symbicort] naproxen sodium [From Aleve] Allergy Rash/Hives Verified 11/24/23 23:23 niacin Allergy Rapid Verified 11/24/23 23:23 Heart Rate Penicillins Allergy Rash/Hives Verified 11/24/23 23:23 prednisone Allergy Rash/Hives/Shortness Verified 11/24/23 23:23 of Breath Sulfa (Sulfonamide Allergy Rash/Hives Verified 11/24/23 23:23 Antibiotics) aspirin AdvReac Unknown Verified 11/24/23 23:23 codeine AdvReac Abdominal Verified 11/24/23 23:23 Pain levofloxacin [From Levaquin] AdvReac Chest Pain Verified 11/24/23 23:23 moxifloxacin HCl AdvReac Rapid Verified 11/24/23 23:23 [From Avelox] Heart Rate ondansetron [From Zofran] AdvReac Constipatio Verified 11/24/23 23:23 n maxzide(takes Dyazide) AdvReac See Uncoded 11/24/23 21:18 Comments Physical Exam Vitals: Vital Signs Temp Pulse Pulse Resp BP BP Pulse Ox 11/25/23 09:11 148/60 11/25/23 02:00 65 16 141/68 96 11/25/23 00:17 84 11/25/23 00:13 79 11/24/23 22:39 73 18 147/70 96 11/24/23 22:12 73 18 162/75 97 11/24/23 21:53 71 18 191/77 96 11/24/23 21:20 69 70 18 193/81 96 11/24/23 21:15 98.1 F 66 18 200/83 96 Intake and Output 11/24/23 11/25/23 11/25/23 22:59 06:59 14:59 Other: Voiding Method Bedside Commode # Voids 2 Weight 105.687 kg Results CBC & Chem 7: 11/25/23 03:02 11/25/23 03:02 Labs: Abnormal Lab Results - Last 24 Hours (Table) 11/24/23 11/24/23 11/25/23 Range/Units 21:27 21:27 03:02 Hct 33.6 L (34.0-46.0) % PT 18.9 H (10.0-12.5) sec INR 1.9 H (<1.2) Potassium 3.4 L (3.5-5.1) mmol/L Chloride (98-107) mmol/L BUN 20 H (7-17) mg/dL Glucose 156 H (74-99) mg/dL Total Protein 6.0 L (6.3-8.2) g/dL Albumin (3.5-5.0) g/dL 11/25/23 Range/Units 03:02 Hct (34.0-46.0) % PT (10.0-12.5) sec INR (<1.2) Potassium (3.5-5.1) mmol/L Chloride 109 H (98-107) mmol/L BUN (7-17) mg/dL Glucose 152 H (74-99) mg/dL Total Protein 5.7 L (6.3-8.2) g/dL Albumin 3.3 L (3.5-5.0) g/dL
--- NOTE | 2023-11-25 17:06 | P.DS ---
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 Chronic stable medical conditions include atrial fibrillation, asthma, diabetes, hypertension, osteoarthritis, hypothyroid, kidney stones, rosacea,. Patient presents with elevated blood pressure. Patient also had pain in the left shoulder from recent accident. Had minimal chest discomfort. No dizziness no lightheadedness. No cough no fever no chills. November 24: Patient blood pressure better this morning. Losartan was added. Confirmed with cardiology. Patient to continue with Tambocor. Sotalol that was discontinued in September not to be continued. Patient is due to follow-up with Dr. Ozzie Campos in the office tomorrow. For a stress test. Social history: . No smoking no alcohol. Physical examination: VITAL SIGNS: 97.9, 57, 18, 135 x 63, 100 room air GENERAL: BMI 41.3, sitting at the edge of the bed awake not in distress. EYES: Pupils equal. Conjunctiva prkaash l. HEENT: External appearance of nose and ears normal, oral cavity grossly normal. NECK: JVD not raised; masses not palpable. HEART: First and second heart sounds are normal; no edema. LUNGS: Respiratory rate normal; clear to auscultation. ABDOMEN: Soft, nontender, liver spleen not palpable, no masses palpable. PSYCH: Alert and oriented x3; mood and affect prakash l. MUSCULOSKELETAL:No Clubbing/cyanosis;muscles-grossly intact. OA NEUROLOGICAL: Cranial nerves grossly intact; no facial asymmetry, power and sensation grossly intact. LYMPHATICS: No lymph nodes palpable in the axilla and neck INVESTIGATIONS, reviewed in the clinical context: November 24: White count 7.9 hemoglobin 11.5 sodium 139 potassium 3.5 creatinine 0.66 INR 1.9 EKG tracing personally reviewed by me-normal sinus rhythm's. Some nonspecific ST-T wave changes in inferior leads. Chest x-ray film personally reviewed by me-nonspecific Assessment and plan: -Essential hypertension uncontrolled, upon presentation To home medication losartan has been added. Diuretics. Blood pressure better this morning -Anterior chest wall pain. Rule out cardiac ischemia Cardiology is consulted. Seen by Dr. Ozzie Campos. Will follow-up in the office tomorrow. -Intermittent asthma Albuterol as needed -Hypothyroid Synthroid 100 mcg a day -Hyperlipidemia Pravachol 40 mg nightly -Chronic urinary incontinence Ditropan 5 mg twice daily -Paroxysmal atrial fibrillation Coumadin. Cardizem as needed. -Morbid obesity BMI 41.3 Weight loss measures -Primary osteoarthritis Pain medications as needed Disposition: Home Past Medical History Past Medical History: Atrial Fibrillation, Asthma, Cancer, Diabetes Mellitus, Hypertension, Osteoarthritis (OA), Thyroid Disorder Additional Past Medical History / Comment(s): freq diarrhea,states pui-iuaxszzd-igny controlled, hypothyroidism,rt knee pain, hx kidney stone, rosacea., chronic sinusitis., uterine cancer with radiation tx (may 2017). History of Any Multi-Drug Resistant Organisms: None Reported Past Surgical History: Cholecystectomy, Heart Catheterization, Hysterectomy, Tonsillectomy Additional Past Surgical History / Comment(s): R sided kidney stone surgery, cervical surgery-cone, back pain procedure, colonoscopy Past Anesthesia/Blood Transfusion Reactions: Previous Problems w/ Anesthesia Additional Past Anesthesia/Blood Transfusion Reaction / Comment(s): - DIFFICULT INTUBATION- STATES SHE WAS TOLD SHE NEEDS A GLIDESCOPE.,no problems with prior blood transfusions in 2017 Past Psychological History: Anxiety Smoking Status: Never smoker Past Alcohol Use History: None Reported Past Drug Use History: None Reported Patient Condition at Discharge: Stable Plan - Discharge Summary New Discharge Prescriptions: New Losartan [Cozaar] 25 mg PO DAILY #30 tab Continue Pravastatin Sodium [Pravachol] 40 mg PO W/SUPPER Montelukast [Singulair] 10 mg PO HS ALPRAZolam [Xanax] 0.25 mg PO BID PRN PRN Reason: Anxiety Levothyroxine Sodium [Synthroid] 100 mcg PO DAILY Acetaminophen [Tylenol] 1,000 mg PO Q6H PRN PRN Reason: Pain Albuterol Sulfate [Proventil Hfa] 2 puff INHALATION RT-Q6H PRN PRN Reason: Shortness Of Breath oxyBUTYnin chloride [Ditropan] 5 mg PO BID Triamterene/Hydrochlorothiazid [Triamterene-Hctz 37.5-25 mg Cp] 1 cap PO DAILY Loratadine 10 mg PO DAILY PRN PRN Reason: Allergy Symptoms Flecainide [Tambocor] 50 mg PO Q12HR Albuterol Nebulized [Ventolin Nebulized] 2.5 mg INHALATION RT-QID PRN PRN Reason: Shortness Of Breath Fluticasone Nasal [place] [Flonase Nasal [place]] 1 spray EA NOSTRIL DAILY PRN PRN Reason: Allergy Symptoms metroNIDAZOLE 1% GEL [Metrogel 1%] 1 applic TOPICAL DAILY PRN PRN Reason: skin issues Warfarin [Coumadin] 2.5 mg PO DAILY Diltiazem Oral [Cardizem*] 30 mg PO QID PRN PRN Reason: Tachyarrhythmias/Afib L.acidoph,Paracasei, B.lactis [Probiotic] 1 cap PO DAILY Discontinued Ibuprofen [Motrin] 800 mg PO Q8H PRN PRN Reason: Pain Or Fever > 100.5 Discharge Medication List ALPRAZolam [Xanax] 0.25 mg PO BID PRN 06/19/15 [History] Montelukast [Singulair] 10 mg PO HS 06/19/15 [History] Pravastatin Sodium [Pravachol] 40 mg PO W/SUPPER 06/19/15 [History] Levothyroxine Sodium [Synthroid] 100 mcg PO DAILY 06/04/17 [History] Acetaminophen [Tylenol] 1,000 mg PO Q6H PRN 10/07/17 [History] Albuterol Sulfate [Proventil Hfa] 2 puff INHALATION RT-Q6H PRN 12/14/17 [History] Albuterol Nebulized [Ventolin Nebulized] 2.5 mg INHALATION RT-QID PRN 04/19/21 [History] oxyBUTYnin chloride [Ditropan] 5 mg PO BID 04/19/21 [History] Diltiazem Oral [Cardizem*] 30 mg PO QID PRN 11/24/23 [History] Flecainide [Tambocor] 50 mg PO Q12HR 11/24/23 [History] Fluticasone Nasal [place] [Flonase Nasal [place]] 1 spray EA NOSTRIL DAILY PRN 11/24/23 [History] L.acidoph,Paracasei, B.lactis [Probiotic] 1 cap PO DAILY 11/24/23 [History] Loratadine 10 mg PO DAILY PRN 11/24/23 [History] Triamterene/Hydrochlorothiazid [Triamterene-Hctz 37.5-25 mg Cp] 1 cap PO DAILY 11/24/23 [History] Warfarin [Coumadin] 2.5 mg PO DAILY 11/24/23 [History] metroNIDAZOLE 1% GEL [Metrogel 1%] 1 applic TOPICAL DAILY PRN 11/24/23 [History] Losartan [Cozaar] 25 mg PO DAILY #30 tab 11/25/23 [Rx] Follow up Appointment(s)/Referral(s): David Larios MD [Primary Care Provider] - 1-2 days Shahram Campos MD [STAFF PHYSICIAN] - 1 Week (Please call office to make appointment.) Patient Instructions/Handouts: Angina (DC), Hyperkalemia (DC) Discharge Disposition: HOME SELF-CARE
[2023-11-25 17:30] LABS: INR 1.86 sec (0.93-1.11); Prothrombin Time 19.3 sec (9.9-11.9)
[2023-11-25] MEDS ORDERED: PRAVASTATIN SODIUM 40 MG TAB PO SCH (17:30)
[2023-11-25] MEDS ORDERED: WARFARIN 2.5 MG TAB PO SCH (18:00)
[2023-11-25] MEDS ORDERED: MONTELUKAST 10 MG TAB PO SCH (21:00)
[2023-11-28] MEDS ORDERED: WARFARIN 5 MG TAB PO SCH (18:00)
== END 2023-11-25 13:00 | disposition home or self-care (01) ==
LOC: EC 21:12 → 6NMEDSUR 22:34
PROVIDERS: ADMIT Hospitalist; ATTEND Hospitalist
DX: R07.89 Other chest pain (principal); E87.5 Hyperkalemia; I48.0 Paroxysmal atrial fibrillation; E11.9 Type 2 diabetes mellitus without complications; I10 Essential (primary) hypertension; E03.9 Hypothyroidism, unspecified; F41.9 Anxiety disorder, unspecified; E78.5 Hyperlipidemia, unspecified; J45.20 Mild intermittent asthma, uncomplicated; R32 Unspecified urinary incontinence; M19.91 Primary osteoarthritis, unspecified site; E66.01 Morbid (severe) obesity due to excess calories; Z68.41 Body mass index [BMI] 40.0-44.9, adult; Z85.42 Personal history of malignant neoplasm of other parts of uterus; Z79.01 Long term (current) use of anticoagulants; Z79.899 Other long term (current) drug therapy; Z79.890 Hormone replacement therapy; Z88.0 Allergy status to penicillin; Z88.2 Allergy status to sulfonamides; Z88.5 Allergy status to narcotic agent; Z88.6 Allergy status to analgesic agent
CPT/HCPCS: 96361; 96374; 99285; 36415; 94640; 93005; 80053 ×2; 83735; 84484 ×2; 85025 ×2; 85610 ×2; 85730; 71046; G0378 ×3; J0360

== ENCOUNTER 2024-11-24 00:08 | Emergency (ER) | payer MEDICARE ==
[2024-11-24 00:13] VITALS: TEMP 97.7
[2024-11-24] MEDS: SODIUM CHLORIDE 0.9% 1,000 ML IV STA (01:11)
[2024-11-24 01:22] VITALS: RESP 17
[2024-11-24 01:27] LABS: Basophils % (A) 0 %; Eosinophils # (A) 0.3 k/uL (0-0.7); Eosinophils % (A) 4 %; HCT 35.7 % (34.0-46.0); Lymphocytes # (A) 2.2 k/uL (1.0-4.8); Lymphocytes % (A) 27 %; MCH 27.9 pg (25.0-35.0); MCHC 33.7 g/dL (31.0-37.0); MCV 82.8 fL (80.0-100.0); Mean Platelet Volume 7.8; Monocytes # (A) 0.6 k/uL (0-1.0); Monocytes % (A) 7 %; Neutrophils % (A) 61 %; Platelet Count 246 k/uL (150-450); RBC 4.32 m/uL (3.80-5.40); RDW 14.4 % (11.5-15.5); WBC 8.3 k/uL (3.8-10.6)
[2024-11-24 01:36] LABS: ALT 22 U/L (4-34); AST 25 U/L (14-36); African American GFR (CKD) 79 (>60 ml/min/1.73 sqM); Albumin 3.7 g/dL (3.5-5.0); Alkaline Phosphatase 83 U/L (38-126); Anion Gap 10 mmol/L; Blood Urea Nitrogen 19 mg/dL (7-17); Calcium 9.8 mg/dL (8.4-10.2); Carbon Dioxide 27 mmol/L (22-30); Chloride 96 mmol/L (98-107); Glucose 156 mg/dL (74-99); Magnesium 1.7 mg/dL (1.6-2.3); Non-African American GFR(CKD) 69 (>60 ml/min/1.73 sqM); Sodium 133 mmol/L (137-145); Total Bilirubin 0.6 mg/dL (0.2-1.3); Total Protein 6.3 g/dL (6.3-8.2)
[2024-11-24 01:47] LABS: INR 2.4 (<1.2); Partial Thromboplastin Time 27.7 sec (22.0-30.0); Prothrombin Time 23.9 sec (10.0-12.5)
--- NOTE | 2024-11-24 01:49 | XR ---
EXAM: XR Chest, 2 Views CLINICAL HISTORY: ITS.REASON XR Reason: Chest Pain TECHNIQUE: Frontal and lateral views of the chest. COMPARISON: Prior chest x-ray from November 07, 2024. FINDINGS: Lungs: Mild to moderate peribronchial thickening in the central and lower lobe bronchi. There is a patchy opacity in the right lower lobe. No consolidation. Pleural space: There is blunting of left costophrenic angle. No pneumothorax. Heart: Unremarkable. No cardiomegaly. Mediastinum: Unremarkable. Normal mediastinal contour. Bones/joints: Unremarkable. No acute fracture. IMPRESSION: Bronchitis with developing infiltrate in the right lower lobe. <MYCVCSECTION> Communications: 11/24/24 01:51 Verify Receipt Verified receipt with [facility] in ER for Dr. Harding on 11/24 01:51 (-05:00)
--- NOTE | 2024-11-24 02:46 | ED ---
Recheck HPI - General Chief Complaint: Recheck/Abnormal Lab/Rx Stated Complaint: chest pain elevated BP Time Seen by Provider: 11/24/24 00:10 Source: patient Mode of arrival: ambulatory Limitations: no limitations - History of Present Illness Initial Comments: 79-year-old female presents emergency department stating that she took her nighttime and morning doses of her medications. She typically takes her nighttime dose and then will walk upstairs with her daytime dose so that way when she wakes up in the morning she can take the medication right away. States that she was not thinking and ended up swallowing both sets of pills. She does have a history of A-fib. She took 2 doses of her flecainide and 2 doses of her Ditropan. This was around 10 PM. When she realized what she did she started having pressure over the left side of her chest. She felt mildly short of breath. Decided to come into the emergency department for evaluation. Does a dmit to dry mouth. No nausea or vomiting. States that she tried to make herself throw up however did not work. She denies any lightheadedness or near syncope. No numbness, tingling or weakness in her extremities. No other alleviating, precipitating or modifying factors - Related Data Home Medications Medication Instructions Recorded Confirmed ALPRAZolam [Xanax] 0.25 mg PO BID PRN 06/19/15 11/07/24 Montelukast [Singulair] 10 mg PO HS 06/19/15 11/07/24 Pravastatin Sodium [Pravachol] 40 mg PO W/SUPPER 06/19/15 11/07/24 Levothyroxine Sodium [Synthroid] 100 mcg PO DAILY 06/04/17 11/07/24 Acetaminophen [Tylenol] 1,000 mg PO Q6H PRN 10/07/17 11/07/24 Albuterol Sulfate [Proventil Hfa] 2 puff INHALATION RT-Q6H PRN 12/14/17 11/07/24 Albuterol Nebulized [Ventolin 2.5 mg INHALATION RT-QID PRN 04/19/21 11/07/24 Nebulized] oxyBUTYnin chloride [Ditropan] 5 mg PO BID 04/19/21 11/07/24 Flecainide [Tambocor] 50 mg PO Q12HR 11/24/23 11/07/24 Fluticasone Nasal [place] [Flonase 1 spray EA NOSTRIL DAILY PRN 11/24/23 11/07/24 Nasal [place]] L.acidoph,Paracasei, B.lactis 1 cap PO DAILY 11/24/23 11/07/24 [Probiotic] Loratadine 10 mg PO DAILY PRN 11/24/23 11/07/24 Triamterene/Hydrochlorothiazid 1 cap PO DAILY 11/24/23 11/07/24 [Triamterene-Hctz 37.5-25 mg Cp] Warfarin [Coumadin] 2.5 mg PO SUTUTHSA@209911/24/23 11/07/24 metroNIDAZOLE 1% GEL [Metrogel 1%] 1 applic TOPICAL DAILY PRN 11/24/23 11/07/24 Calcium Carb/Mag Ox/Zinc Sulf 1 tab PO TID 11/07/24 11/07/24 [Lyh-Fvh-Npvf 334-134-5 mg Tab] Cholecalciferol [Vitamin D3 (125 125 mcg PO DAILY 11/07/24 11/07/24 Mcg = 5000 Iu)] Fluticasone Propionate 220 Mcg 2 puff INHALATION RT-BID PRN 11/07/24 11/07/24 [Flovent 220 Mcg Inhaler] Ibuprofen [Motrin] 800 mg PO Q8H PRN 11/07/24 11/07/24 Magnesium Gummies 100 mg PO DAILY 11/07/24 11/07/24 Warfarin [Coumadin] 5 mg PO MOWEFR@209911/07/24 11/07/24 Previous Rx's Medication Instructions Recorded Losartan [Cozaar] 25 mg PO DAILY #30 tab 11/25/23 Cyclobenzaprine [Flexeril] 5 mg PO TID #20 tab 11/07/24 Ketorolac [Toradol] 10 mg PO Q8HR #15 tab 11/07/24 Allergies Allergy/AdvReac Type Severity Reaction Status Date / Time adhesive Allergy Rash/Hives Verified 11/24/24 00:13 budesonide [From Symbicort] Allergy Rash/Hives Verified 11/24/24 00:13 formoterol fumarate Allergy Rash/Hives Verified 11/24/24 00:13 [From Symbicort] naproxen sodium [From Aleve] Allergy Rash/Hives Verified 11/24/24 00:13 niacin Allergy Rapid Verified 11/24/24 00:13 Heart Rate Penicillins Allergy Rash/Hives Verified 11/24/24 00:13 prednisone Allergy Rash/Hives/Shortness Verified 11/24/24 00:13 of Breath Sulfa (Sulfonamide Allergy Rash/Hives Verified 11/24/24 00:13 Antibiotics) aspirin AdvReac Unknown Verified 11/24/24 00:13 baclofen AdvReac "pees Verified 11/24/24 00:13 pants" codeine AdvReac Abdominal Verified 11/24/24 00:13 Pain levofloxacin [From Levaquin] AdvReac Chest Pain Verified 11/24/24 00:13 moxifloxacin HCl AdvReac Rapid Verified 11/24/24 00:13 [From Avelox] Heart Rate ondansetron [From Zofran] AdvReac Constipatio Verified 11/24/24 00:13 n maxzide(takes Dyazide) AdvReac See Uncoded 11/24/24 00:13 Comments Review of Systems ROS Statement: Those systems with pertinent positive or pertinent negative responses have been documented in the HPI. ROS Other: All systems not noted in ROS Statement are negative. Past Medical History Past Medical History: Atrial Fibrillation, Asthma, Cancer, Diabetes Mellitus, Hypertension, Osteoarthritis (OA), Thyroid Disorder Additional Past Medical History / Comment(s): freq diarrhea,states efo-opoelqav-rzer controlled, hypothyroidism,rt knee pain, hx kidney stone, rosacea., chronic sinusitis., uterine cancer with radiation tx (may 2017). History of Any Multi-Drug Resistant Organisms: None Reported Past Surgical History: Cholecystectomy, Heart Catheterization, Hysterectomy, Tonsillectomy Additional Past Surgical History / Comment(s): R sided kidney stone surgery, cervical surgery-cone, back pain procedure, colonoscopy Past Anesthesia/Blood Transfusion Reactions: Previous Problems w/ Anesthesia Additional Past Anesthesia/Blood Transfusion Reaction / Comment(s): - DIFFICULT INTUBATION- STATES SHE WAS TOLD SHE NEEDS A GLIDESCOPE.,no problems with prior blood transfusions in 2017 Past Psychological History: Anxiety Smoking Status: Never smoker Past Alcohol Use History: None Reported Past Drug Use History: None Reported - Past Family History Sister(s) Family Medical History: Cancer Additional Family Medical History / Comment(s): pancreatic cancer Brother(s) Family Medical History: Cancer Additional Family Medical History / Comment(s): brain cancer Father Family Medical History: Coronary Artery Disease (CAD), CVA/TIA, Hypertension Additional Family Medical History / Comment(s): Father had CABG. He at age 86yrs Mother Family Medical History: Coronary Artery Disease (CAD), Diabetes Mellitus, Hypertension Additional Family Medical History / Comment(s): Mother at age 69yrs. General Exam Limitations: no limitations General appearance: alert, in no apparent distress Head exam: Present: atraumatic, normocephalic, normal inspection Eye exam: Present: normal appearance, PERRL, EOMI. Absent: scleral icterus, conjunctival injection, periorbital swelling ENT exam: Present: normal exam, mucous membranes moist Neck exam: Present: normal inspection. Absent: tenderness, meningismus, l ymphadenopathy Respiratory exam: Present: normal lung sounds bilaterally. Absent: respiratory distress, wheezes, rales, rhonchi, stridor Cardiovascular Exam: Present: regular rate, normal rhythm, normal heart sounds. Absent: systolic murmur, diastolic murmur, rubs, gallop, clicks GI/Abdominal exam: Present: soft, normal bowel sounds. Absent: distended, tenderness, guarding, rebound, rigid Extremities exam: Present: normal inspection, full ROM, normal capillary refill. Absent: tenderness, pedal edema, joint swelling, calf tenderness Back exam: Present: normal inspection Neurological exam: Present: alert, oriented X3, CN II-XII intact Psychiatric exam: Present: normal affect, normal mood Skin exam: Present: warm, dry, intact, normal color. Absent: rash Course Vital Signs 11/24/24 11/24/24 11/24/24 00:09 01:18 02:58 Temperature 97.7 F Pulse Rate 85 80 86 Respiratory 18 17 17 Rate Blood Pressure 192/83 156/74 140/73 O2 Sat by Pulse 95 96 95 Oximetry Medical Decision Making - Medical Decision Making Was pt. sent in by a medical professional or institution (, PA, MEDICAL ASSISTANT CARDIOLOGY, urgent care, hospital, or assisted...) When possible be specific @ -No Did you speak to anyone other than the patient for history (EMS, parent, family, police, friend...)? What history was obtained from this source @ -No Did you review nursing and triage notes (agree or disagree)? Why? @ -I reviewed and agree with nursing and triage notes Were old charts reviewed (outside hosp., previous admission, EMS record, old EKG, old radiological studies, urgent care reports/EKG's, assisted records)? Report findings @ -No old charts were reviewed Differential Diagnosis (chest pain, altered mental status, abdominal pain women, abdominal pain men, vaginal bleeding, weakness, fever, dyspnea, syncope, headache, dizziness, GI bleed, back pain, seizure, CVA, palpatations, mental health, musculoskeletal)? @ -Differential Chest Pain: Stable Angina, Unstable Angina, STEMI, NSTEMI Aortic Dissection, Pneumothorax, Musculoskeletal, Esophageal Spasm GERD, Cholecystitis, Pancreatitis, Zoster, this is not meant to be an all-inclusive list. EKG interpreted by me (3pts min.). @ -Yes and demonstrates sinus rhythm with a rate of 80. AK interval 247. QRS 120. QTc of 454. No acute ST segment elevations or depressions X-rays interpreted by me (1pt min.). @ -Yes which demonstrates no acute process CT interpreted by me (1pt min.). @ -None done U/S interpreted by me (1pt. min.). @ -None done What testing was considered but not performed or refused? (CT, X-rays, U/S, labs)? Why? @ -None What meds were considered but not given or refused? Why? @ -None Did you discuss the management of the patient with other professionals (professionals i.e. , PA, MEDICAL ASSISTANT CARDIOLOGY, lab, RT, psych nurse, social media designer, animal treatment investigator, teacher, foreign service officer, behavioral health case manager)? Give summary @ -No Was smoking cessation discussed for >3mins.? @ -No Was critical care preformed (if so, how long)? @ -No Were there social determinants of health that impacted care today? How? (Homelessness, low income, unemployed, alcoholism, drug addiction, transportation, low edu. Level, literacy, decrease access to med. care, skilled nursing, rehab)? @ -No Was there de-escalation of care discussed even if they declined (Discuss DNR or withdrawal of care, Hospice)? DNR status @ -No What co-morbidities impacted this encounter? (DM, HTN, Smoking, COPD, CAD, Cancer, CVA, ARF, Chemo, Hep., AIDS, mental health diagnosis, sleep apnea, morbid obesity)? @ -A-fib Was patient admitted / discharged? Hospital course, mention meds given and route, prescriptions, significant lab abnormalities, going to OR and other pertinent info. @ -Upon arrival patient seen and evaluated in bed 8. Thorough history and physical exam was performed. IV access was established. Laboratory studies are conducted. Chest x-ray was performed. Patient remains on continuous pulse ox and cardiac monitoring. Patient is observed for several hours. She has no signs of hypotension or bradycardia. She was given intravenous fluids. Patient feels fine at this time. She will be discharged home. Instructed to follow-up with her primary care doctor. Return for any new or worsening symptoms. Hold off on her dose of morning dose of these medications. Patient was agreeable to this and she was discharged in stable condition Undiagnosed new problem with uncertain prognosis? @ -No Drug Therapy requiring intensive monitoring for toxicity (Heparin, Nitro, Insulin, Cardizem)? @ -No Were any procedures done? @ -No Diagnosis/symptom? @ -Accidental drug ingestion Acute, or Chronic, or Acute on Chronic? @ -Acute Uncomplicated (without systemic symptoms) or Complicated (systemic symptoms)? @ -Complicated Side effects of treatment? @ -No Exacerbation, Progression, or Severe Exacerbation? @ -No Poses a threat to life or bodily function? How? (Chest pain, USA, GA, pneumonia, PE, COPD, DKA, ARF, appy, cholecystitis, CVA, Diverticulitis, Homicidal, Suicidal, threat to staff... and all critical care pts) @ -No - Lab Data Result diagrams: 11/24/24 01:05 11/24/24 01:05 Lab Results 11/24/24 11/24/24 11/24/24 Range/Units 01:05 01:05 01:05 WBC 8.3 (3.8-10.6) k/uL RBC 4.32 (3.80-5.40) m/uL Hgb 12.0 (11.4-16.0) gm/dL Hct 35.7 (34.0-46.0) % MCV 82.8 (80.0-100.0) fL MCH 27.9 (25.0-35.0) pg MCHC 33.7 (31.0-37.0) g/dL RDW 14.4 (11.5-15.5) % Plt Count 246 (150-450) k/uL MPV 7.8 Neutrophils % 61 % Lymphocytes % 27 % Monocytes % 7 % Eosinophils % 4 % Basophils % 0 % Neutrophils # 5.0 (1.3-7.7) k/uL Lymphocytes # 2.2 (1.0-4.8) k/uL Monocytes # 0.6 (0-1.0) k/uL Eosinophils # 0.3 (0-0.7) k/uL Basophils # 0.0 (0-0.2) k/uL PT 23.9 H (10.0-12.5) sec INR 2.4 H (<1.2) APTT 27.7 (22.0-30.0) sec Sodium 133 L (137-145) mmol/L Potassium 4.0 (3.5-5.1) mmol/L Chloride 96 L (98-107) mmol/L Carbon Dioxide 27 (22-30) mmol/L Anion Gap 10 mmol/L BUN 19 H (7-17) mg/dL Creatinine 0.81 (0.52-1.04) mg/dL Est GFR (CKD-EPI)AfAm 79 (>60 ml/min/1.73 sqM) Est GFR (CKD-EPI)NonAf 69 (>60 ml/min/1.73 sqM) Glucose 156 H (74-99) mg/dL Calcium 9.8 (8.4-10.2) mg/dL Magnesium 1.7 (1.6-2.3) mg/dL Total Bilirubin 0.6 (0.2-1.3) mg/dL AST 25 (14-36) U/L ALT 22 (4-34) U/L Alkaline Phosphatase 83 (38-126) U/L Troponin I (0.000-0.034) ng/mL Total Protein 6.3 (6.3-8.2) g/dL Albumin 3.7 (3.5-5.0) g/dL 11/24/24 Range/Units 01:05 WBC (3.8-10.6) k/uL RBC (3.80-5.40) m/uL Hgb (11.4-16.0) gm/dL Hct (34.0-46.0) % MCV (80.0-100.0) fL MCH (25.0-35.0) pg MCHC (31.0-37.0) g/dL RDW (11.5-15.5) % Plt Count (150-450) k/uL MPV Neutrophils % % Lymphocytes % % Monocytes % % Eosinophils % % Basophils % % Neutrophils # (1.3-7.7) k/uL Lymphocytes # (1.0-4.8) k/uL Monocytes # (0-1.0) k/uL Eosinophils # (0-0.7) k/uL Basophils # (0-0.2) k/uL PT (10.0-12.5) sec INR (<1.2) APTT (22.0-30.0) sec Sodium (137-145) mmol/L Potassium (3.5-5.1) mmol/L Chloride (98-107) mmol/L Carbon Dioxide (22-30) mmol/L Anion Gap mmol/L BUN (7-17) mg/dL Creatinine (0.52-1.04) mg/dL Est GFR (CKD-EPI)AfAm (>60 ml/min/1.73 sqM) Est GFR (CKD-EPI)NonAf (>60 ml/min/1.73 sqM) Glucose (74-99) mg/dL Calcium (8.4-10.2) mg/dL Magnesium (1.6-2.3) mg/dL Total Bilirubin (0.2-1.3) mg/dL AST (14-36) U/L ALT (4-34) U/L Alkaline Phosphatase (38-126) U/L Troponin I <0.012 (0.000-0.034) ng/mL Total Protein (6.3-8.2) g/dL Albumin (3.5-5.0) g/dL Disposition Clinical Impression: Medication overdose Disposition: HOME SELF-CARE Condition: Stable Instructions (If sedation given, give patient instructions): Chest Wall Pain (ED) Additional Instructions: Please follow-up with your primary care doctor for further evaluation of your symptoms. Return to the emergency department for any new or worsening symptoms Is patient prescribed a controlled substance at d/c from ED?: No Referrals: David Larios MD [Primary Care Provider] - 1-2 days Time of Disposition: 02:46
[2024-11-24 02:59] VITALS: BP 140/73; PULSE 86
== END 2024-11-24 02:59 | disposition home or self-care (01) ==
LOC: EC 00:08
DX: T50.911A Poisoning by multiple unspecified drugs, medicaments and biological substances, accidental (unintentional), initial encounter (principal); I48.91 Unspecified atrial fibrillation; Z88.0 Allergy status to penicillin; Z88.1 Allergy status to other antibiotic agents; Z88.2 Allergy status to sulfonamides; Z88.5 Allergy status to narcotic agent; Z88.6 Allergy status to analgesic agent; Z91.09 Other allergy status, other than to drugs and biological substances; Z88.8 Allergy status to other drugs, medicaments and biological substances
CPT/HCPCS: 36415; 71046; 80053; 83735; 84484; 85025; 85610; 85730; 93005; 96360; 99285

== ENCOUNTER → 2024-12-22 | Outpatient (CLI) | payer MEDICARE ==
--- NOTE | 2024-12-22 14:26 | MM ---
Reason for Exam: Screening (asymptomatic). Last mammogram was performed 1 year(s) and 3 month(s) ago. Patient History: Menarche at age 8. First Full-Term at age 22. Hysterectomy at age 71. Postmenopausal. Endometrial cancer, age 71. Risk Values: Alecia 5 year model risk: 1.6%. NCI Lifetime model risk: 2.3%. Prior Study Comparison: 09/24/2020 Bilateral MG 3D screening mammo w/cad, [facility]. 08/06/2022 Bilateral MG 3D screening mammo w/cad, [facility]. 09/23/2023 Bilateral MG 3D screening mammo w/cad, [facility]. Tissue Density: There are scattered areas of fibroglandular density. Findings: Analyzed By CAD. There is no suspicious group of microcalcifications or new suspicious mass in either breast. Overall Assessment: Benign, BI-RAD 2 Management: Screening Mammogram of both breasts in 1 year. . Patient should continue monthly self-breast exams. A clinical breast exam by your physician is recommended on an annual basis. This exam should not preclude additional follow-up of suspicious palpable abnormalities. Note on Alecia scores and lifetime risk: 1. A Alecia score greater than 3% is considered moderate risk. If this is the case, consider specialist referral to assess eligibility for a risk reducing agent. 2. If overall lifetime risk for the development of breast cancer is 20% or higher, the patient may qualify for future screening with alternating mammogram and breast MRI. [facility], , 12/22/2024 2:23 PM. Electronically signed and approved by: Ryan Diop M.D. Radiologis
== END | disposition home or self-care (01) ==
LOC: RADMAMWWP 13:48
PROVIDERS: ATTEND Pediatrics
DX: Z12.31 Encounter for screening mammogram for malignant neoplasm of breast (principal); R92.323 Mammographic fibroglandular density, bilateral breasts; Z78.0 Asymptomatic menopausal state
CPT/HCPCS: 77063; 77067

== ENCOUNTER → 2025-01-19 | Outpatient (CLI) | payer MEDICARE ==
--- NOTE | 2025-01-19 17:46 | XR ---
EXAMINATION TYPE: XR ankle complete LT DATE OF EXAM: 01/19/2025 5:42 PM COMPARISON: None. CLINICAL INDICATION: Female, 79 years old with history of M25.572, TECHNIQUE: XR ankle complete LT, views submitted for evaluation. FINDINGS: There is no evidence for fracture or dislocation. Well-corticated ossific density adjacent to the med ial malleolus is likely chronic in nature. Lateral soft tissue swelling noted. The overlying soft tis nadiya appears unremarkable. Ankle mortise is intact. Soft tissues are within normal limits. IMPRESSION: 1. No evidence for acute fracture. [facility], , 01/19/2025 5:44 PM
--- NOTE | 2025-01-19 17:49 | XR ---
EXAMINATION TYPE: XR foot complete LT DATE OF EXAM: 01/19/2025 5:42 PM COMPARISON: None. CLINICAL INDICATION: Female, 79 years old with history of M79.672, pain TECHNIQUE: Frontal, lateral, and oblique images of the left foot are obtained. FINDINGS: There is no acute fracture/dislocation evident in the left foot. The joint spaces in the left foot appear within normal limits. The overlying soft tissue appears unremarkable. IMPRESSION: There is no acute fracture or dislocation in the left foot. [facility], , 01/19/2025 5:46 PM
== END | disposition home or self-care (01) ==
LOC: RADXRMAIN 17:01
PROVIDERS: ATTEND Pediatrics
DX: M79.672 Pain in left foot (principal); M25.572 Pain in left ankle and joints of left foot

== ENCOUNTER 2025-03-20 09:46 | Emergency (ER) | payer MEDICARE ==
[2025-03-20] MEDS: IBUPROFEN 600 MG TAB PO STA (10:56)
--- NOTE | 2025-03-20 11:17 | ED ---
General Adult HPI - General Source: patient, family, EMS, RN notes reviewed, old records reviewed Mode of arrival: EMS Limitations: no limitations <Kiran Vieira - Last Filed: 03/20/25 12:40> <Vu Tello - Last Filed: 03/20/25 15:46> - General Chief complaint: Extremity Problem,Nontraumatic Stated complaint: L Hip Pain Time Seen by Provider: 03/20/25 09:54 - History of Present Illness Initial comments: 79-year-old female presents with complaints of left-sided hip pain. States 4 days ago she was bending over to pick something up when she felt a sudden jolt of pain in her left hip and some pain in the left lower side of her back. Reports she was able to continue her daily activities of living after this initial incident, was taking some ibuprofen which seemed to help the pain and she was able to continue to weight-bear while using her walker on that left leg. Reports this morning she got up from the toilet and was trying to move a towel that was on the ground with her left foot and when she moved her left foot laterally she felt a significant increase in pain in her left hip and was then no longer able to weight-bear on the left leg. Reports at this point in time she want to come to the ER for further evaluation. (Kiran Vieira) - Related Data Home Medications Medication Instructions Recorded Confirmed ALPRAZolam [Xanax] 0.25 mg PO BID PRN 06/19/15 11/07/24 Montelukast [Singulair] 10 mg PO HS 06/19/15 11/07/24 Pravastatin Sodium [Pravachol] 40 mg PO W/SUPPER 06/19/15 11/07/24 Levothyroxine Sodium [Synthroid] 100 mcg PO DAILY 06/04/17 11/07/24 Acetaminophen [Tylenol] 1,000 mg PO Q6H PRN 10/07/17 11/07/24 Albuterol Sulfate [Proventil Hfa] 2 puff INHALATION RT-Q6H PRN 12/14/17 11/07/24 Albuterol Nebulized [Ventolin 2.5 mg INHALATION RT-QID PRN 04/19/21 11/07/24 Nebulized] oxyBUTYnin chloride [Ditropan] 5 mg PO BID 04/19/21 11/07/24 Flecainide [Tambocor] 50 mg PO Q12HR 11/24/23 11/07/24 Fluticasone Nasal [place] [Flonase 1 spray EA NOSTRIL DAILY PRN 11/24/23 11/07/24 Nasal [place]] L.acidoph,Paracasei, B.lactis 1 cap PO DAILY 11/24/23 11/07/24 [Probiotic] Loratadine 10 mg PO DAILY PRN 11/24/23 11/07/24 Triamterene/Hydrochlorothiazid 1 cap PO DAILY 11/24/23 11/07/24 [Triamterene-Hctz 37.5-25 mg Cp] Warfarin [Coumadin] 2.5 mg PO SUTUTHSA@209911/24/23 11/07/24 metroNIDAZOLE 1% GEL [Metrogel 1%] 1 applic TOPICAL DAILY PRN 11/24/23 11/07/24 Calcium Carb/Mag Ox/Zinc Sulf 1 tab PO TID 11/07/24 11/07/24 [Hud-Qhz-Vstl 334-134-5 mg Tab] Cholecalciferol [Vitamin D3 (125 125 mcg PO DAILY 11/07/24 11/07/24 Mcg = 5000 Iu)] Fluticasone Propionate 220 Mcg 2 puff INHALATION RT-BID PRN 11/07/24 11/07/24 [Flovent 220 Mcg Inhaler] Ibuprofen [Motrin] 800 mg PO Q8H PRN 11/07/24 11/07/24 Magnesium Gummies 100 mg PO DAILY 11/07/24 11/07/24 Warfarin [Coumadin] 5 mg PO MOWEFR@209911/07/24 11/07/24 Previous Rx's Medication Instructions Recorded Losartan [Cozaar] 25 mg PO DAILY #30 tab 11/25/23 Cyclobenzaprine [Flexeril] 5 mg PO TID #20 tab 11/07/24 Ketorolac [Toradol] 10 mg PO Q8HR #15 tab 11/07/24 Allergies Allergy/AdvReac Type Severity Reaction Status Date / Time adhesive Allergy Rash/Hives Verified 03/20/25 09:54 budesonide [From Symbicort] Allergy Rash/Hives Verified 03/20/25 09:54 formoterol fumarate Allergy Rash/Hives Verified 03/20/25 09:54 [From Symbicort] naproxen sodium [From Aleve] Allergy Rash/Hives Verified 03/20/25 09:54 niacin Allergy Rapid Verified 03/20/25 09:54 Heart Rate Penicillins Allergy Rash/Hives Verified 03/20/25 09:54 prednisone Allergy Rash/Hives/Shortness Verified 03/20/25 09:54 of Breath Sulfa (Sulfonamide Allergy Rash/Hives Verified 03/20/25 09:54 Antibiotics) aspirin AdvReac Unknown Verified 03/20/25 09:54 baclofen AdvReac "pees Verified 03/20/25 09:54 pants" codeine AdvReac Abdominal Verified 03/20/25 09:54 Pain levofloxacin [From Levaquin] AdvReac Chest Pain Verified 03/20/25 09:54 moxifloxacin HCl AdvReac Rapid Verified 03/20/25 09:54 [From Avelox] Heart Rate ondansetron [From Zofran] AdvReac Constipatio Verified 03/20/25 09:54 n maxzide(takes Dyazide) AdvReac See Uncoded 03/20/25 09:54 Comments Review of Systems ROS Other: All systems not noted in ROS Statement are negative. <Kiran Vieira - Last Filed: 03/20/25 12:40> ROS Other: All systems not noted in ROS Statement are negative. <Vu Tello - Last Filed: 03/20/25 15:46> ROS Statement: Those systems with pertinent positive or pertinent negative responses have been documented in the HPI. Past Medical History Past Medical History: Atrial Fibrillation, Asthma, Cancer, Diabetes Mellitus, Hypertension, Osteoarthritis (OA), Thyroid Disorder Additional Past Medical History / Comment(s): freq diarrhea,states [id number]-[id number]-[id number] controlled, hypothyroidism,rt knee pain, hx kidney stone, rosacea., chronic sinusitis., uterine cancer with radiation tx (may 2017). History of Any Multi-Drug Resistant Organisms: None Reported Past Surgical History: Cholecystectomy, Heart Catheterization, Hysterectomy, Tonsillectomy Additional Past Surgical History / Comment(s): R sided kidney stone surgery, cervical surgery-cone, back pain procedure, colonoscopy Past Anesthesia/Blood Transfusion Reactions: Previous Problems w/ Anesthesia Additional Past Anesthesia/Blood Transfusion Reaction / Comment(s): - DIFFICULT INTUBATION- STATES SHE WAS TOLD SHE NEEDS A GLIDESCOPE.,no problems with prior blood transfusions in 2017 Past Psychological History: Anxiety Smoking Status: Never smoker Past Alcohol Use History: None Reported Past Drug Use History: None Reported - Past Family History Sister(s) Family Medical History: Cancer Additional Family Medical History / Comment(s): pancreatic cancer Brother(s) Family Medical History: Cancer Additional Family Medical History / Comment(s): brain cancer Father Family Medical History: Coronary Artery Disease (CAD), CVA/TIA, Hypertension Additional Family Medical History / Comment(s): Father had CABG. He at age 86yrs Mother Family Medical History: Coronary Artery Disease (CAD), Diabetes Mellitus, H ypertension Additional Family Medical History / Comment(s): Mother at age 69yrs. <Kiran Vieira - Last Filed: 03/20/25 12:40> General Exam Limitations: no limitations <Kiran Vieira - Last Filed: 03/20/25 12:40> - General Exam Comments Initial Comments: GENERAL: This is a -year-old in no apparent distress at the time of examination. Pleasant and cooperative. HEENT: Head is atraumatic, normocephalic. Pupils are equal, round, and reactive to light. Sclerae anicteric. Conjunctivae are clear. Mucus membranes of the mouth are moist. Neck is supple. RESPIRATORY: Clear to auscultation. No wheezes, rales, or rhonchi. No use of accessory muscles. Patient maintaining oxygen saturation greater than 92%. No chest wall tenderness is noted on palpation or with deep breathing. CARDIOVASCULAR: Regular rate and rhythm. S1 and S2 noted. No systolic or diastolic murmur auscultated. No JVD noted. No S3 or S4 noted. GASTROINTESTINAL: No distention noted. Abdomen soft and round. Normal active bowel sounds auscultated x 4 quadrants. No pain or tenderness noted upon palpation. EXTREMITIES: 2+ peripheral pulses. No evidence of peripheral edema. No calf tenderness noted. Tenderness to palpation of the left hip and left lower lumbar region, minimal mobility of the left hip. PSYCHIATRIC: Awake, alert, and oriented X 3. Appropriate affect. Intact judgement and insight. (Kiran Vieira) Course Vital Signs 03/20/25 03/20/25 09:52 12:37 Temperature 98.3 F 98.1 F Pulse Rate 74 75 Respiratory 16 20 Rate Blood Pressure 158/75 136/76 O2 Sat by Pulse 95 99 Oximetry Medical Decision Making <Kiran Vieira - Last Filed: 03/20/25 12:40> <Vu Tello - Last Filed: 03/20/25 15:46> - Medical Decision Making Was pt. sent in by a medical professional or institution (, [facility], [employer], urgent care, hospital, or fci...) When possible be specific @ -No Did you speak to anyone other than the patient for history (EMS, parent, family, police, friend...)? What history was obtained from this source @ -Yes, family. Did you review nursing and triage notes (agree or disagree)? Why? @ -I reviewed and agree with nursing and triage notes Were old charts reviewed (outside hosp., previous admission, EMS record, old EKG, old radiological studies, urgent care reports/EKG's, fci records)? Report findings @ -No old charts were reviewed Differential Diagnosis? @ -Hip strain, hip fracture, hip dislocation, abscess, necrotizing fasciitis, greater trochanteric bursitis, osteoarthritis, this not meant to be fully inclusive list EKG interpreted by me (3pts min.). @ -As above X-rays interpreted by me (1pt min.). @ -Complete lumbar x-ray shows no acute dislocation or fracture, moderate to severe multilevel degenerative disc space narrowing and spondylosis appreciated. Left hip x-ray shows no fracture or dislocation. All interpreted by me. CT interpreted by me (1pt min.). @ -None done U/S interpreted by me (1pt. min.). @ -None done What testing was considered but not performed or refused? (CT, X-rays, U/S, labs)? Why? @ -None What meds were considered but not given or refused? Why? @ -None Did you discuss the management of the patient with other professionals (professionals i.e. [facility]EL Caro, [employer], lab, RT, psych nurse, adoption social worker, lan analyst, teacher, light armored vehicle officer, onsite case manager)? Give summary @ -No Was smoking cessation discussed for >3mins.? @ -No Was critical care preformed (if so, how long)? @ -No Were there social determinants of health that impacted care today? How? (Homelessness, low income, unemployed, alcoholism, drug addiction, transportation, low edu. Level, literacy, decrease access to med. care, intermediate, rehab)? @ -No Was there de-escalation of care discussed even if they declined (Discuss DNR or withdrawal of care, Hospice)? DNR status @ -No What co-morbidities impacted this encounter? (DM, HTN, Smoking, COPD, CAD, Cancer, CVA, ARF, Chemo, Hep., AIDS, mental health diagnosis, sleep apnea, morbid obesity)? @ -None Was patient admitted / discharged? Hospital course, mention meds given and route, prescriptions, significant lab abnormalities, going to OR and other pertinent info. @ -This is a 79-year-old female presenting with complaints of left-sided hip pain and left-sided back pain. Patient reports that for the last 4 to 5 days she has been having left hip pain after bending over and feeling a jolt of pain in her left hip. States that for the following days after the initial incident she was able to bear weight but when she woke up this morning and tried to kick a towel out of the way with her left leg she felt even worse pain and decided come to the ER for further evaluation. Patient received pain medication here as well as underwent left hip x-ray and lumbar x-ray which showed no acute fracture dislocation or significant abnormalities. There was some moderate to severe multilevel degenerative disc space narrowing and spondylosis all interpreted by me. At this time patient was deemed appropriate for discharge, advised to follow-up with her PCP and orthopedic surgeon in the next 1 to 3 days. Patient was advised to take ibuprofen as needed, patient does not usually like to take pain medication. Patient also advised to rest and try not to exert herself too much and use her legs significant amount for the next couple days. Undiagnosed new problem with uncertain prognosis? @ -No Drug Therapy requiring intensive monitoring for toxicity (Heparin, Nitro, Insulin, Cardizem)? @ -No Were any procedures done? @ -No Diagnosis/symptom? @ -Nontraumatic left hip pain Acute, or Chronic, or Acute on Chronic? @ -Acute Uncomplicated (without systemic symptoms) or Complicated (systemic symptoms)? @ -Default Side effects of treatment? @ -No Exacerbation, Progression, or Severe Exacerbation? @ -No Poses a threat to life or bodily function? How? (Chest pain, USA, HI, pneumonia, PE, COPD, DKA, ARF, appy, cholecystitis, CVA, Diverticulitis, Homicidal, Suicidal, threat to staff... and all critical care pts) @ -No (Kiran Vieira) I personally saw the patient and performed the critical portion of the service. I discussed the patient care with the resident or medical student. I directed management, care planning and final disposition of the patient. This includes, but not limited to, review of all lab work, radiological studies, EKG's, consultations, vital signs, and nursing notes. EKG interpreted by me (3pts min.) @As above X-Rays interpreted by me (1 pt min.) @Hip and lumbar spine x-ray shows no acute processes CT interpreted by me ( 1pt min.) @None U/S interpreted by me (1 pt min.) @None Critical care time of 0 minutes excluding separately billable procedures was spent in conjunction with critical care activities provided by the Resident and Attending simultaneously. I was present during no procedures for all critical portions of the procedure and as immediately available to furnish service during the entire procedure. (Vu Tello) Disposition Is patient prescribed a controlled substance at d/c from ED?: No <Kiran Vieira - Last Filed: 03/20/25 12:40> <Vu Tello - Last Filed: 03/20/25 15:46> Clinical Impression: Hip pain Disposition: HOME SELF-CARE Instructions (If sedation given, give patient instructions): Hip Pain (ED) Referrals: David Larios MD [Primary Care Provider] - 1-2 days
--- NOTE | 2025-03-20 11:27 | XR ---
EXAMINATION TYPE: XR Hip LT and AP Pelvis DATE OF EXAM: 03/20/2025 11:19 AM COMPARISON: None. CLINICAL INDICATION: Female, 79 years old with history of L hip pain, TECHNIQUE: A single AP view of the pelvis is obtained. Two views of the left hip are obtained. FINDINGS: There is no acute fracture/dislocation evident in the pelvis. The hip and sacroiliac joints appear s ymmetric and unremarkable. The overlying soft tissue appears unremarkable.Two views of left hip show no acute fracture or dislocation. No focal lytic or sclerotic lesion seen in the proximal left femu r. The overlying soft tissue is unremarkable. IMPRESSION: There is no acute fracture or dislocation in the pelvis or left hip. [facility], , 03/20/2025 11:25 AM
--- NOTE | 2025-03-20 11:29 | XR ---
EXAMINATION TYPE: XR lumbar spine 2 or 3V DATE OF EXAM: 03/20/2025 11:19 AM COMPARISON: None. CLINICAL INDICATION: Female, 79 years old with history of L hip pain, TECHNIQUE: 3 views obtained FINDINGS: There are 5 lumbar type vertebral bodies identified. The lumbar spine shows satisfactory alignment without evidence of acute fracture or dislocation. Vertebral body heights are within normal limits. Moderate to severe multilevel degenerative disc space narrowing and spondylosis. Moderate fa cet joint arthropathy and foraminal encroachment at several levels. The overlying soft tissue appears unremarkable. IMPRESSION: No acute fracture or dislocation is seen in the lumbar spine.ICD 10 NO FRACTURE, INITIAL EVALUATION [facility], , 03/20/2025 11:27 AM
[2025-03-20 12:47] VITALS: BP 136/76; PULSE 75; RESP 20; TEMP 98.1
== END 2025-03-20 12:50 | disposition home or self-care (01) ==
LOC: EC 09:46
DX: M25.552 Pain in left hip (principal); Z88.5 Allergy status to narcotic agent; Z88.8 Allergy status to other drugs, medicaments and biological substances; Z88.0 Allergy status to penicillin; Z88.1 Allergy status to other antibiotic agents; Z88.2 Allergy status to sulfonamides; Z88.6 Allergy status to analgesic agent
CPT/HCPCS: 72100; 73502; 99283